=== PATIENT | male | born 1935 | race Caucasian/White ===

== ENCOUNTER 2018-06-21 13:37 | Inpatient (IN) ==
[2018-06-21] MEDS ORDERED: NITROGLYCERIN SL 0.4 MG/TAB TAB SL PRN (14:54)
[2018-06-21] MEDS ORDERED: ACETAMINOPHEN 325 MG TAB PO PRN (14:54)
[2018-06-21] MEDS ORDERED: PATIENT'S ALLERGY INFO NEEDS ENTERED SCH (15:15)
[2018-06-21] MEDS ORDERED: GLUCOSE 10 TABS/TUBE PO PRN (15:41)
[2018-06-21] MEDS ORDERED: CARBOHYDRATES FOR HYPOGLYCEMIA PO PRN (15:41)
[2018-06-21] MEDS ORDERED: GLUCOSE 40% GEL 15 GM TUBE PO PRN (15:41)
[2018-06-21] MEDS ORDERED: DEXTROSE 50% 50 ML SYRINGE IV PRN (15:41)
[2018-06-21] MEDS ORDERED: GLUCAGON FOR INJ 1 MG VIAL SQ PRN (15:41)
--- NOTE | 2018-06-21 15:41 | History & Physical Report ---
Date of Service June 21, 2018 Assessment & Plan (1) Angina pectoris: (2) CAD (coronary artery disease): Hx CAD s/p CABG Pt presented as direct admission from clinic. Had pharmacologic stress test today for recent symptoms of angina and during test had CP. It was relieved with 1 SL nitro. Also with reported large lateral myocardium ischemia noted on stress test. No further CP and currently CP free EKG: sinus rhythm, RBBB. Troponin:0.027 -Monitor Vitals -Repeat EKG in am -Will troponin -Cardiology consult -Cardiology recommends holding on heparin for now -NPO after midnight for probable cardiac cath tomorrow -Continue metoprolol, ASA, plavix. Pt reports intolerance to statin -Nitro prn CP and repeat EKG for CP (3) HTN (hypertension): -continue losartan, metoprolol -hold tomorrow's HCTZ -monitor BP (4) Diabetes mellitus, type II: A1c: 6.3 on 06/17/18 -Hold metformin while in hospital -monitor BSGs, diabetic diet -Novolog sliding scale per protocol (5) GERD (gastroesophageal reflux disease): -Continue H2 lopez DVT Prophylaxis -Heparin SQ DNR as per discussion with pt Follows with Dr Moore in [place] for routine care Pt was seen with Dr Bolaños. See addendum History of Present Illness Chief Complaint: Abnormal stress test Primary Care Provider: Ankit Morrison MD Pt is 83 y/o M with PMH CAD s/p CABG, DM II, HTN, GERD presented to hospital from out patient cardiac stress testing for abnormal stress test today. Pt was initially seen by Dr Patel in clinic for pre-op exam for cystoscopy on 06/17/18. Pt had reported angina over the past couple of months. He had pharmacologic stress test today and during test had CP. It was relieved with 1 SL nitro. Also with reported large lateral myocardium ischemia. Was directed to hospital for further observation and cardiac cath possibly tomorrow. Pt has been CP free since. Currently denies any complaints. Denies fever/chills, diaphoresis, N/V/D/C, SWIFT, dizziness, syncope, vision changes, neck pain, SOB, orthopnea, palpitations, cough, sore throat, choking, otalgia, rhinorrhea, abdominal pain, paresthesias, weakness, extremity weakness, extremity edema, rashes, urinary symptoms. 06/21/18 Echo- EF: 59%. The left ventricular cavity size is normal. The LV wall thickness is borderline increased (concentric). The left ventricular wall motion is normal. The left ventricular diastolic function is mildly abnormal (grade I). Mild aortic valve sclerosis is present. Aortic stenosis is absent. There is no significant aortic regurgitation. Allergies Allergy/AdvReac Type Severity Reaction Status Date / Time atorvastatin AdvReac Unknown Unknown Unverified 06/21/18 15:40 ezetimibe AdvReac Unknown Unknown Unverified 06/21/18 15:40 lisinopril AdvReac Unknown Cough Verified 06/21/18 15:40 Home Medications Home Medications Medication Instructions Recorded Confirmed Type acetaminophen 650 mg PO TID PRN 06/21/18 06/21/18 History aspirin 81 mg PO DAILY 06/21/18 06/21/18 History betamethasone, augmented 1 applic TOPICAL BID 06/21/18 06/21/18 History clopidogrel [Plavix] 75 mg PO DAILY 06/21/18 06/21/18 History cyanocobalamin (vitamin B-12) 1,000 mcg PO DAILY 06/21/18 06/21/18 History famotidine 20 mg PO BID 06/21/18 06/21/18 History hydrochlorothiazide 12.5 mg PO DAILY 06/21/18 06/21/18 History losartan 50 mg PO DAILY 06/21/18 06/21/18 History metformin 1,000 mg PO BID 06/21/18 06/21/18 History metoprolol tartrate 25 mg PO BID 06/21/18 06/21/18 History nitroglycerin 0.4 mg SUBLINGUAL UD PRN 06/21/18 06/21/18 History polysaccharide iron complex 150 mg PO DAILY 06/21/18 06/21/18 History tamsulosin 0.4 mg PO DAILY 06/21/18 06/21/18 History Past Med/Surg History Medical History Prostatitis (Resolved) GERD (gastroesophageal reflux disease) (Chronic) Diabetes mellitus, type II (Chronic) CAD (coronary artery disease) (Chronic) HTN (hypertension) (Chronic) Surgical History History of coronary artery bypass graft (Resolved) [address] [place] [address] Family History Other CAD (coronary artery disease) Diabetes Social History Communication Ability: Effective Beliefs That Will Affect Care: None Current Living Situation: Spouse Current Living Situation Comment: at home with Other Information That Helps Us Care for You: No Feels Safe at Home: Yes Safety Concerns: Feels Safe At This Time Smoking Status: Never smoker Hx Alcohol Use: No Hx Substance Use: No Review of Systems All systems reviewed & are unremarkable except as noted in HPI & below Physical Exam Vital Signs (Past 24 Hours): Last Vital Signs Temp 37.3 C 06/21/18 14:49 Pulse 104 H 06/21/18 14:49 Resp 18 06/21/18 14:49 BP 163/92 H 06/21/18 14:49 Pulse Ox 100 06/21/18 14:49 Physical Exam: General: no distress, WDWN Head: normocephalic, atraumatic Eyes: conjunctiva non-injected, anicteric ENT: normal inspection external ears, nose, mucous membranes moist Neck: supple, trachea midline Lungs: clear, no respiratory distress, no wheezing/rhonchi/rales CV: RRR, no murmur, no pretibial edema Abd: normal BS, soft, non-tender Ext: no cyanosis, no calf tenderness Neuro: A&O x 3, no focal deficits noted, normal affect Skin: warm, dry Results & Data Laboratory Results Short CBC 06/21/18 Range/Units 15:28 WBC 8.92 (4.8-10.8) K/uL Hgb 11.9 L (14.0-18.0) g/dL Hct 35.2 L (42-52) % Plt Count 261 (130-400) K/uL BMP 06/21/18 15:28 Sodium 133 L Potassium 3.8 Chloride 99 Carbon Dioxide 25 BUN 15 Creatinine 1.17 Glucose 105 H Calcium 9.8 Cardiac Enzymes 06/21/18 Range/Units 15:28 Troponin I 0.027 (0-0.045) ng/ml Liver Function 06/21/18 Range/Units 15:28 Total Bilirubin 0.8 (0.2-1) mg/dl AST 29 (15-37) U/L ALT 37 (12-78) U/L Alkaline Phosphatase 80 (45-117) U/L Albumin 4.4 (3.4-5.0) gm/dl Diagnostic Findings CXR: IMPRESSION: Cardiomegaly with no active disease in the chest. ECG Rate (beats per minute): 92 Rhythm: normal sinus Findings: + RBBB Supervising Physician Co-Signing Physician Notes I have seen and examined the patient and have discussed the case with the provider above. I agree with the assessment and plan as stated. Pt appears comfortable. He is mentating well and is asymptomatic. No respiratory distress. Clear lungs on exam. No evidence of heart failure. Normal cardiac exam. Await heart cath in am. Miky, DO
[2018-06-21 16:00] LABS: Hematocrit (blood only) 35.2 % (42-52); Hemoglobin 11.9 g/dL (14.0-18.0); Lymphocytes % (auto) 9.4 %; Mean Corpuscular Hgb Conc 33.8 g/dL (32-36); Mean Corpuscular Volume 87.3 fL (80-100); Mean Platelet Volume 9.6 fL (7.4-10.4); Neutrophils % (auto) 82.7 %; Platelet Count 261 K/uL (130-400); RDW Coefficient of Variation 13.9 % (11.5-14.5); RDW Standard Deviation 44.4 fL (36.4-46.3); Red Blood Count 4.03 M/uL (4.7-6.1); White Blood Count 8.92 K/uL (4.8-10.8)
[2018-06-21 16:01] LABS: Basophils # (auto) 0.02 K/uL (0-0.2); Basophils % (auto) 0.2 %; Eosinophils % (auto) 1.1 %; Immature Granulocytes # (auto) 0.02 K/uL (0.00-0.02); Immature Granulocytes % (auto) 0.2 %; Lymphocytes # (auto) 0.84 K/uL (1.2-3.4); Monocytes # (auto) 0.57 K/uL (0.11-0.59); Monocytes % (auto) 6.4 %; Neutrophils # (auto) 7.37 K/uL (1.4-6.5)
--- NOTE | 2018-06-21 16:04 | XRay Report ---
SINGLE VIEW CHEST CLINICAL HISTORY: Atypical chest pain. FINDINGS: 2 AP, portable, upright chest radiographs are obtained. No prior studies are available for comparison at the time of dictation. The examination is degraded by portable technique and patient ro tation. The patient is status post midline sternotomy. The heart is enlarged and there is atheroscler otic calcification of the thoracic aorta. The pulmonary vasculature is noncongested. No airspace cons olidation or large pleural effusion is identified. No pneumothorax is seen. The skeletal structures a re osteopenic. The bony thorax is grossly intact. IMPRESSION: Cardiomegaly with no active disease in the chest. Electronically signed by: Tomás Alberto M.D. 06/21/2018 4:03 PM
[2018-06-21 16:27] LABS: Partial Thromboplastin Ratio 0.9; Partial Thromboplastin Time 24.8 Seconds (21.0-31.0); Prothrombin Time 10.1 Seconds (9.0-12.0)
[2018-06-21] MEDS: ASPIRIN 81 MG ECTAB PO SCH (16:35)
[2018-06-21] MEDS: CLOPIDOGREL BISULFATE 75 MG TAB PO SCH (16:37)
[2018-06-21] MEDS: TAMSULOSIN HCL 0.4 MG CAP PO SCH (16:37)
[2018-06-21] MEDS: LOSARTAN POTASSIUM 50 MG TAB PO SCH (16:37)
[2018-06-21 16:38] LABS: Albumin Level 4.4 gm/dl (3.4-5.0); BUN Creatinine Ratio 12.9 (10-20); Calcium 9.8 mg/dl (8.5-10.1); Creatinine Clr Calc Pharmacy 43.9 ml/min; Est GFR (Non-African American) 56.9; Potassium 3.8 mmol/L (3.5-5.1)
[2018-06-21] MEDS: METOPROLOL TARTRATE 25 MG TAB PO SCH ×2 (16:38→20:27)
[2018-06-21 16:43] LABS: Albumin Globulin Ratio 1.2 (0.9-2); Bilirubin,Total 0.8 mg/dl (0.2-1); Globulin 3.7 gm/dl (2.5-4.0); Total Protein 8.1 gm/dl (6.4-8.2); Troponin I 0.027 ng/ml (0-0.045)
[2018-06-21] MEDS: INSULIN ASPART 100 UNITS/ML 3 ML PEN SC SCH ×2 (17:36→20:28)
[2018-06-21] MEDS: HEPARIN SOD 5,000 UNIT/0.5 ML VIAL SQ SCH (21:05)
[2018-06-21] MEDS: FAMOTIDINE 20 MG TAB PO SCH (22:14)
[2018-06-22] MEDS: INSULIN ASPART 100 UNITS/ML 3 ML PEN SC SCH ×4 (07:47→22:03)
[2018-06-22] MEDS: ASPIRIN 81 MG ECTAB PO SCH (07:58)
[2018-06-22] MEDS: HEPARIN SOD 5,000 UNIT/0.5 ML VIAL SQ SCH ×2 (07:58→22:02)
[2018-06-22] MEDS: METOPROLOL TARTRATE 25 MG TAB PO SCH ×2 (07:58→22:01)
[2018-06-22] MEDS: FAMOTIDINE 20 MG TAB PO SCH ×2 (07:58→22:02)
[2018-06-22] MEDS: LOSARTAN POTASSIUM 50 MG TAB PO SCH (07:58)
[2018-06-22] MEDS: TAMSULOSIN HCL 0.4 MG CAP PO SCH (07:58)
[2018-06-22] MEDS: CLOPIDOGREL BISULFATE 75 MG TAB PO SCH (08:11)
--- NOTE | 2018-06-22 09:07 | Cardiology Consultation ---
Date of Consultation June 22, 2018 Assessment & Plan (1) Angina pectoris: Lexiscan nuclear stress test suggesting lateral ischemia. Risk, benefits, alternatives to cardiac catheterization with coronary angiography as well as bypass graft angiography discussed at length. Patient agreeable to proceed. Currently n.p.o. (2) Abnormal nuclear stress test: (3) History of coronary artery bypass graft: Records obtained from [facility]. Coronary artery bypass grafting x5 performed on April 22, 2005 with BECKER to LAD, SVG to ramus, circumflex marginal, and distal right coronary artery, and RPDA without cardiopulmonary bypass. (4) Dyslipidemia, goal LDL below 70: H/o statin intolerance. Consider PCSK9 inhibitor initiation as outpatient. History of Present Illness Reason for Consultation: Angina abnormal nuclear stress test Requesting Physician: Dr. Boalños Attending Physician: Evie Bolaños, History of Present Illness 83-year-old patient sent from the cardiology clinic 06/21/18 after Lexiscan nuclear stress test performed demonstrating lateral ischemia. Patient experience significant anginal symptoms with Lexiscan injection. He was treated with sublingual nitroglycerin. Carries a history of prior coronary artery bypass grafting x5 on April 22, 2005. Patient received left internal mammary artery to left anterior descending artery, SVG to ramus, SVG to circumflex marginal, and, SVG to RPDA, and SVG to distal right coronary artery without cardiopulmonary bypass. No repeat stress testing or coronary angiography since that time. Patient feeling well since admission. No recurrent chest discomfort overnight. No dysrhythmias on telemetry. Chest x-ray within normal limits. Baseline lab studies stable. Nuclear stress test result 06/21/2018: Overall this pharmacologic nuclear stress test reveals a large area of severe ischemia of the lateral myocardium. These findings are most consistent with the distribution of the left circumflex artery. LV function is normal by gated analysis with an estimated left ventricular ejection fraction of 68%. Resting 2D transthoracic echocardiogram result 06/21/2018: The left ventricular cavity size is normal. The LV wall thickness is borderline increased (concentric). The left ventricular wall motion is normal. Calculated LV ejection Fraction = 59% (bi-plane method of discs). The left ventricular diastolic function is mildly abnormal (grade I). Mild aortic valve sclerosis is present. Aortic stenosis is absent. There is no significant aortic regurgitation. Allergies Allergy/AdvReac Type Severity Reaction Status Date / Time atorvastatin AdvReac Unknown Unknown Unverified 06/21/18 15:40 ezetimibe AdvReac Unknown Unknown Unverified 06/21/18 15:40 lisinopril AdvReac Unknown Cough Verified 06/21/18 15:40 Home Medications Home Medications Medication Instructions Recorded Confirmed Type acetaminophen 650 mg PO TID PRN 06/21/18 06/21/18 History aspirin 81 mg PO DAILY 06/21/18 06/21/18 History betamethasone, augmented 1 applic TOPICAL BID 06/21/18 06/21/18 History clopidogrel [Plavix] 75 mg PO DAILY 06/21/18 06/21/18 History cyanocobalamin (vitamin B-12) 1,000 mcg PO DAILY 06/21/18 06/21/18 History famotidine 20 mg PO BID 06/21/18 06/21/18 History hydrochlorothiazide 12.5 mg PO DAILY 06/21/18 06/21/18 History losartan 50 mg PO DAILY 06/21/18 06/21/18 History metformin 1,000 mg PO BID 06/21/18 06/21/18 History metoprolol tartrate 25 mg PO BID 06/21/18 06/21/18 History nitroglycerin 0.4 mg SUBLINGUAL UD PRN 06/21/18 06/21/18 History polysaccharide iron complex 150 mg PO DAILY 06/21/18 06/21/18 History tamsulosin 0.4 mg PO DAILY 06/21/18 06/21/18 History isosorbide mononitrate 30 mg PO QAM #30 tab 06/23/18 Rx nitroglycerin [Nitrostat] 0.4 mg SUBLINGUAL UD PRN #30 tab 06/23/18 Rx Patient History Medical History Prostatitis (Resolved) GERD (gastroesophageal reflux disease) (Chronic) Diabetes mellitus, type II (Chronic) CAD (coronary artery disease) (Chronic) HTN (hypertension) (Chronic) Surgical History History of coronary artery bypass graft (Resolved) [address] [place] [address] Family History Other CAD (coronary artery disease) Diabetes Social History Communication Ability: Effective Beliefs That Will Affect Care: None marital status: Current Living Situation: Spouse Current Living Situation Comment: at home with Other Information That Helps Us Care for You: No Feels Safe at Home: Yes Safety Concerns: Feels Safe At This Time Smoking Status: Never smoker Hx Alcohol Use: No Hx Substance Use: No Review of Systems Pertinent positives noted per HPI, conference of 10 system review otherwise negative. Physical Exam Vital Signs (Past 24 Hours): Last Vital Signs Temp 36.5 C 06/22/18 07:09 Pulse 65 06/22/18 07:09 Resp 18 06/22/18 07:09 BP 147/69 H 06/22/18 07:09 Pulse Ox 97 06/22/18 07:09 Physical Exam: General: NAD, AAO x3, well nourished. HEENT: Normocephalic. Atraumatic. Conjunctiva pink, no scleral icterus. Neck: Soft, 1/4 carotid bruit. The carotid upstrokes are brisk. No JVD. No HJR Heart: Regular normal S-1 and S-2 no S-3 or S-4 gallop. No murmurs or rub appreciated. PMI is not displaced. No RV heave. Lungs: Clear bilateral without rales , rhonchi, or wheeze. Abdomen: Normal bowel sounds. Soft. Nontender. No masses or organomegaly. No abdominal bruits. Extremities: No clubbing, cyanosis, or edema. Pulses: radial=2/4, posterior tibial=2/4. Neuro: Cranial nerves grossly intact. No focal motor deficit.
[2018-06-22] MEDS ORDERED: fentaNYL citrate 100 MCG/2 ML VIAL ONE (11:13)
[2018-06-22] MEDS ORDERED: MIDAZOLAM HCL 1 MG/ML 2ML VIAL ONE (11:13)
--- NOTE | 2018-06-22 11:18 | Pre Anesthesia Assessment ---
Date of Service June 22, 2018 Pre Sedation Assessment Vital Signs Temp Pulse Pulse Resp BP BP Pulse Ox 06/23/18 11:32 36.3 C L 65 18 121/71 96 06/23/18 11:19 06/23/18 06:56 36.6 C 71 18 132/61 99 06/23/18 04:08 36.8 C 73 18 104/68 99 06/23/18 01:43 69 06/22/18 22:45 36.8 C 93 H 18 124/78 97 06/22/18 21:43 133/76 06/22/18 20:43 122/69 06/22/18 19:52 36.2 C L 82 18 116/65 96 06/22/18 19:00 114/68 06/22/18 18:15 123/71 95 06/22/18 17:45 99/64 L 06/22/18 16:45 110/64 06/22/18 16:00 66 06/22/18 15:45 130/74 95 06/22/18 14:45 36.4 C L 67 18 167/79 H 95 06/22/18 14:42 64 194/93 H 06/22/18 14:12 65 18 186/93 H 100 06/22/18 13:57 61 18 180/85 H 97 06/22/18 13:50 65 06/22/18 13:42 36.5 C 63 18 148/77 H 100 Pulse Ox Pulse Ox 06/23/18 11:32 06/23/18 11:19 99 97 06/23/18 06:56 06/23/18 04:08 06/23/18 01:43 06/22/18 22:45 06/22/18 21:43 06/22/18 20:43 06/22/18 19:52 06/22/18 19:00 06/22/18 18:15 06/22/18 17:45 06/22/18 16:45 06/22/18 16:00 06/22/18 15:45 06/22/18 14:45 06/22/18 14:42 06/22/18 14:12 06/22/18 13:57 06/22/18 13:50 06/22/18 13:42 Cardiovascular + regular rate and + regular rhythm + S1 normal and + S2 normal Respiratory normal respiratory effort, lungs clear to auscultation Pre-Sedation Airway Assessment Smoking Status: Never smoker Procedure Planning Contraindications for Sedation: none Current Medications Reviewed: Yes Notes The planned sedation has been discussed with the patient. Informed Consent was obtained. I have identified the patient, determined the appropriateness of sedation and have assessed the patient immediately prior to the procedure. All medicine(s) and interventions are by my order.
--- NOTE | 2018-06-22 12:03 | Hospitalist Progress Note ---
Date of Service June 22, 2018 Assessment & Plan (1) CAD (coronary artery disease): Hx CAD s/p CABG abnormal nuc stress test on 06/21 in the Cardiology clinc. cardiac cath today revealing occluded grafts-groin site is covered and healing well. Some lightheadedness with sitting up in bed, and wasn't feeling well enough to continue with dinner 2/2 lightheadedness. Giving 500cc NSS now. BP 120 systolic but symptomatic when changing position Per nursing also had an issue with feeling orthostatic when getting out of bed earlier. Will monitor for now and orthostatics qshift. Currently in bed and on a bed alarm. Patient with chest pain on exertion. Defer to Cardiology for medication adjustments-currently started Imdur 30mg PO qAM Cont ASA, Plavix, Cozaar 50 daily, Lopressor 50 BID Nitro PRN (2) HTN (hypertension): -continue losartan, metoprolol -cont holding HCTZ while lightheaded (3) Diabetes mellitus, type II: A1c: 6.3 on 06/17/18 -Hold metformin while in hospital -monitor BSGs, diabetic diet -Novolog sliding scale per protocol -if he continues to not require Novolog would stop fingersticks and novolog sliding scale. (4) GERD (gastroesophageal reflux disease): -Continue H2 lopez (5) DVT prophylaxis: Heparin DNR Follows with Dr Moore in [place] for routine care Dispo-pending post-cath recommendations from Cardiology. PT/OT ordered in setting of lightheadedness. Evie Bolaños DO [facility] Hospitalist Subjective felt lightheaded this afternoon post-cath wasn't able to finish his dinner per his report denies pain or chest pain some lightheadness with standing and walking to bathroom no vomiting BP is stable denies back pain in setting of arterial stick today. Physical Exam Vital Signs (Past 24 Hours): Last Vital Signs Temp 36.5 C 06/22/18 07:09 Pulse 70 06/22/18 08:00 Resp 18 06/22/18 07:09 BP 147/69 H 06/22/18 07:09 Pulse Ox 97 06/22/18 07:09 CONSTITUTIONAL: WNWD, vitals as above, generally well-appearing when lying supine. EYES: normal conjuctivae, no scleral icterus RESPIRATORY: clear to auscultation bilaterally, no crackles, rales or wheezes, normal respiratory effort CARDIOVASCULAR: regular rate and rhythm, S1 and 2 heard without murmurs, gallops or rubs, no JVD, no peripheral edema GASTROINTESTINAL: normal bowel sounds, soft, nontender, nondistended, no CVA or lower back tenderness. EXTREMITIES: R upper thigh area visualized, covered with guaze that is c/d/i, no swelling, palpable femoral pulses, no ecchymosis. MUSCULOSKELETAL: strength 5/5 throughout, head is normocephalic and atraumatic, SKIN: warm and dry NEUROLOGIC: No facial palsy, no dysarthria. CN 2-12 grossly intact, no sensory deficit, normal cognition, normal speech PSYCHIATRIC: alert cooperative and oriented to person, place and time. Results & Data Laboratory Results Short CBC 06/21/18 Range/Units 15:28 WBC 8.92 (4.8-10.8) K/uL Hgb 11.9 L (14.0-18.0) g/dL Hct 35.2 L (42-52) % Plt Count 261 (130-400) K/uL BMP 06/21/18 15:28 Sodium 133 L Potassium 3.8 Chloride 99 Carbon Dioxide 25 BUN 15 Creatinine 1.17 Glucose 105 H Calcium 9.8 Cardiac Enzymes 06/21/18 Range/Units 15:28 Troponin I 0.027 (0-0.045) ng/ml Liver Function 06/21/18 Range/Units 15:28 Total Bilirubin 0.8 (0.2-1) mg/dl AST 29 (15-37) U/L ALT 37 (12-78) U/L Alkaline Phosphatase 80 (45-117) U/L Albumin 4.4 (3.4-5.0) gm/dl Medications Administered Current Inpatient Medications Acetaminophen (Tylenol) 650 mg PO Q4H PRN PRN Reason: Pain or Fever Stop: 07/21/18 14:53 Aspirin (Ecotrin Ectab) 81 mg PO DAILY [facility] Stop: 07/21/18 15:44 Last Admin: 06/22/18 07:58 Dose: 81 mg Documented by: Clopidogrel Bisulfate (Plavix) 75 mg PO DAILY [facility] Stop: 07/21/18 15:44 Last Admin: 06/22/18 08:11 Dose: 75 mg Documented by: Dextrose (Dextrose 50%) 25 - 50 ml IV UD PRN; Protocol PRN Reason: Hypoglycemia Protocol Stop: 07/21/18 15:40 Famotidine (Pepcid) 20 mg PO BID [facility] Stop: 07/21/18 20:59 Last Admin: 06/22/18 07:58 Dose: 20 mg Documented by: Glucagon (Glucagen) 1 mg SQ UD PRN; Protocol PRN Reason: Hypoglycemia Protocol Stop: 07/21/18 15:40 Glucose (Glucose 40%) 15 - 30 gm PO UD PRN; Protocol PRN Reason: Hypoglycemia Protocol Stop: 07/21/18 15:40 Glucose (Dex4 Glucose) 4 - 8 tabs PO UD PRN; Protocol PRN Reason: Hypoglycemia Protocol Stop: 07/21/18 15:40 Heparin Sodium (Porcine) (Heparin Sodium (Porcine)) 5,000 units SQ Q12 [facility] Stop: 07/21/18 20:59 Last Admin: 06/22/18 07:58 Dose: Not Given Documented by: Insulin Aspart (Novolog Flexpen) 0 units SC ACHS [facility] Stop: 07/21/18 16:29 Last Admin: 06/22/18 07:47 Dose: Not Given Documented by: Losartan Potassium (Cozaar) 50 mg PO DAILY [facility] Stop: 07/21/18 15:44 Last Admin: 06/22/18 07:58 Dose: 50 mg Documented by: Metoprolol Tartrate (Lopressor) 25 mg PO BID [facility] Stop: 07/21/18 15:39 Last Admin: 06/22/18 07:58 Dose: 25 mg Documented by: Miscellaneous (Carbohydrates For Hypoglycemia) 15 - 30 gm PO UD PRN PRN Reason: Hypoglycemia Treatment Stop: 07/21/18 15:40 Nitroglycerin (Nitrostat) 0.4 mg SL UD PRN PRN Reason: Chest Pain Stop: 07/21/18 14:53 Tamsulosin HCl (Flomax) 0.4 mg PO DAILY [facility] Stop: 07/21/18 15:44 Last Admin: 06/22/18 07:58 Dose: 0.4 mg Documented by:
--- NOTE | 2018-06-22 13:05 | Post Anesthesia Assessment ---
Date of Service June 22, 2018 Post Sedation Assessment Vital Signs Temp Pulse Pulse Resp BP BP Pulse Ox 06/23/18 11:32 36.3 C L 65 18 121/71 96 06/23/18 11:19 06/23/18 06:56 36.6 C 71 18 132/61 99 06/23/18 04:08 36.8 C 73 18 104/68 99 06/23/18 01:43 69 06/22/18 22:45 36.8 C 93 H 18 124/78 97 06/22/18 21:43 133/76 06/22/18 20:43 122/69 06/22/18 19:52 36.2 C L 82 18 116/65 96 06/22/18 19:00 114/68 06/22/18 18:15 123/71 95 06/22/18 17:45 99/64 L 06/22/18 16:45 110/64 06/22/18 16:00 66 06/22/18 15:45 130/74 95 06/22/18 14:45 36.4 C L 67 18 167/79 H 95 06/22/18 14:42 64 194/93 H 06/22/18 14:12 65 18 186/93 H 100 06/22/18 13:57 61 18 180/85 H 97 06/22/18 13:50 65 06/22/18 13:42 36.5 C 63 18 148/77 H 100 Pulse Ox Pulse Ox 06/23/18 11:32 06/23/18 11:19 99 97 06/23/18 06:56 06/23/18 04:08 06/23/18 01:43 06/22/18 22:45 06/22/18 21:43 06/22/18 20:43 06/22/18 19:52 06/22/18 19:00 06/22/18 18:15 06/22/18 17:45 06/22/18 16:45 06/22/18 16:00 06/22/18 15:45 06/22/18 14:45 06/22/18 14:42 06/22/18 14:12 06/22/18 13:57 06/22/18 13:50 06/22/18 13:42 Post Sedation Plan On clinical assessment, the patient appears to have tolerated the sedation without complications. Patient is recovering as anticipated. Patient will continue to be monitored by nursing and may be discharged when sedation discharge criteria are met per below protocol. Upon Completions of procedure and additional 15 minutes continue every 5 minute vital signs and the P.A.R. score; then discharge to a Phase I or Fast Track to Phase II per the following guidelines: * Discharge Patient to appropriate Phase II area if PAR is 8 or greater or return to pre- procedure baseline. The post - procedure orders will be as directed. * If PAR score is less than 8 or not return to pre-procedure baseline then patient will follow Phase I monitoring till PAR is reached for Phase II. The Phase I may be done in procedure room or may call to secure a Phase I area. * If naloxone or flumazenil are used for reversal, hold in Phase I for continued monitoring from when last reversal dose was given for a minimum of 60 minutes or longer pending the nurse and/or physician discretion of patient condition before discharge to Phase II. Please call the Sedation Physician to re-evaluate and complete post-note for discharge to Phase II area. Do NOT discharge from procedure sedation or Phase 1 until post- sedation evaluation note is complete by procedure /sedation MD Sedation Discharge Instructions to be given to the patient at discharge to home.
--- NOTE | 2018-06-22 13:06 | Cardiac Catheterization ---
Cardiac Cath Procedure Full Procedure Date June 22, 2018 Pre-Procedure Diagnosis Pre-Procedure Diagnosis: Positive Stress Test and CAD AUC Score AUC Score: 8 Post-Procedure Diagnosis Post-Procedure Diagnosis: Severe CAD Procedure(s) Performed Procedure(s) Performed: Coronary Angiography, Left Heart Cath, Bypass Graft Angiography and Femoral Artery Angiography Rope [employer] Machine Operator Prieto Robertson DO Surgeon/President(s) Soha DIRECTOR OF STRATEGIC COMMUNICATIONS Estimated Blood Loss Estimated Blood Loss: 8cc Medication(s) Medication(s): Lidocaine 1% and Versed Summary of Findings Severe [place]og[place] vessel CAD LAD occluded Severe diffuse left circumflex disease including heavily calcified 90% ostial stenosis Occluded mid RCA 3/5 bypass grafts occluded including SVG to distal RCA, SVG to OM, and SVG to ramus Patent BECKER to LAD Patent SVG to RPDA Hemodynamics Rest Ao:: 163/63/99 Final Ao: 179/70/114 LV: 168//12 Recommendations Recommendations: Medical Therapy and/or Counseling Specimens Specimens: None Radiation Exposure (mGy) 1791 Contrast (mls) 150 Anesthesia light sedation, Start 1148, End 1248. Sedation monitor: Tanja MAI Procedural Complication(s) None Disposition PCU ACC Data: Scalder Cardiac Status Clinical evaluation leading to the procedure CAD Presenation: Positive Stress Test and Stable angina Anginal Classification: CCS II Heart Failure: No Stress Testing w/SPECT MPI: Yes - Positive and Risk/Extent of Ischemia (High) Coronary Anatomy Dominant: Right Left Main (% Stenosis): Distal (80%) LAD (% Stenosis): Ostial (100%) Circumflex (% Stenosis): Ostial (90%) and Proximal (80% in area of severe focal calcification. Otherwise, 50% diffuse severely calcified) OM1 (% Stenosis): Mid (Moderate diffuse disease 40% fills via right to left collaterals) RCA (% Stenosis): Ostial (60%) R PDA (% Stenosis): Proximal (50-60% diffuse) R PL1 (% Stenosis): Mid (30-40% diffuse) AM (% Stenosis): Mid (90%) Ramus (% Stenosis): Ostial (99%) Grafts - LAD (%): Proximal (30% proximal BECKER) Grafts - Circumflex (%): Proximal (100%) Grafts - RCA (%): Ostial (SVG to distal RCA 100% proximal occlusion.) and Proximal (40% stenosis of SVG to RPDA, otherwise graft is patent ) Grafts - Ramus (%): Proximal (100%) Diagnostic Physicians Name: Prieto Robertson DO Status: Urgent Closure Device Percutaneous Entry Location: Femoral Closure Device: Mynx (failed) and None-Manual Hold Recommendations: Medical Therapy and/or Counseling Intraprocedure Events Significant Disection: No Perforation: No
[2018-06-22] MEDS: ISOSORBIDE MONO EXTENDED REL 30 MG TABCR PO SCH (15:03)
[2018-06-22] MEDS ORDERED: SODIUM CHLORIDE 0.9% 500 ML IV SCH (18:45)
[2018-06-23 07:29] LABS: Hematocrit (blood only) 31.5 % (42-52); Hemoglobin 10.5 g/dL (14.0-18.0); Mean Corpuscular Hgb Conc 33.3 g/dL (32-36); Mean Platelet Volume 9.3 fL (7.4-10.4); Platelet Count 222 K/uL (130-400); RDW Coefficient of Variation 13.9 % (11.5-14.5); RDW Standard Deviation 44.8 fL (36.4-46.3); Red Blood Count 3.58 M/uL (4.7-6.1); White Blood Count 7.81 K/uL (4.8-10.8)
[2018-06-23] MEDS: FAMOTIDINE 20 MG TAB PO SCH (07:46)
[2018-06-23] MEDS: ISOSORBIDE MONO EXTENDED REL 30 MG TABCR PO SCH (07:46)
[2018-06-23] MEDS: LOSARTAN POTASSIUM 50 MG TAB PO SCH (07:46)
[2018-06-23] MEDS: ASPIRIN 81 MG ECTAB PO SCH (07:46)
[2018-06-23] MEDS: CLOPIDOGREL BISULFATE 75 MG TAB PO SCH (07:46)
[2018-06-23] MEDS: TAMSULOSIN HCL 0.4 MG CAP PO SCH (07:46)
[2018-06-23] MEDS: METOPROLOL TARTRATE 25 MG TAB PO SCH (07:47)
[2018-06-23] MEDS: INSULIN ASPART 100 UNITS/ML 3 ML PEN SC SCH ×2 (07:47→12:00)
[2018-06-23] MEDS: HEPARIN SOD 5,000 UNIT/0.5 ML VIAL SQ SCH (07:49)
[2018-06-23 08:04] LABS: BUN Creatinine Ratio 14.9 (10-20); Creatinine Clr Calc Pharmacy 34.7 ml/min; Est GFR (African American) 49.6; Est GFR (Non-African American) 42.8; Potassium 4.1 mmol/L (3.5-5.1)
[2018-06-23 11:33] VITALS: BP 121/71; PULSE 65; TEMP 97.3; O2SAT 96
--- NOTE | 2018-06-23 12:00 | Hospitalist Progress Note ---
Date of Service June 23, 2018 Assessment & Plan (1) CAD (coronary artery disease): Hx CAD s/p CABG abnormal nuc stress test on 06/21 in the Cardiology clinc. cardiac cath revealed occluded grafts-groin site is covered and healing well. Some lightheadedness has resolved Got 500cc NSS. Defer to Cardiology for medication adjustments-currently started Imdur 30mg PO qAM Cont ASA, Plavix, Cozaar 50 daily, Lopressor 50 BID Nitro PRN (2) HTN (hypertension): -continue losartan, metoprolol -cont holding HCTZ while lightheaded (3) Diabetes mellitus, type II: A1c: 6.3 on 06/17/18 -Hold metformin resume on discharge -monitor BSGs, diabetic diet -Novolog sliding scale per protocol -if he continues to not require Novolog would stop fingersticks and novolog sliding scale. (4) GERD (gastroesophageal reflux disease): -Continue H2 lopez (5) DVT prophylaxis: Heparin DNR Follows with Dr Moore in [place] for routine care Dispo-Likely DC today. PT-OK for DC Home/OT ordered in setting of lightheadedness. Subjective Feeling well today. Ready for DC ROS-No Headache, No Visual Changes, No Nausea, No Vomiting, No Fever, No Chills, No Neck Pain or Stiffness, No Chest Pain, No Palpitations, No SOB, No LOCKETT, No Cough, No Sputum, No Wheezing, No Abdominal Pain, No Diarrhea, No Hematemesis, No Hemoptysis, No Unexpected Weight Loss, No Flank pain, No Melena, No Hematochezia, No Frequency, No Urgency, No Burning, No Hematuria, No Rashes, No Diaphoresis. Appetite is Normal Physical Exam Gen-AAO x 3, NAD, Afebrile Head-NCAT, EOMI, PERRLA, Anicteric Sclera, No Posterior Pharyngeal Erythema Neck-Supple, No JVD, No Thyromegaly, No Masses, No LAD, No Bruits Lungs-Clear to Auscultation Bilaterally, No Rales, No Rhonchi, No Wheezing, No Crepitus Chest-No S4, +S1, +S2, No S3, No Murmurs, No Rubs, No Gallops, No Ectopy Abdomen-Soft, Bowel Sounds Present, Non Tender, Non Distended, No Hepatomegaly, No Splenomegaly, No Palpable Masses, No Rebound, No Rigidity, No Guarding Musculoskeletal-Full Range of Motion Bilaterally, No CVAT Extremities-No Cyanosis, No Clubbing, No Edema, Groin check OK, no Bruit, Thrill, Ecchymosis Nuero-Cranial Nerves II-XII grossly intact, Motor WNL, DTRs WNL, Strength WNL, Non Focal Psych-Normal Mood Physical Exam Vital Signs (Past 24 Hours): Last Vital Signs Temp 36.3 C L 06/23/18 11:32 Pulse 65 06/23/18 11:32 Resp 18 06/23/18 11:32 BP 121/71 06/23/18 11:32 Pulse Ox 96 06/23/18 11:32 Results & Data Laboratory Results Current Diagnoses Type 2 diabetes mellitus without complications (06/21/18) Essential (primary) hypertension (06/21/18) Angina pectoris, unspecified (06/21/18) Atherosclerotic heart disease of [place] coronary artery without angina pectoris (06/21/18) Gastro-esophageal reflux disease without esophagitis (06/21/18) Allergies atorvastatin Adverse Reaction (Unknown, Unverified 06/21/18 15:40) Unknown ezetimibe Adverse Reaction (Unknown, Unverified 06/21/18 15:40) Unknown lisinopril Adverse Reaction (Unknown, Verified 06/21/18 15:40) Cough Height/Weight/Isolation Height 5 ft 7 in Weight 73 kg Chemistry 06/21/18 06/23/18 15:28 07:06 Sodium 133 L 135 L Potassium 3.8 4.1 Chloride 99 102 Carbon Dioxide 25 25 Anion Gap 10.0 8.0 BUN 15 22 H Creatinine 1.17 1.48 H D Glucose 105 H 114 H
--- NOTE | 2018-06-23 12:56 | Discharge Summary ---
Date of Service June 23, 2018 Admission HPI Per Admitting Provider Pt is 83 y/o M with PMH CAD s/p CABG, DM II, HTN, GERD presented to hospital from out patient cardiac stress testing for abnormal stress test today. Pt was initially seen by Dr Patel in clinic for pre-op exam for cystoscopy on 06/17/18. Pt had reported angina over the past couple of months. He had pharmacologic stress test today and during test had CP. It was relieved with 1 SL nitro. Also with reported large lateral myocardium ischemia. Was directed to hospital for further observation and cardiac cath possibly tomorrow. Pt has been CP free since. Currently denies any complaints. Denies fever/chills, diaphoresis, N/V/D/C, SWIFT, dizziness, syncope, vision changes, neck pain, SOB, orthopnea, palpitations, cough, sore throat, choking, otalgia, rhinorrhea, abdominal pain, paresthesias, weakness, extremity weakness, extremity edema, rashes, urinary symptoms. 06/21/18 Echo- EF: 59%. The left ventricular cavity size is normal. The LV wall thickness is borderline increased (concentric). The left ventricular wall motion is normal. The left ventricular diastolic function is mildly abnormal (grade I). Mild aortic valve sclerosis is present. Aortic stenosis is absent. There is no significant aortic regurgitation. Admission Exam Per Admitting Provider General: no distress, WDWN Head: normocephalic, atraumatic Eyes: conjunctiva non-injected, anicteric ENT: normal inspection external ears, nose, mucous membranes moist Neck: supple, trachea midline Lungs: clear, no respiratory distress, no wheezing/rhonchi/rales CV: RRR, no murmur, no pretibial edema Abd: normal BS, soft, non-tender Ext: no cyanosis, no calf tenderness Neuro: A&O x 3, no focal deficits noted, normal affect Skin: warm, dry Principal Diagnosis CAD s/p Cath 3/5 graft are occluded, Maximize medical therapy DM II HTN HLD GERD Discharge Exam ROS-No Headache, No Visual Changes, No Nausea, No Vomiting, No Fever, No Chills, No Neck Pain or Stiffness, No Chest Pain, No Palpitations, No SOB, No LOCKETT, No Cough, No Sputum, No Wheezing, No Abdominal Pain, No Diarrhea, No Hematemesis, No Hemoptysis, No Unexpected Weight Loss, No Flank pain, No Melena, No Hematochezia, No Frequency, No Urgency, No Burning, No Hematuria, No Rashes, No Diaphoresis. Appetite is Normal Physical Exam Gen-AAO x 3, NAD, Afebrile Head-NCAT, EOMI, PERRLA, Anicteric Sclera, No Posterior Pharyngeal Erythema Neck-Supple, No JVD, No Thyromegaly, No Masses, No LAD, No Bruits Lungs-Clear to Auscultation Bilaterally, No Rales, No Rhonchi, No Wheezing, No Crepitus Chest-No S4, +S1, +S2, No S3, No Murmurs, No Rubs, No Gallops, No Ectopy Abdomen-Soft, Bowel Sounds Present, Non Tender, Non Distended, No Hepatomegaly, No Splenomegaly, No Palpable Masses, No Rebound, No Rigidity, No Guarding Musculoskeletal-Full Range of Motion Bilaterally, No CVAT Extremities-No Cyanosis, No Clubbing, No Edema Nuero-Cranial Nerves II-XII grossly intact, Motor WNL, DTRs WNL, Strength WNL, Non Focal Psych-Normal Mood Discharge Data Allergies Allergy/AdvReac Type Severity Reaction Status Date / Time atorvastatin AdvReac Unknown Unknown Unverified 06/21/18 15:40 ezetimibe AdvReac Unknown Unknown Unverified 06/21/18 15:40 lisinopril AdvReac Unknown Cough Verified 06/21/18 15:40 Consultations 06/21/18 14:54 Consult Cardiology Routine 06/21/18 14:56 Consult Case Management - Discharge Planning Routine 06/22/18 09:24 Consult Cardiac Catheterization Routine Procedures Performed Operation Date: 06/22/18 10:30 Actual Procedures p Cath, Left w/Cors Vent Grafts - Prieto Robertson DO s Cineradiography w/Routine Exam - Prieto Robertson DO Current Diagnoses Type 2 diabetes mellitus without complications (06/21/18) Essential (primary) hypertension (06/21/18) Angina pectoris, unspecified (06/21/18) Atherosclerotic heart disease of [place] coronary artery without angina pectoris (06/21/18) Gastro-esophageal reflux disease without esophagitis (06/21/18) Allergies atorvastatin Adverse Reaction (Unknown, Unverified 06/21/18 15:40) Unknown ezetimibe Adverse Reaction (Unknown, Unverified 06/21/18 15:40) Unknown lisinopril Adverse Reaction (Unknown, Verified 06/21/18 15:40) Cough Height/Weight/Isolation Height 5 ft 7 in Weight 73 kg Chemistry 06/21/18 06/23/18 15:28 07:06 Sodium 133 L 135 L Potassium 3.8 4.1 Chloride 99 102 Carbon Dioxide 25 25 Anion Gap 10.0 8.0 BUN 15 22 H Creatinine 1.17 1.48 H D Glucose 105 H 114 H Ordered Studies 06/22/18 11:20 CL Cath Imgs for PACS use only Routine Hospital Course (1) CAD (coronary artery disease): Hx CAD s/p CABG abnormal nuc stress test on 06/21 in the Cardiology clinc. cardiac cath revealed 3/5 occluded grafts-groin site is covered and healing well. Some lightheadedness has resolved Defer to Cardiology for medication adjustments-currently started Imdur 30mg PO qAM Cont ASA, Plavix, Cozaar 50 daily, Lopressor 25 BID Nitro PRN (2) HTN (hypertension): -continue losartan, metoprolol -Stop HCTZ (3) Diabetes mellitus, type II: A1c: 6.3 on 06/17/18 -Metformin resume on discharge -Healthy Heart DM Diet (4) GERD (gastroesophageal reflux disease): -Continue H2 lopez (5) DVT prophylaxis: Heparin DNR Follows with Dr Moore in [place] for routine care Dispo-Likely DC today. PT-OK for DC Home, cleared by Cards for DC Total Time Total Time Spent Total Time Spent (In Minutes): 45 mins Discharge Plan Discharge Items Patient Disposition: Home - Self-Care Reason For Visit: ABNORMAL STRESS TEST Discharge Diagnosis: CAD s/p Cath 3/5 graft are occluded, Maximize medical therapy DM II HTN HLD GERD Condition: Good Discharge Goals: Improve function Activity: As commented below Activity Comment: Follow Post Cath instructions Lifting: No more than 5 pounds Bathing: May shower/bathe in 3 days Sexual Activity: When tolerated Exercise/Sports: None Driving/Machine Use: Resume 3 days after discharge Weightbearing: Left weightbearing and Right weightbearing Non-emergency contact: Primary Care Provider and Civil Cad Tech Call non-emergency contact if: you have any medication questions Follow-up/Referrals: Ankit Morrison MD [Primary Care Provider] - (PT said he would call for an appointment) Prieto Robertson DO [Civil Cad Tech] - (PT said he would follow up as directed by Cardiology) Diet: Carb Consistent or DM2 and Heart Healthy Addtl Provider Instructions: Follow Up With cardiology and PCP Prescriptions: New isosorbide mononitrate 30 mg Tablet Extended Release 24 Hr 30 mg PO QAM Qty: 30 RF: 0 nitroglycerin [Nitrostat] 0.4 mg Tablet, Sublingual 0.4 mg Sublingual UD PRN (Reason: chest pain) Qty: 30 RF: 0 Continued losartan 50 mg Tablet 50 mg PO DAILY RF: 0 polysaccharide iron complex 150 mg iron Capsule 150 mg PO DAILY RF: 0 cyanocobalamin (vitamin B-12) 1,000 mcg Tablet 1,000 mcg PO DAILY RF: 0 clopidogrel [Plavix] 75 mg Tablet 75 mg PO DAILY RF: 0 aspirin 81 mg Tablet,Delayed Release (Dr/Ec) 81 mg PO DAILY RF: 0 acetaminophen 650 mg Tablet Extended Release 650 mg PO TID PRN (Reason: Pain) RF: 0 famotidine 20 mg Tablet 20 mg PO BID RF: 0 tamsulosin 0.4 mg Capsule 0.4 mg PO DAILY RF: 0 metformin 1,000 mg Tablet 1,000 mg PO BID RF: 0 metoprolol tartrate 50 mg Tablet 25 mg PO BID RF: 0 nitroglycerin 0.4 mg Tablet, Sublingual 0.4 mg Sublingual UD PRN (Reason: Chest Pain) RF: 0 betamethasone, augmented 0.05 % ointment 1 applic topical BID RF: 0 Discontinued hydrochlorothiazide 25 mg Tablet 12.5 mg PO DAILY RF: 0 Stand-Alone Forms: [facility] Discharge Orders: Discharge Order (Routine); Ordered 06/23/18 Ordered By: Alvarado Jaime Admission Data Admit Date/Time: 06/21/18 14:01 Attending Provider: Alvarado Jaime Admit Provider: Evie Bolaños Primary Care Provider: Ankit Morrison Other Providers: Prieto Robertson Service: Telemetry
--- NOTE | 2018-06-23 13:26 | Cardiology Progress Note ---
Date of Service June 23, 2018 Assessment & Plan (1) Angina pectoris: Lexiscan nuclear stress test suggesting lateral ischemia. Cardiac catheterization demonstrating occlusion of both saphenous vein grafts to the left circumflex and ramus intermedius. 1 of 2 saphenous vein grafts patent to t he right coronary artery. Patent BECKER to LAD. Severe [place] vessel disease. Medical management recommended. Low-dose isosorbide monohydrate added yesterday. Patient feeling well from a cardiovascular standpoint today. Repeat lab testing demonstrates elevated creatinine. Repeat basic metabolic panel in 1 week. Avoid NSAIDs. Encouraged oral hydration. Outpatient cardiology follow- up in 1-2 weeks. (2) Abnormal nuclear stress test: (3) History of coronary artery bypass graft: Records obtained from [facility]. Coronary artery bypass grafting performed on April 22, 2005 with BECKER to LAD, SVG to ramus, circumflex marginal, and distal right coronary artery without cardiopulmonary bypass. (4) Dyslipidemia, goal LDL below 70: H/o statin intolerance. Consider PCSK9 inhibitor initiation as outpatient. (5) Acute renal insufficiency: Subjective Patient seen and examined the bedside. Denies groin discomfort. No ecchymosis or hematoma. No recurrent chest discomfort. Ambulating in the halls. Repeat basic metabolic panel demonstrates elevated creatinine. Patient is currently not receiving diuretic therapy. No orthopnea, PND, or lower extremity edema. Requesting discharge if possible. Tolerated first dose of isosorbide monohydrate yesterday. Review of Systems All systems reviewed & are unremarkable except as noted in HPI & below Physical Exam Vital Signs (Past 24 Hours): Last Vital Signs Temp 36.3 C L 06/23/18 11:32 Pulse 65 06/23/18 11:32 Resp 18 06/23/18 11:32 BP 121/71 06/23/18 11:32 Pulse Ox 96 06/23/18 11:32 Physical Exam: General: NAD, AAO x3, well nourished. HEENT: Normocephalic. Atraumatic. Conjunctiva pink, no scleral icterus. Neck: Soft, 1/4 carotid bruit. The carotid upstrokes are brisk. No JVD. No HJR Heart: Regular normal S-1 and S- 2 no S-3 or S-4 gallop. 2/6 systolic ejection murmur heard best at the right second intercostal space. PMI is not displaced. No RV heave. Lungs: Clear bilateral without rales , rhonchi, or wheeze. Abdomen: Normal bowel sounds. Soft. Nontender. No masses or organomegaly. No abdominal bruits. Extremities: No clubbing, cyanosis, or edema. No right groin ecchymosis or hematoma. Pulses: radial=2/4, posterior tibial=2/4. Neuro: Cranial nerves grossly intact. No focal motor deficit.
== END 2018-06-23 14:07 | disposition home or self-care (01) | DRG 287 ==
LOC: ED 13:37 → SUATTDRO 14:01 → 2S 14:01

== ENCOUNTER 2020-03-12 19:29 | Inpatient (IN) ==
--- OUTSIDE RECORDS SUMMARY | 2020-03-12 19:32 | External Medical Summary | Continuity of Care Document ---
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 Refills: 0 Nitroglycerin 0.4 MG/SPRAY Translingual Solution , M.D. Refills: 0 Metoprolol Succinate ER 50 MG Oral Tablet Extended Release 2 4 Hour , M.D. Refills: 0 metFORMIN HCl - 1000 MG Oral Tablet , M.D. Refills: 0 Lisinopril 10 MG Oral Tablet , M.D. Refills: 0 Vitamin B12 TABS , M.D. Refills: 0 Cyanocobalamin 1000 MCG/ML Injection Solution , M.D. Refills: 0 Clopidogrel Bisulfate 75 MG Oral Tablet , M.D. Refills: 0 Betamethasone Dipropionate LOTN , M.D. Refills: 0 Aspirin 81 MG TABS , M.D. Refills: 0 Acetaminophen 500 MG CAPS , M.D. Refills: 0 Ciprofloxacin HCl - 500 MG Oral Tablet; TAKE 1 TABLET Every twelve hours Ofelia Avilez Start: 17-Mar-2018 Quantity: 28 Refills: 0 Procedures History of heart surgery Status: Complet ed Immunizations Immunizations not documented Family History Sister Family history of diabetes mellitus (V18.0) (Z83.3) Status: Active Family history of cardiac disorder (V17.49) (Z82.49) Status: Active Mother Family history of cardiac disorder (V17.49) (Z82.49) Status: Active Father Family history of cardiac disorder (V17.49) (Z82.49) Status: Active Brother Family history of cardiac disorder (V17.49) (Z82.49) Status: Active Social History - Smoking Status Never smoked tobacco Plan of Treatment Planned Observations Planned Goals not documented Results No Known Results Results not documented Encounters Appointment; Howie Avilez M.D. 17-Mar-2018 9:00 Encounter Diagnosis: Problem not documented
[2020-03-12] MEDS ORDERED: PIPERACILLIN/TAZOBACTAM 4.5 GM/120 ML BAG IV ONE (19:37)
[2020-03-12] MEDS ORDERED: PIPERACILL/TAZOBAC CONSULT ACTIVE PRN (19:37)
--- NOTE | 2020-03-12 19:43 | Emergency Department Note ---
Impression & Plan Non-ST elevation [place] (NSTEMI), Chest pain, CAD (coronary artery disease) of artery bypass graft ED Provider Note NAME: ANAI DANIEL AGE: 84 SEX: M : 1935 ARRIVES VIA: Ambulance INFORMANT: Patient, ED PROVIDER(S): Richar Bullock MD Chief Complaint: Chest pain HPI: Patient does present with chest pain that has been ongoing all day today. Patient is unable to give much in terms of a description but does feel better after nitro. The patient has been taking nitro throughout the day to get 3 sprays of some lingual nitro in route. The patient did take a total of 4 baby aspirin he does take Plavix. The patient did see Dr. Patel. The patient has had mild productive cough. Patient denies any Covid contacts and does live with his who is not currently sick. Patient denies any shortness of breath. The patient denies any lower extremity swelling or history of PE or DVT. Patient does have a known history of CABG with 3 blocked bypass grafts with 2 that are currently open per the patient's last cardiac catheterization in 2019 which included a patent BECKER and SVG. Patient denies any nausea or vomiting or sweaty episodes. Patient states he is DNR/DNI. EMS reported saturations in the low 90s. Patient was also hypertensive prior to arrival. ROS: See HPI for pertinent positives and negatives. A total of 10 systems were reviewed and otherwise negative. Past medical history: See below Surgical history: See below Social history: See below Physical Exam: GENERAL: Wearing glasses and a mask. NAD, non-toxic. EYE EXAM: Normal conjunctiva. PERRL, no anisocoria and EOM's grossly intact w/o pain. NECK: Supple, no nuchal rigidity, no adenopathy, non-tender. No signs of meningismus. LUNGS: Sonorous breath sounds throughout without obvious wheezing. No tachypnea noted. HEART: NSR, no MRG. ABDOMEN: Abdomen soft, non-tender, normo-active bowel sounds, no masses, no rebound or guarding. BACK: No CVA TTP. SKIN: No rashes and no bruising. UPPER EXTREMITIES: Upper extremities are grossly normal. LOWER EXTREMITIES: Grossly normal, no edema. Negative Homans' sign bilaterally. NEURO EXAM: A&O x3, cranial nerves II-XII grossly intact, normal speech, moves all 4 extremities on command w/o issue. Differential diagnoses: Cardiac ischemia, aortic dissection, pulmonary embolism, pneumothorax, pneumonia, pericarditis, myocarditis, esophageal rupture, GERD, cholecystitis, pancreatitis, musculoskeletal, as well as other pathologies. Course: Patient was seen and evaluated the bedside. Full history physical exam was performed. EKG: Indication: Chest pain Sinus tachycardia, rate of 103, wide QRS, left axis deviation, ST depressions in the lateral and high lateral leads. Mild elevation in aVR. Patient's ST changes do appear worse in change from previous EKG completed June 22, 2018. Imaging Studies: Radiology results as stated below per my review in the radiologist's int erpretation: SINGLE VIEW CHEST CLINICAL HISTORY: Atypical chest pain. FINDINGS: An AP, portable, upright chest radiograph is compared to study dated 06/21/2018. The patient is status post midline sternotomy. The heart is enlarged noting atherosclerotic calcification of the thoracic aorta. There is pulmonary vascular congestion with evidence of interstitial edema. Suspect trace pleural effusions. No pneumothorax is seen. The skeletal structures are osteopenic. The bony thorax is grossly intact. IMPRESSION: 1. Cardiomegaly with evidence of congestive failure and interstitial edema. 2. Suspect trace pleural effusions. ACT 112: Negative or not required by law. Electronically signed by: Tomás Alberto M.D. 03/12/2020 8:46 PM Dictated: 03/12/202043Transcribed: 03/12/202043 Cardiac monitoring: An order was placed for continuous cardiac monitoring. The monitor shows a rate of 103 with sinus tachycardia rhythm. MDM: Patient does present with chest pain. Blood work was obtained along with EKG troponin chest x-ray. Patient was ordered some antibiotics Covid testing and flu testing as the patient did have sonorous breath sounds throughout. Patient has complained of some cough. Given the patient's EKG changes I did speak with the on-call custom grinder Dr. Agustin who is in agreement with heparin given these are acute changes with a known history of CAD. Patient troponin was 0.2. Patient's chest x-ray did show signs of pulmonary edema. The patient blood pressure did improve. Patient was admitted to the medicine service under Dr. Mcelroy of the [facility]. Chest pain and blood pressure had improved with the Nitropaste. Nasal MRSA screen is negative. Covid test was negative. The patient did have a normal white count and platelet count with very mild anemia. Critical Care: I have personally spent 47 minutes of critical care time in direct management of this patient. This includes bedside care, interpretation of diagnostic studies, and testing, discussion with consultants, patient, and family members, and other require inpatient management activities. This 47 minutes is in excess of all separately billable procedures. Past Med/Surg History Medical History (Updated 03/12/20 @ 23:28 by Richar Bullock MD) CAD (coronary artery disease) Diabetes mellitus, type II GERD (gastroesophageal reflux disease) HTN (hypertension) Prostatitis Surgical History History of coronary artery bypass graft 2005- [facility] Family History Other Coronary heart disease Diabetes Social History Smoking Status: Never smoker Hx Alcohol Use: No Hx Substance Use: No Preferred Language: Haitian Communication Ability: Effective Beliefs That Will Affect Care: None marital status: Current Living Situation: Spouse Current Living Situation Comment: at home with Feels Safe at Home: Yes Assistive Devices: None Allergies Allergies Allergy/AdvReac Type Severity Reaction Status Date / Time atorvastatin AdvReac Unknown Unknown Verified 03/12/20 22:41 ezetimibe AdvReac Unknown Unknown Verified 03/12/20 22:41 lisinopril AdvReac Unknown Cough Verified 03/12/20 22:41 simvastatin AdvReac Unknown Unknown Verified 03/12/20 22:41 Home Meds Home Medications Medication Instructions Recorded Confirmed acetaminophen 650 mg PO TID PRN 06/21/18 03/12/20 aspirin 81 mg PO DAILY 06/21/18 03/12/20 betamethasone, augmented 1 applic TOPICAL BID PRN 06/21/18 03/12/20 clopidogrel [Plavix] 75 mg PO DAILY 06/21/18 03/12/20 cyanocobalamin (vitamin B-12) 1,000 mcg PO DAILY 06/21/18 03/12/20 famotidine 20 mg PO BID 06/21/18 03/12/20 losartan 50 mg PO DAILY 06/21/18 03/12/20 metformin 1,000 mg PO BID 06/21/18 03/12/20 nitroglycerin 0.4 mg SUBLINGUAL DIRECTED PRN 06/21/18 03/12/20 polysaccharide iron complex 150 mg PO DAILY 06/21/18 03/12/20 tamsulosin 0.4 mg PO DAILY 06/21/18 03/12/20 alirocumab [Praluent Pen] 75 mg SUBCUT .Q14 DAYS 03/12/20 03/12/20 isosorbide mononitrate 60 mg PO BID 03/12/20 03/12/20 metoprolol tartrate 12.5 mg PO BID 03/12/20 03/12/20 Results & Data (ED) Vital Signs Vital Signs - 24 hr 03/12/20 20:15 03/12/20 20:20 03/12/20 21:00 Temperature 36.5 C Temperature Source Oral Pulse Rate 103 H 89 Pulse Rate from SpO2 Sensor 89 Respiratory Rate 22 22 Blood Pressure 183/101 H 169/91 H Blood Pressure Mean 128 117 Pulse Oximetry 87 L 99 97 Oxygen Delivery Method Room Air Nasal Cannula Oxygen Flow Rate 87 Sepsis Recent Fever Within 48 Hours No Sepsis New/Unexplained Change in Mental Status N/A Sepsis Action Taken by Nursing Physician Notified Oxygen Flow Rate - Titration 4 03/12/20 21:15 03/12/20 21:30 03/12/20 21:31 Temperature Temperature Source Pulse Rate 88 88 90 Pulse Rate from SpO2 Sensor 87 88 90 Respiratory Rate 22 19 21 Blood Pressure 164/95 H 167/95 H Blood Pressure Mean 118 120 Pulse Oximetry 97 98 98 Oxygen Delivery Method Nasal Cannula Nasal Cannula Nasal Cannula Oxygen Flow Rate 4 4 4 Sepsis Recent Fever Within 48 Hours Sepsis New/Unexplained Change in Mental Status Sepsis Action Taken by Nursing Oxygen Flow Rate - Titration 03/12/20 21:40 03/12/20 21:45 Temperature Temperature Source Pulse Rate 95 H 92 H Pulse Rate from SpO2 Sensor 95 H 92 H Respiratory Rate 22 19 Blood Pressure 168/97 H Blood Pressure Mean 118 Pulse Oximetry 98 98 Oxygen Delivery Method Nasal Cannula Nasal Cannula Oxygen Flow Rate 4 4 Sepsis Recent Fever Within 48 Hours Sepsis New/Unexplained Change in Mental Status Sepsis Action Taken by Nursing Oxygen Flow Rate - Titration Home Medications Current Medication List: was personally reviewed by me Laboratory Data Attestation: I reviewed the patient's lab results. Result diagrams: 03/12/20 20:25 03/12/20 20:25 Lab Results 03/12/20 03/12/20 03/12/20 Range/Units 20:07 20:07 20:07 WBC (4.8-10.8) K/uL RBC (4.7-6.1) M/uL Hgb (14.0-18.0) g/dL Hct (42-52) % MCV (80-100) fL MCH (25-34) pg MCHC (32-36) g/dL RDW Std Deviation (36.4-46.3) fL RDW Coeff of Myrtle (11.5-14.5) % Plt Count (130-400) K/uL MPV (7.4-10.4) fL Immature Gran % (Auto) % Neut % (Auto) % Lymph % (Auto) % Donley % (Auto) % Eos % (Auto) % Baso % (Auto) % Neut # (Auto) (1.4-6.5) K/uL Lymph # (Auto) (1.2-3.4) K/uL [place] # (Auto) (0.11-0.59) K/uL Eos # (Auto) (0-0.5) K/uL Baso # (Auto) (0-0.2) K/uL Immature Gran # (Auto) (0.00-0.02) K/uL PT (9.0-12.0) Seconds INR (0.9-1.1) APTT (21.0-31.0) Seconds PTT Ratio Sodium (136-145) mmol/L Potassium (3.5-5.1) mmol/L Chloride (98-107) mmol/L Carbon Dioxide (21-32) mmol/L Anion Gap (3-11) BUN (7-18) mg/dl Creatinine (0.6-1.4) mg/dl Est Cr Clr Drug Dosing ml/min Est GFR ( Amer) Est GFR (Non-Af Amer) BUN/Creatinine Ratio (10-20) Glucose (70-99) mg/dl Osmolality (280-300) mOsm/kg Calcium (8.5-10.1) mg/dl Magnesium (1.8-2.4) mg/dl Total Bilirubin (0.2-1) mg/dl AST (15-37) U/L ALT (12-78) U/L Alkaline Phosphatase (45-117) U/L Troponin I (0-0.045) ng/ml Total Protein (6.4-8.2) gm/dl Albumin (3.4-5.0) gm/dl Globulin (2.5-4.0) gm/dl Albumin/Globulin Ratio (0.9-2) Lipase (73-393) U/L TSH (0.300-4.500) uIu/ml Nasal Screen MRSA (PCR) Negative (Negative) COVID-19 Eval Order Covid19 IDNow [facility] Influ A Molecular Assay Negative (Negative) Influ B Molecular Assay Negative (Negative) SARS-CoV-2, RNA, NAAT (NEGATIVE) 03/12/20 03/12/20 03/12/20 Range/Units 20:07 20:25 20:25 WBC 10.00 (4.8-10.8) K/uL RBC 3.92 L (4.7-6.1) M/uL Hgb 11.4 L (14.0-18.0) g/dL Hct 34.7 L (42-52) % MCV 88.5 (80-100) fL MCH 29.1 (25-34) pg MCHC 32.9 (32-36) g/dL RDW Std Deviation 44.5 (36.4-46.3) fL RDW Coeff of Myrtle 13.7 (11.5-14.5) % Plt Count 313 (130-400) K/uL MPV 9.2 (7.4-10.4) fL Immature Gran % (Auto) 0.4 % Neut % (Auto) 82.4 % Lymph % (Auto) 9.2 % [place]ley % (Auto) 5.5 % Eos % (Auto) 2.1 % Baso % (Auto) 0.4 % Neut # (Auto) 8.24 H (1.4-6.5) K/uL Lymph # (Auto) 0.92 L (1.2-3.4) K/uL [place] # (Auto) 0.55 (0.11-0.59) K/uL Eos # (Auto) 0.21 (0-0.5) K/uL Baso # (Auto) 0.04 (0-0.2) K/uL Immature Gran # (Auto) 0.04 H (0.00-0.02) K/uL PT 10.6 (9.0-12.0) Seconds INR 1.0 (0.9-1.1) APTT 26.5 (21.0-31.0) Seconds PTT Ratio 0.9 Sodium (136-145) mmol/L Potassium (3.5-5.1) mmol/L Chloride (98-107) mmol/L Carbon Dioxide (21-32) mmol/L Anion Gap (3-11) BUN (7-18) mg/dl Creatinine (0.6-1.4) mg/dl Est Cr Clr Drug Dosing ml/min Est GFR ( Amer) Est GFR (Non-Af Amer) BUN/Creatinine Ratio (10-20) Glucose (70-99) mg/dl Osmolality (280-300) mOsm/kg Calcium (8.5-10.1) mg/dl Magnesium (1.8-2.4) mg/dl Total Bilirubin (0.2-1) mg/dl AST (15-37) U/L ALT (12-78) U/L Alkaline Phosphatase (45-117) U/L Troponin I (0-0.045) ng/ml Total Protein (6.4-8.2) gm/dl Albumin (3.4-5.0) gm/dl Globulin (2.5-4.0) gm/dl Albumin/Globulin Ratio (0.9-2) Lipase (73-393) U/L TSH (0.300-4.500) uIu/ml Nasal Screen MRSA (PCR) (Negative) COVID-19 Eval Order Influ A Molecular Assay (Negative) Influ B Molecular Assay (Negative) SARS-CoV-2, RNA, NAAT NEGATIVE (NEGATIVE) 03/12/20 03/12/20 Range/Units 20:25 20:27 WBC (4.8-10.8) K/uL RBC (4.7-6.1) M/uL Hgb (14.0-18.0) g/dL Hct (42-52) % MCV (80-100) fL MCH (25-34) pg MCHC (32-36) g/dL RDW Std Deviation (36.4-46.3) fL RDW Coeff of Myrtle (11.5-14.5) % Plt Count (130-400) K/uL MPV (7.4-10.4) fL Immature Gran % (Auto) % Neut % (Auto) % Lymph % (Auto) % [place]ley % (Auto) % Eos % (Auto) % Baso % (Auto) % Neut # (Auto) (1.4-6.5) K/uL Lymph # (Auto) (1.2-3.4) K/uL [place] # (Auto) (0.11-0.59) K/uL Eos # (Auto) (0-0.5) K/uL Baso # (Auto) (0-0.2) K/uL Immature Gran # (Auto) (0.00-0.02) K/uL PT (9.0-12.0) Seconds INR (0.9-1.1) APTT (21.0-31.0) Seconds PTT Ratio Sodium 131 L (136-145) mmol/L Potassium 4.3 (3.5-5.1) mmol/L Chloride 98 (98-107) mmol/L Carbon Dioxide 25 (21-32) mmol/L Anion Gap 9.0 (3-11) BUN 21 H (7-18) mg/dl Creatinine 1.47 H (0.6-1.4) mg/dl Est Cr Clr Drug Dosing 38.4 ml/min Est GFR ( Amer) 49.7 Est GFR (Non-Af Amer) 42.9 BUN/Creatinine Ratio 14.2 (10-20) Glucose 114 H (70-99) mg/dl Osmolality 278 L (280-300) mOsm/kg Calcium 9.6 (8.5-10.1) mg/dl Magnesium 1.9 (1.8-2.4) mg/dl Total Bilirubin 0.5 (0.2-1) mg/dl AST 27 (15-37) U/L ALT 26 (12-78) U/L Alkaline Phosphatase 136 H (45-117) U/L Troponin I 0.204 H* (0-0.045) ng/ml Total Protein 7.7 (6.4-8.2) gm/dl Albumin 4.2 (3.4-5.0) gm/dl Globulin 3.5 (2.5-4.0) gm/dl Albumin/Globulin Ratio 1.2 (0.9-2) Lipase 142 (73-393) U/L TSH 2.600 (0.300-4.500) uIu/ml Nasal Screen MRSA (PCR) (Negative) COVID-19 Eval Order Influ A Molecular Assay (Negative) Influ B Molecular Assay (Negative) SARS-CoV-2, RNA, NAAT (NEGATIVE) Administered Medications Heparin Sodium/Dextrose (Heparin Sodium/Dextrose) 25,000 units in 500 mls @ 18 mls/hr IV .Q24H CHIQUIS; Protocol Stop: 04/11/20 20:29 Last Admin: 03/12/20 21:00 Dose: 900 units/hr, 18 mls/hr Documented by: [id number] Cosigned by: [id number] Albumin Human (Albumin 25%) 12.5 gm in 50 mls @ 50 mls/hr IV ONE STA Stop: 03/12/20 23:30 Last Admin: 03/12/20 23:06 Dose: 50 mls/hr Documented by: [id number] Discontinued Medications Furosemide (Furosemide 40 Mg/4 Ml Vial) 60 mg IV NOW STA Stop: 03/12/20 22:32 Last Admin: 03/12/20 23:00 Dose: 60 mg Documented by: [id number] Heparin Sodium (Porcine) (Heparin Sod (Porcine) 1000 Unit/Ml 10 Ml Vial) Confirm Administered Dose 10,000 units .ROUTE .STK-MED ONE Stop: 03/12/20 20:53 Last Admin: 03/12/20 21:00 Dose: 4,000 units Documented by: [id number] Cosigned by: [id number] Heparin Sodium/Dextrose (Heparin Iv Low Dose With Bolus) 1 ea IV NOW STA; Protocol Stop: 03/12/20 20:23 Last Admin: 03/12/20 21:01 Dose: 1 ea Documented by: [id number] Piperacillin Sod/Tazobactam Sod (Zosyn) 4.5 gm in 120 mls @ 240 mls/hr IV NOW ONE Stop: 03/12/20 20:06 Last Infusion: 03/12/20 20:45 Dose: 0 mls/hr Documented by: [id number] Admin: 03/12/20 20:15 Dose: 240 mls/hr Documented by: [id number] Metoprolol Tartrate (Metoprolol Tartrate 25 Mg Tab) 25 mg PO NOW STA Stop: 03/12/20 21:27 Last Admin: 03/12/20 22:57 Dose: 25 mg Documented by: [id number] Nitroglycerin (Nitroglycerin 2% Ointment 30gm Tube) 1 inch EXT NOW STA Stop: 03/12/20 20:12 Last Admin: 03/12/20 20:15 Dose: 1 inch Documented by: [id number] Discharge Plan Visit Data Chief Complaint: Chest Pain Stated Complaint: CHEST PAIN ED Provider: Richar Bullock Discharge Problem: Non-ST elevation [place] (NSTEMI), Chest pain, CAD (coronary artery disease) of artery bypass graft Discharge Problem: Chest pain Qualifiers: Chest pain type: chest pain due to myocardial ischemia Ischemic chest pain type: unspecified angina pectoris type Qualified Code(s): I25.9 - Chronic ischemic heart disease, unspecified CAD (coronary artery disease) of artery bypass graft Qualifiers: [place] vs. transplanted heart: [place] heart Associated angina: with unspecified angina Qualified Code(s): I25.709 - Atherosclerosis of coronary artery bypass graft(s), unspecified, with unspecified angina pectoris
[2020-03-12] MEDS ORDERED: NITROGLYCERIN 2% OINTMENT 30GM TUBE EXT STA (20:11)
[2020-03-12] MEDS ORDERED: Heparin IV Low Dose WITH Bolus IV STA (20:22)
[2020-03-12 20:37] LABS: Basophils # (auto) 0.04 K/uL (0-0.2); Basophils % (auto) 0.4 %; Eosinophils # (auto) 0.21 K/uL (0-0.5); Eosinophils % (auto) 2.1 %; Hematocrit (blood only) 34.7 % (42-52); Hemoglobin 11.4 g/dL (14.0-18.0); Immature Granulocytes # (auto) 0.04 K/uL (0.00-0.02); Immature Granulocytes % (auto) 0.4 %; Lymphocytes # (auto) 0.92 K/uL (1.2-3.4); Lymphocytes % (auto) 9.2 %; Mean Corpuscular Hemoglobin 29.1 pg (25-34); Mean Corpuscular Hgb Conc 32.9 g/dL (32-36); Mean Corpuscular Volume 88.5 fL (80-100); Mean Platelet Volume 9.2 fL (7.4-10.4); Monocytes # (auto) 0.55 K/uL (0.11-0.59); Monocytes % (auto) 5.5 %; Neutrophils # (auto) 8.24 K/uL (1.4-6.5); Neutrophils % (auto) 82.4 %; Platelet Count 313 K/uL (130-400); RDW Coefficient of Variation 13.7 % (11.5-14.5); RDW Standard Deviation 44.5 fL (36.4-46.3); Red Blood Count 3.92 M/uL (4.7-6.1)
--- NOTE | 2020-03-12 20:47 | XRay Report ---
SINGLE VIEW CHEST CLINICAL HISTORY: Atypical chest pain. FINDINGS: An AP, portable, upright chest radiograph is compared to study dated 06/21/2018. The patient is status post midline sternotomy. The heart is enlarged noting atherosclerotic calcification of the thoracic aorta. There is pulmonary vascular congestion with evidence of interstitial edema. Suspect t race pleural effusions. No pneumothorax is seen. The skeletal structures are osteopenic. The bony tho rax is grossly intact. IMPRESSION: 1. Cardiomegaly with evidence of congestive failure and interstitial edema. 2. Suspect trace pleural effusions. ACT 112: Negative or not required by law. Electronically signed by: Tomás Alberto M.D. 03/12/2020 8:46 PM
[2020-03-12 20:48] LABS: Partial Thromboplastin Ratio 0.9; Partial Thromboplastin Time 26.5 Seconds (21.0-31.0); Prothrombin Time 10.6 Seconds (9.0-12.0)
[2020-03-12] MEDS ORDERED: HEPARIN SOD (PORCINE) 1000 UNIT/ML 10 ML VIAL ONE (20:52)
[2020-03-12 20:58] LABS: Albumin Level 4.2 gm/dl (3.4-5.0); BUN Creatinine Ratio 14.2 (10-20); Calcium 9.6 mg/dl (8.5-10.1); Creatinine Clr Calc Pharmacy 38.4 ml/min; Est GFR (African American) 49.7; Est GFR (Non-African American) 42.9; Potassium 4.3 mmol/L (3.5-5.1)
[2020-03-12] MEDS: HEPARIN SODIUM/DEXTROSE 25,000 UNITS/500 ML BAG IV SCH (21:00)
[2020-03-12 21:07] LABS: Influenza A virus by PCR Negative (Negative); Influenza B virus by PCR Negative (Negative)
[2020-03-12 21:09] LABS: Albumin Globulin Ratio 1.2 (0.9-2); Bilirubin,Total 0.5 mg/dl (0.2-1); Globulin 3.5 gm/dl (2.5-4.0); Total Protein 7.7 gm/dl (6.4-8.2); Troponin I 0.204 ng/ml (0-0.045)
[2020-03-12] MEDS ORDERED: METOPROLOL TARTRATE 25 MG TAB PO STA (21:26)
[2020-03-12] MEDS ORDERED: XOPENEX/ATROVENT 1.25mg/0.5MG NEB COMBO NEB STA (21:27)
[2020-03-12] MEDS ORDERED: IPRATROPIUM BROMIDE NEB SOLN 0.02% 2.5 ML VIAL INH STA (21:27)
[2020-03-12] MEDS ORDERED: LEVALBUTEROL 1.25MG/0.5ML NEB INH STA (21:27)
[2020-03-12] MEDS ORDERED: LEVALBUTEROL 1.25MG/0.5ML NEB INH SCH (21:30)
--- NOTE | 2020-03-12 21:49 | History & Physical Report ---
Date of Service March 12, 2020 Assessment & Plan (1) Acute hypoxemic respiratory failure: Secondary to acute CHF secondary to non-ST elevation IN hx CAD status post CABG hypertension, elevated hyperlipidemia/statin intolerance on PCSK9 tx DM2 on oral medications, well-controlled as of recent outpatient hemoglobin A1c of 6.20 July 2019 CRI, creatinine at baseline chronic anemia, hemoglobin at baseline PCU Supplemental O2 Baseline ABG Lasix albumin, nebs stat Strict I/Os, daily weights, CHF education Continue antiplatelet therapy, beta-lopez, IV heparin for ACS Trend cardiac markers TTE, Cardiology consult RE CHF, ACS N.p.o. after midnight in anticipation of procedure ISS BG goal [id number], update hemoglobin A1c DVT prophylaxis. IV heparin DNR Total critical care time was 40 minutes. Text document was generated using [employer] voice recognition software. It may contain grammatical or spelling errors. Kindly contact undersigned for clarification of any documentation item in question. History of Present Illness Chief Complaint: Chest pain, shortness of breath Primary Care Provider: PCP from [facility] History obtained from patient and records. Medical history significant for CAD status post CABG, hypertension, hyperlipidemia/statin intolerance, DM2 on oral medications, CRI (baseline creatinine 1.4), chronic anemia (baseline hemoglobin 10-11). Last confinement June 2018 for unstable angina, abnormal nuclear stress test. Cardiac cath revealed 3 out of 5 occluded grafts. Medical management recommended by Cardiology. Patient with almost daily anginal symptoms relieved by nitroglycerin since last year. Patient noted shortness of breath mostly on exertion in the last 2 weeks without unusual fluid retention or leg swelling. Patient compliant with home medications. Patient brought to the ER for evaluation. O2 sats noted to be 80s upon arrival. Nitropaste and IV Heparin initiated for ACS. Medical History as above Surgical History : CABG Family History : Heart disease Personal/Social history : Non-smoker, no EtOH intake, retired from asphalt work Allergies Allergy/AdvReac Type Severity Reaction Status Date / Time atorvastatin AdvReac Unknown Unknown Verified 03/12/20 22:41 ezetimibe AdvReac Unknown Unknown Verified 03/12/20 22:41 lisinopril AdvReac Unknown Cough Verified 03/12/20 22:41 simvastatin AdvReac Unknown Unknown Verified 03/12/20 22:41 Home Medications Medication Instructions Recorded Confirmed Type acetaminophen 650 mg PO TID PRN 06/21/18 03/12/20 History aspirin 81 mg PO DAILY 06/21/18 03/12/20 History betamethasone, augmented 1 applic TOPICAL BID PRN 06/21/18 03/12/20 History clopidogrel [Plavix] 75 mg PO DAILY 06/21/18 03/12/20 History cyanocobalamin (vitamin B-12) 1,000 mcg PO DAILY 06/21/18 03/12/20 History famotidine 20 mg PO BID 06/21/18 03/12/20 History losartan 50 mg PO DAILY 06/21/18 03/12/20 History metformin 1,000 mg PO BID 06/21/18 03/12/20 History nitroglycerin 0.4 mg SUBLINGUAL DIRECTED PRN 06/21/18 03/12/20 History polysaccharide iron complex 150 mg PO DAILY 06/21/18 03/12/20 History tamsulosin 0.4 mg PO DAILY 06/21/18 03/12/20 History alirocumab [Praluent Pen] 75 mg SUBCUT .Q14 DAYS 03/12/20 03/12/20 History isosorbide mononitrate 60 mg PO BID 03/12/20 03/12/20 History metoprolol tartrate 12.5 mg PO BID 03/12/20 03/12/20 History Past Med/Surg History Medical History (Updated 03/13/20 @ 10:25 by Prieto Robertson DO) CAD (coronary artery disease) Diabetes mellitus, type II GERD (gastroesophageal reflux disease) HTN (hypertension) Prostatitis Surgical History History of coronary artery bypass graft [facility] [place] Family History Other Coronary heart disease Diabetes Social History Smoking Status: Never smoker Hx Alcohol Use: No Hx Substance Use: No Preferred Language: [place] Communication Ability: Effective Budget Counselor Required: No Beliefs That Will Affect Care: None marital status: Current Living Situation: Spouse Current Living Situation Comment: at home with Feels Safe at Home: Yes Assistive Devices: None Review of Systems Review of Systems: As per HPI, all 10 systems reviewed, all other ROS negative Physical Exam Physical Exam: GENERAL: uncomfortable, pleasant, minimal respiratory distress SKIN: Pallor, warm HEENT: Pale palpebral conjunctivae, no ptosis, dry buccal mucosa, nasal cannula in place NECK : Supple, no tenderness CHEST : Bibasilar crackles, no tenderness HEART : Tachycardic, systolic murmur ABDOMEN: Some distention, nontender EXTREMITIES : Minimal LE swelling, no LE tenderness, no other conspicuous deformities noted NEUROLOGIC : Coherent, no facial asymmetry, no other gross focality Results & Data Results & Data ([facility]) Vital Signs (Past 12 Hours) Vital Signs Temp Pulse Resp BP Pulse Ox 03/12/20 21:15 88 22 164/95 H 97 03/12/20 21:00 89 22 169/91 H 97 03/12/20 20:20 99 03/12/20 20:15 36.5 C 103 H 22 183/101 H 87 L Laboratory Results Laboratory Results WBC 10.00 K/uL (4.8-10.8) 03/12/20 20: RBC 3.92 M/uL (4.7-6.1) L 03/12/20 20:25 Hgb 11.4 g/dL (14.0-18.0) L 03/12/20 20:25 Hct 34.7 % (42-52) L 03/12/20 20:25 MCV 88.5 fL (80-100) 03/12/20 20:25 MCH 29.1 pg (25-34) 03/12/20 20:25 MCHC 32.9 g/dL (32-36) 03/12/20 20:25 RDW Std Deviation 44.5 fL (36.4-46.3) 03/12/20 20:25 RDW Coeff of Myrtle 13.7 % (11.5-14.5) 03/12/20 20:25 Plt Count 313 K/uL (130-400) 03/12/20 20:25 MPV 9.2 fL (7.4-10.4) 03/12/20 20:25 Immature Gran % (Auto) 0.4 % 03/12/20 20:25 Neut % (Auto) 82.4 % 03/12/20 20:25 Lymph % (Auto) 9.2 % 03/12/20 20:25 [place] % (Auto) 5.5 % 03/12/20 20:25 Eos % (Auto) 2.1 % 03/12/20 20:25 Baso % (Auto) 0.4 % 03/12/20 20:25 Neut # (Auto) 8.24 K/uL (1.4-6.5) H 03/12/20 20:25 Lymph # (Auto) 0.92 K/uL (1.2-3.4) L 03/12/20 20:25 [place] # (Auto) 0.55 K/uL (0.11-0.59) 03/12/20 20:25 Eos # (Auto) 0.21 K/uL (0-0.5) 03/12/20 20: Baso # (Auto) 0.04 K/uL (0-0.2) 03/12/20 20:25 Immature Gran # (Auto) 0.04 K/uL (0.00-0.02) H 03/12/20 20:25 PT 10.6 Seconds (9.0-12.0) 03/12/20 20: INR 1.0 (0.9-1.1) 03/12/20 20: APTT 26.5 Seconds (21.0-31.0) 03/12/20 20: PTT Ratio 0.9 03/12/20 20:25 Sodium 131 mmol/L (136-145) L 03/12/20 20: Potassium 4.3 mmol/L (3.5-5.1) 03/12/20 20:25 Chloride 98 mmol/L (98-107) 03/12/20 20: Carbon Dioxide 25 mmol/L (21-32) 03/12/20 20:25 Anion Gap 9.0 (3-11) 03/12/20 20:25 BUN 21 mg/dl (7-18) H 03/12/20 20:25 Creatinine 1.47 mg/dl (0.6-1.4) H 03/12/20 20:25 Est Cr Clr Drug Dosing 38.4 ml/min 03/12/20 20:25 Est GFR ( Amer) 49.7 03/12/20 20:25 Est GFR (Non-Af Amer) 42.9 03/12/20 20:25 BUN/Creatinine Ratio 14.2 (10-20) 03/12/20 20: Glucose 114 mg/dl (70-99) H 03/12/20 20: Osmolality 278 mOsm/kg (280-300) L 03/12/20: Calcium 9.6 mg/dl (8.5-10.1) 03/12/20 20: Total Bilirubin 0.5 mg/dl (0.2-1) 03/12/20 20: AST 27 U/L (15-37) 03/12/20: ALT 26 U/L (12-78) 03/12/20 20: Alkaline Phosphatase 136 U/L (45-117) H 03/12/20 20: Troponin I 0.204 ng/ml (0-0.045) H* 03/12/20 20: Total Protein 7.7 gm/dl (6.4-8.2) 03/12/20: Albumin 4.2 gm/dl (3.4-5.0) 03/12/20: Globulin 3.5 gm/dl (2.5-4.0) 03/12/20 20: Albumin/Globulin Ratio 1.2 (0.9-2) 03/12/20 20: Lipase 142 U/L (73-393) 03/12/20 20: COVID-19 Eval Order Covid19 IDNow [facility] 03/12/20 20: Influ A Molecular Assay Negative (Negative) 03/12/20 20: Influ B Molecular Assay Negative (Negative) 03/12/20 20:07 SARS-CoV-2, RNA, NAAT NEGATIVE (NEGATIVE) 03/12/20 20: Diagnostic Findings Chest x-ray : 1. Cardiomegaly with evidence of congestive failure and interstitial edema. 2. Suspect trace pleural effusions. EKG as per my interpretation : Rate 105, sinus tachycardia, LAD, LAFB, right bundle branch block, ST depression anterolateral leads
[2020-03-12 22:01] LABS: Magnesium 1.9 mg/dl (1.8-2.4); Thyroid Stimulating Hormone 2.6 uIu/ml (0.300-4.500)
[2020-03-12] MEDS ORDERED: ALBUMIN 25% 12.5 GM/50 ML VIAL IV STA (22:31)
[2020-03-12] MEDS ORDERED: FUROSEMIDE 40 MG/4 ML VIAL IV STA (22:31)
[2020-03-12 22:33] LABS: Allen Test Pos (Pos); Base Excess ABG -3.7 mEq/L (-9-1.8); HCO3 ABG 21 mmol/L (19-24); Oxygen Saturation ABG 97.2 % (90-95); PCO2 ABG 36 mmHg (35-46); PO2 ABG 92 mmHg (80-95); pH ABG 7.38 (7.35-7.45)
[2020-03-13] MEDS ORDERED: HYDROmorphone INJ 0.5 MG/0.5 ML SYR IV PRN (01:40)
[2020-03-13] MEDS ORDERED: PROMETHAZINE HCL 6.25 MG in SODIUM CHLORIDE 0.9% 50 ML IV PRN (01:40)
[2020-03-13] MEDS ORDERED: GLUCOSE 40% GEL 15 GM TUBE PO PRN (01:40)
[2020-03-13] MEDS ORDERED: ACETAMINOPHEN 325 MG TAB PO PRN (01:40)
[2020-03-13] MEDS ORDERED: DEXTROSE 50% 50 ML SYRINGE IV PRN (01:40)
[2020-03-13] MEDS ORDERED: CARBOHYDRATES FOR HYPOGLYCEMIA PO PRN (01:40)
[2020-03-13] MEDS ORDERED: oxyCODONE HCL IR 5 MG TAB (IMMEDIATE RELEASE) PO PRN (01:40)
[2020-03-13] MEDS ORDERED: NITROGLYCERIN SL 0.4 MG/TAB TAB SL PRN (01:40)
[2020-03-13] MEDS ORDERED: GLUCAGON FOR INJ 1 MG VIAL SQ PRN (01:40)
[2020-03-13] MEDS ORDERED: GLUCOSE 10 TABS/TUBE PO PRN (01:40)
[2020-03-13] MEDS: INSULIN ASPART 100 UNITS/ML 3 ML PEN SC SCH ×5 (02:18→21:20)
[2020-03-13] MEDS ORDERED: ALBUMIN 25% 12.5 GM/50 ML VIAL IV STA (05:27)
[2020-03-13 05:53] LABS: Estimated Average Glucose 123 mg/dl; Hemoglobin A1C 5.9 % (4.5-5.6)
[2020-03-13 05:59] LABS: Basophils # (auto) 0.05 K/uL (0-0.2); Basophils % (auto) 0.6 %; Eosinophils # (auto) 0.25 K/uL (0-0.5); Eosinophils % (auto) 2.8 %; Hematocrit (blood only) 33.2 % (42-52); Hemoglobin 11.1 g/dL (14.0-18.0); Immature Granulocytes # (auto) 0.02 K/uL (0.00-0.02); Immature Granulocytes % (auto) 0.2 %; Lymphocytes % (auto) 12.2 %; Mean Corpuscular Hemoglobin 29.8 pg (25-34); Mean Corpuscular Hgb Conc 33.4 g/dL (32-36); Mean Platelet Volume 9.6 fL (7.4-10.4); Monocytes # (auto) 0.69 K/uL (0.11-0.59); Monocytes % (auto) 7.6 %; Neutrophils # (auto) 6.93 K/uL (1.4-6.5); Neutrophils % (auto) 76.6 %; Platelet Count 298 K/uL (130-400); RDW Coefficient of Variation 13.6 % (11.5-14.5); RDW Standard Deviation 44.4 fL (36.4-46.3); Red Blood Count 3.73 M/uL (4.7-6.1); White Blood Count 9.04 K/uL (4.8-10.8)
[2020-03-13 06:20] LABS: BUN Creatinine Ratio 14.3 (10-20); Calcium 9.3 mg/dl (8.5-10.1); Creatinine Clr Calc Pharmacy 33.3 ml/min; Est GFR (African American) 48.6; Est GFR (Non-African American) 41.9
[2020-03-13 06:39] LABS: Troponin I 8.42 ng/ml (0-0.045)
[2020-03-13] MEDS: CYANOCOBALAMIN 500 MCG TABLET (VITAMIN B-12) PO SCH (07:47)
[2020-03-13] MEDS: TAMSULOSIN HCL 0.4 MG CAP PO SCH (07:48)
[2020-03-13] MEDS: ASPIRIN 81 MG ECTAB PO SCH (07:48)
[2020-03-13] MEDS: CLOPIDOGREL BISULFATE 75 MG TAB PO SCH (07:48)
[2020-03-13] MEDS: FAMOTIDINE 20 MG TAB PO SCH ×2 (07:49→20:45)
[2020-03-13] MEDS: METOPROLOL TARTRATE 25 MG TAB PO SCH ×2 (07:49→20:46)
[2020-03-13] MEDS: IRON POLYSACCHARIDE COMPLEX 150 MG CAPSULE PO SCH (07:49)
[2020-03-13] MEDS ORDERED: ISOSORBIDE MONO EXTENDED REL 60 MG TABCR PO SCH (09:00)
--- NOTE | 2020-03-13 10:27 | Cardiology Consultation ---
Date of Consultation March 13, 2020 Assessment & Plan (1) Non-ST elevation [place] (NSTEMI): (2) Acute decompensated heart failure: (3) Acute on chronic renal insufficiency: I had a long discussion with the patient regarding his clinical presentation, and elevated troponin suggesting NSTEMI. We discussed the results of his most recent cardiac catheterization at length. Currently, I believe risk outweighs benefit for repeat coronary angiography and bypass angiography. Recommend medical management. Hold losartan 50 mg daily. Discontinue isosorbide monohydrate 60 mg twice daily. Recommend titration of the a.m. dose to 90 mg once daily. Continue intravenous heparin for an additional 48 hours. Dual antiplatelet therapy and beta-lopez will be continued as previously ordered. Patient intolerant to statin therapy. He will resume PCSK9 inhibitor upon discharge. Repeat echocardiogram pending at this time. History of Present Illness Reason for Consultation: NSTEMI Requesting Physician: Dr. De La Fuente Attending Physician: Ciro De La Fuente MD History of Present Illness 85-year-old patient presented to the emergency department with chest pain. Complex history listed below. Chronically followed in the cardiology clinic for class III angina pectoris. Last evening, he noted left-sided substernal discomfort and pressure. Discomfort reached a 7/10. He took 3 sublingual nitro glycerin without relief. Typically using up to 6 nitroglycerin daily for several months for treatment of his chronic angina. Came to the ER for further evaluation and treatment. Troponins elevated suggesting NSTEMI. Chest x-ray consistent with pulmonary edema/CHF. Patient treated with sublingual nitroglycerin, topical nitrates, and intravenous heparin. Chest discomfort resolved by approximately midnight. Patient currently resting comfortably. No chest discomfort at rest this morning. Treated with IV Lasix with subsequent 1.1 liter diuresis. Feeling better overall. No signs/symptoms of GI/ blood loss. Most recent cardiac catheterization performed by the undersigned 06/2018 in the setting of abnormal stress testing. The results of that study demonstrated 3 of 5 bypass grafts were occluded. Patent BECKER to the LAD and patent SVG to PDA reported. Severe cherokee vessel disease not amenable to intervention. Chronic medical management recommended since that time. Allergies Allergy/AdvReac Type Severity Reaction Status Date / Time atorvastatin AdvReac Unknown Unknown Verified 03/12/20 22:41 ezetimibe AdvReac Unknown Unknown Verified 03/12/20 22:41 lisinopril AdvReac Unknown Cough Verified 03/12/20 22:41 simvastatin AdvReac Unknown Unknown Verified 03/12/20 22:41 Home Medications Medication Instructions Recorded Confirmed Type acetaminophen 650 mg PO TID PRN 06/21/18 03/12/20 History aspirin 81 mg PO DAILY 06/21/18 03/12/20 History betamethasone, augmented 1 applic TOPICAL BID PRN 06/21/18 03/12/20 History clopidogrel [Plavix] 75 mg PO DAILY 06/21/18 03/12/20 History cyanocobalamin (vitamin B-12) 1,000 mcg PO DAILY 06/21/18 03/12/20 History famotidine 20 mg PO BID 06/21/18 03/12/20 History losartan 50 mg PO DAILY 06/21/18 03/12/20 History metformin 1,000 mg PO BID 06/21/18 03/12/20 History nitroglycerin 0.4 mg SUBLINGUAL DIRECTED PRN 06/21/18 03/12/20 History polysaccharide iron complex 150 mg PO DAILY 06/21/18 03/12/20 History tamsulosin 0.4 mg PO DAILY 06/21/18 03/12/20 History alirocumab [Praluent Pen] 75 mg SUBCUT .Q14 DAYS 03/12/20 03/12/20 History isosorbide mononitrate 60 mg PO BID 03/12/20 03/12/20 History metoprolol tartrate 12.5 mg PO BID 03/12/20 03/12/20 History Patient History Medical History (Updated 03/13/20 @ 10:25 by Prieto Robertson DO) CAD (coronary artery disease) Diabetes mellitus, type II GERD (gastroesophageal reflux disease) HTN (hypertension) Prostatitis Surgical History History of coronary artery bypass graft 2005- [place] Family History Other Coronary heart disease Diabetes Social History Smoking Status: Never smoker Hx Alcohol Use: No Hx Substance Use: No Preferred Language: Dominican Communication Ability: Effective Price Economist Required: No Beliefs That Will Affect Care: None marital status: Current Living Situation: Spouse Current Living Situation Comment: at home with Feels Safe at Home: Yes Assistive Devices: None Review of Systems Review of Systems: All systems reviewed & are unremarkable except as noted in HPI & below Physical Exam Constitutional: well developed and well nourished; no acute distress and not ill appearing Respiratory: normal respiratory effort; no respiratory distress and no labored breathing Auscultation: no crackles, no rales, no rhonchi and no wheezes Cardiovascular: Rate/Rhythm: regular rate and regular rhythm Heart Sounds: normal S1 and normal S2; no murmur Vessels: no JVD Extremities: no edema Gastrointestinal (Abdomen): Inspection/Auscultation: abdomen normal to inspection and normal bowel sounds; abdomen not distended Percussion/Palpation: abdomen soft; abdomen nontender, no guarding and abdomen not rigid Skin: no rashes, warm and dry Neurologic: moves all extremities; no focal motor deficits Motor/Sensory: no tremor Psychiatric: A+Ox3, euthymic affect Results & Data ([facility]) Vital Signs (Past 12 Hours) Vital Signs Temp Pulse Pulse Resp BP BP Pulse Ox 03/13/20 08:00 36.8 C 69 18 125/65 99 03/13/20 05:40 79 18 137/82 98 03/13/20 04:17 36.8 C 63 16 98/57 L 95 03/13/20 01:43 76 17 133/70 94 03/13/20 00:00 77 20 138/87 97 03/12/20 23:45 88 20 158/96 H 98 03/12/20 23:30 81 19 149/85 H 97 03/12/20 23:16 88 21 173/99 H 98 03/12/20 23:00 90 24 136/95 96 03/12/20 22:50 85 22 98 03/12/20 22:45 82 19 150/87 H 98 03/12/20 22:40 85 19 98 03/12/20 22:31 87 21 98 03/12/20 22:30 87 20 160/88 H 98 03/12/20 22:20 89 21 98
[2020-03-13 14:17] LABS: Partial Thromboplastin Ratio 1.4; Partial Thromboplastin Time 38.6 Seconds (21.0-31.0)
--- NOTE | 2020-03-13 15:43 | Hospitalist Progress Note ---
Date of Service March 13, 2020 Assessment & Plan (1) Non-ST elevation [place] (NSTEMI): Acute hypoxemic respiratory failure: Secondary to acute on chronic systolic CHF secondary to non-ST elevation MO hx CAD status post CABG --Given Lasix Diuresing well Clinically improved Wean off oxygen accordingly --Echo ordered --Troponin 0.2, 6, 8 Chest pain-free --Director Of Clinical Trials consulted Repeat cardiac cath not recommended at this time Continue heparin drip x2 days Imdur being titrated Hypertension --Improving Hyperlipidemia/statin intolerance on PCSK9 tx DM2 on oral medications, well-controlled as of recent outpatient hemoglobin A1c of 6.20 July 2019 CRI, creatinine at baseline chronic anemia, hemoglobin at baseline DVT prophylaxis. IV heparin DNR Disposition lives at home will order PT/OT Admission and Anticipated Discharge Date Admission Date: March 12, 2020 Subjective Follow-up for non-ST elevation [place], acute CHF exacerbation Seen sitting up in bed, comfortable, not in distress States he feels better overall Shortness of breath has resolved Chest pain-free Denies dizziness, headache, palpitations, abdominal pain, nausea vomiting No other symptoms Review of Systems Review of Systems: All systems reviewed & are unremarkable except as noted in Subjective Physical Exam Physical Exam: General- oriented x 3, not in distress, speaks in sentences with no effort or accessory muscle use Head- atraumatic Eyes- PERRL, EOMI, anicteric ENT- oropharynx clear Neck- supple, no JVD, no adenopathy, no thyromegaly; carotids +2/2, no bruits appreciated Lungs- clear to auscultation bilaterally, no rales/wheezes Heart- normal rate, regular rhythm; no murmur, no gallop, no rub appreciated Abdomen- normal bowel sounds, nondistended, soft, nontender, no masses or hepatosplenomegaly Extremities- no pretibial edema, no calf tenderness; peripheral pulses intact Neuro- alert, oriented x 3; CN 2-12 grossly intact; motor 5/5 bilaterally;sensation 100% on all extremities; no other gross focal neurologic deficits Skin- warm & dry Results & Data Results & Data ([facility]) Vital Signs (Past 12 Hours) Vital Signs Temp Pulse Resp BP Pulse Ox 03/13/20 14:37 36.5 C 66 18 145/53 H 94 03/13/20 12:00 72 18 124/64 98 03/13/20 08:00 36.8 C 69 18 125/65 99 03/13/20 05:40 79 18 137/82 98 03/13/20 04:17 36.8 C 63 16 98/57 L 95 Laboratory Results Laboratory Results - last 24 hr 03/12/20 03/12/20 03/12/20 20:07 20:07 20:07 WBC RBC Hgb Hct MCV MCH MCHC RDW Std Deviation RDW Coeff of Myrtle Plt Count MPV Immature Gran % (Auto) Neut % (Auto) Lymph % (Auto) [place] % (Auto) Eos % (Auto) Baso % (Auto) Neut # (Auto) Lymph # (Auto) [place] # (Auto) Eos # (Auto) Baso # (Auto) Immature Gran # (Auto) PT INR APTT PTT Ratio ABG pH ABG pCO2 ABG pO2 ABG HCO3 ABG O2 Saturation ABG Base Excess Luis Test Barometric Pressure Oxygen Given Sodium Potassium Chloride Carbon Dioxide Anion Gap BUN Creatinine Est Cr Clr Drug Dosing Est GFR ( Amer) Est GFR (Non-Af Amer) BUN/Creatinine Ratio Glucose POC Glucose Estimat Average Glucose Hemoglobin A1c Osmolality Calcium Magnesium Total Bilirubin AST ALT Alkaline Phosphatase Troponin I Total Protein Albumin Globulin Albumin/Globulin Ratio Triglycerides Cholesterol LDL Cholesterol, Calc VLDL Cholesterol, Calc HDL Cholesterol Cholesterol/HDL Ratio Lipase TSH Nasal Screen MRSA (PCR) Negative COVID-19 Eval [facility] Influ A Molecular Assay Negative Influ B Molecular Assay Negative SARS-CoV-2, RNA, NAAT 03/12/20 03/12/20 03/12/20 20:07 20:25 20:25 WBC 10.00 RBC 3.92 L Hgb 11.4 L Hct 34.7 L MCV 88.5 MCH 29.1 MCHC 32.9 RDW Std Deviation 44.5 RDW Coeff of Myrtle 13.7 Plt Count 313 MPV 9.2 Immature Gran % (Auto) 0.4 Neut % (Auto) 82.4 Lymph % (Auto) 9.2 [place] % (Auto) 5.5 Eos % (Auto) 2.1 Baso % (Auto) 0.4 Neut # (Auto) 8.24 H Lymph # (Auto) 0.92 L [place] # (Auto) 0.55 Eos # (Auto) 0.21 Baso # (Auto) 0.04 Immature Gran # (Auto) 0.04 H PT 10.6 INR 1.0 APTT 26.5 PTT Ratio 0.9 ABG pH ABG pCO2 ABG pO2 ABG HCO3 ABG O2 Saturation ABG Base Excess Luis Test Barometric Pressure Oxygen Given Sodium Potassium Chloride Carbon Dioxide Anion Gap BUN Creatinine Est Cr Clr Drug Dosing Est GFR ( Amer) Est GFR (Non-Af Amer) BUN/Creatinine Ratio Glucose POC Glucose Estimat Average Glucose Hemoglobin A1c Osmolality Calcium Magnesium Total Bilirubin AST ALT Alkaline Phosphatase Troponin I Total Protein Albumin Globulin Albumin/Globulin Ratio Triglycerides Cholesterol LDL Cholesterol, Calc VLDL Cholesterol, Calc HDL Cholesterol Cholesterol/HDL Ratio Lipase TSH Nasal Screen MRSA (PCR) COVID-19 Eval Order Influ A Molecular Assay Influ B Molecular Assay SARS-CoV-2, RNA, NAAT NEGATIVE 03/12/20 03/12/20 03/12/20 20:25 20:27 20:31 WBC RBC Hgb Hct MCV MCH MCHC RDW Std Deviation RDW Coeff of Myrtle Plt Count MPV Immature Gran % (Auto) Neut % (Auto) Lymph % (Auto) [place] % (Auto) Eos % (Auto) Baso % (Auto) Neut # (Auto) Lymph # (Auto) [place] # (Auto) Eos # (Auto) Baso # (Auto) Immature Gran # (Auto) PT INR APTT PTT Ratio ABG pH ABG pCO2 ABG pO2 ABG HCO3 ABG O2 Saturation ABG Base Excess Luis Test Barometric Pressure Oxygen Given Sodium 131 L Potassium 4.3 Chloride 98 Carbon Dioxide 25 Anion Gap 9.0 BUN 21 H Creatinine 1.47 H Est Cr Clr Drug Dosing 38.4 Est GFR ( Amer) 49.7 Est GFR (Non-Af Amer) 42.9 BUN/Creatinine Ratio 14.2 Glucose 114 H POC Glucose Estimat Average Glucose 123 Hemoglobin A1c 5.9 H Osmolality 278 L Calcium 9.6 Magnesium 1.9 Total Bilirubin 0.5 AST 27 ALT 26 Alkaline Phosphatase 136 H Troponin I 0.204 H* Total Protein 7.7 Albumin 4.2 Globulin 3.5 Albumin/Globulin Ratio 1.2 Triglycerides Cholesterol LDL Cholesterol, Calc VLDL Cholesterol, Calc HDL Cholesterol Cholesterol/HDL Ratio Lipase 142 TSH 2.600 Nasal Screen MRSA (PCR) COVID-19 Eval Order Influ A Molecular Assay Influ B Molecular Assay SARS-CoV-2, RNA, NAAT 03/12/20 03/13/2020 21:57 02:07 02:13 WBC RBC Hgb Hct MCV MCH MCHC RDW Std Deviation RDW Coeff of Myrtle Plt Count MPV Immature Gran % (Auto) Neut % (Auto) Lymph % (Auto) [place] % (Auto) Eos % (Auto) Baso % (Auto) Neut # (Auto) Lymph # (Auto) [place] # (Auto) Eos # (Auto) Baso # (Auto) Immature Gran # (Auto) PT INR APTT PTT Ratio ABG pH 7.38 ABG pCO2 36 ABG pO2 92 ABG HCO3 21 ABG O2 Saturation 97.2 H ABG Base Excess -3.7 Luis Test Pos Barometric Pressure 740.0 Oxygen Given 4L Sodium Potassium Chloride Carbon Dioxide Anion Gap BUN Creatinine Est Cr Clr Drug Dosing Est GFR ( Amer) Est GFR (Non-Af Amer) BUN/Creatinine Ratio Glucose POC Glucose 131 H Estimat Average Glucose Hemoglobin A1c Osmolality Calcium Magnesium Total Bilirubin AST ALT Alkaline Phosphatase Troponin I 6.220 H* Total Protein Albumin Globulin Albumin/Globulin Ratio Triglycerides Cholesterol LDL Cholesterol, Calc VLDL Cholesterol, Calc HDL Cholesterol Cholesterol/HDL Ratio Lipase TSH Nasal Screen MRSA (PCR) COVID-19 Eval Order Influ A Molecular Assay Influ B Molecular Assay SARS-CoV-2, RNA, NAAT 03/13/20 03/13/20 03/13/20 05:33 05:33 07:58 WBC 9.04 RBC 3.73 L Hgb 11.1 L Hct 33.2 L MCV 89.0 MCH 29.8 MCHC 33.4 RDW Std Deviation 44.4 RDW Coeff of Myrtle 13.6 Plt Count 298 MPV 9.6 Immature Gran % (Auto) 0.2 Neut % (Auto) 76.6 Lymph % (Auto) 12.2 [place] % (Auto) 7.6 Eos % (Auto) 2.8 Baso % (Auto) 0.6 Neut # (Auto) 6.93 H Lymph # (Auto) 1.10 L [place] # (Auto) 0.69 H Eos # (Auto) 0.25 Baso # (Auto) 0.05 Immature Gran # (Auto) 0.02 PT INR APTT PTT Ratio ABG pH ABG pCO2 ABG pO2 ABG HCO3 ABG O2 Saturation ABG Base Excess Luis Test Barometric Pressure Oxygen Given Sodium 131 L Potassium 4.0 Chloride 97 L Carbon Dioxide 28 Anion Gap 6.0 BUN 21 H Creatinine 1.49 H Est Cr Clr Drug Dosing 33.3 Est GFR ( Amer) 48.6 Est GFR (Non-Af Amer) 41.9 BUN/Creatinine Ratio 14.3 Glucose 98 POC Glucose 104 H Estimat Average Glucose Hemoglobin A1c Osmolality Calcium 9.3 Magnesium Total Bilirubin AST ALT Alkaline Phosphatase Troponin I 8.420 H* Total Protein Albumin Globulin Albumin/Globulin Ratio Triglycerides 145 Cholesterol 126 LDL Cholesterol, Calc 57 VLDL Cholesterol, Calc 29 HDL Cholesterol 40 Cholesterol/HDL Ratio 3 Lipase TSH Nasal Screen MRSA (PCR) COVID-19 Eval Order Influ A Molecular Assay Influ B Molecular Assay SARS-CoV-2, RNA, NAAT 03/13/20 03/13/20 11:43 13:53 WBC RBC Hgb Hct MCV MCH MCHC RDW Std Deviation RDW Coeff of Myrtle Plt Count MPV Immature Gran % (Auto) Neut % (Auto) Lymph % (Auto) [place] % (Auto) Eos % (Auto) Baso % (Auto) Neut # (Auto) Lymph # (Auto) [place] # (Auto) Eos # (Auto) Baso # (Auto) Immature Gran # (Auto) PT INR APTT 38.6 H PTT Ratio 1.4 ABG pH ABG pCO2 ABG pO2 ABG HCO3 ABG O2 Saturation ABG Base Excess Luis Test Barometric Pressure Oxygen Given Sodium Potassium Chloride Carbon Dioxide Anion Gap BUN Creatinine Est Cr Clr Drug Dosing Est GFR ( Amer) Est GFR (Non-Af Amer) BUN/Creatinine Ratio Glucose POC Glucose 113 H Estimat Average Glucose Hemoglobin A1c Osmolality Calcium Magnesium Total Bilirubin AST ALT Alkaline Phosphatase Troponin I Total Protein Albumin Globulin Albumin/Globulin Ratio Triglycerides Cholesterol LDL Cholesterol, Calc VLDL Cholesterol, Calc HDL Cholesterol Cholesterol/HDL Ratio Lipase TSH Nasal Screen MRSA (PCR) COVID-19 Eval Order Influ A Molecular Assay Influ B Molecular Assay SARS-CoV-2, RNA, NAAT
[2020-03-13 20:51] LABS: Partial Thromboplastin Ratio 1.4; Partial Thromboplastin Time 39.1 Seconds (21.0-31.0)
[2020-03-13] MEDS: HEPARIN SODIUM/DEXTROSE 25,000 UNITS/500 ML BAG IV SCH (22:49)
--- NOTE | 2020-03-14 04:44 | Electrocardiogram Report ---
Test Reason : Blood Pressure : / mmHG Vent. Rate : 103 BPM Atrial Rate : 103 BPM P-R Int : 232 ms QRS Dur : 124 ms QT Int : 362 ms P-R-T Axes : 052 -76 092 degrees QTc Int : 474 ms Sinus tachycardia with 1st degree A-V block Possible Left atrial enlargement Left axis deviation Right bundle branch block Abnormal ECG When compared with ECG of 22-JUN-2018 06:10, Vent. rate has increased BY 45 BPM QRS axis Shifted left ST now depressed in Anterior leads T wave inversion now evident in Anterior leads Confirmed by Saad Wallace ([id number]) on 03/14/2020 4:44:32 AM Referred By: REFERRED SELF Confirmed By:Saad Wallace
--- NOTE | 2020-03-14 04:58 | Electrocardiogram Report ---
Test Reason : Blood Pressure : / mmHG Vent. Rate : 065 BPM Atrial Rate : 065 BPM P-R Int : 204 ms QRS Dur : 118 ms QT Int : 446 ms P-R-T Axes : 066 -12 095 degrees QTc Int : 463 ms Normal sinus rhythm Right bundle branch block T wave abnormality, consider anterolateral ischemia Abnormal ECG When compared with ECG of 12-MAR-2020 20:11, Vent. rate has decreased BY 38 BPM QRS axis Shifted right ST no longer depressed in Anterior leads T wave inversion no longer evident in Anterior leads Confirmed by Saad Wallace ([id number]) on 03/14/2020 4:58:18 AM Referred By: REFERRED SELF Confirmed By:Saad Wallace
[2020-03-14 05:36] LABS: Partial Thromboplastin Ratio 1.6; Partial Thromboplastin Time 44.2 Seconds (21.0-31.0)
[2020-03-14] MEDS: ASPIRIN 81 MG ECTAB PO SCH (07:35)
[2020-03-14] MEDS: ISOSORBIDE MONO EXTENDED REL 30 MG TABCR PO SCH (07:36)
[2020-03-14] MEDS: METOPROLOL TARTRATE 25 MG TAB PO SCH ×2 (07:36→21:26)
[2020-03-14] MEDS: TAMSULOSIN HCL 0.4 MG CAP PO SCH (07:36)
[2020-03-14] MEDS: FAMOTIDINE 20 MG TAB PO SCH ×2 (07:37→21:27)
[2020-03-14] MEDS: IRON POLYSACCHARIDE COMPLEX 150 MG CAPSULE PO SCH (07:37)
[2020-03-14] MEDS: CLOPIDOGREL BISULFATE 75 MG TAB PO SCH (07:38)
[2020-03-14] MEDS: CYANOCOBALAMIN 500 MCG TABLET (VITAMIN B-12) PO SCH (07:38)
[2020-03-14] MEDS: INSULIN ASPART 100 UNITS/ML 3 ML PEN SC SCH ×4 (08:14→21:27)
[2020-03-14 08:24] LABS: Basophils # (auto) 0.03 K/uL (0-0.2); Basophils % (auto) 0.4 %; Eosinophils # (auto) 0.24 K/uL (0-0.5); Eosinophils % (auto) 3.5 %; Hematocrit (blood only) 31.9 % (42-52); Hemoglobin 10.6 g/dL (14.0-18.0); Immature Granulocytes # (auto) 0.01 K/uL (0.00-0.02); Immature Granulocytes % (auto) 0.1 %; Lymphocytes # (auto) 1.01 K/uL (1.2-3.4); Lymphocytes % (auto) 14.9 %; Mean Corpuscular Hemoglobin 29.8 pg (25-34); Mean Corpuscular Volume 89.6 fL (80-100); Mean Platelet Volume 9.2 fL (7.4-10.4); Monocytes # (auto) 0.51 K/uL (0.11-0.59); Monocytes % (auto) 7.5 %; Neutrophils % (auto) 73.6 %; Platelet Count 268 K/uL (130-400); RDW Coefficient of Variation 13.6 % (11.5-14.5); RDW Standard Deviation 44.7 fL (36.4-46.3); Red Blood Count 3.56 M/uL (4.7-6.1)
[2020-03-14 08:30] LABS: Mean Corpuscular Hgb Conc 33.2 g/dL (32-36)
[2020-03-14 08:40] LABS: BUN Creatinine Ratio 12.9 (10-20); Calcium 9.6 mg/dl (8.5-10.1); Creatinine Clr Calc Pharmacy 34.7 ml/min; Potassium 4.1 mmol/L (3.5-5.1)
[2020-03-14 08:49] LABS: Partial Thromboplastin Ratio 1.7
[2020-03-14 08:50] LABS: Partial Thromboplastin Time 46.4 Seconds (21.0-31.0)
--- NOTE | 2020-03-14 11:12 | Cardiology Progress Note ---
Date of Service March 14, 2020 Assessment & Plan (1) Non-ST elevation [place] (NSTEMI): (2) Ischemic cardiomyopathy: (3) Acute decompensated heart failure: 2D transthoracic echocardiogram demonstrates mild to moderate LV systolic dysfunction with ejection fraction 40 to 45%. There is evidence of severe mitral regurgitation related to posterior mitral valve leaflet tethering/ischemic cardiomyopathy. Patient appears compensated today. Recommend addition of Lasix 40 mg daily. I would not add ADELA inhibitor or ARB at this time with mildly elevated creatinine, however, this will be reconsidered in the outpatient setting. I reviewed coronary angiography and bypass angiography images from 06/2018. I suspect his circumflex artery is occluded based on echocardiogram findings. The circumflex was not amenable to intervention at the time of cardiac catheterization. I do not believe that repeat cardiac catheterization would change coordinator at this time. Continue intravenous heparin for additional 24 hours. Other cardiovascular medications including aspirin, clopidogrel, metoprolol, and isosorbide monohydrate will be continued as ordered. Resume PCSK9 inhibitor in the outpatient setting. Discharge in 24 hours pending clinical course. Admission and Anticipated Discharge Date Admission Date: March 12, 2020 Subjective Patient seen and examined the bedside. Denies chest pain or shortness of breath overnight. Renal function unchanged. Fluid balance -620 cc. No orthopnea, PND, or palpitations. Telemetry demonstrates sinus rhythm without dysrhythmia. Review of Systems Review of Systems: All systems reviewed & are unremarkable except as noted in HPI & below Physical Exam Constitutional: well developed and well nourished; no acute distress and not ill appearing Respiratory: normal respiratory effort; no respiratory distress and no labored breathing Auscultation: no crackles, no rales, no rhonchi and no wheezes Cardiovascular: Rate/Rhythm: regular rate and regular rhythm Heart Sounds: normal S1 and normal S2; no murmur Vessels: no JVD Extremities: no edema Gastrointestinal (Abdomen): Inspection/Auscultation: abdomen normal to inspection and normal bowel sounds; abdomen not distended Percussion/Palpation: abdomen soft; abdomen nontender, no guarding and abdomen not rigid Skin: no rashes, warm and dry Neurologic: moves all extremities; no focal motor deficits Motor/Sensory: no tremor Psychiatric: A+Ox3, euthymic affect Results & Data ([facility]) Vital Signs (Past 12 Hours) Vital Signs Temp Pulse Pulse Resp BP Pulse Ox 03/14/20 08:32 37 C 83 18 125/68 92 03/14/20 08:00 70 03/14/20 02:43 36.5 C 67 18 116/64 93
[2020-03-14] MEDS: FUROSEMIDE 40 MG TAB PO SCH (11:36)
[2020-03-14 12:29] LABS: Partial Thromboplastin Ratio 1.6
--- NOTE | 2020-03-14 13:06 | Hospitalist Progress Note ---
Date of Service March 14, 2020 Assessment & Plan (1) Acute hypoxemic respiratory failure: NSTEMI Acute decompensated heart failure, systolic Trop 0.204->6.220->8.42 Echo show EF of 40-45%, large anterior, posterior, lateral wall abnormalities with hypokinesis to akinesis, severe MR, mild TR, PASP 36 Cardiology recommendations noted Per Cardiology, circumflex likely occluded based on previous cath and echo findings. The circumflex was not amenable to intervention at the time of previous cath To complete heparin drip 48h tonight Continue lasix Continue imdur, plavix, aspirin Hypertension Continue home meds Losartan held due to mildly elevated creatinine CKD3 Last cr from 07/2019 ([facility]) was 1.35 Cr on admission 1.47. stable at 1.43 today Avoid nephrotoxins Hyperlipidemia Continue PCSK9 therapy outpatient DM2 On oral medications Well-controlled as of recent outpatient hemoglobin A1c of 6.20 July 2019 Continue ISS per protocol while inpatient Admission and Anticipated Discharge Date Admission Date: March 12, 2020 Subjective Patient seen and examined Denies any complaints at this time Denies any chest pain, SOB, cough, LOCKETT Denies any nausea, vomiting, abd pain, diarrhea Denies fevers, chills Physical Exam Constitutional: + well hydrated; no acute distress Eyes: PERRL, conjunctivae normal, anicteric sclerae ENMT: external ear and nose normal, oropharynx normal Respiratory: normal respiratory effort, lungs clear to auscultation Cardiovascular: Rate/Rhythm: regular rate and regular rhythm S1 S2 no pedal edema Gastrointestinal (Abdomen): normal bowel sounds, soft, nontender, no hepatosplenomegaly Musculoskeletal: no cyanosis or clubbing, extremities motor strength 5/5 Neurologic: PERRL, EOMI, accommodation nl, no face palsy, no dysarthria Psychiatric: A+Ox3, euthymic affect Results & Data Results & Data ([facility]) Vital Signs (Past 12 Hours) Vital Signs Temp Pulse Pulse Resp BP Pulse Ox 03/14/20 12:00 36.7 C 66 18 113/54 L 98 03/14/20 08:32 37 C 83 18 125/68 92 03/14/20 08:00 70 03/14/20 02:43 36.5 C 67 18 116/64 93 Laboratory Results Laboratory Results - last 24 hr 03/13/20 03/13/20 03/13/20 13:53 16:38 20:26 WBC RBC Hgb Hct MCV MCH MCHC RDW Std Deviation RDW Coeff of Myrtle Plt Count MPV Immature Gran % (Auto) Neut % (Auto) Lymph % (Auto) [place] % (Auto) Eos % (Auto) Baso % (Auto) Neut # (Auto) Lymph # (Auto) [place] # (Auto) Eos # (Auto) Baso # (Auto) Immature Gran # (Auto) APTT 38.6 H 39.1 H PTT Ratio 1.4 1.4 Sodium Potassium Chloride Carbon Dioxide Anion Gap BUN Creatinine Est Cr Clr Drug Dosing Est GFR ( Amer) Est GFR (Non-Af Amer) BUN/Creatinine Ratio Glucose POC Glucose 119 H Calcium 03/13/20 03/14/20 03/14/20 21:19 05:14 07:29 WBC RBC Hgb Hct MCV MCH MCHC RDW Std Deviation RDW Coeff of Myrtle Plt Count MPV Immature Gran % (Auto) Neut % (Auto) Lymph % (Auto) [place] % (Auto) Eos % (Auto) Baso % (Auto) Neut # (Auto) Lymph # (Auto) [place] # (Auto) Eos # (Auto) Baso # (Auto) Immature Gran # (Auto) APTT 44.2 H PTT Ratio 1.6 Sodium Potassium Chloride Carbon Dioxide Anion Gap BUN Creatinine Est Cr Clr Drug Dosing Est GFR ( Amer) Est GFR (Non-Af Amer) BUN/Creatinine Ratio Glucose POC Glucose 155 H 112 H Calcium 03/14/20 03/14/20 03/14/20 08:07 08:07 08:07 WBC 6.80 RBC 3.56 L Hgb 10.6 L Hct 31.9 L MCV 89.6 MCH 29.8 MCHC 33.2 RDW Std Deviation 44.7 RDW Coeff of Myrtle 13.6 Plt Count 268 MPV 9.2 Immature Gran % (Auto) 0.1 Neut % (Auto) 73.6 Lymph % (Auto) 14.9 [place] % (Auto) 7.5 Eos % (Auto) 3.5 Baso % (Auto) 0.4 Neut # (Auto) 5.00 Lymph # (Auto) 1.01 L [place] # (Auto) 0.51 Eos # (Auto) 0.24 Baso # (Auto) 0.03 Immature Gran # (Auto) 0.01 APTT 46.4 H* PTT Ratio 1.7 Sodium 132 L Potassium 4.1 Chloride 98 Carbon Dioxide 27 Anion Gap 7.0 BUN 18 Creatinine 1.43 H Est Cr Clr Drug Dosing 34.7 Est GFR ( Amer) 51.0 Est GFR (Non-Af Amer) 44.0 BUN/Creatinine Ratio 12.9 Glucose 172 H POC Glucose Calcium 9.6 03/14/20 03/14/20 11:33 12:09 WBC RBC Hgb Hct MCV MCH MCHC RDW Std Deviation RDW Coeff of Myrtle Plt Count MPV Immature Gran % (Auto) Neut % (Auto) Lymph % (Auto) [place] % (Auto) Eos % (Auto) Baso % (Auto) Neut # (Auto) Lymph # (Auto) [place] # (Auto) Eos # (Auto) Baso # (Auto) Immature Gran # (Auto) APTT 45.0 H PTT Ratio 1.6 Sodium Potassium Chloride Carbon Dioxide Anion Gap BUN Creatinine Est Cr Clr Drug Dosing Est GFR ( Amer) Est GFR (Non-Af Amer) BUN/Creatinine Ratio Glucose POC Glucose 87 Calcium
[2020-03-14 19:44] LABS: Partial Thromboplastin Ratio 1.7
[2020-03-14 19:51] LABS: Partial Thromboplastin Time 48.7 Seconds (21.0-31.0)
[2020-03-14] MEDS: HEPARIN SODIUM/DEXTROSE 25,000 UNITS/500 ML BAG IV SCH (21:29)
--- NOTE | 2020-03-14 21:32 | Electrocardiogram Report ---
Test Reason : Blood Pressure : / mmHG Vent. Rate : 071 BPM Atrial Rate : 071 BPM P-R Int : 188 ms QRS Dur : 120 ms QT Int : 444 ms P-R-T Axes : 062 -32 032 degrees QTc Int : 482 ms Normal sinus rhythm Left axis deviation Right bundle branch block Abnormal ECG When compared with ECG of 13-MAR-2020 09:10, ST less depressed in Anterolateral leads T wave amplitude has decreased in Anterior leads T wave inversion no longer evident in Anterolateral leads Confirmed by Saad Wallace ([id number]) on 03/14/2020 9:31:56 PM Referred By: REFERRED SELF Confirmed By:Saad Wallace
[2020-03-15 07:27] LABS: Hematocrit (blood only) 31.5 % (42-52); Hemoglobin 10.5 g/dL (14.0-18.0); Mean Corpuscular Hemoglobin 29.7 pg (25-34); Mean Corpuscular Hgb Conc 33.3 g/dL (32-36); Mean Platelet Volume 9.4 fL (7.4-10.4); Platelet Count 287 K/uL (130-400); RDW Coefficient of Variation 13.6 % (11.5-14.5); RDW Standard Deviation 44.1 fL (36.4-46.3); Red Blood Count 3.54 M/uL (4.7-6.1); White Blood Count 6.09 K/uL (4.8-10.8)
[2020-03-15 07:50] LABS: BUN Creatinine Ratio 15.3 (10-20); Calcium 9.1 mg/dl (8.5-10.1); Creatinine Clr Calc Pharmacy 37.8 ml/min; Est GFR (African American) 56.7; Potassium 4.1 mmol/L (3.5-5.1)
[2020-03-15] MEDS: CLOPIDOGREL BISULFATE 75 MG TAB PO SCH (08:12)
[2020-03-15] MEDS: ISOSORBIDE MONO EXTENDED REL 30 MG TABCR PO SCH (08:12)
[2020-03-15] MEDS: TAMSULOSIN HCL 0.4 MG CAP PO SCH (08:13)
[2020-03-15] MEDS: FUROSEMIDE 40 MG TAB PO SCH (08:13)
[2020-03-15] MEDS: CYANOCOBALAMIN 500 MCG TABLET (VITAMIN B-12) PO SCH (08:13)
[2020-03-15] MEDS: ASPIRIN 81 MG ECTAB PO SCH (08:14)
[2020-03-15] MEDS: METOPROLOL TARTRATE 25 MG TAB PO SCH (08:14)
[2020-03-15] MEDS: IRON POLYSACCHARIDE COMPLEX 150 MG CAPSULE PO SCH (08:14)
[2020-03-15] MEDS: FAMOTIDINE 20 MG TAB PO SCH (08:15)
[2020-03-15] MEDS: INSULIN ASPART 100 UNITS/ML 3 ML PEN SC SCH (08:19)
--- NOTE | 2020-03-15 10:17 | Discharge Summary ---
Date of Service March 15, 2020 Admission HPI Per Admitting Provider History obtained from patient and records. Medical history significant for CAD status post CABG, hypertension, hyperlipidemia/statin intolerance, DM2 on oral medications, CRI (baseline creatinine 1.4), chronic anemia (baseline hemoglobin 10-11). Last confinement June 2018 for unstable angina, abnormal nuclear stress test. Cardiac cath revealed 3 out of 5 occluded grafts. Medical management recommended by Cardiology. Patient with almost daily anginal symptoms relieved by nitroglycerin since last year. Patient noted shortness of breath mostly on exertion in the last 2 weeks without unusual fluid retention or leg swelling. Patient compliant with home medications. Patient brought to the ER for evaluation. O2 sats noted to be 80s upon arrival. Nitropaste and IV Heparin initiated for ACS. Medical History as above Surgical History : CABG Family History : Heart disease Personal/Social history : Non-smoker, no EtOH intake, retired from asphalt work Admission Exam Per Admitting Provider GENERAL: uncomfortable, pleasant, minimal respiratory distress SKIN: Pallor, warm HEENT: Pale palpebral conjunctivae, no ptosis, dry buccal mucosa, nasal cannula in place NECK : Supple, no tenderness CHEST : Bibasilar crackles, no tenderness HEART : Tachycardic, systolic murmur ABDOMEN: Some distention, nontender EXTREMITIES : Minimal LE swelling, no LE tenderness, no other conspicuous deformities noted NEUROLOGIC : Coherent, no facial asymmetry, no other gross focality Principal Diagnosis NSTEMI Acute decompensated heart failure Discharge Exam Constitutional + well hydrated; no acute distress Eyes PERRL, conjunctivae normal, anicteric sclerae ENMT external ear and nose normal, oropharynx normal Respiratory normal respiratory effort, lungs clear to auscultation Cardiovascular Rate/Rhythm: regular rate and regular rhythm Gastrointestinal (Abdomen) normal bowel sounds, soft, nontender, no hepatosplenomegaly Musculoskeletal no cyanosis or clubbing, extremities motor strength 5/5 Neurologic PERRL, EOMI, accommodation nl, no face palsy, no dysarthria Psychiatric A+Ox3, euthymic affect Discharge Data Allergies Allergy/AdvReac Type Severity Reaction Status Date / Time atorvastatin AdvReac Unknown Unknown Verified 03/12/20 22:41 ezetimibe AdvReac Unknown Unknown Verified 03/12/20 22:41 lisinopril AdvReac Unknown Cough Verified 03/12/20 22:41 simvastatin AdvReac Unknown Unknown Verified 03/12/20 22:41 Consultations 03/12/20 21:14 ED Decision to Admit Stat 03/13/20 01:40 Consult Cardiology Routine Hospital Course (1) Acute hypoxemic respiratory failure: NSTEMI Acute decompensated heart failure, systolic Trop 0.204->6.220->8.42 Echo show EF of 40-45%, large anterior, posterior, lateral wall abnormalities with hypokinesis to akinesis, severe MR, mild TR, PASP 36 Was comanaged with Tire Assembler Per Cardiology, circumflex likely occluded based on previous cath and echo findings. The circumflex was not amenable to intervention at the time of previous cath Was managed medically Completed 48h heparin drip Continue aspirin and plavix Home imdur changed to 90mg daily Started on lasix 40mg daily Needs to follow up with Cardiology outpatient Hypertension Controlled Continue home meds Losartan held due to mildly elevated creatinine. Follow up with Cardiology outpatient. May be resumed by Cardiology CKD3 Last cr from 07/2019 (Epic) was 1.35 Cr on admission 1.47. stable at 1.31 today Avoid nephrotoxins Get BMP next week to monitor Follow up with PCP Hyperlipidemia Continue PCSK9 therapy outpatient DM2 Continue antidiabetic medications Well-controlled Most recent outpatient hemoglobin A1c of 6.20 July 2019 A1c on 03/12/20 - 5.9 Total Time Total Time Spent Total Time Spent (In Minutes): 40 Total Time Includes: Examination of the Patient, Discharge Planning, Medication Reconciliation and Communication With Other Providers Discharge Plan Discharge Items Patient Disposition: Home - Self-Care Reason For Visit: CHEST PAIN Discharge Diagnosis: Non-ST elevation Myocardial Infarction (NSTEMI) Acute decompensated heart failure Activity: Resume your previous activity Non-emergency contact: Primary Care Provider and T[employer] As[employer]er Call non-emergency contact if: you have any medication questions and your symptoms worsen Follow-up/Referrals: PCP,NO [Primary Care Provider] - Diet: Heart Healthy and Low Sodium (2gm) Ambulatory Orders: Basic Metabolic Panel (Routine) Timeframe: 20200320 Location: Determined by Patient Ordered By: Hanane Monzon Attending Provider Instructions: Mr Zaman. You came to the hospital complaining of chest pain. You were evaluated and found to have had an NSTEMI (a form of heart attack) You were comanaged with the Tire Assembler. You were treated medically. You were started on a new medication called lasix or furosemide. Please take this as prescribed daily. Your imdur (isosorbide mononitrate) was changed from 60mg twice daily to 90mg daily. Please take the new medciations as prescribed. Due to mild elevation in your creatinine level (A test used to monitor Kidney function), your losartan was suspended for now. Please do the blood test called Basic metabolic Panel next week and follow up the results with your Primary Doctor and Tire Assembler. Please follow up with your Tire Assembler outpatient for follow up, possible resumption of the losartan and continued management of your heart problems. It was a pleasure taking care of you. Pending Studies at Discharge: No Stand-Alone Forms: [facility], Smoking Cessation Medications and DC Order Prescriptions: New furosemide 40 mg Tablet 40 mg PO QAM 30 Days Qty: 30 RF: 0 isosorbide mononitrate 30 mg Tablet Extended Release 24 Hr 90 mg PO QAM 30 Days Qty: 90 RF: 0 Continued polysaccharide iron complex 150 mg iron Capsule 150 mg PO DAILY RF: 0 cyanocobalamin (vitamin B-12) 1,000 mcg Tablet 1,000 mcg PO DAILY RF: 0 clopidogrel [Plavix] 75 mg Tablet 75 mg PO DAILY RF: 0 aspirin 81 mg Tablet,Delayed Release (Dr/Ec) 81 mg PO DAILY RF: 0 acetaminophen 650 mg Tablet Extended Release 650 mg PO TID PRN (Reason: Arthritis Pain) RF: 0 famotidine 20 mg Tablet 20 mg PO BID RF: 0 tamsulosin 0.4 mg Capsule 0.4 mg PO DAILY RF: 0 metformin 1,000 mg Tablet 1,000 mg PO BID RF: 0 nitroglycerin 0.4 mg Tablet, Sublingual 0.4 mg Sublingual DIRECTED PRN (Reason: Chest Pain) RF: 0 betamethasone, augmented 0.05 % ointment 1 applic topical BID PRN (Reason: Itchy Active Rash) RF: 0 metoprolol tartrate 25 mg tablet 12.5 mg PO BID RF: 0 Praluent Pen 75 mg/mL pen injector 75 mg SUBCUT .Q14 DAYS RF: 0 Discontinued losartan 50 mg Tablet 50 mg PO DAILY RF: 0 isosorbide mononitrate 60 mg tablet extended release 24 hr 60 mg PO BID RF: 0 Discharge Orders: Discharge Order (Routine); Ordered 03/15/20 Ordered By: Hanane Barnett/Other Patient Handouts: Managing Your Glucose Level for ... Admission Data Admit Date/Time: 03/12/20 21:54 Attending Provider: Hanane Bautista I. Admit Provider: Ciaran Mcelroy Primary Care Provider: PCP,NO Other Providers: Ciaran Mcelroy ; Shkaeel Cleveland ; Hector Delaney ; Yariel Agustin ; Prieto Robertson ; Darion Patel ; Thomas Hill ; Vickie Brice ; Fanny Leal ; Jeffery Morgan ; Ciro De La Fuente Other Interventions: Discharge Summary Assessment (RN) Last Done: 03/15/20 10:38
--- NOTE | 2020-03-15 10:42 | Cardiology Progress Note ---
Date of Service March 15, 2020 Assessment & Plan (1) Non-ST elevation [place] (NSTEMI): (2) Ischemic cardiomyopathy: (3) Acute on chronic renal insufficiency: (4) Acute decompensated heart failure: 2D transthoracic echocardiogram demonstrates mild to moderate LV systolic dysfunction with ejection fraction 40 to 45%. There is evidence of severe mitral regurgitation related to posterior mitral valve leaflet tethering/ischemic cardiomyopathy. Patient appears compensated. Discontinue IV heparin. Continue Lasix 40 mg daily. Hold Cozaar pending reassessment of renal function as outpatient. Continue other cardiovascular medications including aspirin, clopidogrel, metoprolol, and isosorbide monohydrate. Resume PCSK9 inhibitor in the outpatient setting. Discharge to home today with close cardiology follow-up in 1 week. Admission and Anticipated Discharge Date Admission Date: March 12, 2020 Subjective Patient seen and examined at the bedside. Denies chest pain or unusual shortness of breath. Feeling well since admission. No sustained dysrhythmias on telemetry. Denies orthopnea, PND, or palpitations. Requesting discharge. Review of Systems Review of Systems: All systems reviewed & are unremarkable except as noted in HPI & below Physical Exam Constitutional: well developed and well nourished; no acute distress and not ill appearing Respiratory: normal respiratory effort; no respiratory distress and no labored breathing Auscultation: no crackles, no rales, no rhonchi and no wheezes Cardiovascular: Rate/Rhythm: regular rate and regular rhythm Heart Sounds: normal S1 and normal S2; no murmur Vessels: no JVD Extremities: no edema Gastrointestinal (Abdomen): Inspection/Auscultation: abdomen normal to inspection and normal bowel sounds; abdomen not distended Percussion/Palpation: abdomen soft; abdomen nontender, no guarding and abdomen not rigid Skin: no rashes, warm and dry Neurologic: moves all extremities; no focal motor deficits Motor/Sensory: no tremor Psychiatric: A+Ox3, euthymic affect Results & Data ([facility]) Vital Signs (Past 12 Hours) Vital Signs Temp Pulse Pulse Resp BP BP Pulse Ox 03/15/20 07:45 36.6 C 66 17 129/70 97 03/15/20 07:22 64 03/15/20 04:38 37.1 C 64 16 120/56 L 93 03/14/20 23:55 37.1 C 69 18 118/68 96
== END 2020-03-15 12:10 | disposition home or self-care (01) | DRG 280 ==
LOC: ED 19:29 → EDINP 21:54 → SUATTDRO 21:54 → 2S 03-13 14:26

== ENCOUNTER 2020-03-31 19:12 | Inpatient (IN) ==
--- NOTE | 2020-03-31 20:16 | XRay Report ---
SINGLE VIEW CHEST CLINICAL HISTORY: Dyspnea. FINDINGS: An AP, portable, upright chest radiograph is compared to study dated 03/12/2020. The examin ation is degraded by portable technique and patient rotation. The patient is status post midline arik rnotomy. The heart is enlarged noting atherosclerotic calcification of the thoracic aorta. There is p ulmonary vascular congestion. There are bilateral airspace opacities. Small pleural effusions are not ed with bibasilar atelectasis. No pneumothorax is seen. The skeletal structures are osteopenic. The b leanne thorax is grossly intact. IMPRESSION: 1. Cardiomegaly with evidence of congestive failure. 2. Bilateral interstitial opacities likely represent pulmonary edema. Correlate clinically for eviden ce of a superimposed infectious/inflammatory pneumonitis. 3. There are small pleural effusions. ACT 112: Negative or not required by law. Electronically signed by: Tomás Alberto M.D. 03/31/2020 8:15 PM
--- NOTE | 2020-03-31 20:35 | Emergency Department Note ---
Impression & Plan SOB (shortness of breath), CAD (coronary artery disease), Productive cough ED Provider Note INFORMANT: Patient ED PROVIDER(S): Patric Negro MD CHIEF COMPLAINT: Shortness of breath PLAN: Disposition: Admitted Condition: Good MEDICAL DECISION MAKING: Patient presented due to increasing shortness of breath, cough and chest tightness. He was recently admitted for non-STEMI and CHF. The patient states he has no chest pain similar to his last admission. His ECG showed some mild ST depressions anteriorly compared to his prior. The patient had blood work obtained. Cultures obtained. He was tested for Covid. His blood work shows a mild leukocytosis. Slight anemia present. The patient had hyponatremia which is new on his chemistry panel. His troponin is mildly elevated. Difficult to say if this is new or a result of his last cardiac event. Patient's BNP is elevated. There is findings consistent with CHF but also possible pneumonitis on his chest x-ray. Given his productive cough and leukocytosis this is concerning. He was given broad-spectrum antibiotics with cefepime and vancomycin. [facility] Triage Nursing notes reviewed and agree them. Prior medical records reviewed regarding his last admission Vital Signs: reviewed and remarkable for no significant abnormalities Differential diagnosis: Reactive airway disease, pneumonia, pneumothorax, COPD, CHF, infections, cardiac ischemia, pulmonary embolism, musculoskeletal, gastrointestinal, as well as other pathologies. Diagnostics interpreted by me: ECG: Twelve-lead ECG reveals a normal sinus rhythm at 79 bpm. Left axis deviation. Right bundle branch block present. There is slight ST depressions in V2 and V3. This is slightly more pronounced than compared to EKG of 13 March 2020. There is no ST elevation. No PACs or PVCs. Cardiac Monitoring: Cardiac monitoring ordered by me: The patient was placed on continuous cardiac monitoring and observed. It revealed a normal sinus rhythm at 82 beats per minute without ectopy or evidence of dysrhythmia. Imaging studies: Chest x-ray concerning for CHF as well as pneumonitis [facility] HPI: The patient is a 85 year old male who presents to the Emergency Room with complaints of shortness of breath. This started 3 days and is worsening. The patient also notes the following associated symptoms, productive cough, chest tightness. The patient was recently admitted for non-ST elevation [place] and CHF. He states he does not have the same kind of pain as he did last time in his chest. He denies any obvious Covid contacts but is concerned about COVID-19. The patient has found no relieving factors. Current pain is rated as 2/10. Pt denies LOC, headache, fevers, chills, diaphoresis, visual changes, neck pain, nausea, vomiting, abdominal pain, back pain, melena, hematochezia, urinary symptoms, numbness, weakness, lymphadenopathy, rash, or other complaints. ROS: See above HPI for pertinent positives & negatives. A total of 10 systems reviewed and were otherwise negative. PAST MEDICAL HISTORY:See Below, CAD, non-ST elevation [place] PAST SURGICAL HISTORY:See Below, FAMILY HISTORY:See Below SOCIAL HISTORY:See Below, HOME MEDICATIONS:See Below ALLERGIES:See Below VITALS:See Below PHYSICAL EXAMINATION: GENERAL: Awake, alert, well-appearing, in no distress HENT: Normocephalic, atraumatic. Oropharynx unremarkable. EYES: Normal conjunctiva. Sclera non-icteric. NECK: Inspection normal. Non-tender. Supple. No nuchal rigidity. FROM. No masses. RESPIRATORY: Scattered rhonchi. No wheezes. Few basilar rales. Increased respiratory effort. CARDIAC: Normal rate. Normal rhythm. No murmurs. No rubs. Extremities warm and well perfused. Pulses equal. No JVD. GI: Soft, non-distended. No tenderness to palpation. No rebound or guarding. No masses. RECTAL: Deferred. MUSCULOSKELETAL: Atraumatic. Chest examination reveals no tenderness. The back is symmetrical on inspection without obvious abnormality. There is no CVA tenderness to palpation. No joint edema. LOWER EXTREMITIES: Calves are equal size bilaterally and non-tender. Trace edema. No discoloration. NEURO: Normal sensorium. No sensory or motor deficits noted. SKIN: No rash or jaundice noted. ED COURSE: Critical Care: None Patric Negro MD Past Med/Surg History Medical History (Updated 03/31/20 @ 20:30 by Patric Negro MD) CAD (coronary artery disease) Diabetes mellitus, type II GERD (gastroesophageal reflux disease) HTN (hypertension) Prostatitis Surgical History History of coronary artery bypass graft [place] Family History Other Coronary heart disease Diabetes Social History Smoking Status: Never smoker Hx Alcohol Use: No Hx Substance Use: No Preferred Language: Khmer Communication Ability: Effective Machine Bobbin Winder Required: No Beliefs That Will Affect Care: None marital status: Current Living Situation: Spouse Current Living Situation Comment: at home with Feels Safe at Home: Yes Assistive Devices: Walker Allergies Allergies Allergy/AdvReac Type Severity Reaction Status Date / Time atorvastatin AdvReac Unknown Unknown Verified 03/12/20 22:41 ezetimibe AdvReac Unknown Unknown Verified 03/12/20 22:41 lisinopril AdvReac Unknown Cough Verified 03/12/20 22:41 simvastatin AdvReac Unknown Unknown Verified 03/12/20 22:41 Home Meds Home Medications Medication Instructions Recorded Confirmed acetaminophen 650 mg PO TID PRN 06/21/18 03/12/20 aspirin 81 mg PO DAILY 06/21/18 03/12/20 betamethasone, augmented 1 applic TOPICAL BID PRN 06/21/18 03/12/20 clopidogrel [Plavix] 75 mg PO DAILY 06/21/18 03/12/20 cyanocobalamin (vitamin B-12) 1,000 mcg PO DAILY 06/21/18 03/12/20 famotidine 20 mg PO BID 06/21/18 03/12/20 metformin 1,000 mg PO BID 06/21/18 03/12/20 nitroglycerin 0.4 mg SUBLINGUAL DIRECTED PRN 06/21/18 03/12/20 polysaccharide iron complex 150 mg PO DAILY 06/21/18 03/12/20 tamsulosin 0.4 mg PO DAILY 06/21/18 03/12/20 Praluent Pen 75 mg SUBCUT .Q14 DAYS 03/12/20 03/12/20 metoprolol tartrate 12.5 mg PO BID 03/12/20 03/12/20 Previous Rx's Medication Instructions Recorded furosemide 40 mg PO QAM 30 Days #30 tab 03/15/20 isosorbide mononitrate 90 mg PO QAM 30 Days #90 tab 03/15/20 Results & Data (ED) Vital Signs Vital Signs - 24 hr 03/31/20 19:12 03/31/20 19:17 03/31/20 19:30 Temperature 36.3 C L Temperature Source Oral Pulse Rate 81 78 78 Pulse Rate from SpO2 Sensor 78 78 Pulse Rhythm Regular Respiratory Rate 20 26 H 27 H Respiratory Effort / Characteristics Non-Labored Spontaneous Respiratory Depth Normal Respiratory Pattern Regular Blood Pressure 139/94 139/94 139/84 Blood Pressure Mean 109 106 93 Pulse Oximetry 91 97 95 Oxygen Delivery Method Nasal Cannula Oxygen Flow Rate 0 Sepsis Recent Fever Within 48 Hours No Sepsis New/Unexplained Change in Mental Status No Sepsis Action Taken by Nursing No Action Required Oxygen Flow Rate - Titration 2 Pulse Oximetry Post Tiitration 94 03/31/20 19:44 03/31/20 20:00 03/31/20 20:30 Temperature Temperature Source Pulse Rate 81 72 79 Pulse Rate from SpO2 Sensor 72 76 Pulse Rhythm Regular Respiratory Rate 20 17 20 Respiratory Effort / Characteristics Respiratory Depth Respiratory Pattern Blood Pressure 133/88 146/79 H Blood Pressure Mean 115 87 Pulse Oximetry 95 95 98 Oxygen Delivery Method Nasal Cannula Oxygen Flow Rate 2 Sepsis Recent Fever Within 48 Hours Sepsis New/Unexplained Change in Mental Status Sepsis Action Taken by Nursing Oxygen Flow Rate - Titration Pulse Oximetry Post Tiitration 03/31/20 21:00 Temperature Temperature Source Pulse Rate 80 Pulse Rate from SpO2 Sensor 79 Pulse Rhythm Respiratory Rate 22 Respiratory Effort / Characteristics Respiratory Depth Respiratory Pattern Blood Pressure 147/112 H Blood Pressure Mean 119 Pulse Oximetry 94 Oxygen Delivery Method Oxygen Flow Rate Sepsis Recent Fever Within 48 Hours Sepsis New/Unexplained Change in Mental Status Sepsis Action Taken by Nursing Oxygen Flow Rate - Titration Pulse Oximetry Post Tiitration Laboratory Data Result diagrams: 03/31/20 21:18 03/31/20 21:18 Lab Results 03/31/20 03/31/20 03/31/20 Range/Units 20:25 20:25 21:18 WBC (4.8-10.8) K/uL RBC (4.7-6.1) M/uL Hgb (14.0-18.0) g/dL Hct (42-52) % MCV (80-100) fL MCH (25-34) pg MCHC (32-36) g/dL RDW Std Deviation (36.4-46.3) fL RDW Coeff of Myrtle (11.5-14.5) % Plt Count (130-400) K/uL MPV (7.4-10.4) fL Immature Gran % (Auto) % Neut % (Auto) % Lymph % (Auto) % Sully % (Auto) % Eos % (Auto) % Baso % (Auto) % Neut # (Auto) (1.4-6.5) K/uL Lymph # (Auto) (1.2-3.4) K/uL Sully # (Auto) (0.11-0.59) K/uL Eos # (Auto) (0-0.5) K/uL Baso # (Auto) (0-0.2) K/uL Immature Gran # (Auto) (0.00-0.02) K/uL PT (9.0-12.0) Seconds INR (0.9-1.1) APTT (21.0-31.0) Seconds PTT Ratio Sodium 125 L (136-145) mmol/L Potassium 4.3 (3.5-5.1) mmol/L Chloride 92 L (98-107) mmol/L Carbon Dioxide 24 (21-32) mmol/L Anion Gap 9.0 (3-11) BUN 17 (7-18) mg/dl Creatinine 1.32 (0.6-1.4) mg/dl Est Cr Clr Drug Dosing 37.6 ml/min Est GFR ( Amer) 56.2 Est GFR (Non-Af Amer) 48.5 BUN/Creatinine Ratio 13.0 (10-20) Glucose 124 H (70-99) mg/dl Lactate (0.4-2.0) mmol/L Calcium 8.9 (8.5-10.1) mg/dl Magnesium 1.9 (1.8-2.4) mg/dl Total Bilirubin 0.9 (0.2-1) mg/dl AST 24 (15-37) U/L ALT 26 (12-78) U/L Alkaline Phosphatase 102 (45-117) U/L Troponin I 0.371 H* (0-0.045) ng/ml NT-Pro-B Natriuret Pep 5457 H (0-1800) pg/ml Total Protein 7.9 (6.4-8.2) gm/dl Albumin 4.0 (3.4-5.0) gm/dl Globulin 3.9 (2.5-4.0) gm/dl Albumin/Globulin Ratio 1.0 (0.9-2) COVID-19 Eval [facility] SARS-[facility]-2, RNA, NAAT NEGATIVE (NEGATIVE) 03/31/20 03/31/20 03/31/20 Range/Units 21:18 21:18 21:18 WBC 11.00 H (4.8-10.8) K/uL RBC 3.72 L (4.7-6.1) M/uL Hgb 10.9 L (14.0-18.0) g/dL Hct 32.6 L (42-52) % MCV 87.6 (80-100) fL MCH 29.3 (25-34) pg MCHC 33.4 (32-36) g/dL RDW Std Deviation 43.5 (36.4-46.3) fL RDW Coeff of Myrtle 13.6 (11.5-14.5) % Plt Count 324 (130-400) K/uL MPV 9.5 (7.4-10.4) fL Immature Gran % (Auto) 0.3 % Neut % (Auto) 85.8 % Lymph % (Auto) 5.5 % Sully % (Auto) 7.5 % Eos % (Auto) 0.6 % Baso % (Auto) 0.3 % Neut # (Auto) 9.44 H (1.4-6.5) K/uL Lymph # (Auto) 0.60 L (1.2-3.4) K/uL Sully # (Auto) 0.83 H (0.11-0.59) K/uL Eos # (Auto) 0.07 (0-0.5) K/uL Baso # (Auto) 0.03 (0-0.2) K/uL Immature Gran # (Auto) 0.03 H (0.00-0.02) K/uL PT 10.7 (9.0-12.0) Seconds INR 1.0 (0.9-1.1) APTT 28.9 (21.0-31.0) Seconds PTT Ratio 1.0 Sodium (136-145) mmol/L Potassium (3.5-5.1) mmol/L Chloride (98-107) mmol/L Carbon Dioxide (21-32) mmol/L Anion Gap (3-11) BUN (7-18) mg/dl Creatinine (0.6-1.4) mg/dl Est Cr Clr Drug Dosing ml/min Est GFR ( Amer) Est GFR (Non-Af Amer) BUN/Creatinine Ratio (10-20) Glucose (70-99) mg/dl Lactate 2.5 H* (0.4-2.0) mmol/L Calcium (8.5-10.1) mg/dl Magnesium (1.8-2.4) mg/dl Total Bilirubin (0.2-1) mg/dl AST (15-37) U/L ALT (12-78) U/L Alkaline Phosphatase (45-117) U/L Troponin I (0-0.045) ng/ml NT-Pro-B Natriuret Pep (0-1800) pg/ml Total Protein (6.4-8.2) gm/dl Albumin (3.4-5.0) gm/dl Globulin (2.5-4.0) gm/dl Albumin/Globulin Ratio (0.9-2) COVID-19 Eval Order SARS-CoV-2, RNA, NAAT (NEGATIVE) Discharge Plan Visit Data Chief Complaint: Chest Pain Stated Complaint: CHEST DISCOMFORT/COUGH ED Provider: Patric Negro Discharge Problem: SOB (shortness of breath), CAD (coronary artery disease), Productive cough Forms Stand Alone Forms: My [facility] Prescriptions Prescriptions: No Action polysaccharide iron complex 150 mg iron Capsule 150 mg PO DAILY RF: 0 cyanocobalamin (vitamin B-12) 1,000 mcg Tablet 1,000 mcg PO DAILY RF: 0 clopidogrel [Plavix] 75 mg Tablet 75 mg PO DAILY RF: 0 aspirin 81 mg Tablet,Delayed Release (Dr/Ec) 81 mg PO DAILY RF: 0 acetaminophen 650 mg Tablet Extended Release 650 mg PO TID PRN (Reason: Arthritis Pain) RF: 0 famotidine 20 mg Tablet 20 mg PO BID RF: 0 tamsulosin 0.4 mg Capsule 0.4 mg PO DAILY RF: 0 metformin 1,000 mg Tablet 1,000 mg PO BID RF: 0 nitroglycerin 0.4 mg Tablet, Sublingual 0.4 mg Sublingual DIRECTED PRN (Reason: Chest Pain) RF: 0 betamethasone, augmented 0.05 % ointment 1 applic topical BID PRN (Reason: Itchy Active Rash) RF: 0 metoprolol tartrate 25 mg tablet 12.5 mg PO BID RF: 0 Praluent Pen 75 mg/mL pen injector 75 mg SUBCUT .Q14 DAYS RF: 0 furosemide 40 mg Tablet 40 mg PO QAM 30 Days Qty: 30 RF: 0 isosorbide mononitrate 30 mg Tablet Extended Release 24 Hr 90 mg PO QAM 30 Days Qty: 90 RF: 0
[2020-03-31 21:29] LABS: Basophils # (auto) 0.03 K/uL (0-0.2); Basophils % (auto) 0.3 %; Eosinophils # (auto) 0.07 K/uL (0-0.5); Eosinophils % (auto) 0.6 %; Hematocrit (blood only) 32.6 % (42-52); Hemoglobin 10.9 g/dL (14.0-18.0); Immature Granulocytes # (auto) 0.03 K/uL (0.00-0.02); Immature Granulocytes % (auto) 0.3 %; Lymphocytes % (auto) 5.5 %; Mean Corpuscular Hemoglobin 29.3 pg (25-34); Mean Corpuscular Hgb Conc 33.4 g/dL (32-36); Mean Corpuscular Volume 87.6 fL (80-100); Mean Platelet Volume 9.5 fL (7.4-10.4); Monocytes # (auto) 0.83 K/uL (0.11-0.59); Monocytes % (auto) 7.5 %; Neutrophils # (auto) 9.44 K/uL (1.4-6.5); Neutrophils % (auto) 85.8 %; Platelet Count 324 K/uL (130-400); RDW Coefficient of Variation 13.6 % (11.5-14.5); RDW Standard Deviation 43.5 fL (36.4-46.3); Red Blood Count 3.72 M/uL (4.7-6.1)
[2020-03-31 21:39] LABS: Partial Thromboplastin Time 28.9 Seconds (21.0-31.0); Prothrombin Time 10.7 Seconds (9.0-12.0)
[2020-03-31 21:45] LABS: Calcium 8.9 mg/dl (8.5-10.1); Creatinine Clr Calc Pharmacy 37.6 ml/min; Est GFR (African American) 56.2; Est GFR (Non-African American) 48.5; Magnesium 1.9 mg/dl (1.8-2.4); Potassium 4.3 mmol/L (3.5-5.1)
[2020-03-31 21:53] LABS: Bilirubin,Total 0.9 mg/dl (0.2-1); Globulin 3.9 gm/dl (2.5-4.0); Total Protein 7.9 gm/dl (6.4-8.2); Troponin I 0.371 ng/ml (0-0.045)
[2020-03-31] MEDS ORDERED: VANCOMYCIN CONSULT ACTIVE PRN (21:56)
[2020-03-31] MEDS ORDERED: CEFEPIME 2,000 MG/20 ML VIAL IV STA (21:56)
[2020-03-31] MEDS ORDERED: VANCOMYCIN HCL 1,500 MG in SODIUM CHLORIDE 0.9% 500 ML IV ONE (21:56)
[2020-04-01] MEDS ORDERED: NITROGLYCERIN SL 0.4 MG/TAB TAB SL PRN (00:25)
[2020-04-01] MEDS ORDERED: ACETAMINOPHEN 325 MG TAB PO PRN ×2 (00:25→09:06)
[2020-04-01] MEDS ORDERED: SODIUM CHLORIDE 0.9% 1000ML 1,000 ML IV SCH (00:25)
[2020-04-01] MEDS ORDERED: BETAMETHASONE DIP AUG (DIPROLENE) 0.05% CR 15 GM TUBE EXT PRN (00:25)
[2020-04-01] MEDS ORDERED: ONDANSETRON INJ 2 MG/ML 2 ML VIAL IV PRN (00:25)
[2020-04-01] MEDS ORDERED: NITROGLYCERIN SL 0.4 MG/TAB TAB ONE (00:30)
[2020-04-01] MEDS ORDERED: CEFEPIME CONSULT ACTIVE PRN (00:44)
[2020-04-01] MEDS ORDERED: HEPARIN SODIUM/DEXTROSE 25,000 UNITS/500 ML BAG IV SCH (00:45)
[2020-04-01] MEDS ORDERED: FUROSEMIDE 40 MG in SYRINGE 0 ML IV ONE (00:47)
[2020-04-01] MEDS: DOXYCYCLINE HYCLATE 100 MG in DEXTROSE 5% 100 ML IV SCH ×2 (01:07→14:04)
[2020-04-01] MEDS: METOPROLOL TARTRATE 25 MG TAB PO SCH ×3 (01:07→21:02)
[2020-04-01] MEDS: NITROGLYCERIN 2% OINTMENT 30GM TUBE EXT SCH ×4 (01:07→18:01)
[2020-04-01 01:50] LABS: Appearance Urine Clear (Clear); Bilirubin Urine Negative (Negative); Blood Urine Negative (Negative); Color Urine Dark Yellow; Glucose Urine UA Negative (Negative); Ketones Urine Trace (Negative); Leukocyte Esterase Urine Negative (Negative); Nitrite Urine Negative (Negative); Protein Urine Negative (Negative); Specific Gravity Urine 1.022 (1.000-1.030); Urobilinogen Urine Negative (Negative)
[2020-04-01] MEDS: Heparin IV Adult Wt-Based Standard *NO* Bolus Protocol IV SCH ×2 (01:52→02:02)
[2020-04-01] MEDS: NITROGLYCERIN SL 0.4 MG/TAB TAB SL PRN ×2 (02:02→08:12)
[2020-04-01] MEDS ORDERED: LEVALBUTEROL 1.25MG/0.5ML NEB NEB PRN (05:19)
[2020-04-01 05:50] LABS: Basophils # (auto) 0.03 K/uL (0-0.2); Basophils % (auto) 0.3 %; Eosinophils # (auto) 0.02 K/uL (0-0.5); Eosinophils % (auto) 0.2 %; Hematocrit (blood only) 30.9 % (42-52); Hemoglobin 10.5 g/dL (14.0-18.0); Immature Granulocytes # (auto) 0.01 K/uL (0.00-0.02); Immature Granulocytes % (auto) 0.1 %; Lymphocytes # (auto) 0.69 K/uL (1.2-3.4); Lymphocytes % (auto) 6.4 %; Mean Corpuscular Hemoglobin 29.4 pg (25-34); Mean Corpuscular Volume 86.6 fL (80-100); Mean Platelet Volume 9.7 fL (7.4-10.4); Monocytes # (auto) 0.69 K/uL (0.11-0.59); Monocytes % (auto) 6.4 %; Neutrophils # (auto) 9.38 K/uL (1.4-6.5); Neutrophils % (auto) 86.6 %; Platelet Count 369 K/uL (130-400); RDW Coefficient of Variation 13.5 % (11.5-14.5); RDW Standard Deviation 43.2 fL (36.4-46.3); Red Blood Count 3.57 M/uL (4.7-6.1); White Blood Count 10.82 K/uL (4.8-10.8)
[2020-04-01] MEDS ORDERED: HEPARIN SOD 5,000 UNIT/0.5 ML VIAL SQ SCH (06:00)
[2020-04-01 06:19] LABS: BUN Creatinine Ratio 16.5 (10-20); Calcium 8.5 mg/dl (8.5-10.1); Est GFR (African American) 60.6; Est GFR (Non-African American) 52.3; Magnesium 1.9 mg/dl (1.8-2.4); Potassium 4.1 mmol/L (3.5-5.1)
[2020-04-01 06:58] LABS: Troponin I 0.252 ng/ml (0-0.045)
[2020-04-01 07:34] LABS: Partial Thromboplastin Ratio 1.9
[2020-04-01 07:41] LABS: Partial Thromboplastin Time 51.7 Seconds (21.0-31.0)
--- NOTE | 2020-04-01 07:48 | CT Scan Report ---
CT chest wo con CT DOSE: 344.08 mGy.cm HISTORY: sob/cough. chf vs pneumonia TECHNIQUE: Multiaxial CT images of the chest were performed without contrast. A dose lowering techni que was utilized adhering to the principles of ALARA. COMPARISON: Chest 03/31/2020. FINDINGS: Respiratory motion artifact results in suboptimal evaluation. No pneumothorax. The central airways appear patent. Moderate right and small left pleural effusions. Diffuse interlobular septal t hickening with hazy airspace opacities consistent with pulmonary edema. Bilateral lower lobe consolid ation favors compressive atelectasis from the pleural effusions. An alveolar component of the edema o r superimposed pneumonia could also have a similar appearance. There are poststernotomy changes. Mild retroperitoneal lymphadenopathy. This could be reactive or secondary to chronic pulmonary edema. The re is moderate cardiomegaly. There is a small anterior diaphragmatic hernia containing a short segmen t of the transverse colon. Limited views of the upper abdomen demonstrate a 9 mm hypodense lesion wit hin the left hepatic lobe. This is technically too small to characterize but favors a cyst. The splee n and adrenal glands are unremarkable. Normal caliber esophagus. Calcified pleural plaque within the right anterior hemithorax on image 123. This measures 1 cm in thickness. IMPRESSION: 1. Interlobular septal thickening with patchy groundglass densities within the lungs likely represent ing moderate pulmonary edema. There are associated bilateral pleural effusions and cardiomegaly. 2. Areas of consolidation within the lower lobes posteriorly favor compressive atelectasis from the p leural effusions. A superimposed alveolar component of the pulmonary edema or pneumonia could also talley ve a similar appearance in the appropriate clinical setting. 3. Small anterior diaphragmatic hernia containing a short segment of the transverse colon. 4. Mild mediastinal lymphadenopathy. This could be reactive or secondary to chronic pulmonary edema. 5. Calcified pleural plaque within the right anterior hemithorax. ACT 112: Negative or not required by law. Electronically signed by: Pratik Alvares M.D. 04/01/2020 7:46 AM
[2020-04-01] MEDS: INSULIN ASPART 100 UNITS/ML 3 ML PEN SC SCH ×4 (08:07→21:04)
--- NOTE | 2020-04-01 08:20 | Cardiology Consultation ---
Date of Consultation April 01, 2020 Assessment & Plan (1) CKD stage 3 secondary to diabetes: (2) Hyponatremia with decreased serum osmolality: (3) Ischemic cardiomyopathy: (4) Severe mitral regurgitation: (5) Acute decompensated heart failure: (6) History of coronary artery bypass graft: This patient has severe coronary artery disease deemed medical therapy only. He has an ischemic cardiomyopathy with chronic systolic heart failure and severe mitral regurgitation. He had been admitted approximately a month ago and had a non-STEMI treated conservatively. He has now been readmitted with acute congestive heart failure with worsening hyponatremia. I think we should restrict fluids in this patient. Have pharmacy concentrate his antibiotics. I would discontinue the IV heparin and go with subcu heparin only. I would restrict oral intake of fluids. I would continue the IV Lasix and have pulmonary see the patient for possible thoracentesis of his pleural effusions which may improve his shortness of breath. Nephrology has been consulted. History of Present Illness Attending Physician: Alvarado Glover MD History of Present Illness This is an 85-year-old male patient whom I follow in the clinic. He has a history of coronary artery disease and underwent coronary artery bypass surgery at [facility] in 2005. He has had chronic angina for years but also has severe GERD which at times is difficult to separate. In2018 he underwent a pharmacologic nuclear stress test was abnormal showing lateral wall ischemia. He underwent a cardiac catheterization that revealed 3 of his 5 bypass grafts to be closed. He had severe [place] coronary artery disease. The BECKER to the LAD was open and was decided that he was best treated with medical therapy. In February, he was admitted with a non-STEMI and after reviewing his previous cardiac catheterization it was decided to adjust his medications and he was started on dual antiplatelet therapy. During that admission an echocardiogram was obtained that revealed an ischemic cardiomyopathy with severe wall motion abnormalities of the inferior posterior and lateral myocardium with an estimated left ventricular ejection fraction of around 40 to 45%. It was also noted that the patient had severe mitral regurgitation. The patient represented with progressive shortness of breath and is now admitted with acute on chronic heart failure. His chest x-ray indicates bilateral pleural effusions with the right appearing greater than the left. He also has hyponatremia which is chronic but is worse this admission. Past medical history: 1. Chronic angina 2. Severe [place] vessel coronary artery disease and 3 of 5 bypass grafts closed by cardiac catheterization 07/06 3. Previous coronary artery bypass surgery 2005 [facility] 4. Diabetes mellitus 5. History of prostatitis 6. Anemia 7. GERD 8. Statin intolerance Allergies Allergy/AdvReac Type Severity Reaction Status Date / Time atorvastatin AdvReac Unknown Unknown Verified 03/31/20 22:43 ezetimibe AdvReac Unknown Unknown Verified 03/31/20 22:43 lisinopril AdvReac Unknown Cough Verified 03/31/20 22:43 simvastatin AdvReac Unknown Unknown Verified 03/31/20 22:43 Home Medications Medication Instructions Recorded Confirmed Type acetaminophen 650 mg PO TID PRN 06/21/18 03/31/20 History aspirin 81 mg PO DAILY 06/21/18 03/31/20 History betamethasone, augmented 1 applic TOPICAL BID PRN 06/21/18 03/31/20 History clopidogrel [Plavix] 75 mg PO DAILY 06/21/18 03/31/20 History cyanocobalamin (vitamin B-12) 1,000 mcg PO DAILY 06/21/18 03/31/20 History famotidine 20 mg PO BID 06/21/18 03/31/20 History metformin 1,000 mg PO BID 06/21/18 03/31/20 History nitroglycerin 0.4 mg SUBLINGUAL DIRECTED PRN 06/21/18 03/31/20 History polysaccharide iron complex 150 mg PO DAILY 06/21/18 03/31/20 History Praluent Pen 75 mg SUBCUT .Q14 DAYS 03/12/20 03/31/20 History metoprolol tartrate 12.5 mg PO BID 03/12/20 03/31/20 History furosemide 40 mg PO QAM 30 Days #30 tab 03/15/20 03/31/20 Rx isosorbide mononitrate 60 mg PO BID 03/31/20 03/31/20 History Patient History Medical History (Updated 04/01/20 @ 13:44 by Alvarado Glover MD) CAD (coronary artery disease) Diabetes mellitus, type II GERD (gastroesophageal reflux disease) HTN (hypertension) Prostatitis Surgical History History of coronary artery bypass graft 2005- [place] Family History Other Coronary heart disease Diabetes Social History (Reviewed 04/01/20 @ 09:59 by EPHRAIM Farias Smoking Status: Never smoker Hx Alcohol Use: No Hx Substance Use: No Preferred Language: Japanese Communication Ability: Effective Medical Legal Investigator Required: No Beliefs That Will Affect Care: None marital status: Current Living Situation: Spouse Current Living Situation Comment: at home with Other Information That Helps Us Care for You: No Feels Safe at Home: Yes Safety Concerns: Feels Safe At This Time Assistive Devices: Oxygen - Continuous Review of Systems Review of Systems: All systems reviewed & are unremarkable except as noted in HPI & below Nothing additional to add Physical Exam Physical Exam: General: no acute distress and stated age Head: normocephalic, no masses, lesions, tenderness or abnormalities Eyes: conjunctiva are pink and non-injected, sclera clear Neck: supple, no adenopathy, no bruits, normal jugular venous pulse, no hepatojugular reflux Chest: normal shape and normal respiratory effort Lungs: clear to auscultation and percussion Cardiac Exam: - regular rate & rhythm, no murmurs gallops or rubs - normal S1, normal S2 Pulses: 2(+) throughout Abdomen: abdomen soft, non-tender, no abnormal masses and no hepatosplenomegaly Musculoskeletal: no gait disturbance, no joint inflammation, no deforming arthritis Extremities: no edema and no cyanosis Neuro: grossly normal exam Results & Data ([facility]) Vital Signs (Past 12 Hours) Vital Signs Temp Pulse Pulse Resp BP BP BP 04/01/20 07:30 90 04/01/20 07:25 36.4 C L 89 22 153/88 H 04/01/20 05:44 80 20 04/01/20 05:18 93 H 26 H 158/85 H 04/01/20 03:21 36.4 C L 78 18 106/61 04/01/20 02:00 81 22 118/72 04/01/20 01:10 138/82 04/01/20 00:47 37.0 C 98 H 26 H 166/96 H 03/31/20 23:57 85 18 137/88 03/31/20 22:00 76 20 127/80 03/31/20 21:30 81 27 H 141/110 H 03/31/20 21:00 80 22 147/112 H 03/31/20 20:30 79 20 146/79 H Pulse Ox 04/01/20 07:30 04/01/20 07:25 95 04/01/20 05:44 95 04/01/20 05:18 95 04/01/20 03:21 94 04/01/20 02:00 97 04/01/20 01:10 97 04/01/20 00:47 92 03/31/20 23:57 97 03/31/20 22:00 96 03/31/20 21:30 97 03/31/20 21:00 94 03/31/20 20:30 98 Laboratory Results Laboratory Results - last 24 hr 03/31/20 03/31/20 03/31/20 20:25 20:25 21:18 WBC RBC Hgb Hct MCV MCH MCHC RDW Std Deviation RDW Coeff of [place] Plt Count MPV Immature Gran % (Auto) Neut % (Auto) Lymph % (Auto) [place] % (Auto) Eos % (Auto) Baso % (Auto) Neut # (Auto) Lymph # (Auto) [place] # (Auto) Eos # (Auto) Baso # (Auto) Immature Gran # (Auto) PT INR APTT PTT Ratio Sodium 125 L Potassium 4.3 Chloride 92 L Carbon Dioxide 24 Anion Gap 9.0 BUN 17 Creatinine 1.32 Est Cr Clr Drug Dosing 37.6 Est GFR ( Amer) 56.2 Est GFR (Non-Af Amer) 48.5 BUN/Creatinine Ratio 13.0 Glucose 124 H POC Glucose Estimat Average Glucose Hemoglobin A1c Osmolality Lactate Calcium 8.9 Magnesium 1.9 Total Bilirubin 0.9 AST 24 ALT 26 Alkaline Phosphatase 102 Troponin I 0.371 H* NT-Pro-B Natriuret Pep 5457 H Total Protein 7.9 Albumin 4.0 Globulin 3.9 Albumin/Globulin Ratio 1.0 Urine Color Urine Appearance Urine pH Ur Specific [place] Urine Protein Urine Glucose (UA) Urine Ketones Urine Blood Urine Nitrite Urine Bilirubin Urine Urobilinogen Ur Leukocyte Esterase Urine Osmolality COVID-19 Eval Order [facility] SARS-CoV-2, RNA, NAAT NEGATIVE 03/31/20 03/31/20 03/31/20 21:18 21:18 21:18 WBC 11.00 H RBC 3.72 L Hgb 10.9 L Hct 32.6 L MCV 87.6 MCH 29.3 MCHC 33.4 RDW Std Deviation 43.5 RDW Coeff of [place] 13.6 Plt Count 324 MPV 9.5 Immature Gran % (Auto) 0.3 Neut % (Auto) 85.8 Lymph % (Auto) 5.5 [place] % (Auto) 7.5 Eos % (Auto) 0.6 Baso % (Auto) 0.3 Neut # (Auto) 9.44 H Lymph # (Auto) 0.60 L [place] # (Auto) 0.83 H Eos # (Auto) 0.07 Baso # (Auto) 0.03 Immature Gran # (Auto) 0.03 H PT 10.7 INR 1.0 APTT 28.9 PTT Ratio 1.0 Sodium Potassium Chloride Carbon Dioxide Anion Gap BUN Creatinine Est Cr Clr Drug Dosing Est GFR ( Amer) Est GFR (Non-Af Amer) BUN/Creatinine Ratio Glucose POC Glucose Estimat Average Glucose Hemoglobin A1c Osmolality Lactate 2.5 H* Calcium Magnesium Total Bilirubin AST ALT Alkaline Phosphatase Troponin I NT-Pro-B Natriuret Pep Total Protein Albumin Globulin Albumin/Globulin Ratio Urine Color Urine Appearance Urine pH Ur Specific [place] Urine Protein Urine Glucose (UA) Urine Ketones Urine Blood Urine Nitrite Urine Bilirubin Urine Urobilinogen Ur Leukocyte Esterase Urine Osmolality COVID-19 Eval Order SARS-CoV-2, RNA, NAAT 03/31/20 04/01/20 04/01/20 23:31 00:43 01:40 WBC RBC Hgb Hct MCV MCH MCHC RDW Std Deviation RDW Coeff of [place] Plt Count MPV Immature Gran % (Auto) Neut % (Auto) Lymph % (Auto) [place] % (Auto) Eos % (Auto) Baso % (Auto) Neut # (Auto) Lymph # (Auto) [place] # (Auto) Eos # (Auto) Baso # (Auto) Immature Gran # (Auto) PT INR APTT PTT Ratio Sodium Potassium Chloride Carbon Dioxide Anion Gap BUN Creatinine Est Cr Clr Drug Dosing Est GFR ( Amer) Est GFR (Non-Af Amer) BUN/Creatinine Ratio Glucose POC Glucose Estimat Average Glucose Hemoglobin A1c Osmolality Lactate 1.6 Calcium Magnesium Total Bilirubin AST ALT Alkaline Phosphatase Troponin I 0.305 H* NT-Pro-B Natriuret Pep Total Protein Albumin Globulin Albumin/Globulin Ratio Urine Color Dark Yellow Urine Appearance Clear Urine pH 5.0 Ur Specific [place] 1.022 Urine Protein Negative Urine Glucose (UA) Negative Urine Ketones Trace H Urine Blood Negative Urine Nitrite Negative Urine Bilirubin Negative Urine Urobilinogen Negative Ur Leukocyte Esterase Negative Urine Osmolality COVID-19 Eval Order SARS-CoV-2, RNA, NAAT 04/01/20 04/01/20 04/01/20 01:40 05:27 05:27 WBC 10.82 H RBC 3.57 L Hgb 10.5 L Hct 30.9 L MCV 86.6 MCH 29.4 MCHC 34.0 RDW Std Deviation 43.2 RDW Coeff of [place] 13.5 Plt Count 369 MPV 9.7 Immature Gran % (Auto) 0.1 Neut % (Auto) 86.6 Lymph % (Auto) 6.4 [place] % (Auto) 6.4 Eos % (Auto) 0.2 Baso % (Auto) 0.3 Neut # (Auto) 9.38 H Lymph # (Auto) 0.69 L [place] # (Auto) 0.69 H Eos # (Auto) 0.02 Baso # (Auto) 0.03 Immature Gran # (Auto) 0.01 PT INR APTT PTT Ratio Sodium 123 L Potassium 4.1 Chloride 92 L Carbon Dioxide 24 Anion Gap 7.0 BUN 20 H Creatinine 1.24 Est Cr Clr Drug Dosing 40.0 Est GFR ( Amer) 60.6 Est GFR (Non-Af Amer) 52.3 BUN/Creatinine Ratio 16.5 Glucose 162 H POC Glucose Estimat Average Glucose Hemoglobin A1c Osmolality Lactate Calcium 8.5 Magnesium 1.9 Total Bilirubin AST ALT Alkaline Phosphatase Troponin I 0.252 H* NT-Pro-B Natriuret Pep Total Protein Albumin Globulin Albumin/Globulin Ratio Urine Color Urine Appearance Urine pH Ur Specific [place] Urine Protein Urine Glucose (UA) Urine Ketones Urine Blood Urine Nitrite Urine Bilirubin Urine Urobilinogen Ur Leukocyte Esterase Urine Osmolality 526 COVID-19 Eval Order SARS-CoV-2, RNA, NAAT 04/01/20 04/01/20 04/01/20 05:27 05:27 07:01 WBC RBC Hgb Hct MCV MCH MCHC RDW Std Deviation RDW Coeff of [place] Plt Count MPV Immature Gran % (Auto) Neut % (Auto) Lymph % (Auto) [place] % (Auto) Eos % (Auto) Baso % (Auto) Neut # (Auto) Lymph # (Auto) [place] # (Auto) Eos # (Auto) Baso # (Auto) Immature Gran # (Auto) PT INR APTT 51.7 H* PTT Ratio 1.9 Sodium Potassium Chloride Carbon Dioxide Anion Gap BUN Creatinine Est Cr Clr Drug Dosing Est GFR ( Amer) Est GFR (Non-Af Amer) BUN/Creatinine Ratio Glucose POC Glucose Estimat Average Glucose Pending Hemoglobin A1c Pending Osmolality 266 L Lactate Calcium Magnesium Total Bilirubin AST ALT Alkaline Phosphatase Troponin I NT-Pro-B Natriuret Pep Total Protein Albumin Globulin Albumin/Globulin Ratio Urine Color Urine Appearance Urine pH Ur Specific [place] Urine Protein Urine Glucose (UA) Urine Ketones Urine Blood Urine Nitrite Urine Bilirubin Urine Urobilinogen Ur Leukocyte Esterase Urine Osmolality COVID-19 Eval Order SARS-CoV-2, RNA, NAAT 04/01/20 07:21 WBC RBC Hgb Hct MCV MCH MCHC RDW Std Deviation RDW Coeff of [place] Plt Count MPV Immature Gran % (Auto) Neut % (Auto) Lymph % (Auto) [place] % (Auto) Eos % (Auto) Baso % (Auto) Neut # (Auto) Lymph # (Auto) [place] # (Auto) Eos # (Auto) Baso # (Auto) Immature Gran # (Auto) PT INR APTT PTT Ratio Sodium Potassium Chloride Carbon Dioxide Anion Gap BUN Creatinine Est Cr Clr Drug Dosing Est GFR ( Amer) Est GFR (Non-Af Amer) BUN/Creatinine Ratio Glucose POC Glucose 133 H Estimat Average Glucose Hemoglobin A1c Osmolality Lactate Calcium Magnesium Total Bilirubin AST ALT Alkaline Phosphatase Troponin I NT-Pro-B Natriuret Pep Total Protein Albumin Globulin Albumin/Globulin Ratio Urine Color Urine Appearance Urine pH Ur Specific [place] Urine Protein Urine Glucose (UA) Urine Ketones Urine Blood Urine Nitrite Urine Bilirubin Urine Urobilinogen Ur Leukocyte Esterase Urine Osmolality COVID-19 Eval Order SARS-CoV-2, RNA, NAAT Medications Administered Current Inpatient Medications Acetaminophen (Acetaminophen 325 Mg Tab) 325 mg PO Q6H PRN PRN Reason: Pain or Fever Stop: 05/01/20 00:24 Aspirin (Aspirin 81 Mg Ectab) 81 mg PO DAILY [place] Stop: 05/01/20 08:59 Last Admin: 04/01/20 09:11 Dose: 81 mg Documented by: Betamethasone Dipropion Augmented (Betamethasone Dip Aug (Diprolene) 0.05% Cr 15 Gm Tube) 1 appln EXT BID PRN PRN Reason: Itchy Active Rash Stop: 05/01/20 00:24 Clopidogrel Bisulfate (Clopidogrel Bisulfate 75 Mg Tab) 75 mg PO DAILY [facility] Stop: 05/01/20 08:59 Last Admin: 04/01/20 09:12 Dose: 75 mg Documented by: Cyanocobalamin (Cyanocobalamin 500 Mcg Tablet (Vitamin B-12)) 1,000 mcg PO DAILY [place] Stop: 05/01/20 08:59 Last Admin: 04/01/20 09:11 Dose: 1,000 mcg Documented by: Famotidine (Famotidine 20 Mg Tab) 20 mg PO BID [facility] Stop: 05/01/20 08:59 Last Admin: 04/01/20 09:12 Dose: 20 mg Documented by: Heparin Sodium (Porcine) (Heparin Sod 5,000 Unit/0.5 Ml Vial) 5,000 units SQ Q8 [facility] Stop: 05/01/20 13:59 Cefepime HCl 2,000 mg/ Syringe 20 mls @ 5 mls/min IV BID [facility]; Protocol Stop: 04/08/20 08:59 Last Admin: 04/01/20 09:11 Dose: 5 mls/min Documented by: Doxycycline Hyclate 100 mg/ (Dextrose) 110 mls @ 50 mls/hr IV Q12H [facility] Stop: 04/08/20 01:59 Last Infusion: 04/01/20 04:29 Dose: Infused Documented by: Furosemide 80 mg/ Syringe 8 mls @ 4 mls/min IV BID [facility] Stop: 05/01/20 09:44 Insulin Aspart (Insulin Aspart 100 Units/Ml 3 Ml Pen) 0 units SC ACHS [facility] Stop: 05/01/20 07:29 Last Admin: 04/01/20 08:07 Dose: Not Given Documented by: Isosorbide Mononitrate (Isosorbide [place] Extended Rel 60 Mg Tabcr) 60 mg PO BID [facility] Stop: 05/01/20 08:59 Last Admin: 04/01/20 09:12 Dose: 60 mg Documented by: Levalbuterol HCl (Levalbuterol 1.25mg/0.5ml Neb) 1.25 mg NEB Q4H PRN PRN Reason: Shortness Of Breath Or Wheezing Stop: 05/01/20 05:29 Last Admin: 04/01/20 05:44 Dose: 1.25 mg Documented by: Lorazepam (Lorazepam 0.5 Mg Tab) 0.25 mg PO Q12H PRN PRN Reason: Anxiety Stop: 05/01/20 09:07 Metoprolol Tartrate (Metoprolol Tartrate 25 Mg Tab) 12.5 mg PO BID [facility] Stop: 05/01/20 00:24 Last Admin: 04/01/20 09:11 Dose: 12.5 mg Documented by: Miscellaneous (Praleunt~Order Awaiting Action) 1 ea N/A QS [facility] Stop: 05/01/20 07:59 Last Admin: 04/01/20 09:10 Dose: Not Given Documented by: Miscellaneous Information (Cefepime Consult Active) 1 ea N/A UD PRN PRN Reason: Consult Stop: 05/01/20 00:43 Nitroglycerin (Nitroglycerin Sl 0.4 Mg/Tab Tab) 0.4 mg SL UD PRN PRN Reason: Chest Pain Stop: 05/01/20 00:24 Last Admin: 04/01/20 08:12 Dose: 0.4 mg Documented by: Nitroglycerin (Nitroglycerin 2% Ointment 30gm Tube) 0.5 inch EXT Q6 [place] Stop: 05/01/20 00:59 Last Admin: 04/01/20 05:46 Dose: 0.5 inch Documented by: Ondansetron HCl (Ondansetron Inj 2 Mg/Ml 2 Ml Vial) 4 mg IV Q6H PRN PRN Reason: Nausea Stop: 05/01/20 00:24 Polysaccharide Iron Complex (Iron Polysaccharide Complex 150 Mg Capsule) 150 mg PO DAILY [facility] Stop: 05/01/20 08:59 Last Admin: 04/01/20 09:12 Dose: 150 mg Documented by: Urea (Urea (Ure-Na) 15 Gm Pack) 15 gm PO BID [facility] Stop: 05/01/20 09:44
--- NOTE | 2020-04-01 08:50 | History and Physical Report ---
DATE OF ADMISSION: 03/31/2020 CHIEF COMPLAINT: Chest discomfort and shortness of breath and cough. HISTORY OF PRESENT ILLNESS: This is an 85-year-old male with past medical history significant for hyperlipidemia, CAD, history of bradycardia, hypertension, stage III chronic kidney disease, eczematous dermatitis, statin intolerance, presents with chest discomfort and shortness of breath and cough on going for the last 2-3 days. The patient was here in February with a non-ST elevated OR and acute hypoxic respiratory failure, thought to be acute systolic CHF and was treated medically for CAD with heparin drip and medication and discharged on also Lasix 40 mg daily. The patient says since the last 2-3 days, he is having cough, once in a while brings up yellowish phlegm and short of breath and some chest discomfort. He could not walk much because of shortness of breath. Denies any fever, his appetite is not great and because he was feeling sick, food was not tasting good, smell is okay. No sore throat, no headache, no blurred vision, was nauseous. No abdominal pain, no diarrhea. In the ER, his COVID was negative. White count was 11. Sodium was 125, lactate was 2.5. Troponin was 0.3. BNP was 5400. Chest x-ray shows bilateral interstitial opacities, likely representing pulmonary edema, also correlate clinically for superimposed infectious/inflammatory pneumonitis. ALLERGIES: ATORVASTATIN, EZETIMIBE, SIMVASTATIN, LISINOPRIL. PAST MEDICAL HISTORY: As mentioned above. PAST SURGICAL HISTORY: CABG. MEDICATIONS: The patient is on Tylenol 650 mg p.o. t.i.d. p.r.n., aspirin 81 mg p.o. daily, betamethasone topical b.i.d. p.r.n., Plavix 75 mg p.o. daily, vitamin B12 1000 mcg p.o. daily, famotidine 20 mg p.o. b.i.d., Lasix 40 mg p.o. a.m., isosorbide mononitrate 60 mg p.o. b.i.d., metformin 1000 mg p.o. b.i.d., metoprolol tartrate 12.5 mg p.o. b.i.d., nitroglycerin 0.4 mg sublingual p.r.n., polysaccharide iron complex 150 mg p.o. daily, Praluent pen 75 mg subcutaneous q.14 days. FAMILY HISTORY: No family history on file. SOCIAL HISTORY: . No smoking. REVIEW OF SYMPTOMS: As per HPI. Rest of the systems negative. PHYSICAL EXAMINATION: GENERAL: The patient is of moderate build, not in acute distress. VITAL SIGNS: Temperature 36.3, pulse 76, respiratory rate 20, blood pressure 127/80, oxygen 96% on 2 liters. HEENT: Pupils equal, round, reactive to light. Oral mucosa moist. NECK: No neck masses seen. CARDIOVASCULAR: S1, S2, regular rate and rhythm, no murmur, no gallop. RESPIRATORY SYSTEM: Normal AP diameter. No accessory muscle use. Bilateral diminished breath sounds. No wheezing. ABDOMEN: Soft, bowel sounds present, nontender. No distention. CENTRAL NERVOUS SYSTEM: Cranial nerves II through XII grossly intact, nonfocal. EXTREMITIES: No edema, no erythema. LABORATORY DATA: WBC 11, hemoglobin 10.9, hematocrit 32.6, platelets 324. PT 10.7, INR 1, APTT 28.9. Sodium 125, potassium 4.3, chloride 92, bicarbonate 24, BUN 17, creatinine 1.3, serum glucose 124. Lactate 2.5, calcium 8.9, magnesium 1.9, total bilirubin 0.9, AST 24, ALT 26, alkaline phosphatase 102, troponin I of 0.37. BNP 5457. SARS-CoV-2 RNA negative. Chest x-ray, cardiomegaly with evidence of congestive failure, bilateral interstitial opacities, likely representing pulmonary edema, correlate clinically for evidence of superimposed infectious/inflammatory pneumonitis, small pleural effusions. EKG: Normal sinus rhythm, rate of 79, left axis deviation, right bundle branch block, some ST depressions in leads V4 and V5 that is most pronounced than previous EKG. ASSESSMENT AND PLAN: This is an 85-year-old male who presents with shortness of breath, cough, and some chest discomfort. 1. Shortness of breath and cough, possibly pneumonia on chest x-ray. We will follow the CT chest. He has some leukocytosis. COVID was negative. He is empirically started on cefepime and vancomycin. We will continue with cefepime and doxycycline and follow the response. 2. Chest discomfort. His troponin is slightly elevated at 0.3, but it was 8.4 on 03/13. EKG with some ST depressions more pronounced in V4, V5. We will follow serial enzymes. Consult cardiology in the a.m. for further recommendations. 3. Elevated lactic acid, lactate of 2.5. Getting gentle fluids. Further repeat lactic acid levels. Antibiotics as above. 4. Hyponatremia, sodium 125. Holding his Lasix. Getting gentle fluids. Follow serum and urine osmolality, follow the laboratories. If not improving, we will consult nephrology. 5. Chronic systolic congestive heart failure, ejection fraction of 40%-45% on last echo with severe mitral regurgitation. Holding the Lasix, getting gentle fluids. We will closely monitor volume overload. Concern for his symptoms been from congestive heart failure, we will follow and closely and CT chest shows chf will stop fluids and give Lasix. 6. Hypertension. Continue his home medications of Imdur, Lopressor. We will monitor his blood pressure. 7. History of coronary artery disease, status post coronary artery bypass graft, history of recent non-ST elevated myocardial infarction. Continue his aspirin, Plavix, Imdur, beta lopez and statin. 8. Chronic kidney disease stage III, baseline creatinine 1.3, present creatinine 1.3. We will follow the laboratories. Holding the Lasix. 9. Hyperlipidemia, on PCSK9 therapy. 10. Diabetes. Holding his metformin. His HBA1c was 5.9 on 03/12. We will place him on insulin sliding scale and follow the blood sugars. 11. Deep venous thrombosis prophylaxis, heparin subcutaneously. DISPOSITION: Closely monitor in the tele floor. Level 1 full code. Addendum: On coming to floor patient complained of chest pain and ekg revealed more st depressions in leads v4 and v5. Chest pain relived by nitro. Notified cardiology and was advised for for nitro paste and Lasix. Ct chest also showed large pleural effusions and congestion. Also added Xopenex prn as he again complained of sob after some time though no chest pain. Morning labs showed Na 123.Consulted nephrology. MERLIN
[2020-04-01] MEDS ORDERED: CLOPIDOGREL BISULFATE 75 MG TAB PO SCH (09:00)
[2020-04-01] MEDS ORDERED: FUROSEMIDE 40 MG in SYRINGE 0 ML IV SCH (09:00)
[2020-04-01] MEDS ORDERED: LORazepam 0.5 MG TAB PO PRN (09:08)
[2020-04-01] MEDS: ASPIRIN 81 MG ECTAB PO SCH (09:11)
[2020-04-01] MEDS: CYANOCOBALAMIN 500 MCG TABLET (VITAMIN B-12) PO SCH (09:11)
[2020-04-01] MEDS: CEFEPIME 2,000 MG in SYRINGE 0 ML IV SCH ×2 (09:11→21:01)
[2020-04-01] MEDS: FAMOTIDINE 20 MG TAB PO SCH ×2 (09:12→21:02)
[2020-04-01] MEDS: ISOSORBIDE MONO EXTENDED REL 60 MG TABCR PO SCH ×2 (09:12→21:03)
[2020-04-01] MEDS: IRON POLYSACCHARIDE COMPLEX 150 MG CAPSULE PO SCH (09:12)
--- NOTE | 2020-04-01 09:44 | Nephrology Consultation ---
Date of Consultation April 01, 2020 Assessment & Plan (1) Acute decompensated heart failure: Patient with acute CHF exacerbation. Patient is hypoxic requiring 4 L of oxygen to maintain oxygen saturation above 90. Chest CT suggestive of pulmonary edema and pleural effusion -We will increase Lasix to 80 mg IV twice daily. -Strict input output -Monitor daily standing weight. (2) Hyponatremia with decreased serum osmolality: Hyponatremia is due to hypervolemia. Serum osmolality is 266 which is true hyponatremia. Urine osmolality of 526 consistent with hypervolemic hyponatremia. -We will start urea 15 g p.o. twice daily. -Monitor sodium daily (3) CKD stage 3 secondary to diabetes: Patient with CKD stage III due to diabetes. Baseline creatinine of 1.2. Renal function is at baseline. He is at high risk for worsening renal function due to aggressive diuresis. -Will monitor closely. -Avoid nephrotoxins such as contrast. History of Present Illness Reason for Consultation: Hyponatremia, volume overload Requesting Physician: Dr. Jung Attending Physician: Alvarado Glover MD History of Present Illness This is 85-year-old male with past medical history of hypertension, ischemic cardiomyopathy with EF of 45%, coronary disease status post CABG in 2005 in [place], type 2 diabetes and CKD stage III with baseline creatinine of 1.2 who was admitted on 03/31/2020 with shortness of breath. He normally takes Lasix 40 mg p.o. daily at home. He has had worsening shortness of breath and wheezing. Overnight he received Lasix 40 mg IV and made about 1 L of urine. Sodium was 125 on admission and this morning 123. He still complains of wheezing and shortness of breath. No leg swelling. Serum osmolality was 266 and urine osmolarity 526. Chest CT suggestive of pulmonary edema and pleural effusion. He also had elevated troponin and some EKG changes. He was started on a heparin drip overnight but stopped this morning by Dr. Patel Allergies Allergy/AdvReac Type Severity Reaction Status Date / Time atorvastatin AdvReac Unknown Unknown Verified 03/31/20 22:43 ezetimibe AdvReac Unknown Unknown Verified 03/31/20 22:43 lisinopril AdvReac Unknown Cough Verified 03/31/20 22:43 simvastatin AdvReac Unknown Unknown Verified 03/31/20 22:43 Home Medications Medication Instructions Recorded Confirmed Type acetaminophen 650 mg PO TID PRN 06/21/18 03/31/20 History aspirin 81 mg PO DAILY 06/21/18 03/31/20 History betamethasone, augmented 1 applic TOPICAL BID PRN 06/21/18 03/31/20 History clopidogrel [Plavix] 75 mg PO DAILY 06/21/18 03/31/20 History cyanocobalamin (vitamin B-12) 1,000 mcg PO DAILY 06/21/18 03/31/20 History famotidine 20 mg PO BID 06/21/18 03/31/20 History metformin 1,000 mg PO BID 06/21/18 03/31/20 History nitroglycerin 0.4 mg SUBLINGUAL DIRECTED PRN 06/21/18 03/31/20 History polysaccharide iron complex 150 mg PO DAILY 06/21/18 03/31/20 History Praluent Pen 75 mg SUBCUT .Q14 DAYS 03/12/20 03/31/20 History metoprolol tartrate 12.5 mg PO BID 03/12/20 03/31/20 History furosemide 40 mg PO QAM 30 Days #30 tab 03/15/20 03/31/20 Rx isosorbide mononitrate 60 mg PO BID 03/31/20 03/31/20 History Patient History Medical History (Updated 04/01/20 @ 09:48 by Laith Parson MD) CAD (coronary artery disease) Diabetes mellitus, type II GERD (gastroesophageal reflux disease) HTN (hypertension) Prostatitis Surgical History History of coronary artery bypass graft [facility] [place] Family History Other Coronary heart disease Diabetes Social History Smoking Status: Never smoker Hx Alcohol Use: No Hx Substance Use: No Preferred Language: Divehi Communication Ability: Effective Financial Supervisor Required: No Beliefs That Will Affect Care: None marital status: Current Living Situation: Spouse Current Living Situation Comment: at home with Other Information That Helps Us Care for You: No Feels Safe at Home: Yes Safety Concerns: Feels Safe At This Time Assistive Devices: Oxygen - Continuous Review of Systems Review of Systems: All systems reviewed & are unremarkable except as noted in HPI & below Physical Exam Physical Exam: General exam: Appears comfortable, no acute distress HEENT: Pupils are equal and reactive to light Neck: No JVD, neck is supple trachea is midline Respiratory system: Crackles bilaterally. Gastrointestinal: Abdomen is soft, non distended, non tender, bowel sounds are present CVS: Regular rate and rhythm. No murmurs, rubs or gallops Musculoskeletal: No joint or muscle tenderness Extremities: Non tender, no edema, peripheral pulses are present Neuro: Oriented, no tremors, no focal neurological deficits Skin: No rashes Results & Data ([facility]) Vital Signs (Past 12 Hours) Vital Signs Temp Pulse Pulse Resp BP BP BP 04/01/20 07:30 90 04/01/20 07:25 36.4 C L 89 22 153/88 H 04/01/20 05:44 80 20 04/01/20 05:18 93 H 26 H 158/85 H 04/01/20 03:21 36.4 C L 78 18 106/61 04/01/20 02:00 81 22 118/72 04/01/20 01:10 138/82 04/01/20 00:47 37.0 C 98 H 26 H 166/96 H 03/31/20 23:57 85 18 137/88 03/31/20 22:00 76 20 127/80 Pulse Ox 04/01/20 07:30 04/01/20 07:25 95 04/01/20 05:44 95 04/01/20 05:18 95 04/01/20 03:21 94 04/01/20 02:00 97 04/01/20 01:10 97 04/01/20 00:47 92 03/31/20 23:57 97 03/31/20 22:00 96 Laboratory Results 04/01/20 05:27 03/31/20 03/31/20 04/01/20 21:18 21:18 05:27 WBC 11.00 H 10.82 H RBC 3.72 L 3.57 L MCV 87.6 86.6 MCH 29.3 29.4 MCHC 33.4 34.0 RDW Std Deviation 43.5 43.2 RDW Coeff of [place]rtle 13.6 13.5 Plt Count 324 369 MPV 9.5 9.7 Albumin 4.0
[2020-04-01] MEDS: UREA (URE-NA) 15 GM PACK PO SCH ×2 (10:46→21:02)
[2020-04-01] MEDS: FUROSEMIDE 80 MG in SYRINGE 0 ML IV SCH ×2 (10:46→21:01)
--- NOTE | 2020-04-01 11:28 | Pulmonary Consultation ---
Date of Consultation April 01, 2020 Assessment & Plan (1) SOB (shortness of breath): (2) Acute hypoxemic respiratory failure: (3) Pleural effusion: (4) Fluid overload: Impression: 85-year-old male admitted with exacerbation of heart failure found to have bilateral pleural effusions. They are relatively small but likely secondary to the patient's underlying cardiovascular disease given the presence of cardiomegaly, elevated BNP, and increased interstitial markings consistent with fluid overload on the CT scan. Unfortunately the patient is on Plavix which would preclude an elective thoracentesis. Typically, would like to have Plavix off for 5 days before considering invasive pleural procedures. Recommendations: 1. Pleural effusions: Again suspect this is related to fluid overload. At this point in time I would favor discontinuation Plavix if possible and consideration for thoracentesis in for 5 days. In the meantime, would consider aggressive management per nephrology and cardiology with diuresis as tolerated by kidney function. If Plavix cannot be discontinued and cardiology and nephrology as well as the patient would accept the risk of performing thoracentesis on Plavix to include potential life-threatening bleeding, we may reconsider as a palliative measure, however this would be less than ideal 2. Hypoxemia: Secondary to fluid overload. Would continue management as noted above with weaning oxygen as tolerated. If the patient's Plavix is held for for 5 days and pleural effusions remain problematic to the point that the patient would like to pursue thoracentesis, please let us know and we would be happy to reevaluate the patient at that time. History of Present Illness Attending Physician: Alvarado Glover MD History of Present Illness Asked by hospitalist to evaluate this patient admitted with heart failure and bilateral pleural effusions. History is obtained from review of electronic medical record as well as discussion with patient. Patient is an 85-year-old male who is followed in cardiology clinic at [facility] . He has a history of coronary disease stage III chronic kidney disease hypertension. He presented with chest discomfort and shortness of breath. Chest x-rays showed bilateral pleural effusions confirmed on CT scans as well as groundglass opacity concerning for fluid overload. BNP was elevated over 5000. He was recently admitted last month with a non-ST elevation OR and treated medically. Currently the patient is in no distress but is using oxygen. He reports his breathing is not at baseline. He is not having any chest pain currently. He denies fevers chills or night sweats. No history of chest trauma. No other constitutional symptoms Allergies Allergy/AdvReac Type Severity Reaction Status Date / Time atorvastatin AdvReac Unknown Unknown Verified 03/31/20 22:43 ezetimibe AdvReac Unknown Unknown Verified 03/31/20 22:43 lisinopril AdvReac Unknown Cough Verified 03/31/20 22:43 simvastatin AdvReac Unknown Unknown Verified 03/31/20 22:43 Home Medications Medication Instructions Recorded Confirmed Type acetaminophen 650 mg PO TID PRN 06/21/18 03/31/20 History aspirin 81 mg PO DAILY 06/21/18 03/31/20 History betamethasone, augmented 1 applic TOPICAL BID PRN 06/21/18 03/31/20 History clopidogrel [Plavix] 75 mg PO DAILY 06/21/18 03/31/20 History cyanocobalamin (vitamin B-12) 1,000 mcg PO DAILY 06/21/18 03/31/20 History famotidine 20 mg PO BID 06/21/18 03/31/20 History metformin 1,000 mg PO BID 06/21/18 03/31/20 History nitroglycerin 0.4 mg SUBLINGUAL DIRECTED PRN 06/21/18 03/31/20 History polysaccharide iron complex 150 mg PO DAILY 06/21/18 03/31/20 History Praluent Pen 75 mg SUBCUT .Q14 DAYS 03/12/20 03/31/20 History metoprolol tartrate 12.5 mg PO BID 03/12/20 03/31/20 History furosemide 40 mg PO QAM 30 Days #30 tab 03/15/20 03/31/20 Rx isosorbide mononitrate 60 mg PO BID 03/31/20 03/31/20 History Patient History Medical History (Updated 04/01/20 @ 11:23 by Flo Gale MD) CAD (coronary artery disease) Diabetes mellitus, type II GERD (gastroesophageal reflux disease) HTN (hypertension) Prostatitis Surgical History History of coronary artery bypass graft 2005- [place] Family History Other Coronary heart disease Diabetes Social History Smoking Status: Never smoker Hx Alcohol Use: No Hx Substance Use: No Preferred Language: Romanian Communication Ability: Effective Sorting Machine Attendant Required: No Beliefs That Will Affect Care: None marital status: Current Living Situation: Spouse Current Living Situation Comment: at home with Other Information That Helps Us Care for You: No Feels Safe at Home: Yes Safety Concerns: Feels Safe At This Time Assistive Devices: Oxygen - Continuous Review of Systems Review of Systems: Please refer to admission H&P for full details. No changes Physical Exam Constitutional: WD/WN, vitals as above Neck: trachea midline, no thyromegaly Respiratory: normal respiratory effort; no labored breathing Diminished breath sounds at the bilateral bases with dullness to percussion Cardiovascular: RRR, no murmur, no edema Gastrointestinal (Abdomen): normal bowel sounds, soft, nontender, no hepatosplenomegaly Musculoskeletal: Extremities: extremities normal to inspection Skin: no rashes, warm and dry Neurologic: Nonfocal exam Lymphatic: no cervical lymphadenopathy Results & Data Results & Data ([facility]) Vital Signs (Past 12 Hours) Vital Signs Temp Pulse Pulse Resp BP BP BP 04/01/20 11:17 36.6 C 79 19 125/73 04/01/20 07:30 90 04/01/20 07:25 36.4 C L 89 22 153/88 H 04/01/20 05:44 80 20 04/01/20 05:18 93 H 26 H 158/85 H 04/01/20 03:21 36.4 C L 78 18 106/61 04/01/20 02:00 81 22 118/72 04/01/20 01:10 138/82 04/01/20 00:47 37.0 C 98 H 26 H 166/96 H 03/31/20 23:57 85 18 137/88 Pulse Ox 04/01/20 11:17 97 04/01/20 07:30 04/01/20 07:25 95 04/01/20 05:44 95 04/01/20 05:18 95 04/01/20 03:21 94 04/01/20 02:00 97 04/01/20 01:10 97 04/01/20 00:47 92 03/31/20 23:57 97 Laboratory Results 04/01/20 05:27 04/01/20 05:27 Diagnostic Findings Films were independently reviewed. CT of the chest from 03/31/2020 demonstrated findings concerning for fluid overload with groundglass opacities pleural effusions and cardiomegaly and some basilar compressive atelectasis. Mediastinal adenopathy was noted likely reactive. Chest x-ray from 03/31/2020 showed pulmonary venous congestion with bilateral pleural effusions. PG Care Time/CCT Total # of Minutes Spent Total Time Spent with Patient: Total time spent is greater than 50% in coordination of care (as documented) at patient's floor/unit and/or counseling patient: Coding Level of Care Code 69131 Initial Inpt Care Lvl 3 Diagnoses SOB (shortness of breath) R06.02 Acute hypoxemic respiratory failure J96.01 Pleural effusion J90 Fluid overload E87.70
--- NOTE | 2020-04-01 13:39 | Hospitalist Progress Note ---
Date of Service April 01, 2020 Assessment & Plan (1) Acute decompensated heart failure: Ischemic cardiomyopathy Severe mitral regurgitation Hypertension -Patient presents to the ED on 03/31/2020 for "shortness of breath, cough, and some chest discomfort." Cardiac History -History of coronary artery disease and underwent coronary artery bypass surgery at [facility] in 2005. He has had chronic angina for years but also has severe GERD which at times is difficult to separate. In. 2018 he underwent a pharmacologic nuclear stress test was abnormal showing lateral wall ischemia. He underwent a cardiac catheterization that revealed 3 of his 5 bypass grafts to be closed. He had severe [place] coronary artery disease. The BECKER to the LAD was open and was decided that he was best treated with medical therapy. In February, he was admitted with a non-STEMI and after reviewing his previous cardiac catheterization it was decided to adjust his medications and he was started on dual antiplatelet therapy. During that admission an echocardiogram was obtained that revealed an ischemic cardiomyopathy with severe wall motion abnormalities of the inferior posterior and lateral myocardium with an estimated left ventricular ejection fraction of around 40 to 45%. It was also noted that the patient had severe mitral regurgitation. -on aspirin, metoprolol, isosorbide, (home clopidogrel held starting on 04/02/2020 in case needing thoracentesis on this admission and permitted by cardiology Dr. Patel), hold Praluent (alirocumab) while in hospital -initially ordered IV heparin by admitting physician because of patient reporting chest discomforts, but cardiology Dr. Patel advised the management of the underlying acute decompensated failure with diuretics and that IV heparin can be stopped as of 04/01/2020 daytime -management with diuretics as below (2) Acute respiratory failure with hypoxia: from acute decompensated heart failure, Presence of Bilateral Pleural Effusions -Patient is hypoxic requiring 4 L of oxygen to maintain oxygen saturation above 90. Chest CT suggestive of pulmonary edema and pleural effusion. This is likely due to acute decompensated heart failure -cardiology service following the patient and advising to continue diuresis medications and fluid restriction to 1000 ml per day for now -04/01/2020 nephrology consult: increase Lasix to 80 mg IV twice daily -04/01/[address] Gale offers that thoracentesis can be performed if diuresis strategies do not work but the clopidogrel would have to be held for 5 days (home clopidogrel held starting on 04/02/2020 in case needing thoracentesis on this admission and permitted by cardiology Dr. Patel) (3) Hyponatremia with decreased serum osmolality: -as per 04/01/2020 nephrology: Hyponatremia is due to hypervolemia. Serum osmolality is 266 which is true hyponatremia. Urine osmolality of 526 consistent with hypervolemic hyponatremia. started urea 15 g p.o. twice daily. -trend the serum sodium labs Elevated Lactic Acid on admission -initially lactic acid was 2.5, admitting physician started cefepime and Doxycycline in case any underlying infection -continue antibiotics for now and follow the admission blood cultures (4) CKD stage 3 secondary to diabetes: -monitor the renal function Type 2 diabetes mellitus -holding his metformin. His initial HBA1c was 5.9 on 03/12/2020. on insulin sliding scale and follow the blood sugars. Deep venous thrombosis prophylaxis, heparin subcutaneously. Admission and Anticipated Discharge Date Admission Date: March 31, 2020 Subjective Patient seen and examined in the morning. No acute distress. speaking in full sentences and on nasal cannula oxygen. no abdomen pain. no dizziness. no nausea. no vomiting. Review of Systems Review of Systems: All systems reviewed & are unremarkable except as noted in Subjective Physical Exam Constitutional: cooperative Eyes: PERRL, conjunctivae normal, anicteric sclerae EOM intact bilaterally ENMT: external ear and nose normal, oropharynx normal Neck: normal visual inspection Respiratory: normal respiratory effort Cardiovascular: Rate/Rhythm: regular rate and regular rhythm Gastrointestinal (Abdomen): normal bowel sounds, soft, nontender, no hepatosplenomegaly Musculoskeletal: Head/Neck/Chest: normocephalic and head atraumatic Neurologic: PERRL, EOMI, accommodation nl, no face palsy, no dysarthria CN's II-XI intact bilaterally Psychiatric: A+Ox3, euthymic affect Results & Data Results & Data ([facility]) Vital Signs (Past 12 Hours) Vital Signs Temp Pulse Pulse Resp BP BP Pulse Ox 04/01/20 11:17 36.6 C 79 19 125/73 97 04/01/20 07:30 90 04/01/20 07:25 36.4 C L 89 22 153/88 H 95 04/01/20 05:44 80 20 95 04/01/20 05:18 93 H 26 H 158/85 H 95 04/01/20 03:21 36.4 C L 78 18 106/61 94 04/01/20 02:00 81 22 118/72 97
[2020-04-01] MEDS: HEPARIN SOD 5,000 UNIT/0.5 ML VIAL SQ SCH ×2 (14:04→21:02)
[2020-04-01 14:44] LABS: INR 1.1 (0.9-1.1); Partial Thromboplastin Time 28.1 Seconds (21.0-31.0); Prothrombin Time 11.1 Seconds (9.0-12.0)
[2020-04-01 14:48] LABS: Albumin Level 3.8 gm/dl (3.4-5.0); BUN Creatinine Ratio 16.8 (10-20); Calcium 8.7 mg/dl (8.5-10.1); Creatinine Clr Calc Pharmacy 34.2 ml/min; Est GFR (African American) 50.2; Est GFR (Non-African American) 43.3
[2020-04-01 14:50] LABS: Globulin 3.8 gm/dl (2.5-4.0); Total Protein 7.6 gm/dl (6.4-8.2)
[2020-04-02] MEDS: NITROGLYCERIN 2% OINTMENT 30GM TUBE EXT SCH ×4 (00:10→17:10)
[2020-04-02] MEDS: DOXYCYCLINE HYCLATE 100 MG in DEXTROSE 5% 100 ML IV SCH ×2 (03:04→14:20)
[2020-04-02] MEDS: HEPARIN SOD 5,000 UNIT/0.5 ML VIAL SQ SCH ×3 (05:30→20:35)
[2020-04-02 06:27] LABS: Estimated Average Glucose 117 mg/dl; Hemoglobin A1C 5.7 % (4.5-5.6)
--- NOTE | 2020-04-02 06:35 | Electrocardiogram Report ---
Test Reason : Blood Pressure : / mmHG Vent. Rate : 079 BPM Atrial Rate : 079 BPM P-R Int : 206 ms QRS Dur : 126 ms QT Int : 424 ms P-R-T Axes : 067 -30 089 degrees QTc Int : 486 ms Poor data quality, interpretation may be adversely affected Normal sinus rhythm Left axis deviation Right bundle branch block Abnormal ECG When compared with ECG of 14-MAR-2020 08:00, T wave inversion now evident in Anterior leads Confirmed by Keyon Lea ([id number]) on 04/02/2020 6:34:47 AM Referred By: REFERRED SELF Confirmed By:Keyon Lea
--- NOTE | 2020-04-02 06:39 | Electrocardiogram Report ---
Test Reason : Blood Pressure : / mmHG Vent. Rate : 096 BPM Atrial Rate : 096 BPM P-R Int : 194 ms QRS Dur : 126 ms QT Int : 382 ms P-R-T Axes : 048 -58 069 degrees QTc Int : 482 ms Normal sinus rhythm Possible Left atrial enlargement Right bundle branch block Left anterior fascicular block Bifascicular block Abnormal ECG When compared with ECG of 31-MAR-2020 19:18, (unconfirmed) Left anterior fascicular block is now Present ST more depressed Anterior leads Confirmed by Keyon Lea ([id number]) on 04/02/2020 6:39:02 AM Referred By: REFERRED SELF Confirmed By:Keyon Lea
[2020-04-02] MEDS: FAMOTIDINE 20 MG TAB PO SCH ×2 (08:02→20:31)
[2020-04-02] MEDS: FUROSEMIDE 80 MG in SYRINGE 0 ML IV SCH (08:02)
[2020-04-02] MEDS: ASPIRIN 81 MG ECTAB PO SCH (08:02)
[2020-04-02] MEDS: ISOSORBIDE MONO EXTENDED REL 60 MG TABCR PO SCH ×2 (08:02→20:30)
[2020-04-02] MEDS: UREA (URE-NA) 15 GM PACK PO SCH ×2 (08:03→20:30)
[2020-04-02] MEDS: CYANOCOBALAMIN 500 MCG TABLET (VITAMIN B-12) PO SCH (08:03)
[2020-04-02] MEDS: METOPROLOL TARTRATE 25 MG TAB PO SCH ×2 (08:03→20:31)
[2020-04-02] MEDS: IRON POLYSACCHARIDE COMPLEX 150 MG CAPSULE PO SCH (08:03)
[2020-04-02] MEDS: INSULIN ASPART 100 UNITS/ML 3 ML PEN SC SCH ×4 (08:11→20:46)
[2020-04-02] MEDS: CEFEPIME 2,000 MG in SYRINGE 0 ML IV SCH ×2 (08:11→20:35)
[2020-04-02 08:39] LABS: Basophils # (auto) 0.03 K/uL (0-0.2); Basophils % (auto) 0.4 %; Eosinophils % (auto) 2.4 %; Hematocrit (blood only) 30.1 % (42-52); Hemoglobin 10.2 g/dL (14.0-18.0); Immature Granulocytes # (auto) 0.01 K/uL (0.00-0.02); Immature Granulocytes % (auto) 0.1 %; Lymphocytes # (auto) 0.76 K/uL (1.2-3.4); Lymphocytes % (auto) 9.3 %; Mean Corpuscular Hgb Conc 33.9 g/dL (32-36); Mean Corpuscular Volume 85.5 fL (80-100); Mean Platelet Volume 9.2 fL (7.4-10.4); Monocytes # (auto) 0.81 K/uL (0.11-0.59); Monocytes % (auto) 9.9 %; Neutrophils # (auto) 6.36 K/uL (1.4-6.5); Neutrophils % (auto) 77.9 %; Platelet Count 286 K/uL (130-400); RDW Coefficient of Variation 13.4 % (11.5-14.5); RDW Standard Deviation 41.7 fL (36.4-46.3); Red Blood Count 3.52 M/uL (4.7-6.1); White Blood Count 8.17 K/uL (4.8-10.8)
[2020-04-02 09:00] LABS: Albumin Level 3.6 gm/dl (3.4-5.0); BUN Creatinine Ratio 23.9 (10-20); Calcium 9.2 mg/dl (8.5-10.1); Creatinine Clr Calc Pharmacy 29.5 ml/min; Est GFR (Non-African American) 36.2; Magnesium 1.8 mg/dl (1.8-2.4); Potassium 3.3 mmol/L (3.5-5.1)
[2020-04-02 09:03] LABS: Bilirubin,Total 0.8 mg/dl (0.2-1); Globulin 3.7 gm/dl (2.5-4.0); Phosphorus 3.2 mg/dl (2.5-4.9); Total Protein 7.3 gm/dl (6.4-8.2)
--- NOTE | 2020-04-02 10:12 | Cardiology Progress Note ---
Date of Service April 02, 2020 Assessment & Plan (1) CKD stage 3 secondary to diabetes: (2) Hyponatremia with decreased serum osmolality: (3) Ischemic cardiomyopathy: (4) Severe mitral regurgitation: (5) Acute decompensated heart failure: (6) History of coronary artery bypass graft: The patient had a large diuresis yesterday. Potassium is being supplemented. If he continues to diuresis I would repeat his chest x-ray and if his pleural effusions have improved and I would restart his Plavix. Admission and Anticipated Discharge Date Admission Date: March 31, 2020 Subjective The patient feels that things have been improving. Review of Systems Review of Systems: All systems reviewed & are unremarkable except as noted in HPI & below Nothing additional to add. Physical Exam Physical Exam: General: no acute distress and stated age Head: normocephalic, no masses, lesions, tenderness or abnormalities Eyes: conjunctiva are pink and non-injected, sclera clear Neck: supple, no adenopathy, no bruits, normal jugular venous pulse, no hepatojugular reflux Chest: normal shape and normal respiratory effort Lungs: clear to auscultation and percussion Cardiac Exam: - regular rate & rhythm, no murmurs gallops or rubs - normal S1, normal S2 Pulses: 2(+) throughout Abdomen: abdomen soft, non-tender, no abnormal masses and no hepatosplenomegaly Musculoskeletal: no gait disturbance, no joint inflammation, no deforming arthritis Extremities: no edema and no cyanosis Neuro: grossly normal exam Results & Data ([facility]) Vital Signs (Past 12 Hours) Vital Signs Temp Pulse Resp BP BP Pulse Ox 04/02/20 07:19 36.5 C 75 18 132/68 97 04/02/20 03:25 37.2 C 71 17 105/62 92 04/01/20 23:44 36.6 C 71 20 99/56 L 94 Laboratory Results Laboratory Results - last 24 hr 04/01/20 04/01/20 04/01/20 05:27 11:30 14:00 WBC RBC Hgb Hct MCV MCH MCHC RDW Std Deviation RDW Coeff of Myrtle Plt Count MPV Immature Gran % (Auto) Neut % (Auto) Lymph % (Auto) [place] % (Auto) Eos % (Auto) Baso % (Auto) Neut # (Auto) Lymph # (Auto) [place] # (Auto) Eos # (Auto) Baso # (Auto) Immature Gran # (Auto) PT INR APTT PTT Ratio Sodium 123 L Potassium 4.0 Chloride 88 L Carbon Dioxide 26 Anion Gap 9.0 BUN 24 H Creatinine 1.45 H Est Cr Clr Drug Dosing 34.2 Est GFR ( Amer) 50.2 Est GFR (Non-Af Amer) 43.3 BUN/Creatinine Ratio 16.8 Glucose 134 H POC Glucose 175 H Estimat Average Glucose 117 Hemoglobin A1c 5.7 H Calcium 8.7 Phosphorus Magnesium Total Bilirubin 1.0 AST 24 ALT 24 Alkaline Phosphatase 89 Total Protein 7.6 Albumin 3.8 Globulin 3.8 Albumin/Globulin Ratio 1.0 04/01/20 04/01/20 04/01/20 14:00 16:20 20:10 WBC RBC Hgb Hct MCV MCH MCHC RDW Std Deviation RDW Coeff of Myrtle Plt Count MPV Immature Gran % (Auto) Neut % (Auto) Lymph % (Auto) [place] % (Auto) Eos % (Auto) Baso % (Auto) Neut # (Auto) Lymph # (Auto) [place] # (Auto) Eos # (Auto) Baso # (Auto) Immature Gran # (Auto) PT 11.1 INR 1.1 APTT 28.1 PTT Ratio 1.0 Sodium Potassium Chloride Carbon Dioxide Anion Gap BUN Creatinine Est Cr Clr Drug Dosing Est GFR ( Amer) Est GFR (Non-Af Amer) BUN/Creatinine Ratio Glucose POC Glucose 140 H 131 H Estimat Average Glucose Hemoglobin A1c Calcium Phosphorus Magnesium Total Bilirubin AST ALT Alkaline Phosphatase Total Protein Albumin Globulin Albumin/Globulin Ratio 04/02/20 04/02/20 04/02/20 08:07 08:28 08:28 WBC 8.17 RBC 3.52 L Hgb 10.2 L Hct 30.1 L MCV 85.5 MCH 29.0 MCHC 33.9 RDW Std Deviation 41.7 RDW Coeff of Myrtle 13.4 Plt Count 286 MPV 9.2 Immature Gran % (Auto) 0.1 Neut % (Auto) 77.9 Lymph % (Auto) 9.3 [place] % (Auto) 9.9 Eos % (Auto) 2.4 Baso % (Auto) 0.4 Neut # (Auto) 6.36 Lymph # (Auto) 0.76 L [place] # (Auto) 0.81 H Eos # (Auto) 0.20 Baso # (Auto) 0.03 Immature Gran # (Auto) 0.01 PT INR APTT PTT Ratio Sodium 125 L Potassium 3.3 L D Chloride 89 L Carbon Dioxide 29 Anion Gap 7.0 BUN 40 H D Creatinine 1.68 H Est Cr Clr Drug Dosing 29.5 Est GFR ( Amer) 42.0 Est GFR (Non-Af Amer) 36.2 BUN/Creatinine Ratio 23.9 H Glucose 142 H POC Glucose 150 H Estimat Average Glucose Hemoglobin A1c Calcium 9.2 Phosphorus 3.2 Magnesium 1.8 Total Bilirubin 0.8 AST 32 ALT 25 Alkaline Phosphatase 87 Total Protein 7.3 Albumin 3.6 Globulin 3.7 Albumin/Globulin Ratio 1.0 Medications Administered Current Inpatient Medications Acetaminophen (Acetaminophen 325 Mg Tab) 325 mg PO Q6H PRN PRN Reason: Pain or Fever Stop: 05/01/20 00:24 Aspirin (Aspirin 81 Mg Ectab) 81 mg PO DAILY [facility] Stop: 05/01/20 08:59 Last Admin: 04/02/20 08:02 Dose: 81 mg Documented by: Betamethasone Dipropion Augmented (Betamethasone Dip Aug (Diprolene) 0.05% Cr 15 Gm Tube) 1 appln EXT BID PRN PRN Reason: Itchy Active Rash Stop: 05/01/20 00:24 Clopidogrel Bisulfate (Clopidogrel Bisulfate 75 Mg Tab) 75 mg PO DAILY [facility] Stop: 05/01/20 08:59 Last Admin: 04/01/20 09:12 Dose: 75 mg Documented by: Cyanocobalamin (Cyanocobalamin 500 Mcg Tablet (Vitamin B-12)) 1,000 mcg PO DAILY [facility] Stop: 05/01/20 08:59 Last Admin: 04/02/20 08:03 Dose: 1,000 mcg Documented by: Famotidine (Famotidine 20 Mg Tab) 20 mg PO BID [facility] Stop: 05/01/20 08:59 Last Admin: 04/02/20 08:02 Dose: 20 mg Documented by: Heparin Sodium (Porcine) (Heparin Sod 5,000 Unit/0.5 Ml Vial) 5,000 units SQ Q8 [facility] Stop: 05/01/20 13:59 Last Admin: 04/02/20 05:30 Dose: 5,000 units Documented by: Cefepime HCl 2,000 mg/ Syringe 20 mls @ 5 mls/min IV BID [facility]; Protocol Stop: 04/08/20 08:59 Last Admin: 04/02/20 08:11 Dose: 5 mls/min Documented by: Doxycycline Hyclate 100 mg/ (Dextrose) 110 mls @ 50 mls/hr IV Q12H [facility] Stop: 04/08/20 01:59 Last Infusion: 04/02/20 05:18 Dose: Infused Documented by: Furosemide 80 mg/ Syringe 8 mls @ 4 mls/min IV BID [facility] Stop: 05/01/20 09:44 Last Admin: 04/02/20 08:02 Dose: 4 mls/min Documented by: Insulin Aspart (Insulin Aspart 100 Units/Ml 3 Ml Pen) 0 units SC ACHS [facility] Stop: 05/01/20 07:29 Last Admin: 04/02/20 08:11 Dose: 2 units Documented by: Isosorbide Mononitrate (Isosorbide [place] Extended Rel 60 Mg Tabcr) 60 mg PO BID [facility] Stop: 05/01/20 08:59 Last Admin: 04/02/20 08:02 Dose: 60 mg Documented by: Levalbuterol HCl (Levalbuterol 1.25mg/0.5ml Neb) 1.25 mg NEB Q4H PRN PRN Reason: Shortness Of Breath Or Wheezing Stop: 05/01/20 05:29 Last Admin: 04/01/20 05:44 Dose: 1.25 mg Documented by: Lorazepam (Lorazepam 0.5 Mg Tab) 0.25 mg PO Q12H PRN PRN Reason: Anxiety Stop: 05/01/20 09:07 Metoprolol Tartrate (Metoprolol Tartrate 25 Mg Tab) 12.5 mg PO BID [facility] Stop: 05/01/20 00:24 Last Admin: 04/02/20 08:03 Dose: 12.5 mg Documented by: Miscellaneous (Praleunt~Order Awaiting Action) 1 ea N/A QS [facility] Stop: 05/01/20 07:59 Last Admin: 04/02/20 00:10 Dose: Not Given Documented by: Miscellaneous Information (Cefepime Consult Active) 1 ea N/A UD PRN PRN Reason: Consult Stop: 05/01/20 00:43 Nitroglycerin (Nitroglycerin Sl 0.4 Mg/Tab Tab) 0.4 mg SL UD PRN PRN Reason: Chest Pain Stop: 05/01/20 00:24 Last Admin: 04/01/20 08:12 Dose: 0.4 mg Documented by: Nitroglycerin (Nitroglycerin 2% Ointment 30gm Tube) 0.5 inch EXT Q6 [facility] Stop: 05/01/20 00:59 Last Admin: 04/02/20 05:53 Dose: Not Given Documented by: Ondansetron HCl (Ondansetron Inj 2 Mg/Ml 2 Ml Vial) 4 mg IV Q6H PRN PRN Reason: Nausea Stop: 05/01/20 00:24 Polysaccharide Iron Complex (Iron Polysaccharide Complex 150 Mg Capsule) 150 mg PO DAILY [facility] Stop: 05/01/20 08:59 Last Admin: 04/02/20 08:03 Dose: 150 mg Documented by: Potassium Chloride (Potassium Chloride Crtab 20 Meq Tabcr) 20 meq PO BID [facility] Stop: 05/02/20 09:44 Urea (Urea (Ure-Na) 15 Gm Pack) 15 gm PO BID [facility] Stop: 05/01/20 09:44 Last Admin: 04/02/20 08:03 Dose: 15 gm Documented by:
--- NOTE | 2020-04-02 10:18 | Hospitalist Progress Note ---
Date of Service April 02, 2020 Assessment & Plan (1) Acute decompensated heart failure: Ischemic cardiomyopathy Severe mitral regurgitation Hypertension -Patient presents to the ED on 03/31/2020 for "shortness of breath, cough, and some chest discomfort." Cardiac History -History of coronary artery disease and underwent coronary artery bypass surgery at [facility] in 2005. He has had chronic angina for years but also has severe GERD which at times is difficult to separate. In. 2018 he underwent a pharmacologic nuclear stress test was abnormal showing lateral wall ischemia. He underwent a cardiac catheterization that revealed 3 of his 5 bypass grafts to be closed. He had severe karuk coronary artery disease. The BECKER to the LAD was open and was decided that he was best treated with medical therapy. In February, he was admitted with a non-STEMI and after reviewing his previous cardiac catheterization it was decided to adjust his medications and he was started on dual antiplatelet therapy. During that admission an echocardiogram was obtained that revealed an ischemic cardiomyopathy with severe wall motion abnormalities of the inferior posterior and lateral myocardium with an estimated left ventricular ejection fraction of around 40 to 45%. It was also noted that the patient had severe mitral regurgitation. -on aspirin, metoprolol, isosorbide, (home clopidogrel held starting on 04/02/2020 in case needing thoracentesis on this admission and permitted by cardiology Dr. Patel), hold Praluent (alirocumab) while in hospital -initially ordered IV heparin by admitting physician because of patient reporting chest discomforts, but cardiology Dr. Patel advised the management of the underlying acute decompensated failure with diuretics and that IV heparin can be stopped as of 04/01/2020 daytime -management with diuretics as below (2) Acute respiratory failure with hypoxia: from acute decompensated heart failure, Presence of Bilateral Pleural Effusions -Patient is hypoxic requiring 4 L of oxygen to maintain oxygen saturation above 90. Chest CT suggestive of pulmonary edema and pleural effusion. This is likely due to acute decompensated heart failure -cardiology service following the patient and advising to continue diuresis medications and fluid restriction to 1000 ml per day for now -04/01/2020 nephrology consult: increase Lasix to 80 mg IV twice daily -04/01/[address] Gale offers that thoracentesis can be performed if diuresis strategies do not work but the clopidogrel would have to be held for 5 days (home clopidogrel held starting on 04/02/2020 in case needing thoracentesis on this admission and permitted by cardiology Dr. Patel) -04/02/2020 updates: Patient seen and examined at bedside. Patient reports some right leg cramp while on the bed, there is no leg swelling. Patient on nasal cannula oxygen but made good urine output as discussed with cardiology Dr. Patel. Nephrology Dr. Sy will be adjusting the IV Lasix dosing as patientt's AM labs with rising creatinine to 1.68. Patient also received potassium supplements as ordered by Dr. Sy for serum potassium of 3.3. Patient otherwise denies other new symptoms. No chest or abdomen pain on exam. No other complaints on review of systems. Patient will get CXR on 04/02/2020 to decide whether or not the clopidogrel should be resumed or not as per Dr. Patel (3) Hyponatremia with decreased serum osmolality: -as per 04/01/2020 nephrology: Hyponatremia is due to hypervolemia. Serum osmolality is 266 which is true hyponatremia. Urine osmolality of 526 consistent with hypervolemic hyponatremia. started urea 15 g p.o. twice daily. -trend the serum sodium labs -management as per nephrology Elevated Lactic Acid on admission -initially lactic acid was 2.5, admitting physician started cefepime and Doxycycline in case any underlying infection -continue antibiotics for now and follow the admission blood cultures (4) CKD stage 3 secondary to diabetes: Acute Kidney on CKD 3 from diuretics -04/02/2020: Nephrology Dr. Sy will be adjusting the IV Lasix dosing as pa tientt's AM labs with rising creatinine to 1.68 Type 2 diabetes mellitus -holding his metformin. His initial HBA1c was 5.9 on 03/12/2020. on insulin sliding scale and follow the blood sugars. Deep venous thrombosis prophylaxis, heparin subcutaneously. Admission and Anticipated Discharge Date Admission Date: March 31, 2020 Subjective Patient seen and examined at bedside. Patient reports some right leg cramp while on the bed, there is no leg swelling. Patient on nasal cannula oxygen but made good urine output as discussed with cardiology Dr. Patel. Nephrology Dr. Sy will be adjusting the IV Lasix dosing as patientt's AM labs with rising creatinine to 1.68. Patient also received potassium supplements as ordered by Dr. Sy for serum potassium of 3.3. Patient otherwise denies other new symptoms. No chest or abdomen pain on exam. No other complaints on review of systems. Patient will get CXR on 04/02/2020 to decide whether or not the clopidogrel should be resumed or not as per Dr. Patel Review of Systems Review of Systems: All systems reviewed & are unremarkable except as noted in Subjective Physical Exam Constitutional: cooperative Eyes: PERRL, conjunctivae normal, anicteric sclerae EOM intact bilaterally ENMT: external ear and nose normal, oropharynx normal Neck: normal visual inspection Respiratory: normal respiratory effort (on nasal cannula oxygen) Cardiovascular: Rate/Rhythm: regular rate and regular rhythm Gastrointestinal (Abdomen): normal bowel sounds, soft, nontender, no hepatosplenomegaly Musculoskeletal: Head/Neck/Chest: normocephalic and head atraumatic Neurologic: PERRL, EOMI, accommodation nl, no face palsy, no dysarthria CN's II-XI intact bilaterally Psychiatric: A+Ox3, euthymic affect Results & Data Results & Data ([facility]) Vital Signs (Past 12 Hours) Vital Signs Temp Pulse Resp BP BP Pulse Ox 04/02/20 07:19 36.5 C 75 18 132/68 97 04/02/20 03:25 37.2 C 71 17 105/62 92 04/01/20 23:44 36.6 C 71 20 99/56 L 94
--- NOTE | 2020-04-02 11:19 | XRay Report ---
XR chest 1V portable HISTORY: Shortness of breath. follow lung infiltrates COMPARISON: Chest 03/31/2020. FINDINGS: No pneumothorax. Small to moderate right and small left pleural effusions persist. The hear t remains enlarged. Diffuse interstitial and vascular thickening consistent with mild pulmonary edema . This has slightly improved. There are poststernotomy changes. IMPRESSION: 1. Slight improvement in the mild interstitial pulmonary edema. 2. Cardiomegaly and bilateral pleural effusions persist. ACT 112: Negative or not required by law. Electronically signed by: Pratik Alvares M.D. 04/02/2020 11:18 AM
[2020-04-02] MEDS: POTASSIUM CHLORIDE CRTAB 20 MEQ TABCR PO SCH ×2 (12:13→20:32)
[2020-04-02] MEDS ORDERED: CLOPIDOGREL BISULFATE 75 MG TAB PO ONE (12:32)
--- NOTE | 2020-04-02 12:35 | Communication Note ---
Date of Service: April 02, 2020 Chest X ray reviewed. clopidogrel 75 mg to be resumed starting on 04/02/2020 as CXR appears better and patient breathing better by O2 saturation so less likely that he will need thoracentesis on this admission at this time
--- NOTE | 2020-04-02 17:18 | Nephrology Progress Note ---
Date of Service April 02, 2020 Assessment & Plan (1) Hyponatremia with decreased serum osmolality: improving this evening to 127 w/ aggressive diuresis, Gallagher. hypervolemic hyponatremia -started on 20 mEq K bid adn will give extr 20 mEq dose this pm -modify diuresis as below -daily bmp w/ extra one prn Present on Admission?: Yes (2) Fluid overload: improving acute heart failure with aggressive diuresis. 4L negative so far this admission -lowered individual lasix dose to 40 mg IV but more frequent > qid >> same total daily dose; likely to needt o lower tomorrow -liberalized FR to 1.2L -daily sTANDING wt requested; no baseline so far Present on Admission?: Yes (3) CKD stage 3 secondary to diabetes: baselien creatinine 1.3-1.5 for ckd 3 >> on verge of but not meeting criteria for rebecca. -daily bmp Admission and Anticipated Discharge Date Admission Date: March 31, 2020 Subjective anxious for d/c home and focused on this; breathing better he states; minimal breakfast eaten when I saw him at about 1000 Review of Systems Review of Systems: All systems reviewed & are unremarkable except as noted in HPI & below Physical Exam Constitutional: well developed and well nourished; no acute distress Eyes: EOM intact bilaterally ENMT: Ears: no external ear abnormality Nose: no external nose abnormality Mouth: + dry oral mucous membranes Neck: no nuchal rigidity Respiratory: normal respiratory effort Auscultation: + diminished lung sounds Cardiovascular: RRR, no murmur, no edema Gastrointestinal (Abdomen): Inspection/Auscultation: normal bowel sounds Percussion/Palpation: abdomen soft; abdomen nontender Musculoskeletal: Extremities: strength 5/5 throughout Skin: no rashes, warm and dry Neurologic: land, fluent speech, no tremor Psychiatric: Orientation: alert and oriented x 3 Insight: + limited insight Judgement: + limited judgement Genitourinary: reilly w/ some urine Results & Data ([facility]) Vital Signs (Past 12 Hours) Vital Signs Temp Pulse Resp BP BP Pulse Ox 04/02/20 12:00 36.5 C 71 14 100/51 L 92 04/02/20 07:19 36.5 C 75 18 132/68 97 Laboratory Results 04/02/20 08:28 04/02/20 08:28
[2020-04-02 18:18] LABS: BUN Creatinine Ratio 30.8 (10-20); Calcium 9.4 mg/dl (8.5-10.1); Creatinine Clr Calc Pharmacy 29.2 ml/min; Est GFR (African American) 41.4; Est GFR (Non-African American) 35.7; Potassium 3.5 mmol/L (3.5-5.1)
[2020-04-02] MEDS ORDERED: POTASSIUM CHLORIDE CRTAB 20 MEQ TABCR PO ONE (18:55)
[2020-04-02] MEDS: FUROSEMIDE 40 MG in SYRINGE 0 ML IV SCH (20:30)
[2020-04-03] MEDS: NITROGLYCERIN 2% OINTMENT 30GM TUBE EXT SCH ×2 (00:52→05:09)
[2020-04-03] MEDS: DOXYCYCLINE HYCLATE 100 MG in DEXTROSE 5% 100 ML IV SCH (01:32)
[2020-04-03] MEDS: HEPARIN SOD 5,000 UNIT/0.5 ML VIAL SQ SCH ×2 (05:09→12:43)
--- NOTE | 2020-04-03 05:21 | Electrocardiogram Report ---
Test Reason : Blood Pressure : / mmHG Vent. Rate : 071 BPM Atrial Rate : 071 BPM P-R Int : 170 ms QRS Dur : 128 ms QT Int : 468 ms P-R-T Axes : 055 -36 099 degrees QTc Int : 508 ms Normal sinus rhythm Left axis deviation Right bundle branch block T wave abnormality, consider anterolateral ischemia Abnormal ECG When compared with ECG of 01-APR-2020 00:28, ST less depressed in Anterior leads Confirmed by Saad Wallace ([id number]) on 04/03/2020 5:21:18 AM Referred By: REFERRED SELF Confirmed By:Saad Wallace
[2020-04-03 06:03] LABS: Basophils # (auto) 0.02 K/uL (0-0.2); Basophils % (auto) 0.3 %; Eosinophils # (auto) 0.32 K/uL (0-0.5); Eosinophils % (auto) 4.5 %; Hematocrit (blood only) 31.3 % (42-52); Hemoglobin 10.6 g/dL (14.0-18.0); Immature Granulocytes # (auto) 0.01 K/uL (0.00-0.02); Immature Granulocytes % (auto) 0.1 %; Lymphocytes # (auto) 1.02 K/uL (1.2-3.4); Lymphocytes % (auto) 14.2 %; Mean Corpuscular Hgb Conc 33.9 g/dL (32-36); Mean Corpuscular Volume 85.8 fL (80-100); Mean Platelet Volume 9.6 fL (7.4-10.4); Monocytes # (auto) 1.13 K/uL (0.11-0.59); Monocytes % (auto) 15.7 %; Neutrophils # (auto) 4.68 K/uL (1.4-6.5); Neutrophils % (auto) 65.2 %; Platelet Count 305 K/uL (130-400); RDW Coefficient of Variation 13.5 % (11.5-14.5); Red Blood Count 3.65 M/uL (4.7-6.1); White Blood Count 7.18 K/uL (4.8-10.8)
[2020-04-03 06:34] LABS: Albumin Level 3.6 gm/dl (3.4-5.0); BUN Creatinine Ratio 35.9 (10-20); Calcium 9.7 mg/dl (8.5-10.1); Creatinine Clr Calc Pharmacy 27.2 ml/min; Est GFR (African American) 38.1; Est GFR (Non-African American) 32.9; Potassium 3.7 mmol/L (3.5-5.1)
[2020-04-03 06:37] LABS: Bilirubin,Total 0.6 mg/dl (0.2-1); Globulin 3.7 gm/dl (2.5-4.0); Phosphorus 3.6 mg/dl (2.5-4.9); Total Protein 7.3 gm/dl (6.4-8.2)
[2020-04-03] MEDS ORDERED: AMOXICILLIN/CLAVULANATE 500 MG TAB PO SCH (08:00)
[2020-04-03] MEDS: CYANOCOBALAMIN 500 MCG TABLET (VITAMIN B-12) PO SCH (08:34)
[2020-04-03] MEDS: IRON POLYSACCHARIDE COMPLEX 150 MG CAPSULE PO SCH (08:35)
[2020-04-03] MEDS: ISOSORBIDE MONO EXTENDED REL 60 MG TABCR PO SCH (08:35)
[2020-04-03] MEDS: ASPIRIN 81 MG ECTAB PO SCH (08:35)
[2020-04-03] MEDS: METOPROLOL TARTRATE 25 MG TAB PO SCH (08:37)
[2020-04-03] MEDS: POTASSIUM CHLORIDE CRTAB 20 MEQ TABCR PO SCH (08:37)
[2020-04-03] MEDS: FAMOTIDINE 20 MG TAB PO SCH (08:38)
[2020-04-03] MEDS: FUROSEMIDE 40 MG in SYRINGE 0 ML IV SCH (08:38)
[2020-04-03] MEDS: UREA (URE-NA) 15 GM PACK PO SCH (08:39)
[2020-04-03] MEDS: INSULIN ASPART 100 UNITS/ML 3 ML PEN SC SCH ×2 (08:51→12:43)
[2020-04-03] MEDS ORDERED: CLOPIDOGREL BISULFATE 75 MG TAB PO SCH (09:00)
--- NOTE | 2020-04-03 09:33 | Hospitalist Progress Note ---
Date of Service April 03, 2020 Assessment & Plan (1) Acute decompensated heart failure: Ischemic cardiomyopathy Severe mitral regurgitation Hypertension -Patient presents to the ED on 03/31/2020 for "shortness of breath, cough, and some chest discomfort." Cardiac History -History of coronary artery disease and underwent coronary artery bypass surgery at [facility] in 2005. He has had chronic angina for years but also has severe GERD which at times is difficult to separate. In. 2018 he underwent a pharmacologic nuclear stress test was abnormal showing lateral wall ischemia. He underwent a cardiac catheterization that revealed 3 of his 5 bypass grafts to be closed. He had severe [place] coronary artery disease. The BECKER to the LAD was open and was decided that he was best treated with medical therapy. In February, he was admitted with a non-STEMI and after reviewing his previous cardiac catheterization it was decided to adjust his medications and he was started on dual antiplatelet therapy. During that admission an echocardiogram was obtained that revealed an ischemic cardiomyopathy with severe wall motion abnormalities of the inferior posterior and lateral myocardium with an estimated left ventricular ejection fraction of around 40 to 45%. It was also noted that the patient had severe mitral regurgitation. -on aspirin, metoprolol, isosorbide, (home clopidogrel held starting on 04/02/2020 in case needing thoracentesis on this admission and permitted by cardiology Dr. Patel), hold Praluent (alirocumab) while in hospital -initially ordered IV heparin by admitting physician because of patient reporting chest discomforts, but cardiology Dr. Patel advised the management of the underlying acute decompensated failure with diuretics and that IV heparin can be stopped as of 04/01/2020 daytime -management with diuretics as below (2) Acute respiratory failure with hypoxia: from acute decompensated heart failure, Presence of Bilateral Pleural Effusions -Patient is hypoxic requiring 4 L of oxygen to maintain oxygen saturation above 90. Chest CT suggestive of pulmonary edema and pleural effusion. This is likely due to acute decompensated heart failure -cardiology service following the patient and advising to continue diuresis medications and fluid restriction to 1000 ml per day for now -04/01/2020 nephrology consult: increase Lasix to 80 mg IV twice daily -04/01/[address] Gale offers that thoracentesis can be performed if diuresis strategies do not work but the clopidogrel would have to be held for 5 days -04/02/2020 updates: Patient seen and examined at bedside. Patient reports some right leg cramp while on the bed, there is no leg swelling. Patient on nasal cannula oxygen but made good urine output as discussed with cardiology Dr. Patel. Nephrology Dr. Sy will be adjusting the IV Lasix dosing as patientt's AM labs with rising creatinine to 1.68. Patient also received potassium supplements as ordered by Dr. Sy for serum potassium of 3.3. Patient otherwise denies other new symptoms. No chest or abdomen pain on exam. No other complaints on review of systems. Chest X ray around 10 AM shows some improvements "Slight improvement in the mild interstitial pulmonary edema. Cardiomegaly and bilateral pleural effusions persist." At that point, the clopidogrel was resumed as there did not seem for need for any emergent thoracentesis -04/03/2020 Patient seen and examined in the AM on 04/03/2020 and he is resting comfortably on room air. After the CXR on 04/03/2020, patient continued to diurese with the IV Lasix and returned to room air at rest and with ambulation. Patient has received IV Lasix of 40 mg on 04/03/2020 AM. Hold further IV Lasix for now. Patient is indicating he feels comfortable for discharge to home. Will have patient be assessed by 2 step test. (3) Hyponatremia with decreased serum osmolality: -serum sodium 125 on 03/31/2020 labs -as per 04/01/2020 nephrology: Hyponatremia is due to hypervolemia. Serum osmolality is 266 which is true hyponatremia. Urine osmolality of 526 consistent with hypervolemic hyponatremia. started urea 15 g p.o. twice daily. -serum sodium 131 by 04/03/2020 labs Elevated Lactic Acid on admission -initially lactic acid was 2.5, admitting physician started cefepime and Doxycycline in case any underlying infection -admission blood cultures no growth to date. IV antibiotics are switched to Augmentin orally and Doxycycline orally (4) CKD stage 3 secondary to diabetes: Acute Kidney on CKD 3 from diuretics -04/02/2020: Nephrology Dr. Sy adjusted the IV Lasix dosing as patientt's AM labs with rising creatinine to 1.68 -04/03/2020 BUN 65 and creatinine 1.82 from recent aggressive Lasix for respiratory needs. Lasix 40 mg IV given x 1 on 04/03/2020. will need follow up labs as outpatient if patient passes 2 step test and if he prefers discharge to home today Type 2 diabetes mellitus -holding his metformin. His initial HBA1c was 5.9 on 03/12/2020. on insulin sliding scale and follow the blood sugars. Deep venous thrombosis prophylaxis, heparin subcutaneously while in the hospital Admission and Anticipated Discharge Date Admission Date: March 31, 2020 Subjective -04/03/2020 Patient seen and examined in the AM on 04/03/2020 and he is resting comfortably on room air. After the CXR on 04/03/2020, patient continued to diurese with the IV Lasix and returned to room air at rest and with ambulation. Patient has received IV Lasix of 40 mg on 04/03/2020 AM. Hold further IV Lasix for now. Patient is indicating he feels comfortable for discharge to home. Will have patient be assessed by 2 step test -04/03/2020 BUN 65 and creatinine 1.82 from recent aggressive Lasix for respiratory needs. Lasix 40 mg IV given x 1 on 04/03/2020. will need follow up labs as outpatient if patient passes 2 step test and if he prefers discharge today On review of systems, patient denies chest pain, shortness of breath. abdomen pa in, nausea, vomiting. dizziness, headache. . Physical Exam Constitutional: cooperative Eyes: PERRL, conjunctivae normal, anicteric sclerae EOM intact bilaterally ENMT: external ear and nose normal, oropharynx normal Neck: normal visual inspection Respiratory: normal respiratory effort Cardiovascular: Rate/Rhythm: regular rate and regular rhythm Gastrointestinal (Abdomen): normal bowel sounds, soft, nontender, no hepatosplenomegaly Musculoskeletal: Head/Neck/Chest: normocephalic and head atraumatic Neurologic: PERRL, EOMI, accommodation nl, no face palsy, no dysarthria CN's II-XI intact bilaterally Psychiatric: A+Ox3, euthymic affect Results & Data Results & Data ([facility]) Vital Signs (Past 12 Hours) Vital Signs Temp Pulse Pulse Pulse Resp BP Pulse Ox 04/03/20 08:00 64 04/03/20 07:46 36.6 C 66 18 116/65 94 04/03/20 03:39 36.6 C 63 18 103/53 L 93 04/02/20 23:00 36.7 C 71 17 106/58 L 94
--- NOTE | 2020-04-03 10:57 | Cardiology Progress Note ---
Date of Service April 03, 2020 Assessment & Plan (1) CKD stage 3 secondary to diabetes: (2) Hyponatremia with decreased serum osmolality: (3) Ischemic cardiomyopathy: (4) Severe mitral regurgitation: (5) Acute decompensated heart failure: (6) History of coronary artery bypass graft: The patient is anxious to go home. I would be okay with discharging him and having follow-up as an outpatient. The patient does have a follow-up appointment with me in early April, however it may be better if he moves that appointment up to before the holidays. His IV diuretics have been on hold. I believe he will need to go home on oral diuretics. I started him on Lasix 40 mg daily which will begin tomorrow. If nephrology has other recommendations regarding diuretics, then I am okay with their suggestions. Admission and Anticipated Discharge Date Admission Date: March 31, 2020 Subjective The patient has been walking the hallways with assistance. He is feeling much improved and would like to go home. Review of Systems Review of Systems: All systems reviewed & are unremarkable except as noted in HPI & below Nothing additional to add. Physical Exam Physical Exam: General: no acute distress and stated age Head: normocephalic, no masses, lesions, tenderness or abnormalities Eyes: conjunctiva are pink and non-injected, sclera clear Neck: supple, no adenopathy, no bruits, normal jugular venous pulse, no hepatojugular reflux Chest: normal shape and normal respiratory effort Lungs: clear to auscultation and percussion Cardiac Exam: - regular rate & rhythm, no murmurs gallops or rubs - normal S1, normal S2 Pulses: 2(+) throughout Abdomen: abdomen soft, non-tender, no abnormal masses and no hepatosplenomegaly Musculoskeletal: no gait disturbance, no joint inflammation, no deforming arthritis Extremities: no edema and no cyanosis Neuro: grossly normal exam Results & Data ([facility]) Vital Signs (Past 12 Hours) Vital Signs Temp Pulse Pulse Pulse Resp BP Pulse Ox 04/03/20 08:00 64 04/03/20 07:46 36.6 C 66 18 116/65 94 04/03/20 03:39 36.6 C 63 18 103/53 L 93 04/02/20 23:00 36.7 C 71 17 106/58 L 94 Laboratory Results Laboratory Results - last 24 hr 04/02/20 04/02/2004/02/20 11:35 16:08 17:25 WBC RBC Hgb Hct MCV MCH MCHC RDW Std Deviation RDW Coeff of [place] Plt Count MPV Immature Gran % (Auto) Neut % (Auto) Lymph % (Auto) Kidder % (Auto) Eos % (Auto) Baso % (Auto) Neut # (Auto) Lymph # (Auto) Kidder # (Auto) Eos # (Auto) Baso # (Auto) Immature Gran # (Auto) Sodium 127 L Potassium 3.5 Chloride 89 L Carbon Dioxide 30 Anion Gap 8.0 BUN 52 H Creatinine 1.70 H Est Cr Clr Drug Dosing 29.2 Est GFR ( Amer) 41.4 Est GFR (Non-Af Amer) 35.7 BUN/Creatinine Ratio 30.8 H Glucose 127 H POC Glucose 107 H 107 H Calcium 9.4 Phosphorus Magnesium Total Bilirubin AST ALT Alkaline Phosphatase Total Protein Albumin Globulin Albumin/Globulin Ratio 04/02/20 04/03/20 04/03/20 20:03 05:20 05:20 WBC 7.18 RBC 3.65 L Hgb 10.6 L Hct 31.3 L MCV 85.8 MCH 29.0 MCHC 33.9 RDW Std Deviation 42.0 RDW Coeff of [place]rtle 13.5 Plt Count 305 MPV 9.6 Immature Gran % (Auto) 0.1 Neut % (Auto) 65.2 Lymph % (Auto) 14.2 Kidder % (Auto) 15.7 Eos % (Auto) 4.5 Baso % (Auto) 0.3 Neut # (Auto) 4.68 Lymph # (Auto) 1.02 L Kidder # (Auto) 1.13 H Eos # (Auto) 0.32 Baso # (Auto) 0.02 Immature Gran # (Auto) 0.01 Sodium 131 L Potassium 3.7 Chloride 94 L Carbon Dioxide 29 Anion Gap 8.0 BUN 65 H Creatinine 1.82 H Est Cr Clr Drug Dosing 27.2 Est GFR ( Amer) 38.1 Est GFR (Non-Af Amer) 32.9 BUN/Creatinine Ratio 35.9 H Glucose 99 POC Glucose 169 H Calcium 9.7 Phosphorus 3.6 Magnesium 2.0 Total Bilirubin 0.6 AST 31 ALT 25 Alkaline Phosphatase 94 Total Protein 7.3 Albumin 3.6 Globulin 3.7 Albumin/Globulin Ratio 1.0 04/03/20 07:34 WBC RBC Hgb Hct MCV MCH MCHC RDW Std Deviation RDW Coeff of [place] Plt Count MPV Immature Gran % (Auto) Neut % (Auto) Lymph % (Auto) Kidder % (Auto) Eos % (Auto) Baso % (Auto) Neut # (Auto) Lymph # (Auto) Kidder # (Auto) Eos # (Auto) Baso # (Auto) Immature Gran # (Auto) Sodium Potassium Chloride Carbon Dioxide Anion Gap BUN Creatinine Est Cr Clr Drug Dosing Est GFR ( Amer) Est GFR (Non-Af Amer) BUN/Creatinine Ratio Glucose POC Glucose 111 H Calcium Phosphorus Magnesium Total Bilirubin AST ALT Alkaline Phosphatase Total Protein Albumin Globulin Albumin/Globulin Ratio Medications Administered Current Inpatient Medications Acetaminophen (Acetaminophen 325 Mg Tab) 325 mg PO Q6H PRN PRN Reason: Pain or Fever Stop: 05/01/20 00:24 Amoxicillin/Clavulanate Potassium (Amoxicillin/Clavulanate 500 Mg Tab) 1 tab PO BIDM [facility]; Protocol Stop: 04/10/20 07:59 Last Admin: 04/03/20 08:32 Dose: 1 tab Documented by: Aspirin (Aspirin 81 Mg Ectab) 81 mg PO DAILY [facility] Stop: 05/01/20 08:59 Last Admin: 04/03/20 08:35 Dose: 81 mg Documented by: Betamethasone Dipropion Augmented (Betamethasone Dip Aug (Diprolene) 0.05% Cr 15 Gm Tube) 1 appln EXT BID PRN PRN Reason: Itchy Active Rash Stop: 05/01/20 00:24 Clopidogrel Bisulfate (Clopidogrel Bisulfate 75 Mg Tab) 75 mg PO QAM [facility] Stop: 05/03/20 08:59 Last Admin: 04/03/20 08:32 Dose: 75 mg Documented by: Cyanocobalamin (Cyanocobalamin 500 Mcg Tablet (Vitamin B-12)) 1,000 mcg PO DAILY [facility] Stop: 05/01/20 08:59 Last Admin: 04/03/20 08:34 Dose: 1,000 mcg Documented by: Doxycycline Hyclate (Doxycycline Hyclate 100 Mg Cap) 100 mg PO BID@0700,1900 [facility] Stop: 04/08/20 11:59 Famotidine (Famotidine 20 Mg Tab) 20 mg PO BID [facility] Stop: 05/01/20 08:59 Last Admin: 04/03/20 08:38 Dose: 20 mg Documented by: Furosemide (Furosemide 40 Mg Tab) 40 mg PO QAM [facility] Stop: 05/04/20 08:59 Heparin Sodium (Porcine) (Heparin Sod 5,000 Unit/0.5 Ml Vial) 5,000 units SQ Q8 [facility] Stop: 05/01/20 13:59 Last Admin: 04/03/20 05:09 Dose: 5,000 units Documented by: Insulin Aspart (Insulin Aspart 100 Units/Ml 3 Ml Pen) 0 units SC ACHS [facility] Stop: 05/01/20 07:29 Last Admin: 04/03/20 08:51 Dose: Not Given Documented by: Isosorbide Mononitrate (Isosorbide Kidder Extended Rel 60 Mg Tabcr) 60 mg PO BID [facility] Stop: 05/01/20 08:59 Last Admin: 04/03/20 08:35 Dose: 60 mg Documented by: Levalbuterol HCl (Levalbuterol 1.25mg/0.5ml Neb) 1.25 mg NEB Q4H PRN PRN Reason: Shortness Of Breath Or Wheezing Stop: 05/01/20 05:29 Last Admin: 04/01/20 05:44 Dose: 1.25 mg Documented by: Lorazepam (Lorazepam 0.5 Mg Tab) 0.25 mg PO Q12H PRN PRN Reason: Anxiety Stop: 05/01/20 09:07 Metoprolol Tartrate (Metoprolol Tartrate 25 Mg Tab) 12.5 mg PO BID [facility] Stop: 05/01/20 00:24 Last Admin: 04/03/20 08:37 Dose: 12.5 mg Documented by: Miscellaneous (Praleunt~Order Awaiting Action) 1 ea N/A QS [facility] Stop: 05/01/20 07:59 Last Admin: 04/03/20 09:03 Dose: Not Given Documented by: Nitroglycerin (Nitroglycerin Sl 0.4 Mg/Tab Tab) 0.4 mg SL UD PRN PRN Reason: Chest Pain Stop: 05/01/20 00:24 Last Admin: 04/01/20 08:12 Dose: 0.4 mg Documented by: Nitroglycerin (Nitroglycerin 2% Ointment 30gm Tube) 0.5 inch EXT Q6 [facility] Stop: 05/01/20 00:59 Last Admin: 04/03/20 05:09 Dose: 0.5 inch Documented by: Ondansetron HCl (Ondansetron Inj 2 Mg/Ml 2 Ml Vial) 4 mg IV Q6H PRN PRN Reason: Nausea Stop: 05/01/20 00:24 Polysaccharide Iron Complex (Iron Polysaccharide Complex 150 Mg Capsule) 150 mg PO DAILY [facility] Stop: 05/01/20 08:59 Last Admin: 04/03/20 08:35 Dose: 150 mg Documented by: Potassium Chloride (Potassium Chloride Crtab 20 Meq Tabcr) 20 meq PO BID [facility] Stop: 05/02/20 09:44 Last Admin: 04/03/20 08:37 Dose: 20 meq Documented by: Urea (Urea (Ure-Na) 15 Gm Pack) 15 gm PO BID [facility] Stop: 05/01/20 09:44 Last Admin: 04/03/20 08:39 Dose: 15 gm Documented by:
--- NOTE | 2020-04-03 11:58 | Discharge Summary ---
Date of Service April 03, 2020 Admission HPI Per Admitting Provider DATE OF ADMISSION: 03/31/2020 CHIEF COMPLAINT: Chest discomfort and shortness of breath and cough. HISTORY OF PRESENT ILLNESS: This is an 85-year-old male with past medical history significant for hyperlipidemia, CAD, history of bradycardia, hypertension, stage III chronic kidney disease, eczematous dermatitis, statin intolerance, presents with chest discomfort and shortness of breath and cough on going for the last 2-3 days. The patient was here in February with a non-ST elevated IN and acute hypoxic respiratory failure, thought to be acute systolic CHF and was treated medically for CAD with heparin drip and medication and discharged on also Lasix 40 mg daily. The patient says since the last 2-3 days, he is having cough, once in a while brings up yellowish phlegm and short of breath and some chest discomfort. He could not walk much because of shortness of breath. Denies any fever, his appetite is not great and because he was feeling sick, food was not tasting good, smell is okay. No sore throat, no headache, no blurred vision, was nauseous. No abdominal pain, no diarrhea. In the ER, his COVID was negative. White count was 11. Sodium was 125, lactate was 2.5. Troponin was 0.3. BNP was 5400. Chest x-ray shows bilateral interstitial opacities, likely representing pulmonary edema, also correlate clinically for superimposed infectious/inflammatory pneumonitis. ALLERGIES: ATORVASTATIN, EZETIMIBE, SIMVASTATIN, LISINOPRIL. PAST MEDICAL HISTORY: As mentioned above. PAST SURGICAL HISTORY: CABG. MEDICATIONS: The patient is on Tylenol 650 mg p.o. t.i.d. p.r.n., aspirin 81 mg p.o. daily, betamethasone topical b.i.d. p.r.n., Plavix 75 mg p.o. daily, vitamin B12 1000 mcg p.o. daily, famotidine 20 mg p.o. b.i.d., Lasix 40 mg p.o. a.m., isosorbide mononitrate 60 mg p.o. b.i.d., metformin 1000 mg p.o. b.i.d., metoprolol tartrate 12.5 mg p.o. b.i.d., nitroglycerin 0.4 mg sublingual p.r.n., polysaccharide iron complex 150 mg p.o. daily, Praluent pen 75 mg subcutaneous q.14 days. FAMILY HISTORY: No family history on file. SOCIAL HISTORY: . No smoking. REVIEW OF SYMPTOMS: As per HPI. Rest of the systems negative. Admission Exam Per Admitting Provider PHYSICAL EXAMINATION: GENERAL: The patient is of moderate build, not in acute distress. VITAL SIGNS: Temperature 36.3, pulse 76, respiratory rate 20, blood pressure 127/80, oxygen 96% on 2 liters. HEENT: Pupils equal, round, reactive to light. Oral mucosa moist. NECK: No neck masses seen. CARDIOVASCULAR: S1, S2, regular rate and rhythm, no murmur, no gallop. RESPIRATORY SYSTEM: Normal AP diameter. No accessory muscle use. Bilateral diminished breath sounds. No wheezing. ABDOMEN: Soft, bowel sounds present, nontender. No distention. CENTRAL NERVOUS SYSTEM: Cranial nerves II through XII grossly intact, nonfocal. EXTREMITIES: No edema, no erythema. Principal Diagnosis Acute respiratory failure with hypoxia from acute decompensated heart failure, Presence of Bilateral Pleural Effusions Acute decompensated heart failure: Ischemic cardiomyopathy Severe mitral regurgitation Hypertension Hyponatremia with decreased serum osmolality Elevated Lactic Acid on admission Acute Kidney Injury on Chronic kidney disease stage 3 Type 2 diabetes mellitus Discharge Exam Constitutional cooperative Eyes PERRL, conjunctivae normal, anicteric sclerae EOM intact bilaterally ENMT external ear and nose normal, oropharynx normal Neck normal visual inspection Respiratory normal respiratory effort Cardiovascular Rate/Rhythm: regular rate and regular rhythm Gastrointestinal (Abdomen) normal bowel sounds, soft, nontender, no hepatosplenomegaly Musculoskeletal Head/Neck/Chest: normocephalic and head atraumatic Neurologic PERRL, EOMI, accommodation nl, no face palsy, no dysarthria CN's II-XI intact bilaterally Psychiatric A+Ox3, euthymic affect Discharge Data Allergies Allergy/AdvReac Type Severity Reaction Status Date / Time atorvastatin AdvReac Unknown Unknown Verified 03/31/20 22:43 ezetimibe AdvReac Unknown Unknown Verified 03/31/20 22:43 lisinopril AdvReac Unknown Cough Verified 03/31/20 22:43 simvastatin AdvReac Unknown Unknown Verified 03/31/20 22:43 Consultations 03/31/20 21:56 ED Decision to Admit Stat 04/01/20 00:25 Consult Case Management - Discharge Planning Routine 04/01/20 08:00 Consult Cardiology Routine Consult Nephrology Routine 04/01/20 08:18 Consult Pulmonology Routine 04/03/20 11:50 Burn CD for patient Routine Ordered Studies 03/31/20 23:13 CT chest wo con Urgent Hospital Course (1) Acute decompensated heart failure: Ischemic cardiomyopathy Severe mitral regurgitation Hypertension -Patient presents to the ED on 03/31/2020 for "shortness of breath, cough, and some chest discomfort." Cardiac History -History of coronary artery disease and underwent coronary artery bypass surgery at [facility] in 2005. He has had chronic angina for years but also has severe GERD which at times is difficult to separate. In. 2018 he underwent a pharmacologic nuclear stress test was abnormal showing lateral wall ischemia. He underwent a cardiac catheterization that revealed 3 of his 5 bypass grafts to be closed. He had severe [place] coronary artery disease. The BECKER to the LAD was open and was decided that he was best treated with medical therapy. In February, he was admitted with a non-STEMI and after reviewing his previous cardiac catheterization it was decided to adjust his medications and he was started on dual antiplatelet therapy. During that admission an echocardiogram was obtained that revealed an ischemic cardiomyopathy with severe wall motion abnormalities of the inferior posterior and lateral myocardium with an estimated left ventricular ejection fraction of around 40 to 45%. It was also noted that the patient had severe mitral regurgitation. -on aspirin, metoprolol, isosorbide, (home clopidogrel held starting on 04/02/2020 in case needing thoracentesis on this admission and permitted by cardiology Dr. Patel), hold Praluent (alirocumab) while in hospital -initially ordered IV heparin by admitting physician because of patient reporting chest discomforts, but cardiology Dr. Patel advised the management of the underlying acute decompensated failure with diuretics and that IV heparin can be stopped as of 04/01/2020 daytime -management with diuretics as below (2) Acute respiratory failure with hypoxia: from acute decompensated heart failure, Presence of Bilateral Pleural Effusions -Patient is hypoxic requiring 4 L of oxygen to maintain oxygen saturation above 90. Chest CT suggestive of pulmonary edema and pleural effusion. This is likely due to acute decompensated heart failure -cardiology service following the patient and advising to continue diuresis medications and fluid restriction to 1000 ml per day for now -04/01/2020 nephrology consult: increase Lasix to 80 mg IV twice daily -04/01/[address] Gale offers that thoracentesis can be performed if diuresis strategies do not work but the clopidogrel would have to be held for 5 days -04/02/2020 updates: Patient seen and examined at bedside. Patient reports some right leg cramp while on the bed, there is no leg swelling. Patient on nasal cannula oxygen but made good urine output as discussed with cardiology Dr. Patel. Nephrology Dr. Sy will be adjusting the IV Lasix dosing as patientt's AM labs with rising creatinine to 1.68. Patient also received potassium supplements as ordered by Dr. Sy for serum potassium of 3.3. Patient otherwise denies other new symptoms. No chest or abdomen pain on exam. No other complaints on review of systems. Chest X ray around 10 AM shows some improvements "Slight improvement in the mild interstitial pulmonary edema. Cardiomegaly and bilateral pleural effusions persist." At that point, the clopidogrel was resumed as there did not seem for need for any emergent thoracentesis -04/03/2020 Patient seen and examined in the AM on 04/03/2020 and he is resting comfortably on room air. After the CXR on 04/03/2020, patient continued to diurese with the IV Lasix and returned to room air at rest and with ambulation. Patient has received IV Lasix of 40 mg on 04/03/2020 AM. Hold further IV Lasix for now. Patient is indicating he feels comfortable for discharge to home. -discharge to home with prescription of Lasix 40 mg daily as recommended by cardiology service sent electronically to [address] [id number] -patient will have CD of lung imaging on this hospital stay to bring to his clinic doctors, patient is unlikely to have pneumonia but should continue 7 days of Augmentin twice a day and Doxycycline 100 mg twice a day and then have follow up Chest X Ray by clinic doctors to re-assess the pleural effusions or any new lung infiltrates). antibiotics also sent to his pharmacy Patient advised to make appointment with his primary care doctor and [facility] as [facility] to follow up serum sodium and renal function (serum sodium 125 on 03/31/2020 labs -serum sodium 131 by 04/03/2020 labs, BUN 65 and creatinine 1.82 from recent aggressive Lasix while in the hospital) 04/23/2020 11:00 AM Provider Darion Patel DO Department Cardiology, [facility] [address] [place] [address] 05/16/2020 9:00 AM Provider Violeta Sy MD Department Nephrology, [facility] [address] [place] [address] 05/28/2020 10:30 AM Provider Darion Patel DO Department Cardiology, [facility] [address] [place] [address] (3) Hyponatremia with decreased serum osmolality: -serum sodium 125 on 03/31/2020 labs -as per 04/01/2020 nephrology: Hyponatremia is due to hypervolemia. Serum osmolality is 266 which is true hyponatremia. Urine osmolality of 526 consistent with hypervolemic hyponatremia. started urea 15 g p.o. twice daily. -serum sodium 131 by 04/03/2020 labs Elevated Lactic Acid on admission -initially lactic acid was 2.5, admitting physician started cefepime and Doxycycline in case any underlying infection -admission blood cultures no growth to date. IV antibiotics are switched to Augmentin orally and Doxycycline orally (4) CKD stage 3 secondary to diabetes: Acute Kidney on CKD 3 from diuretics -04/02/2020: Nephrology Dr. Sy adjusted the IV Lasix dosing as patientt's AM labs with rising creatinine to 1.68 -04/03/2020 BUN 65 and creatinine 1.82 from recent aggressive Lasix for respiratory needs. Lasix 40 mg IV given x 1 on 04/03/2020. will need follow up labs as outpatient if patient passes 2 step test and if he prefers discharge to home today Type 2 diabetes mellitus -was on sliding scale insulin while in the hospital with metformin held -can resume home dose metformin on discharge Total Time Total Time Spent Total Time Spent (In Minutes): 40 minutes Total Time Includes: Examination of the Patient, Discharge Planning, Medication Reconciliation and Communication With Other Providers Discharge Plan Discharge Items Patient Disposition: Home - Self-Care Reason For Visit: CHEST DISCOMFORT, SOB Discharge Diagnosis: Acute respiratory failure with hypoxia from acute decompensated heart failure, Presence of Bilateral Pleural Effusions Acute decompensated heart failure: Ischemic cardiomyopathy Severe mitral regurgitation Hypertension Hyponatremia with decreased serum osmolality Elevated Lactic Acid on admission Acute Kidney Injury on Chronic kidney disease stage 3 Type 2 diabetes mellitus Condition on Discharge: Good Activity: Resume your previous activity Non-emergency contact: Primary Care Provider, [employer] Call non-emergency contact if: you have any medication questions and your symptoms worsen Follow-up/Referrals: PCP,NO [Primary Care Provider] - Diet: Carb Consistent or DM2 and Heart Healthy Fluids: 1200ml (5 cups) Addtl Attending Provider Instructions: -discharge to home with prescription of Lasix 40 mg daily as recommended by cardiology service sent electronically to [address] [place] [address] -patient will have CD of lung imaging on this hospital stay to bring to his clinic doctors, patient is unlikely to have pneumonia but should continue 7 days of Augmentin twice a day and Doxycycline 100 mg twice a day and then have follow up Chest X Ray by clinic doctors to re-assess the pleural effusions or any new lung infiltrates). antibiotics also sent to his pharmacy Patient advised to make appointment with his primary care doctor and follow ou LTAC[facility] clinics as below to follow up serum sodium and renal function (serum sodium 125 on 03/31/2020 labs -serum sodium 131 by 04/03/2020 labs, BUN 65 and creatinine 1.82 from recent aggressive Lasix while in the hospital) 04/23/2020 11:00 AM Provider Darion Patel DO Department Cardiology, [facility] [address] [place] [address] 05/16/2020 9:00 AM Provider Violeta Sy MD Department Nephrology, [address] [place] [address] 05/28/2020 10:30 AM Provider Darion Patel DO Department Cardiology, [facility] [address] [place] [address] Pending Studies at Discharge: No Stand-Alone Forms: [employer], Smoking Cessation Medications and DC Order Prescriptions: New amoxicillin-pot clavulanate 500-125 mg Tablet 1 tab PO BIDM 7 Days Qty: 14 RF: 0 doxycycline hyclate 100 mg Capsule 100 mg PO BID 7 Days Qty: 14 RF: 0 Continued polysaccharide iron complex 150 mg iron Capsule 150 mg PO DAILY RF: 0 cyanocobalamin (vitamin B-12) 1,000 mcg Tablet 1,000 mcg PO DAILY RF: 0 clopidogrel [Plavix] 75 mg Tablet 75 mg PO DAILY RF: 0 aspirin 81 mg Tablet,Delayed Release (Dr/Ec) 81 mg PO DAILY RF: 0 acetaminophen 650 mg Tablet Extended Release 650 mg PO TID PRN (Reason: Arthritis Pain) RF: 0 famotidine 20 mg Tablet 20 mg PO BID RF: 0 metformin 1,000 mg Tablet 1,000 mg PO BID RF: 0 nitroglycerin 0.4 mg Tablet, Sublingual 0.4 mg Sublingual DIRECTED PRN (Reason: Chest Pain) RF: 0 betamethasone, augmented 0.05 % ointment 1 applic topical BID PRN (Reason: Itchy Active Rash) RF: 0 metoprolol tartrate 25 mg tablet 12.5 mg PO BID RF: 0 Praluent Pen 75 mg/mL pen injector 75 mg SUBCUT .Q14 DAYS RF: 0 furosemide 40 mg Tablet 40 mg PO QAM 30 Days Qty: 30 RF: 0 isosorbide mononitrate 60 mg tablet extended release 24 hr 60 mg PO BID RF: 0 Discharge Orders: Discharge Order (Routine); Ordered 04/03/20 Ordered By: Alvarado Glover Admission Data Admit Date/Time: 03/31/20 23:13 Attending Provider: Alvaraod Glover Admit Provider: Marcus Jung Primary Care Provider: PCP,NO Other Providers: Darion Patel ; Marcus Jung ; Laith Parson ; Flo Gale
[2020-04-03] MEDS ORDERED: DOXYCYCLINE HYCLATE 100 MG CAP PO SCH (12:00)
--- NOTE | 2020-04-03 14:38 | Communication Note ---
Date of Service: April 03, 2020 2 test shows no home O2 requirements. Good saturation at rest. with activity the oxygenation is 89% so would not meet criteria for portable home O2
--- NOTE | 2020-04-03 15:15 | Nephrology Progress Note ---
Date of Service April 03, 2020 Assessment & Plan (1) Hyponatremia with decreased serum osmolality: improving to 131 w/ aggressive diuresis, [place]. hypervolemic hyponatremia from HF. changed to po diuretics this am; he is 2.2 L negative past 24 hrs -cardiology notes being ok w/ nephro recs for d/c diuretics and believe he will need more than 40 mg daily lasix which he came in on discharge recs -d/c on lasix 40 mg TWO doses at least 4 hrs apart and not taken at same time -d/c on potassium 20 mEq daily -limit fluid intake to 1.5L daily -bmp on Thursday/thursday along with urine osms, serum osms, rd urine sodium -recommend daily standing wts after d/c until seen in ckd clinic -follow up in [facility] CKD clinic w/ me or [place] w/in 6 wks of discharge (2) Fluid overload: improving acute heart failure with aggressive diuresis. 5.6L negative so far this admission -lasix dose as above -liberalized FR to 1.2L in house; 1.5L at d/c as above -daily sTANDING wt requested; no baseline so far (3) Acute on chronic renal insufficiency: baselien creatinine 1.3-1.5 for ckd 3 >> stage 1 nonoliguric PURVI likely pr erenal from aggressive/obligate diuresis. was 1.2 on admission creat. -daily bmp -f/u as above in CKD clinic Present on Admission?: No Admission and Anticipated Discharge Date Admission Date: March 31, 2020 Subjective pt left before I saw him in person today; d/c recommendations from below still apply Physical Exam Constitutional: well developed and well nourished; no acute distress Eyes: EOM intact bilaterally ENMT: Ears: no external ear abnormality Nose: no external nose abnormality Mouth: + dry oral mucous membranes Neck: no nuchal rigidity Respiratory: normal respiratory effort Auscultation: + diminished lung soun ds Cardiovascular: RRR, no murmur, no edema Gastrointestinal (Abdomen): Inspection/Auscultation: normal bowel sounds Percussion/Palpation: abdomen soft; abdomen nontender Musculoskeletal: Extremities: strength 5/5 throughout Skin: no rashes, warm and dry Psychiatric: Orientation: alert and oriented x 3 Insight: + limited insight Judgement: + limited judgement Results & Data ([facility]) Vital Signs (Past 12 Hours) Vital Signs Temp Pulse Pulse Pulse Pulse Pulse Pulse 04/03/20 14:20 36.6 C 64 63 04/03/20 12:36 64 04/03/20 12:09 64 04/03/20 09:33 74 72 65 04/03/20 08:00 64 04/03/20 07:46 36.6 C 66 04/03/20 03:39 36.6 C 63 Resp Resp Resp Resp BP BP Pulse Ox 04/03/20 14:20 20 122/69 132/68 96 04/03/20 12:36 20 122/69 96 04/03/20 12:09 20 122/69 96 04/03/20 09:33 20 18 18 04/03/20 08:00 04/03/20 07:46 18 116/65 94 04/03/20 03:39 18 103/53 L 93 Pulse Ox Pulse Ox Pulse Ox 04/03/20 14:20 04/03/20 12:36 04/03/20 12:09 04/03/20 09:33 89 L 94 95 04/03/20 08:00 04/03/20 07:46 04/03/20 03:39 Laboratory Results 04/03/20 05:20 04/03/20 05:20
[2020-04-04] MEDS ORDERED: FUROSEMIDE 40 MG TAB PO SCH (09:00)
== END 2020-04-03 15:14 | disposition home or self-care (01) | DRG 280 ==
LOC: ED 19:12 → 2S 23:13

== ENCOUNTER 2020-04-30 13:09 | Inpatient (IN) ==
[2020-04-30 13:56] LABS: Basophils # (auto) 0.02 K/uL (0-0.2); Basophils % (auto) 0.2 %; Eosinophils # (auto) 0.21 K/uL (0-0.5); Eosinophils % (auto) 2.6 %; Hematocrit (blood only) 27.2 % (42-52); Hemoglobin 8.9 g/dL (14.0-18.0); Immature Granulocytes # (auto) 0.01 K/uL (0.00-0.02); Immature Granulocytes % (auto) 0.1 %; Lymphocytes # (auto) 0.89 K/uL (1.2-3.4); Lymphocytes % (auto) 10.9 %; Mean Corpuscular Hemoglobin 28.2 pg (25-34); Mean Corpuscular Hgb Conc 32.7 g/dL (32-36); Mean Corpuscular Volume 86.1 fL (80-100); Mean Platelet Volume 9.8 fL (7.4-10.4); Monocytes % (auto) 7.3 %; Neutrophils # (auto) 6.47 K/uL (1.4-6.5); Neutrophils % (auto) 78.9 %; Platelet Count 309 K/uL (130-400); RDW Coefficient of Variation 14.2 % (11.5-14.5); RDW Standard Deviation 44.4 fL (36.4-46.3); Red Blood Count 3.16 M/uL (4.7-6.1)
[2020-04-30 14:07] LABS: INR 1.1 (0.9-1.1); Partial Thromboplastin Time 27.6 Seconds (21.0-31.0); Prothrombin Time 11.8 Seconds (9.0-12.0)
--- NOTE | 2020-04-30 14:07 | XRay Report ---
XR chest 1V portable HISTORY: 85 years-old Male Dyspnea acute shortness of breath COMPARISON: Chest radiograph 04/17/2020 TECHNIQUE: Portable AP view of the chest FINDINGS: Cardiac silhouette is enlarged, unchanged. Prior median sternotomy with CABG. Pulmonary vascular espinoza estion. Small pleural effusions with mild bibasilar opacities. No pneumothorax. Degenerative changes of the shoulders and spine. IMPRESSION: 1. Cardiomegaly with mild pulmonary edema. 2. Small pleural effusions with bibasilar opacities suggestive of atelectasis. Pneumonitis could appe ar similarly. ACT 112: Negative or not required by law. The above report was generated using voice recognition software. It may contain grammatical, syntax o r spelling errors. Electronically signed by: Preston Meraz M.D. 04/30/2020 2:06 PM
[2020-04-30 14:15] LABS: Albumin Level 3.8 gm/dl (3.4-5.0); BUN Creatinine Ratio 16.4 (10-20); Calcium 9.5 mg/dl (8.5-10.1); Creatinine Clr Calc Pharmacy 33.5 ml/min; Est GFR (Non-African American) 42.2; Potassium 3.3 mmol/L (3.5-5.1)
[2020-04-30 14:22] LABS: Base Excess VBG 1.8 mEq/L; HCO3 VBG 27 mmol/L; PCO2 VBG 47 mmHg (38-50); PO2 VBG 18 mmHg; pH VBG 7.38 (7.36-7.41)
[2020-04-30 14:23] LABS: Albumin Globulin Ratio 1.1 (0.9-2); Bilirubin,Total 0.8 mg/dl (0.2-1); Globulin 3.6 gm/dl (2.5-4.0); Total Protein 7.4 gm/dl (6.4-8.2); Troponin I 0.072 ng/ml (0-0.045)
[2020-04-30] MEDS ORDERED: FUROSEMIDE 40 MG/4 ML VIAL IV STA (14:30)
--- NOTE | 2020-04-30 14:34 | Emergency Department Note ---
Impression & Plan Pulmonary edema, Anemia, Abnormal ECG, Elevated troponin I level, Acute hyponatremia ED Provider Note NAME: ANAI DANIEL AGE: 85 SEX: M : 1935 ARRIVES VIA: Walk-In INFORMANT: Patient, the patient's friend ED PROVIDER(S): Walter Delaney DO CHIEF COMPLAINT: Shortness of breath HPI: The patient is a an 85-year-old male who presented to the emergency department for an evaluation of shortness of breath. He does have a history of heart failure with reduced ejection fraction. He is also had a history of elevated troponin recently. He does have some degree of renal disease as well. He has had no acute changes to his medications but recently was an inpatient for CHF. He has been noticing lower extremity edema as well as increasing shortness of breath. He has noticed orthopnea as well as dyspnea on exertion. 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 The patient states his symptoms are moderate at this time. He states that they do worsen with any ambulation. He has not been seen by his primary care physician recently. ROS: See above HPI for pertinent positives & negatives. A total of 10 systems reviewed and were otherwise negative. PAST MEDICAL HISTORY: See Below PAST SURGICAL HISTORY: See Below FAMILY HISTORY: See Below SOCIAL HISTORY: See Below HOME MEDICATIONS: See Below ALLERGIES: See Below VITALS: See Below PHYSICAL EXAMINATION: GENERAL: Patient is awake alert in no acute distress patient is resting comfortably and showing no signs of anxiety EYES: The conjunctivae are clear. The pupils are round and reactive. EARS, NOSE, MOUTH AND THROAT: The nose is without any evidence of any deformity. Mucous membranes are moist. Tongue is midline. NECK: The neck is nontender and supple. RESPIRATORY: Diminished breath sounds are noted at both bases. There were faint rales at both bases. There is no significant conversational dyspnea appreciated. CARDIOVASCULAR: Regular rate and rhythm noted there no murmurs rubs or gallops normal S1 normal S2. GASTROINTESTINAL: The abdomen is soft. Abdomen is nontender. MUSCULOSKELETAL/EXTREMITIES: There is no evidence of gross deformity full range of motion is noted in the hips and shoulders. SKIN: Pedal edema was noted bilaterally. NEUROLOGIC: Patient is awake alert and oriented x3. MEDICAL DECISION MAKING: The patient is an 85-year-old male who presented to the emergency department for an evaluation of difficulty breathing. The patient has a history of known congestive heart failure as well as low ejection fraction. The patient was treated with IV Lasix in the emergency department. I discussed the patient's l aboratory and radiographic studies with him. He was found to have a mild elevation in his troponin. He was also found to have hyponatremia. I discussed the patient's condition with the [facility] hospitalist group. They have agreed to evaluate the patient in the emergency department for further management and disposition. Triage Nursing notes reviewed. Prior medical records reviewed Vital Signs: reviewed and remarkable for no significant abnormalities Differential diagnosis: Reactive airway disease, pneumonia, pneumothorax, COPD, CHF, infections, cardiac ischemia, pulmonary embolism, musculoskeletal, gastrointestinal, as well as other pathologies. ER treatment provided: See below Diagnostics interpreted by me: ECG: EKG was obtained in the emergency department. My interpretation is sinus rhythm at 87 bpm. First-degree AV block was noted. Right bundle branch block pattern was also noted. Anterior and lateral ST depressions were noted. There were no PVCs. This was compared to a tracing from April 192019. The ST segment abnormalities appear worsened compared to the previous tracing otherwise no significant changes were noted. Cardiac Monitoring: An order was placed for continuous cardiac monitoring. The monitor shows a rate of 85 bpm with sinus rhythm. Laboratory studies: As stated above and show below. Imaging studies: See below Consultation(s): 1440: I discussed this case with Beth villalta who is covering for the [facility] hospitalist group. Past Med/Surg History Medical History (Updated 04/30/20 @ 16:09 by MARIBETH Youssef) CAD (coronary artery disease) 2006 - CABG x 5 2019 - cath, 3 out of 5 bypass grafts occluded, medical management advised Chronic systolic CHF (congestive heart failure) CKD (chronic kidney disease), stage III Diabetes mellitus, type II GERD (gastroesophageal reflux disease) HLD (hyperlipidemia) statin intolerant, on Praluent injections HTN (hypertension) Ischemic cardiomyopathy Mitral regurgitation Productive cough Prostatitis SOB (shortness of breath) Surgical History History of coronary artery bypass graft 2005- [place] Family History Other Coronary heart disease Diabetes Social History (Reviewed 04/30/20 @ 14:31 by EPHRAIM Zepeda Smoking Status: Never smoker Second Hand Exposure: No; Hx Alcohol Use: No Hx Substance Use: No Preferred Language: Turkish Communication Ability: Effective 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 Beliefs That Will Affect Care: None marital status: Current Living Situation: Spouse Current Living Situation Comment: at home with Other Information That Helps Us Care for You: No Feels Safe at Home: Yes Safety Concerns: Feels Safe At This Time Assistive Devices: Glasses and Oxygen - Continuous Allergies Allergies Allergy/AdvReac Type Severity Reaction Status Date / Time atorvastatin AdvReac Unknown Unknown Verified 04/30/20 15:01 ezetimibe AdvReac Unknown Unknown Verified 04/30/20 15:01 lisinopril AdvReac Unknown Cough Verified 04/30/20 15:01 simvastatin AdvReac Unknown Unknown Verified 04/30/20 15:01 Home Meds Home Medications Medication Instructions Recorded Confirmed acetaminophen 650 mg PO TID PRN 06/21/18 04/30/20 aspirin 81 mg PO DAILY 06/21/18 04/30/20 betamethasone, augmented 1 applic TOPICAL BID PRN 06/21/18 04/30/20 clopidogrel [Plavix] 75 mg PO DAILY 06/21/18 04/30/20 cyanocobalamin (vitamin B-12) 1,000 mcg PO DAILY 06/21/18 04/30/20 famotidine 20 mg PO BID 06/21/18 04/30/20 metformin 1,000 mg PO BID 06/21/18 04/30/20 nitroglycerin 0.4 mg SUBLINGUAL DIRECTED PRN 06/21/18 04/30/20 polysaccharide iron complex 150 mg PO DAILY 06/21/18 04/30/20 Praluent Pen 75 mg SUBCUT .Q14 DAYS 03/12/20 04/30/20 metoprolol tartrate 12.5 mg PO BID 03/12/20 04/30/20 isosorbide mononitrate 60 mg PO BID 03/31/20 04/30/20 furosemide 40 mg PO QPM 04/30/20 04/30/20 Previous Rx's Medication Instructions Recorded furosemide 80 mg PO QAM #60 tab 04/19/20 Results & Data (ED) Vital Signs Vital Signs - 24 hr 04/30/20 13:15 04/30/20 13:30 04/30/20 13:39 Temperature 36.7 C Temperature Source Temporal Artery Scan Pulse Rate 105 H 79 79 Pulse Rate [Apical] 83 Pulse Rate from SpO2 Sensor 79 79 Respiratory Rate 18 24 22 Respiratory Effort / Characteristics Non-Labored Spontaneous Respiratory Depth Normal Normal Blood Pressure 119/73 135/74 Blood Pressure [Left Arm] 135/74 Blood Pressure Mean 88 102 Blood Pressure Mean [Left Arm] 94 Blood Pressure Position Sitting Pulse Oximetry 93 96 97 Oxygen Delivery Method Room Air Room Air Sepsis Recent Fever Within 48 Hours No Sepsis New/Unexplained Change in Mental Status N/A Sepsis Action Taken by Nursing No Action Required 04/30/20 13:42 04/30/20 13:43 04/30/20 14:00 Temperature Temperature Source Pulse Rate 79 76 Pulse Rate [Apical] Pulse Rate from SpO2 Sensor 76 Respiratory Rate 20 19 Respiratory Effort / Characteristics Non-Labored Spontaneous Respiratory Depth Normal Blood Pressure 116/72 Blood Pressure [Left Arm] Blood Pressure Mean 82 Blood Pressure Mean [Left Arm] Blood Pressure Position Pulse Oximetry 94 95 95 Oxygen Delivery Method Room Air Room Air Sepsis Recent Fever Within 48 Hours Sepsis New/Unexplained Change in Mental Status Sepsis Action Taken by Nursing 04/30/20 14:30 04/30/20 15:00 04/30/20 15:30 Temperature Temperature Source Pulse Rate 77 79 80 Pulse Rate [Apical] Pulse Rate from SpO2 Sensor 78 79 83 Respiratory Rate 24 21 19 Respiratory Effort / Characteristics Respiratory Depth Blood Pressure 113/74 124/73 122/74 Blood Pressure [Left Arm] Blood Pressure Mean 83 90 103 Blood Pressure Mean [Left Arm] Blood Pressure Position Pulse Oximetry 92 93 91 Oxygen Delivery Method Sepsis Recent Fever Within 48 Hours Sepsis New/Unexplained Change in Mental Status Sepsis Action Taken by [facility] Medications Current Medication List: was personally reviewed by me Laboratory Data Attestation: I reviewed the patient's lab results. Result diagrams: 04/30/20 13:38 04/30/20 13:38 Lab Results 04/30/20 04/30/20 04/30/20 Range/Units 13:38 13:38 13:38 WBC 8.20 (4.8-10.8) K/uL RBC 3.16 L (4.7-6.1) M/uL Hgb 8.9 L (14.0-18.0) g/dL Hct 27.2 L (42-52) % MCV 86.1 (80-100) fL MCH 28.2 (25-34) pg MCHC 32.7 (32-36) g/dL RDW Std Deviation 44.4 (36.4-46.3) fL RDW Coeff of Myrtle 14.2 (11.5-14.5) % Plt Count 309 (130-400) K/uL MPV 9.8 (7.4-10.4) fL Immature Gran % (Auto) 0.1 % Neut % (Auto) 78.9 % Lymph % (Auto) 10.9 % Fountain % (Auto) 7.3 % Eos % (Auto) 2.6 % Baso % (Auto) 0.2 % Neut # (Auto) 6.47 (1.4-6.5) K/uL Lymph # (Auto) 0.89 L (1.2-3.4) K/uL Fountain # (Auto) 0.60 H (0.11-0.59) K/uL Eos # (Auto) 0.21 (0-0.5) K/uL Baso # (Auto) 0.02 (0-0.2) K/uL Immature Gran # (Auto) 0.01 (0.00-0.02) K/uL PT 11.8 (9.0-12.0) Seconds INR 1.1 (0.9-1.1) APTT 27.6 (21.0-31.0) Seconds PTT Ratio 1.0 VBG pH (7.36-7.41) VBG pCO2 (38-50) mmHg VBG pO2 mmHg VBG HCO3 mmol/L VBG O2 Saturation % VBG Base Excess mEq/L Barometric Pressure mm/Hg Sodium 126 L (136-145) mmol/L Potassium 3.3 L (3.5-5.1) mmol/L Chloride 90 L (98-107) mmol/L Carbon Dioxide 25 (21-32) mmol/L Anion Gap 11.0 (3-11) BUN 24 H (7-18) mg/dl Creatinine 1.48 H (0.6-1.4) mg/dl Est Cr Clr Drug Dosing 33.5 ml/min Est GFR ( Amer) 49.0 Est GFR (Non-Af Amer) 42.2 BUN/Creatinine Ratio 16.4 (10-20) Glucose 110 H (70-99) mg/dl Calcium 9.5 (8.5-10.1) mg/dl Magnesium (1.8-2.4) mg/dl Total Bilirubin 0.8 (0.2-1) mg/dl AST 33 (15-37) U/L ALT 34 (12-78) U/L Alkaline Phosphatase 123 H (45-117) U/L Troponin I 0.072 H* (0-0.045) ng/ml NT-Pro-B Natriuret Pep 6520 H (0-1800) pg/ml Total Protein 7.4 (6.4-8.2) gm/dl Albumin 3.8 (3.4-5.0) gm/dl Globulin 3.6 (2.5-4.0) gm/dl Albumin/Globulin Ratio 1.1 (0.9-2) COVID-19 Eval Order SARS-CoV-2, RNA, NAAT (NEGATIVE) 04/30/20 04/30/20 04/30/20 Range/Units 13:38 13:58 14:56 WBC (4.8-10.8) K/uL RBC (4.7-6.1) M/uL Hgb (14.0-18.0) g/dL Hct (42-52) % MCV (80-100) fL MCH (25-34) pg MCHC (32-36) g/dL RDW Std Deviation (36.4-46.3) fL RDW Coeff of Myrtle (11.5-14.5) % Plt Count (130-400) K/uL MPV (7.4-10.4) fL Immature Gran % (Auto) % Neut % (Auto) % Lymph % (Auto) % Fountain % (Auto) % Eos % (Auto) % Baso % (Auto) % Neut # (Auto) (1.4-6.5) K/uL Lymph # (Auto) (1.2-3.4) K/uL Fountain # (Auto) (0.11-0.59) K/uL Eos # (Auto) (0-0.5) K/uL Baso # (Auto) (0-0.2) K/uL Immature Gran # (Auto) (0.00-0.02) K/uL PT (9.0-12.0) Seconds INR (0.9-1.1) APTT (21.0-31.0) Seconds PTT Ratio VBG pH 7.38 (7.36-7.41) VBG pCO2 47 (38-50) mmHg VBG pO2 18 mmHg VBG HCO3 27 mmol/L VBG O2 Saturation < 60.0 % VBG Base Excess 1.8 mEq/L Barometric Pressure 733.9 mm/Hg Sodium (136-145) mmol/L Potassium (3.5-5.1) mmol/L Chloride (98-107) mmol/L Carbon Dioxide (21-32) mmol/L Anion Gap (3-11) BUN (7-18) mg/dl Creatinine (0.6-1.4) mg/dl Est Cr Clr Drug Dosing ml/min Est GFR ( Amer) Est GFR (Non-Af Amer) BUN/Creatinine Ratio (10-20) Glucose (70-99) mg/dl Calcium (8.5-10.1) mg/dl Magnesium 1.8 (1.8-2.4) mg/dl Total Bilirubin (0.2-1) mg/dl AST (15-37) U/L ALT (12-78) U/L Alkaline Phosphatase (45-117) U/L Troponin I (0-0.045) ng/ml NT-Pro-B Natriuret Pep (0-1800) pg/ml Total Protein (6.4-8.2) gm/dl Albumin (3.4-5.0) gm/dl Globulin (2.5-4.0) gm/dl Albumin/Globulin Ratio (0.9-2) COVID-19 [facility] SARS-CoV-2, RNA, NAAT (NEGATIVE) 04/30/20 Range/Units 14:56 WBC (4.8-10.8) K/uL RBC (4.7-6.1) M/uL Hgb (14.0-18.0) g/dL Hct (42-52) % MCV (80-100) fL MCH (25-34) pg MCHC (32-36) g/dL RDW Std Deviation (36.4-46.3) fL RDW Coeff of Myrtle (11.5-14.5) % Plt Count (130-400) K/uL MPV (7.4-10.4) fL Immature Gran % (Auto) % Neut % (Auto) % Lymph % (Auto) % Fountain % (Auto) % Eos % (Auto) % Baso % (Auto) % Neut # (Auto) (1.4-6.5) K/uL Lymph # (Auto) (1.2-3.4) K/uL Fountain # (Auto) (0.11-0.59) K/uL Eos # (Auto) (0-0.5) K/uL Baso # (Auto) (0-0.2) K/uL Immature Gran # (Auto) (0.00-0.02) K/uL PT (9.0-12.0) Seconds INR (0.9-1.1) APTT (21.0-31.0) Seconds PTT Ratio VBG pH (7.36-7.41) VBG pCO2 (38-50) mmHg VBG pO2 mmHg VBG HCO3 mmol/L VBG O2 Saturation % VBG Base Excess mEq/L Barometric Pressure mm/Hg Sodium (136-145) mmol/L Potassium (3.5-5.1) mmol/L Chloride (98-107) mmol/L Carbon Dioxide (21-32) mmol/L Anion Gap (3-11) BUN (7-18) mg/dl Creatinine (0.6-1.4) mg/dl Est Cr Clr Drug Dosing ml/min Est GFR ( Amer) Est GFR (Non-Af Amer) BUN/Creatinine Ratio (10-20) Glucose (70-99) mg/dl Calcium (8.5-10.1) mg/dl Magnesium (1.8-2.4) mg/dl Total Bilirubin (0.2-1) mg/dl AST (15-37) U/L ALT (12-78) U/L Alkaline Phosphatase (45-117) U/L Troponin I (0-0.045) ng/ml NT-Pro-B Natriuret Pep (0-1800) pg/ml Total Protein (6.4-8.2) gm/dl Albumin (3.4-5.0) gm/dl Globulin (2.5-4.0) gm/dl Albumin/Globulin Ratio (0.9-2) COVID-19 Eval Order SARS-CoV-2, RNA, NAAT NEGATIVE (NEGATIVE) Administered Medications Discontinued Medications Furosemide (Furosemide 40 Mg/4 Ml Vial) 40 mg IV NOW STA Stop: 04/30/20 14:31 Last Admin: 04/30/20 14:58 Dose: 40 mg Documented by: [id number] Potassium Chloride (Potassium Chloride Crtab 20 Meq Tabcr) 40 meq PO NOW STA Stop: 04/30/20 15:51 Last Admin: 04/30/20 16:08 Dose: 20 meq Documented by: [id number] Imaging Data Radiologist's Impression: Patient: ANAI DANIEL Admit Date: 04/30/20 MR#: [id number] Address1: [address] Acct ID:[id number] Address2: [address] Date: 1935 [facility] Zip: [place] [id number] Age: 85 Location: ED Sex: M Room/Bed: Att Phy: Diagnosis: SOB,FLUID OVERLOAD Vicky Phy: PCP,NO Service Date: 04/30/20 [facility] Phy: Interpreting Phy: Mika Meraz Admit Phy: Ordering Phy: Walter Delaney DO cc: ~ XR chest 1V portable HISTORY: 85 years-old Male Dyspnea acute shortness of breath COMPARISON: Chest radiograph 04/17/2020 TECHNIQUE: Portable AP view of the chest FINDINGS: Cardiac silhouette is enlarged, unchanged. Prior median sternotomy with CABG. Pulmonary vascular congestion. Small pleural effusions with mild bibasilar opacities. No pneumothorax. Degenerative changes of the shoulders and spine. IMPRESSION: 1. Cardiomegaly with mild pulmonary edema. 2. Small pleural effusions with bibasilar opacities suggestive of atelectasis. Pneumonitis could appear similarly. ACT 112: Negative or not required by law. The above report was generated using voice recognition software. It may contain grammatical, syntax or spelling errors. Electronically signed by: Preston Meraz M.D. 04/30/2020 2:06 PM Dictated: 04/30/20 1353 Transcribed: 04/30/20 1357 Blood Pressure Blood Pressure Findings: Normal blood pressure Discharge Plan Visit Data Chief Complaint: Shortness of Breath/Dyspnea Stated Complaint: SOB,FLUID OVERLOAD ED Provider: Waletr Delaney Discharge Problem: Pulmonary edema, Anemia, Abnormal ECG, Elevated troponin I level, Acute hyponatremia Patient Disposition: Being Evaluated by Hospitalist Condition: Good Discharge Instructions Interventions: ED Discharge Assessment Last Done: 04/30/20 15:46 Forms Stand Alone Forms: My [facility] Prescriptions Prescriptions: No Action polysaccharide iron complex 150 mg iron Capsule 150 mg PO DAILY RF: 0 cyanocobalamin (vitamin B-12) 1,000 mcg Tablet 1,000 mcg PO DAILY RF: 0 clopidogrel [Plavix] 75 mg Tablet 75 mg PO DAILY RF: 0 aspirin 81 mg Tablet,Delayed Release (Dr/Ec) 81 mg PO DAILY RF: 0 acetaminophen 650 mg Tablet Extended Release 650 mg PO TID PRN (Reason: Arthritis Pain) RF: 0 famotidine 20 mg Tablet 20 mg PO BID RF: 0 metformin 1,000 mg Tablet 1,000 mg PO BID RF: 0 nitroglycerin 0.4 mg Tablet, Sublingual 0.4 mg Sublingual DIRECTED PRN (Reason: Chest Pain) RF: 0 betamethasone, augmented 0.05 % ointment 1 applic topical BID PRN (Reason: Itchy Active Rash) RF: 0 furosemide 40 mg tablet 40 mg PO QPM RF: 0 metoprolol tartrate 25 mg tablet 12.5 mg PO BID RF: 0 Praluent Pen 75 mg/mL pen injector 75 mg SUBCUT .Q14 DAYS RF: 0 isosorbide mononitrate 60 mg tablet extended release 24 hr 60 mg PO BID RF: 0 furosemide 40 mg tablet 80 mg PO QAM Qty: 60 RF: 0 Referrals Referrals: PCP,NO [Primary Care Provider] - Discharge Problem: Anemia Qualifiers: Anemia type: unspecified type Qualified Code(s): D64.9 - Anemia, unspecified
[2020-04-30 14:43] LABS: Oxygen Saturation VBG < 60.0 %
[2020-04-30] MEDS: POTASSIUM CHLORIDE CRTAB 20 MEQ TABCR PO STA ×2 (16:04→16:08)
[2020-04-30] MEDS ORDERED: ACETAMINOPHEN 325 MG TAB PO PRN (16:56)
[2020-04-30] MEDS ORDERED: CARBOHYDRATES FOR HYPOGLYCEMIA PO PRN (16:56)
[2020-04-30] MEDS ORDERED: GLUCAGON FOR INJ 1 MG VIAL SQ PRN (16:56)
[2020-04-30] MEDS ORDERED: POTASSIUM CHLORIDE 20 MEQ/15 ML UDC PO ONE (16:56)
[2020-04-30] MEDS ORDERED: GLUCOSE 40% GEL 15 GM TUBE PO PRN (16:56)
[2020-04-30] MEDS ORDERED: GLUCOSE 10 TABS/TUBE PO PRN (16:56)
[2020-04-30] MEDS ORDERED: DEXTROSE 50% 50 ML SYRINGE IV PRN (16:56)
--- NOTE | 2020-04-30 17:07 | History & Physical Report ---
Date of Service April 30, 2020 Assessment & Plan (1) Acute on chronic systolic CHF (congestive heart failure): -admit to tele -Patient presenting from home with reports of orthopnea, lower extremity edema, weight gain, mild shortness of breath -recent admission 04/18-04/19 for acute on chronic systolic CHF, diuretics adjusted at that time (increased to Lasix 80 mg in the morning and 40 mg in the evening) -In the ED, CXR suggestive of CHF, proBNP 6000 -S/p Lasix 40 mg IV in the ED, continue with Lasix 40 mg IV twice daily -Echo 03/2020-EF 40 to 45%, moderate to severe mitral regurgitation -Cardiology consult, input appreciated (2) Hyponatremia: -Na+ 126, likely hypervolemic hyponatremia -Monitor sodium levels while diuresing -Low threshold for nephrology evaluation (3) Pleural effusion: -CXR shows small bilateral pleural effusions -Should improve with diuresis -Consider pulmonary eval for possible thoracentesis (4) Elevated troponin: -Troponin 0.072 -No reports of chest pain, EKG without acute ST changes -Likely demand ischemia in the setting of acute CHF -Continue to cycle cardiac enzymes (5) Anemia: -Hgb 8.9 -Normocytic, normochromic anemia; likely anemia of chronic disease -No signs of bleeding -Monitor CBC (6) CAD (coronary artery disease): -Appears stable, no reports of chest pain -Continue aspirin, Plavix, beta-lopez, nitrate -Statin intolerant and receives Praluent injections (7) CKD (chronic kidney disease), stage III: -Baseline creatinine runs in the mid 1's -Creatinine 1.4 today -Monitor renal functions while diuresing (8) Diabetes mellitus, type II: -Hgb A1c 5.7 03/2020 -Hold oral agents and utilize NovoLog per protocol while hospitalized (9) DVT prophylaxis: -SQ heparin Admission and Anticipated Discharge Date Admission Date: April 30, 2020 History of Present Illness Chief Complaint: Lower extremity edema Primary Care Provider: [facility] Qamar 85-year-old male with PMH CAD s/p CABG x5, chronic systolic CHF EF 40%, CKD stage III, DM type II, and other problems listed below who presents the ED for evaluation of lower extremity edema. Patient recently admitted to [facility] 04/18 through 04/19 for acute on chronic systolic CHF. At discharge, patient's diuretics were adjusted to 80 mg in the morning and 40 mg in the afternoon. Patient reports that he has gained 8 pounds since his hospital discharge. He reports a nonproductive cough over the past 1 week. Reports orthopnea and worsening lower extremity edema. Has had exertional shortness of breath, denies chest pain. Reports lightheadedness and dizziness however no syncopal event. Appetite has been poor however denies abdominal pain, nausea, vomiting, diarrhea. No fevers or chills. Denies urinary symptoms. Patient self increased his Lasix to 80 mg twice daily a few days ago however has not had much improvement in his symptoms. In the ED, proBNP is 6000. CXR shows mild pulmonary edema. Patient is saturating well on room air. Troponin 0.072, EKG without acute ST changes. Patient was given Lasix 40 mg IV. Allergies Allergy/AdvReac Type Severity Reaction Status Date / Time atorvastatin AdvReac Unknown Unknown Verified 04/30/20 15:01 ezetimibe AdvReac Unknown Unknown Verified 04/30/20 15:01 lisinopril AdvReac Unknown Cough Verified 04/30/20 15:01 simvastatin AdvReac Unknown Unknown Verified 04/30/20 15:01 Home Medications Medication Instructions Recorded Confirmed Type acetaminophen 650 mg PO TID PRN 06/21/18 04/30/20 History aspirin 81 mg PO DAILY 06/21/18 04/30/20 History betamethasone, augmented 1 applic TOPICAL BID PRN 06/21/18 04/30/20 History clopidogrel [Plavix] 75 mg PO DAILY 06/21/18 04/30/20 History cyanocobalamin (vitamin B-12) 1,000 mcg PO DAILY 06/21/18 04/30/20 History famotidine 20 mg PO BID 06/21/18 04/30/20 History metformin 1,000 mg PO BID 06/21/18 04/30/20 History nitroglycerin 0.4 mg SUBLINGUAL DIRECTED PRN 06/21/18 04/30/20 History polysaccharide iron complex 150 mg PO DAILY 06/21/18 04/30/20 History Praluent Pen 75 mg SUBCUT .Q14 DAYS 03/12/20 04/30/20 History metoprolol tartrate 12.5 mg PO BID 03/12/20 04/30/20 History isosorbide mononitrate 60 mg PO BID 03/31/20 04/30/20 History furosemide 80 mg PO QAM #60 tab 04/19/20 04/30/20 Rx furosemide 40 mg PO QPM 04/30/20 04/30/20 History Past Med/Surg History Medical History CAD (coronary artery disease) 2006 - CABG x 5 2019 - cath, 3 out of 5 bypass grafts occluded, medical management advised Chronic systolic CHF (congestive heart failure) CKD (chronic kidney disease), stage III Diabetes mellitus, type II GERD (gastroesophageal reflux disease) HLD (hyperlipidemia) statin intolerant, on Praluent injections HTN (hypertension) Ischemic cardiomyopathy Mitral regurgitation Productive cough Prostatitis SOB (shortness of breath) Surgical History History of coronary artery bypass graft 2005- [place] Family History Other Coronary heart disease Diabetes Social History Smoking Status: Never smoker Second Hand Exposure: No; Hx Alcohol Use: No Hx Substance Use: No Preferred Language: Lebanese Communication Ability: Effective Project Control Officer Required: No Beliefs That Will Affect Care: None marital status: Current Living Situation: Spouse Current Living Situation Comment: at home with Other Information That Helps Us Care for You: No Feels Safe at Home: Yes Safety Concerns: Feels Safe At This Time Assistive Devices: Glasses and Oxygen - Continuous Review of Systems Review of Systems: ROS per HPI, all other systems reviewed and negative Physical Exam Constitutional: WD/WN, vitals as above Eyes: PERRL, conjunctivae normal, anicteric sclerae ENMT: external ear and nose normal, oropharynx normal Respiratory: normal respiratory effort; no respiratory distress Auscultation: + diminished lung sounds Cardiovascular: Rate/Rhythm: regular rate and regular rhythm Vessels: normal peripheral pulses Extremities: + pedal edema (+2) and + edema (+1-2 BLE) Gastrointestinal (Abdomen): normal bowel sounds, soft, nontender, no hepatosplenomegaly Musculoskeletal: no cyanosis or clubbing, extremities motor strength 5/5 Skin: no rashes, warm and dry Neurologic: PERRL, EOMI, accommodation nl, no face palsy, no dysarthria Psychiatric: A+Ox3, euthymic affect Results & Data Results & Data ([facility]) Vital Signs (Past 12 Hours) Vital Signs Temp Pulse Pulse Pulse Resp BP BP 04/30/20 16:47 35.8 C L 88 22 04/30/20 15:30 80 19 122/74 04/30/20 15:00 79 21 124/73 04/30/20 14:30 77 24 113/74 04/30/20 14:00 76 19 116/72 04/30/20 13:43 04/30/20 13:42 79 20 04/30/20 13:39 79 22 04/30/20 13:30 79 83 24 135/74 135/74 04/30/20 13:15 36.7 C 105 H 18 119/73 BP Pulse Ox 04/30/20 16:47 110/66 97 04/30/20 15:30 91 04/30/20 15:00 93 04/30/20 14:30 92 04/30/20 14:00 95 04/30/20 13:43 95 04/30/20 13:42 94 04/30/20 13:39 97 04/30/20 13:30 96 04/30/20 13:15 93 Laboratory Results Short CBC 04/30/20 Range/Units 13:38 WBC 8.20 (4.8-10.8) K/uL Hgb 8.9 L (14.0-18.0) g/dL Hct 27.2 L (42-52) % Plt Count 309 (130-400) K/uL BMP 04/30/20 13:38 Sodium 126 L Potassium 3.3 L Chloride 90 L Carbon Dioxide 25 BUN 24 H Creatinine 1.48 H Glucose 110 H Calcium 9.5 Cardiac Enzymes 04/30/20 Range/Units 13:38 Troponin I 0.072 H* (0-0.045) ng/ml Liver Function 04/30/20 Range/Units 13:38 Total Bilirubin 0.8 (0.2-1) mg/dl AST 33 (15-37) U/L ALT 34 (12-78) U/L Alkaline Phosphatase 123 H (45-117) U/L Albumin 3.8 (3.4-5.0) gm/dl Diagnostic Findings CXR IMPRESSION: 1. Cardiomegaly with mild pulmonary edema. 2. Small pleural effusions with bibasilar opacities suggestive of atelectasis. Pneumonitis could appear similarly. Code Status & VTE Plan Code Status Patient is a full code as per my discussion with him. VTE Prophylaxis Plan VTE Prophylaxis will be ordered: Yes Supervising Physician Co-Signing Physician Notes Pt seen and examined by me, care coordinated with MARIBETH Youssef, pls refer to her note above for further detail. Pt is an 85 y/o male with PMH CAD s/p CABG x5, chronic systolic CHF EF 40%, CKD stage III, DM type II, and other problems listed below who presents with lower extremity edema. Patient recently admitted to [facility] 04/18 through 04/19 for acute on chronic systolic CHF. Reports lightheadedness and dizziness however no syncopal event. In the ED, proBNP is 6000. CXR shows mild pulmonary edema, and pl. effusion. Patient is saturating well on room air. Troponin 0.072, EKG without acute ST changes. Patient was given Lasix 40 mg IV. Currently pt is sitting up in bed in NAD. He is alert and oriented and answering questions appropriately. On lung exam he has diminished lung sounds w/ crackles, no wheezing noted. Heart sounds regular. There is 1+ LE edema. Abdomen is soft, nontender, nondistended. Moves extremities spontaneously. Skin is warm and dry. Cont. diuretic regimen, closely monitor I&Os, BMP, tele. Lizzie Whittington MD (1) Anemia Anemia type: unspecified type Qualified Code(s): D64.9 - Anemia, unspecified
[2020-04-30] MEDS: INSULIN ASPART 100 UNITS/ML 3 ML PEN SC SCH ×2 (18:01→21:01)
[2020-04-30 19:53] LABS: BUN Creatinine Ratio 16.5 (10-20); Calcium 9.3 mg/dl (8.5-10.1); Creatinine Clr Calc Pharmacy 34.4 ml/min; Est GFR (African American) 50.6; Est GFR (Non-African American) 43.7; Potassium 3.5 mmol/L (3.5-5.1)
[2020-04-30] MEDS: ISOSORBIDE MONO EXTENDED REL 60 MG TABCR PO SCH (20:12)
[2020-04-30] MEDS: METOPROLOL TARTRATE 25 MG TAB PO SCH (20:13)
[2020-04-30] MEDS: FUROSEMIDE 40 MG in SYRINGE 0 ML IV SCH (20:17)
[2020-04-30] MEDS: FAMOTIDINE 20 MG TAB PO SCH (20:17)
[2020-04-30 20:22] LABS: Troponin I 0.058 ng/ml (0-0.045)
[2020-04-30] MEDS ORDERED: FUROSEMIDE 40 MG/4 ML VIAL IV SCH (21:00)
[2020-04-30] MEDS: HEPARIN SOD 5,000 UNIT/0.5 ML VIAL SQ SCH (21:01)
[2020-05-01] MEDS: HEPARIN SOD 5,000 UNIT/0.5 ML VIAL SQ SCH ×3 (06:30→21:38)
[2020-05-01 07:30] LABS: Hematocrit (blood only) 27.6 % (42-52); Hemoglobin 9.2 g/dL (14.0-18.0); Mean Corpuscular Hemoglobin 28.6 pg (25-34); Mean Corpuscular Hgb Conc 33.3 g/dL (32-36); Mean Corpuscular Volume 85.7 fL (80-100); Mean Platelet Volume 9.9 fL (7.4-10.4); Platelet Count 302 K/uL (130-400); RDW Coefficient of Variation 14.2 % (11.5-14.5); RDW Standard Deviation 44.2 fL (36.4-46.3); Red Blood Count 3.22 M/uL (4.7-6.1); White Blood Count 8.73 K/uL (4.8-10.8)
[2020-05-01 08:08] LABS: Calcium 9.6 mg/dl (8.5-10.1); Creatinine Clr Calc Pharmacy 32.4 ml/min; Est GFR (Non-African American) 40.6; Magnesium 1.9 mg/dl (1.8-2.4); Potassium 3.6 mmol/L (3.5-5.1)
[2020-05-01] MEDS: METOPROLOL TARTRATE 25 MG TAB PO SCH (08:30)
[2020-05-01] MEDS: ASPIRIN 81 MG ECTAB PO SCH (08:30)
[2020-05-01] MEDS: INSULIN ASPART 100 UNITS/ML 3 ML PEN SC SCH ×4 (08:31→20:16)
[2020-05-01] MEDS: IRON POLYSACCHARIDE COMPLEX 150 MG CAPSULE PO SCH (08:31)
[2020-05-01] MEDS: CLOPIDOGREL BISULFATE 75 MG TAB PO SCH (08:31)
[2020-05-01] MEDS: ISOSORBIDE MONO EXTENDED REL 60 MG TABCR PO SCH ×2 (08:31→20:05)
[2020-05-01] MEDS: FUROSEMIDE 40 MG in SYRINGE 0 ML IV SCH ×2 (08:31→20:05)
[2020-05-01] MEDS: CYANOCOBALAMIN 500 MCG TABLET (VITAMIN B-12) PO SCH (08:31)
--- NOTE | 2020-05-01 08:42 | Cardiology Consultation ---
Date of Consultation May 01, 2020 Assessment & Plan (1) Acute on chronic systolic CHF (congestive heart failure): (2) CKD (chronic kidney disease), stage III: (3) Anemia: (4) Elevated troponin: (5) Pleural effusion: (6) Hyponatremia: (7) History of coronary artery bypass graft: (8) Diabetes mellitus, type II: The patient has been diuresing with IV Lasix which should be continued. A diuretic regimen and after discharge may include 1-2 doses a week of Zaroxolyn in addition to his oral Lasix which may be beneficial. It has to be reinforced to the patient that he needs a low-sodium diet and fluid restriction at home. I have supplemented his potassium. Although his creatinine is elevated, it has been stable and I think he would benefit from an ADELA/ARB. I am also going to change him from short acting metoprolol to long-acting metoprolol for guideline directed medications. He does have a persistent right pleural effusion. We may be able to diurese that off. In the past we have had pulmonology evaluate him for thoracentesis but they required him to be off of his dual antiplatelet therapy. We will see how he does clinically. I have added a fluid restriction of 1200 cc a day. History of Present Illness Attending Physician: Darrel Whittington MD History of Present Illness This is an 85-year-old male patient whom I follow in the clin But has not followed dietary restrictions on sodium and fluids.ic. He has a history of coronary artery disease and underwent coronary artery bypass surgery at [facility] in 2005. He has had chronic angina for years but also has severe GERD which at times is difficult to separate. In2018 he underwent a pharmacologic nuclear stress test was abnormal showing lateral wall ischemia. He underwent a cardiac catheterization that revealed 3 of his 5 bypass grafts to be closed. He had severe [place] coronary artery disease. The BECKER to the LAD was open and was decided that he was best treated with medical therapy. In February, he was admitted with a non-STEMI and after reviewing his previous cardiac catheterization it was decided to adjust his medications and he was started on dual antiplatelet therapy. During that admission an echocardiogram was obtained that revealed an ischemic cardiomyopathy with severe wall motion abnormalities of the inferior posterior and lateral myocardium with an estimated left ventricular ejection fraction of around 40 to 45%. The patient did well until the end of 2019 when he had several admissions for congestive heart failure relieved with diuretics. His diuretics have been adjusted on several occasions as an outpatient and I believe the patient has followed a diuretic regimen of increasing his Lasix due to weight gain and symptoms, Unfortunately, he became progressively short of breath with fluid retention and has been readmitted for heart failure. Past medical history: 1. Chronic angina 2. Severe [place] vessel coronary artery disease and 3 of 5 bypass grafts closed by cardiac catheterization 07/06 3. Previous coronary artery bypass surgery 2005 [facility] 4. Diabetes mellitus 5. History of prostatitis 6. Anemia 7. GERD 8. Statin intolerance Allergies Allergy/AdvReac Type Severity Reaction Status Date / Time atorvastatin AdvReac Unknown Unknown Verified 04/30/20 15:01 ezetimibe AdvReac Unknown Unknown Verified 04/30/20 15:01 lisinopril AdvReac Unknown Cough Verified 04/30/20 15:01 simvastatin AdvReac Unknown Unknown Verified 04/30/20 15:01 Home Medications Medication Instructions Recorded Confirmed Type acetaminophen 650 mg PO TID PRN 06/21/18 04/30/20 History aspirin 81 mg PO DAILY 06/21/18 04/30/20 History betamethasone, augmented 1 applic TOPICAL BID PRN 06/21/18 04/30/20 History clopidogrel [Plavix] 75 mg PO DAILY 06/21/18 04/30/20 History cyanocobalamin (vitamin B-12) 1,000 mcg PO DAILY 06/21/18 04/30/20 History famotidine 20 mg PO BID 06/21/18 04/30/20 History metformin 1,000 mg PO BID 06/21/18 04/30/20 History nitroglycerin 0.4 mg SUBLINGUAL DIRECTED PRN 06/21/18 04/30/20 History polysaccharide iron complex 150 mg PO DAILY 06/21/18 04/30/20 History Praluent Pen 75 mg SUBCUT .Q14 DAYS 03/12/20 04/30/20 History metoprolol tartrate 12.5 mg PO BID 03/12/20 04/30/20 History isosorbide mononitrate 60 mg PO BID 03/31/20 04/30/20 History furosemide 80 mg PO QAM #60 tab 04/19/20 04/30/20 Rx furosemide 40 mg PO QPM 04/30/20 04/30/20 History Patient History Medical History CAD (coronary artery disease) 2006 - CABG x 5 2019 - cath, 3 out of 5 bypass grafts occluded, medical management advised Chronic systolic CHF (congestive heart failure) CKD (chronic kidney disease), stage III Diabetes mellitus, type II GERD (gastroesophageal reflux disease) HLD (hyperlipidemia) statin intolerant, on Praluent injections HTN (hypertension) Ischemic cardiomyopathy Mitral regurgitation Productive cough Prostatitis SOB (shortness of breath) Surgical History History of coronary artery bypass graft 2005- [place] Family History Other Coronary heart disease Diabetes Social History Smoking Status: Never smoker Second Hand Exposure: No; Hx Alcohol Use: No Hx Substance Use: No Preferred Language: Turkmen Communication Ability: Effective Entry Level Finance Required: No Beliefs That Will Affect Care: None marital status: Current Living Situation: Spouse Current Living Situation Comment: at home with Other Information That Helps Us Care for You: No Feels Safe at Home: Yes Safety Concerns: Feels Safe At This Time Assistive Devices: Glasses Review of Systems Review of Systems: All systems reviewed & are unremarkable except as noted in HPI & below Nothing additional to add Physical Exam Physical Exam: General: no acute distress and stated age Head: normocephalic, no masses, lesions, tenderness or abnormalities Eyes: conjunctiva are pink and non-injected, sclera clear Neck: supple, no adenopathy, no bruits, normal jugular venous pulse, no hepatojugular reflux Chest: normal shape and normal respiratory effort Lungs: Crackles at the bases. Cardiac Exam: - regular rate & rhythm, no murmurs gallops or rubs - normal S1, normal S2 Pulses: 2(+) throughout Abdomen: abdomen soft, non-tender, no abnormal masses and no hepatosplenomegaly Musculoskeletal: no gait disturbance, no joint inflammation, no deforming arthritis Extremities: no edema and no cyanosis Neuro: grossly normal exam Results & Data ([facility]) Vital Signs (Past 12 Hours) Vital Signs Temp Pulse Pulse Resp BP Pulse Ox 05/01/20 07:21 36.7 C 80 20 123/82 98 05/01/20 03:35 36.7 C 69 19 102/67 97 04/30/20 23:31 37.2 C 75 19 102/67 96 04/30/20 22:17 88 Laboratory Results Laboratory Results - last 24 hr 04/30/20 04/30/20 04/30/20 13:38 13:38 13:38 WBC 8.20 RBC 3.16 L Hgb 8.9 L Hct 27.2 L MCV 86.1 MCH 28.2 MCHC 32.7 RDW Std Deviation 44.4 RDW Coeff of Myrtle 14.2 Plt Count 309 MPV 9.8 Immature Gran % (Auto) 0.1 Neut % (Auto) 78.9 Lymph % (Auto) 10.9 Bennett % (Auto) 7.3 Eos % (Auto) 2.6 Baso % (Auto) 0.2 Neut # (Auto) 6.47 Lymph # (Auto) 0.89 L Bennett # (Auto) 0.60 H Eos # (Auto) 0.21 Baso # (Auto) 0.02 Immature Gran # (Auto) 0.01 PT 11.8 INR 1.1 APTT 27.6 PTT Ratio 1.0 VBG pH VBG pCO2 VBG pO2 VBG HCO3 VBG O2 Saturation VBG Base Excess Barometric Pressure Sodium 126 L Potassium 3.3 L Chloride 90 L Carbon Dioxide 25 Anion Gap 11.0 BUN 24 H Creatinine 1.48 H Est Cr Clr Drug Dosing 33.5 Est GFR ( Amer) 49.0 Est GFR (Non-Af Amer) 42.2 BUN/Creatinine Ratio 16.4 Glucose 110 H POC Glucose Calcium 9.5 Magnesium Total Bilirubin 0.8 AST 33 ALT 34 Alkaline Phosphatase 123 H Troponin I 0.072 H* NT-Pro-B Natriuret Pep 6520 H Total Protein 7.4 Albumin 3.8 Globulin 3.6 Albumin/Globulin Ratio 1.1 COVID-19 Eval Order SARS-CoV-2, RNA, NAAT 04/30/20 04/30/20 04/30/20 13:38 13:58 14:56 WBC RBC Hgb Hct MCV MCH MCHC RDW Std Deviation RDW Coeff of Myrtle Plt Count MPV Immature Gran % (Auto) Neut % (Auto) Lymph % (Auto) Bennett % (Auto) Eos % (Auto) Baso % (Auto) Neut # (Auto) Lymph # (Auto) Bennett # (Auto) Eos # (Auto) Baso # (Auto) Immature Gran # (Auto) PT INR APTT PTT Ratio VBG pH 7.38 VBG pCO2 47 VBG pO2 18 VBG HCO3 27 VBG O2 Saturation < 60.0 VBG Base Excess 1.8 Barometric Pressure 733.9 Sodium Potassium Chloride Carbon Dioxide Anion Gap BUN Creatinine Est Cr Clr Drug Dosing Est GFR ( Amer) Est GFR (Non-Af Amer) BUN/Creatinine Ratio Glucose POC Glucose Calcium Magnesium 1.8 Total Bilirubin AST ALT Alkaline Phosphatase Troponin I NT-Pro-B Natriuret Pep Total Protein Albumin Globulin Albumin/Globulin Ratio COVID-19 Eval [facility] SARS-CoV-2, RNA, NAAT 04/30/20 04/30/20 04/30/20 14:56 16:34 19:12 WBC RBC Hgb Hct MCV MCH MCHC RDW Std Deviation RDW Coeff of Myrtle Plt Count MPV Immature Gran % (Auto) Neut % (Auto) Lymph % (Auto) Bennett % (Auto) Eos % (Auto) Baso % (Auto) Neut # (Auto) Lymph # (Auto) Bennett # (Auto) Eos # (Auto) Baso # (Auto) Immature Gran # (Auto) PT INR APTT PTT Ratio VBG pH VBG pCO2 VBG pO2 VBG HCO3 VBG O2 Saturation VBG Base Excess Barometric Pressure Sodium 126 L Potassium 3.5 Chloride 89 L Carbon Dioxide 27 Anion Gap 11.0 BUN 24 H Creatinine 1.44 H Est Cr Clr Drug Dosing 34.4 Est GFR ( Amer) 50.6 Est GFR (Non-Af Amer) 43.7 BUN/Creatinine Ratio 16.5 Glucose 126 H POC Glucose 117 H Calcium 9.3 Magnesium Total Bilirubin AST ALT Alkaline Phosphatase Troponin I 0.058 H* NT-Pro-B Natriuret Pep Total Protein Albumin Globulin Albumin/Globulin Ratio COVID-19 Eval Order SARS-CoV-2, RNA, NAAT NEGATIVE 04/30/20 05/01/20 05/01/20 20:05 00:30 07:08 WBC 8.73 RBC 3.22 L Hgb 9.2 L Hct 27.6 L MCV 85.7 MCH 28.6 MCHC 33.3 RDW Std Deviation 44.2 RDW Coeff of Myrtle 14.2 Plt Count 302 MPV 9.9 Immature Gran % (Auto) Neut % (Auto) Lymph % (Auto) Bennett % (Auto) Eos % (Auto) Baso % (Auto) Neut # (Auto) Lymph # (Auto) Bennett # (Auto) Eos # (Auto) Baso # (Auto) Immature Gran # (Auto) PT INR APTT PTT Ratio VBG pH VBG pCO2 VBG pO2 VBG HCO3 VBG O2 Saturation VBG Base Excess Barometric Pressure Sodium Potassium Chloride Carbon Dioxide Anion Gap BUN Creatinine Est Cr Clr Drug Dosing Est GFR ( Amer) Est GFR (Non-Af Amer) BUN/Creatinine Ratio Glucose POC Glucose 130 H Calcium Magnesium Total Bilirubin AST ALT Alkaline Phosphatase Troponin I 0.071 H* NT-Pro-B Natriuret Pep Total Protein Albumin Globulin Albumin/Globulin Ratio COVID-19 Eval Order SARS-CoV-2, RNA, NAAT 05/01/20 05/01/20 07:08 07:24 WBC RBC Hgb Hct MCV MCH MCHC RDW Std Deviation RDW Coeff of [place]rtle Plt Count MPV Immature Gran % (Auto) Neut % (Auto) Lymph % (Auto) Bennett % (Auto) Eos % (Auto) Baso % (Auto) Neut # (Auto) Lymph # (Auto) Bennett # (Auto) Eos # (Auto) Baso # (Auto) Immature Gran # (Auto) PT INR APTT PTT Ratio VBG pH VBG pCO2 VBG pO2 VBG HCO3 VBG O2 Saturation VBG Base Excess Barometric Pressure Sodium 127 L Potassium 3.6 Chloride 90 L Carbon Dioxide 26 Anion Gap 11.0 BUN 25 H Creatinine 1.53 H Est Cr Clr Drug Dosing 32.4 Est GFR ( Amer) 47.0 Est GFR (Non-Af Amer) 40.6 BUN/Creatinine Ratio 16.0 Glucose 112 H POC Glucose 149 H Calcium 9.6 Magnesium 1.9 Total Bilirubin AST ALT Alkaline Phosphatase Troponin I NT-Pro-B Natriuret Pep Total Protein Albumin Globulin Albumin/Globulin Ratio COVID-19 Eval Order SARS-CoV-2, RNA, NAAT Medications Administered Current Inpatient Medications Acetaminophen (Acetaminophen 325 Mg Tab) 650 mg PO Q4H PRN PRN Reason: Pain or Fever Stop: 05/30/20 16:55 Aspirin (Aspirin 81 Mg Ectab) 81 mg PO DAILY [facility] Stop: 05/31/20 08:59 Last Admin: 05/01/20 08:30 Dose: 81 mg Documented by: Clopidogrel Bisulfate (Clopidogrel Bisulfate 75 Mg Tab) 75 mg PO DAILY [facility] Stop: 05/31/20 08:59 Last Admin: 05/01/20 08:31 Dose: 75 mg Documented by: Cyanocobalamin (Cyanocobalamin 500 Mcg Tablet (Vitamin B-12)) 1,000 mcg PO DAILY [facility] Stop: 05/31/20 08:59 Last Admin: 05/01/20 08:31 Dose: 1,000 mcg Documented by: Dextrose (Dextrose 50% 50 Ml Syringe) 25 - 50 ml IV UD PRN; Protocol PRN Reason: Hypoglycemia Protocol Stop: 05/30/20 16:55 Famotidine (Famotidine 20 Mg Tab) 20 mg PO PM [facility] Stop: 05/30/20 20:59 Last Admin: 04/30/20 20:17 Dose: 20 mg Documented by: Glucagon (Glucagon For Inj 1 Mg Vial) 1 mg SQ UD PRN; Protocol PRN Reason: Hypoglycemia Protocol Stop: 05/30/20 16:55 Glucose (Glucose 10 Tabs/Tube) 4 - 8 tabs PO UD PRN; Protocol PRN Reason: Hypoglycemia Protocol Stop: 05/30/20 16:55 Glucose (Glucose 40% Gel 15 Gm Tube) 15 - 30 gm PO UD PRN; Protocol PRN Reason: Hypoglycemia Protocol Stop: 05/30/20 16:55 Heparin Sodium (Porcine) (Heparin Sod 5,000 Unit/0.5 Ml Vial) 5,000 units SQ Q8 [facility] Stop: 05/30/20 21:59 Last Admin: 05/01/20 06:30 Dose: 5,000 units Documented by: Furosemide 40 mg/ Syringe 4 mls @ 4 mls/min IV BID [facility] Stop: 05/30/20 20:59 Last Admin: 05/01/20 08:31 Dose: 4 mls/min Documented by: Insulin Aspart (Insulin Aspart 100 Units/Ml 3 Ml Pen) 0 units SC ACHS [facility] Stop: 05/30/20 16:55 Last Admin: 05/01/20 08:31 Dose: 2 units Documented by: Isosorbide Mononitrate (Isosorbide Bennett Extended Rel 60 Mg Tabcr) 60 mg PO BID [facility] Stop: 05/30/20 20:59 Last Admin: 05/01/20 08:31 Dose: 60 mg Documented by: Losartan Potassium (Losartan Potassium 25 Mg Tab) 25 mg PO QAM [facility] Stop: 05/31/20 09:14 Metoprolol Succinate (Metoprolol Succ 25mg Ext Rel Tab) 25 mg PO QAM [facility] Stop: 06/01/20 08:59 Miscellaneous (Carbohydrates For Hypoglycemia ) 15 - 30 gm PO UD PRN PRN Reason: Hypoglycemia Protocol Stop: 05/30/20 16:55 Polysaccharide Iron Complex (Iron Polysaccharide Complex 150 Mg Capsule) 150 mg PO DAILY [facility] Stop: 05/31/20 08:59 Last Admin: 05/01/20 08:31 Dose: 150 mg Documented by: (1) Anemia Anemia type: unspecified type Qualified Code(s): D64.9 - Anemia, unspecified
[2020-05-01] MEDS ORDERED: POTASSIUM CHLORIDE CRTAB 20 MEQ TABCR PO ONE (09:15)
--- NOTE | 2020-05-01 09:54 | Hospitalist Progress Note ---
Date of Service May 01, 2020 Assessment & Plan (1) Acute on chronic systolic CHF (congestive heart failure): -admit to tele -Patient presenting from home with reports of orthopnea, lower extremity edema, weight gain, mild shortness of breath -recent admission 04/18-04/19 for acute on chronic systolic CHF, diuretics adjusted at that time (increased to Lasix 80 mg in the morning and 40 mg in the evening) -In the ED, CXR suggestive of CHF, proBNP 6000 -S/p Lasix 40 mg IV in the ED, continue with Lasix 40 mg IV twice daily -Echo 03/2020-EF 40 to 45%, moderate to severe mitral regurgitation -Cardiology consult, input appreciated (2) Hyponatremia: -Na+ 126, likely hypervolemic hyponatremia -Monitor sodium levels while diuresing -Low threshold for nephrology evaluation (3) Pleural effusion: -CXR shows small bilateral pleural effusions -Should improve with diuresis -Consider pulmonary eval for possible thoracentesis (4) Elevated troponin: -Troponin 0.072 -No reports of chest pain, EKG without acute ST changes -Likely demand ischemia in the setting of acute CHF -Continue to cycle cardiac enzymes (5) Anemia: -Hgb 8.9 -Normocytic, normochromic anemia; likely anemia of chronic disease -No signs of bleeding -Monitor CBC (6) CAD (coronary artery disease): -Appears stable, no reports of chest pain -Continue aspirin, Plavix, beta-lopez, nitrate -Statin intolerant and receives Praluent injections (7) CKD (chronic kidney disease), stage III: -Baseline creatinine runs in the mid 1's -Creatinine 1.4 on admission -Monitor renal functions while diuresing (8) Diabetes mellitus, type II: -Hgb A1c 5.7 03/2020 -Hold oral agents and utilize NovoLog per protocol while hospitalized (9) DVT prophylaxis: -SQ heparin Admission and Anticipated Discharge Date Admission Date: April 30, 2020 Subjective Pt seen in follow up of CHF exacerbation. Currently sitting up in bed in NAD, breathing on 0-2L of suppl. O2. However denies any chest pain or palpitations. Reports mild dyspnea. No fever, chills, abd. pain. + nausea. Review of Systems Review of Systems: All systems reviewed & are unremarkable except as noted in HPI & below Constitutional: + fatigue; no fever and no chills Respiratory: + cough (mild) and + dyspnea (mild) Cardiovascular: no chest pain and no palpitations Gastrointestinal: + nausea; no abdominal pain and no vomiting Physical Exam Physical Exam: Constitutional: elderly male sitting up in bed, WD/WN, vitals as above Eyes: PERRL, EOMI, conjunctivae normal, anicteric sclerae ENMT: external ear and nose normal, oropharynx normal Respiratory: normal respiratory effort; no respiratory distress Auscultation: + diminished lung sounds, +crcakles Cardiovascular: Rate/Rhythm: regular rate and regular rhythm Vessels: normal peripheral pulses Extremities: + pedal edema (+1) and + edema (+1 BLE) Gastrointestinal (Abdomen): normal bowel sounds, soft, nontender Musculoskeletal: no cyanosis or clubbing, extremities motor strength 5/5 Skin: no rashes, warm and dry Neurologic: PERRL, EOMI, no face palsy, no dysarthria, moves extremities Psychiatric: A+Ox3, euthymic affect Results & Data Results & Data ([facility]) Vital Signs (Past 12 Hours) Vital Signs Temp Pulse Pulse Resp BP Pulse Ox 05/01/20 08:00 75 05/01/20 07:21 36.7 C 80 20 123/82 98 05/01/20 03:35 36.7 C 69 19 102/67 97 04/30/20 23:31 37.2 C 75 19 102/67 96 04/30/20 22:17 88 Laboratory Results 05/01/20 05/01/20 05/01/20 Range/Units 07:24 07:08 07:08 WBC 8.73 (4.8-10.8) K/uL RBC 3.22 L (4.7-6.1) M/uL Hgb 9.2 L (14.0-18.0) g/dL Hct 27.6 L (42-52) % MCV 85.7 (80-100) fL MCH 28.6 (25-34) pg MCHC 33.3 (32-36) g/dL RDW Std Deviation 44.2 (36.4-46.3) fL RDW Coeff of Myrtle 14.2 (11.5-14.5) % Plt Count 302 (130-400) K/uL MPV 9.9 (7.4-10.4) fL Immature Gran % (Auto) % Neut % (Auto) % Lymph % (Auto) % Cloud % (Auto) % Eos % (Auto) % Baso % (Auto) % Neut # (Auto) (1.4-6.5) K/uL Lymph # (Auto) (1.2-3.4) K/uL Cloud # (Auto) (0.11-0.59) K/uL Eos # (Auto) (0-0.5) K/uL Baso # (Auto) (0-0.2) K/uL Immature Gran # (Auto) (0.00-0.02) K/uL PT (9.0-12.0) Seconds INR (0.9-1.1) APTT (21.0-31.0) Seconds PTT Ratio VBG pH (7.36-7.41) VBG pCO2 (38-50) mmHg VBG pO2 mmHg VBG HCO3 mmol/L VBG O2 Saturation % VBG Base Excess mEq/L Barometric Pressure mm/Hg Sodium 127 L (136-145) mmol/L Potassium 3.6 (3.5-5.1) mmol/L Chloride 90 L (98-107) mmol/L Carbon Dioxide 26 (21-32) mmol/L Anion Gap 11.0 (3-11) BUN 25 H (7-18) mg/dl Creatinine 1.53 H (0.6-1.4) mg/dl Est Cr Clr Drug Dosing 32.4 ml/min Est GFR ( Amer) 47.0 Est GFR (Non-Af Amer) 40.6 BUN/Creatinine Ratio 16.0 (10-20) Glucose 112 H (70-99) mg/dl POC Glucose 149 H (70-99) mg/dl Calcium 9.6 (8.5-10.1) mg/dl Magnesium 1.9 (1.8-2.4) mg/dl Total Bilirubin (0.2-1) mg/dl AST (15-37) U/L ALT (12-78) U/L Alkaline Phosphatase (45-117) U/L Troponin I (0-0.045) ng/ml NT-Pro-B Natriuret Pep (0-1800) pg/ml Total Protein (6.4-8.2) gm/dl Albumin (3.4-5.0) gm/dl Globulin (2.5-4.0) gm/dl Albumin/Globulin Ratio (0.9-2) COVID-19 Eval Order SARS-CoV-2, RNA, NAAT (NEGATIVE) 05/01/20 04/30/20 04/30/20 Range/Units 00:30 20:05 19:12 WBC (4.8-10.8) K/uL RBC (4.7-6.1) M/uL Hgb (14.0-18.0) g/dL Hct (42-52) % MCV (80-100) fL MCH (25-34) pg MCHC (32-36) g/dL RDW Std Deviation (36.4-46.3) fL RDW Coeff of Myrtle (11.5-14.5) % Plt Count (130-400) K/uL MPV (7.4-10.4) fL Immature Gran % (Auto) % Neut % (Auto) % Lymph % (Auto) % Cloud % (Auto) % Eos % (Auto) % Baso % (Auto) % Neut # (Auto) (1.4-6.5) K/uL Lymph # (Auto) (1.2-3.4) K/uL Cloud # (Auto) (0.11-0.59) K/uL Eos # (Auto) (0-0.5) K/uL Baso # (Auto) (0-0.2) K/uL Immature Gran # (Auto) (0.00-0.02) K/uL PT (9.0-12.0) Seconds INR (0.9-1.1) APTT (21.0-31.0) Seconds PTT Ratio VBG pH (7.36-7.41) VBG pCO2 (38-50) mmHg VBG pO2 mmHg VBG HCO3 mmol/L VBG O2 Saturation % VBG Base Excess mEq/L Barometric Pressure mm/Hg Sodium 126 L (136-145) mmol/L Potassium 3.5 (3.5-5.1) mmol/L Chloride 89 L (98-107) mmol/L Carbon Dioxide 27 (21-32) mmol/L Anion Gap 11.0 (3-11) BUN 24 H (7-18) mg/dl Creatinine 1.44 H (0.6-1.4) mg/dl Est Cr Clr Drug Dosing 34.4 ml/min Est GFR ( Amer) 50.6 Est GFR (Non-Af Amer) 43.7 BUN/Creatinine Ratio 16.5 (10-20) Glucose 126 H (70-99) mg/dl POC Glucose 130 H (70-99) mg/dl Calcium 9.3 (8.5-10.1) mg/dl Magnesium (1.8-2.4) mg/dl Total Bilirubin (0.2-1) mg/dl AST (15-37) U/L ALT (12-78) U/L Alkaline Phosphatase (45-117) U/L Troponin I 0.071 H* 0.058 H* (0-0.045) ng/ml NT-Pro-B Natriuret Pep (0-1800) pg/ml Total Protein (6.4-8.2) gm/dl Albumin (3.4-5.0) gm/dl Globulin (2.5-4.0) gm/dl Albumin/Globulin Ratio (0.9-2) COVID-19 Eval Order SARS-CoV-2, RNA, NAAT (NEGATIVE) 04/30/20 04/30/20 04/30/20 Range/Units 16:34 14:56 14:56 WBC (4.8-10.8) K/uL RBC (4.7-6.1) M/uL Hgb (14.0-18.0) g/dL Hct (42-52) % MCV (80-100) fL MCH (25-34) pg MCHC (32-36) g/dL RDW Std Deviation (36.4-46.3) fL RDW Coeff of Myrtle (11.5-14.5) % Plt Count (130-400) K/uL MPV (7.4-10.4) fL Immature Gran % (Auto) % Neut % (Auto) % Lymph % (Auto) % Cloud % (Auto) % Eos % (Auto) % Baso % (Auto) % Neut # (Auto) (1.4-6.5) K/uL Lymph # (Auto) (1.2-3.4) K/uL Cloud # (Auto) (0.11-0.59) K/uL Eos # (Auto) (0-0.5) K/uL Baso # (Auto) (0-0.2) K/uL Immature Gran # (Auto) (0.00-0.02) K/uL PT (9.0-12.0) Seconds INR (0.9-1.1) APTT (21.0-31.0) Seconds PTT Ratio VBG pH (7.36-7.41) VBG pCO2 (38-50) mmHg VBG pO2 mmHg VBG HCO3 mmol/L VBG O2 Saturation % VBG Base Excess mEq/L Barometric Pressure mm/Hg Sodium (136-145) mmol/L Potassium (3.5-5.1) mmol/L Chloride (98-107) mmol/L Carbon Dioxide (21-32) mmol/L Anion Gap (3-11) BUN (7-18) mg/dl Creatinine (0.6-1.4) mg/dl Est Cr Clr Drug Dosing ml/min Est GFR ( Amer) Est GFR (Non-Af Amer) BUN/Creatinine Ratio (10-20) Glucose (70-99) mg/dl POC Glucose 117 H (70-99) mg/dl Calcium (8.5-10.1) mg/dl Magnesium (1.8-2.4) mg/dl Total Bilirubin (0.2-1) mg/dl AST (15-37) U/L ALT (12-78) U/L Alkaline Phosphatase (45-117) U/L Troponin I (0-0.045) ng/ml NT-Pro-B Natriuret Pep (0-1800) pg/ml Total Protein (6.4-8.2) gm/dl Albumin (3.4-5.0) gm/dl Globulin (2.5-4.0) gm/dl Albumin/Globulin Ratio (0.9-2) COVID-19 Eval Order Covid19 IDNow atMVTC SARS-CoV-2, RNA, NAAT NEGATIVE (NEGATIVE) 04/30/20 04/30/20 04/30/20 Range/Units 13:58 13:38 13:38 WBC (4.8-10.8) K/uL RBC (4.7-6.1) M/uL Hgb (14.0-18.0) g/dL Hct (42-52) % MCV (80-100) fL MCH (25-34) pg MCHC (32-36) g/dL RDW Std Deviation (36.4-46.3) fL RDW Coeff of Myrtle (11.5-14.5) % Plt Count (130-400) K/uL MPV (7.4-10.4) fL Immature Gran % (Auto) % Neut % (Auto) % Lymph % (Auto) % Cloud % (Auto) % Eos % (Auto) % Baso % (Auto) % Neut # (Auto) (1.4-6.5) K/uL Lymph # (Auto) (1.2-3.4) K/uL Cloud # (Auto) (0.11-0.59) K/uL Eos # (Auto) (0-0.5) K/uL Baso # (Auto) (0-0.2) K/uL Immature Gran # (Auto) (0.00-0.02) K/uL PT (9.0-12.0) Seconds INR (0.9-1.1) APTT (21.0-31.0) Seconds PTT Ratio VBG pH 7.38 (7.36-7.41) VBG pCO2 47 (38-50) mmHg VBG pO2 18 mmHg VBG HCO3 27 mmol/L VBG O2 Saturation < 60.0 % VBG Base Excess 1.8 mEq/L Barometric Pressure 733.9 mm/Hg Sodium 126 L (136-145) mmol/L Potassium 3.3 L (3.5-5.1) mmol/L Chloride 90 L (98-107) mmol/L Carbon Dioxide 25 (21-32) mmol/L Anion Gap 11.0 (3-11) BUN 24 H (7-18) mg/dl Creatinine 1.48 H (0.6-1.4) mg/dl Est Cr Clr Drug Dosing 33.5 ml/min Est GFR ( Amer) 49.0 Est GFR (Non-Af Amer) 42.2 BUN/Creatinine Ratio 16.4 (10-20) Glucose 110 H (70-99) mg/dl POC Glucose (70-99) mg/dl Calcium 9.5 (8.5-10.1) mg/dl Magnesium 1.8 (1.8-2.4) mg/dl Total Bilirubin 0.8 (0.2-1) mg/dl AST 33 (15-37) U/L ALT 34 (12-78) U/L Alkaline Phosphatase 123 H (45-117) U/L Troponin I 0.072 H* (0-0.045) ng/ml NT-Pro-B Natriuret Pep 6520 H (0-1800) pg/ml Total Protein 7.4 (6.4-8.2) gm/dl Albumin 3.8 (3.4-5.0) gm/dl Globulin 3.6 (2.5-4.0) gm/dl Albumin/Globulin Ratio 1.1 (0.9-2) COVID-19 Eval Order SARS-CoV-2, RNA, NAAT (NEGATIVE) 04/30/20 04/30/20 Range/Units 13:38 13:38 WBC 8.20 (4.8-10.8) K/uL RBC 3.16 L (4.7-6.1) M/uL Hgb 8.9 L (14.0-18.0) g/dL Hct 27.2 L (42-52) % MCV 86.1 (80-100) fL MCH 28.2 (25-34) pg MCHC 32.7 (32-36) g/dL RDW Std Deviation 44.4 (36.4-46.3) fL RDW Coeff of Myrtle 14.2 (11.5-14.5) % Plt Count 309 (130-400) K/uL MPV 9.8 (7.4-10.4) fL Immature Gran % (Auto) 0.1 % Neut % (Auto) 78.9 % Lymph % (Auto) 10.9 % Cloud % (Auto) 7.3 % Eos % (Auto) 2.6 % Baso % (Auto) 0.2 % Neut # (Auto) 6.47 (1.4-6.5) K/uL Lymph # (Auto) 0.89 L (1.2-3.4) K/uL Cloud # (Auto) 0.60 H (0.11-0.59) K/uL Eos # (Auto) 0.21 (0-0.5) K/uL Baso # (Auto) 0.02 (0-0.2) K/uL Immature Gran # (Auto) 0.01 (0.00-0.02) K/uL PT 11.8 (9.0-12.0) Seconds INR 1.1 (0.9-1.1) APTT 27.6 (21.0-31.0) Seconds PTT Ratio 1.0 VBG pH (7.36-7.41) VBG pCO2 (38-50) mmHg VBG pO2 mmHg VBG HCO3 mmol/L VBG O2 Saturation % VBG Base Excess mEq/L Barometric Pressure mm/Hg Sodium (136-145) mmol/L Potassium (3.5-5.1) mmol/L Chloride (98-107) mmol/L Carbon Dioxide (21-32) mmol/L Anion Gap (3-11) BUN (7-18) mg/dl Creatinine (0.6-1.4) mg/dl Est Cr Clr Drug Dosing ml/min Est GFR ( Amer) Est GFR (Non-Af Amer) BUN/Creatinine Ratio (10-20) Glucose (70-99) mg/dl POC Glucose (70-99) mg/dl Calcium (8.5-10.1) mg/dl Magnesium (1.8-2.4) mg/dl Total Bilirubin (0.2-1) mg/dl AST (15-37) U/L ALT (12-78) U/L Alkaline Phosphatase (45-117) U/L Troponin I (0-0.045) ng/ml NT-Pro-B Natriuret Pep (0-1800) pg/ml Total Protein (6.4-8.2) gm/dl Albumin (3.4-5.0) gm/dl Globulin (2.5-4.0) gm/dl Albumin/Globulin Ratio (0.9-2) COVID-19 Eval Order SARS-CoV-2, RNA, NAAT (NEGATIVE) Medications Administered Current Inpatient Medications Acetaminophen (Acetaminophen 325 Mg Tab) 650 mg PO Q4H PRN PRN Reason: Pain or Fever Stop: 05/30/20 16:55 Aspirin (Aspirin 81 Mg Ectab) 81 mg PO DAILY [facility] Stop: 05/31/20 08:59 Last Admin: 05/01/20 08:30 Dose: 81 mg Documented by: Clopidogrel Bisulfate (Clopidogrel Bisulfate 75 Mg Tab) 75 mg PO DAILY [facility] Stop: 05/31/20 08:59 Last Admin: 05/01/20 08:31 Dose: 75 mg Documented by: Cyanocobalamin (Cyanocobalamin 500 Mcg Tablet (Vitamin B-12)) 1,000 mcg PO DAILY [facility] Stop: 05/31/20 08:59 Last Admin: 05/01/20 08:31 Dose: 1,000 mcg Documented by: Dextrose (Dextrose 50% 50 Ml Syringe) 25 - 50 ml IV UD PRN; Protocol PRN Reason: Hypoglycemia Protocol Stop: 05/30/20 16:55 Famotidine (Famotidine 20 Mg Tab) 20 mg PO PM [facility] Stop: 05/30/20 20:59 Last Admin: 04/30/20 20:17 Dose: 20 mg Documented by: Glucagon (Glucagon For Inj 1 Mg Vial) 1 mg SQ UD PRN; Protocol PRN Reason: Hypoglycemia Protocol Stop: 05/30/20 16:55 Glucose (Glucose 10 Tabs/Tube) 4 - 8 tabs PO UD PRN; Protocol PRN Reason: Hypoglycemia Protocol Stop: 05/30/20 16:55 Glucose (Glucose 40% Gel 15 Gm Tube) 15 - 30 gm PO UD PRN; Protocol PRN Reason: Hypoglycemia Protocol Stop: 05/30/20 16:55 Heparin Sodium (Porcine) (Heparin Sod 5,000 Unit/0.5 Ml Vial) 5,000 units SQ Q8 [facility] Stop: 05/30/20 21:59 Last Admin: 05/01/20 06:30 Dose: 5,000 units Documented by: Furosemide 40 mg/ Syringe 4 mls @ 4 mls/min IV BID [facility] Stop: 05/30/20 20:59 Last Admin: 05/01/20 08:31 Dose: 4 mls/min Documented by: Insulin Aspart (Insulin Aspart 100 Units/Ml 3 Ml Pen) 0 units SC ACHS [facility] Stop: 05/30/20 16:55 Last Admin: 05/01/20 08:31 Dose: 2 units Documented by: Isosorbide Mononitrate (Isosorbide Cloud Extended Rel 60 Mg Tabcr) 60 mg PO BID [facility] Stop: 05/30/20 20:59 Last Admin: 05/01/20 08:31 Dose: 60 mg Documented by: Losartan Potassium (Losartan Potassium 25 Mg Tab) 25 mg PO QAM [facility] Stop: 05/31/20 09:14 Metoprolol Succinate (Metoprolol Succ 25mg Ext Rel Tab) 25 mg PO QAM [facility] Stop: 06/01/20 08:59 Miscellaneous (Carbohydrates For Hypoglycemia ) 15 - 30 gm PO UD PRN PRN Reason: Hypoglycemia Protocol Stop: 05/30/20 16:55 Ondansetron HCl (Ondansetron Inj 2 Mg/Ml 2 Ml Vial) 2 mg IV Q6H [facility] Stop: 05/31/20 09:59 Polysaccharide Iron Complex (Iron Polysaccharide Complex 150 Mg Capsule) 150 mg PO DAILY [facility] Stop: 05/31/20 08:59 Last Admin: 05/01/20 08:31 Dose: 150 mg Documented by: (1) Anemia Anemia type: unspecified type Qualified Code(s): D64.9 - Anemia, unspecified
[2020-05-01] MEDS: LOSARTAN POTASSIUM 25 MG TAB PO SCH (10:12)
[2020-05-01] MEDS: ONDANSETRON INJ 2 MG/ML 2 ML VIAL ONE ×2 (10:12→10:47)
[2020-05-01] MEDS: ONDANSETRON INJ 2 MG/ML 2 ML VIAL IV SCH ×3 (10:12→21:38)
--- NOTE | 2020-05-01 11:11 | Electrocardiogram Report ---
Test Reason : Blood Pressure : / mmHG Vent. Rate : 087 BPM Atrial Rate : 087 BPM P-R Int : 242 ms QRS Dur : 138 ms QT Int : 420 ms P-R-T Axes : 034 -27 049 degrees QTc Int : 505 ms Sinus rhythm with 1st degree A-V block Right bundle branch block Abnormal ECG When compared with ECG of 19-APR-2020 07:43, OR interval has increased T wave inversion more evident in Anterior leads Confirmed by Keyon Lea ([id number]) on 05/01/2020 11:11:16 AM Referred By: REFERRED SELF Confirmed By:Keyon Lea
[2020-05-01] MEDS: FAMOTIDINE 20 MG TAB PO SCH (20:05)
[2020-05-02] MEDS: ONDANSETRON INJ 2 MG/ML 2 ML VIAL IV SCH ×4 (05:15→20:50)
[2020-05-02] MEDS: HEPARIN SOD 5,000 UNIT/0.5 ML VIAL SQ SCH ×3 (05:15→20:49)
[2020-05-02 06:18] LABS: BUN Creatinine Ratio 15.8 (10-20); Calcium 8.8 mg/dl (8.5-10.1); Creatinine Clr Calc Pharmacy 26.9 ml/min; Est GFR (African American) 37.6; Est GFR (Non-African American) 32.5; Magnesium 2.1 mg/dl (1.8-2.4); Potassium 3.8 mmol/L (3.5-5.1)
[2020-05-02 06:19] LABS: Phosphorus 3.9 mg/dl (2.5-4.9)
[2020-05-02] MEDS: INSULIN ASPART 100 UNITS/ML 3 ML PEN SC SCH ×4 (08:49→20:44)
[2020-05-02] MEDS: ISOSORBIDE MONO EXTENDED REL 60 MG TABCR PO SCH ×2 (08:50→20:50)
[2020-05-02] MEDS: CLOPIDOGREL BISULFATE 75 MG TAB PO SCH (08:50)
[2020-05-02] MEDS: METOPROLOL SUCC 25MG EXT REL TAB PO SCH (08:50)
[2020-05-02] MEDS: CYANOCOBALAMIN 500 MCG TABLET (VITAMIN B-12) PO SCH (08:50)
[2020-05-02] MEDS: ASPIRIN 81 MG ECTAB PO SCH (08:50)
[2020-05-02] MEDS: FUROSEMIDE 40 MG in SYRINGE 0 ML IV SCH ×2 (08:50→20:49)
[2020-05-02] MEDS: IRON POLYSACCHARIDE COMPLEX 150 MG CAPSULE PO SCH (08:50)
[2020-05-02] MEDS: LOSARTAN POTASSIUM 25 MG TAB PO SCH (08:50)
--- NOTE | 2020-05-02 16:15 | Hospitalist Progress Note ---
Date of Service May 02, 2020 Assessment & Plan (1) Acute on chronic systolic CHF (congestive heart failure): Patient doing okay. Systolic blood pressures were on the soft side this morning. Adequate urine output in the last 24 hours. proBNP of 6000 on admission. Appreciate cardiology input. We will continue with IV Lasix 40 mg daily. Recent echo in March 2020 with a EF of 40 to 45% with moderate to severe mitral regurgitation. He recommends regimen that includes Zaroxolyn 1-2 times a week in addition to oral Lasix. Currently on Toprol-XL 25 mg daily. Continue to monitor ins and outs along with daily weights. (2) Hyponatremia: Likely secondary to hypervolemic hyponatremia. Today sodium is at 130 from 127. Continue monitor daily BMP. (3) Pleural effusion: Patient does have history of chronic right-sided pleural effusion. Plan is to diurese at this time. It seems that previous attempt has been made with centrahoma medicine for thoracentesis but given his coagulation it was not done. We will continue to diurese for now. If no significant improvement noted, will have pulmonary medicine input. (4) Elevated troponin: Troponin 0 0.072 -0.058 -0.071 Patient denies any chest pain at the moment. EKG was nonischemic. Likely demand in nature. We will continue to monitor. (5) Anemia: Patient does have history of chronic anemia. Baseline is around 10.5. On admission it was 8.9, today hemoglobin at 9.2. Signs of any active bleeding. We will continue to monitor daily CBC. (6) CAD (coronary artery disease): Continue [employer] aspirin/Plavix/beta-lopez and nitrate. -Statin intolerant and receives Praluent injections (7) CKD (chronic kidney disease), stage III: Pertinent further increased today post diuresis. We will continue to monitor with daily BMP. (8) Diabetes mellitus, type II: -Hgb A1c 5.7 03/2020 Hold [employer] Metformin and continue with NovoLog. (9) DVT prophylaxis: -SQ heparin Admission and Anticipated Discharge Date Admission Date: April 30, 2020 Subjective Patient is doing okay. Currently on 3 L of nasal cannula. Reports he uses 2 L of nasal cannula at home at nighttime. Systolic pressure on the soft side this morning with a systolic pressure in the 90s. Reports shortness of breath is improved. Denies any chest pain, cough or any palpitations. Denies any headache or dizziness. He denies any abdominal pain, diarrhea or dysuria. Rest of the review of system is negative. Review of Systems Review of Systems: All systems reviewed & are unremarkable except as noted in HPI & below Physical Exam Physical Exam: General: Awake and alert, patient was oriented to time place and person HENT: NCAT, MMM, EOMI Eyes: PERRLA Neck: Supple, normal range of motion CVS: normal rate and rhythm Resp: b/l records appreciated Abdomen: Soft, ND/NT, +BS Extremities: 1+ lower extremity edema Neuro: Gross focal deficits appreciated Skin: warm and dry MSK: No joint swelling appreciated Results & Data Results & Data ([facility]) Vital Signs (Past 12 Hours) Vital Signs Temp Pulse Pulse Pulse Resp BP BP 05/02/20 15:52 59 L 05/02/20 15:46 36.6 C 72 18 98/65 L 05/02/20 11:58 36.6 C 77 18 114/66 05/02/20 08:46 122/70 05/02/20 07:55 37 C 61 16 93/51 L 05/02/20 07:19 66 05/02/20 04:27 36.6 C 68 18 96/57 L Pulse Ox 05/02/20 15:52 05/02/20 15:46 96 05/02/20 11:58 100 05/02/20 08:46 05/02/20 07:55 92 05/02/20 07:19 05/02/20 04:27 99 Laboratory Results Laboratory Results - last 24 hr 05/01/20 05/02/20 05/02/20 20:13 05:31 07:11 Sodium 130 L Potassium 3.8 Chloride 94 L Carbon Dioxide 29 Anion Gap 7.0 BUN 29 H Creatinine 1.84 H D Est Cr Clr Drug Dosing 26.9 Est GFR ( Amer) 37.6 Est GFR (Non-Af Amer) 32.5 BUN/Creatinine Ratio 15.8 Glucose 95 POC Glucose 128 H 101 H Calcium 8.8 Phosphorus 3.9 Magnesium 2.1 05/02/20 05/02/20 07:37 11:06 Sodium Potassium Chloride Carbon Dioxide Anion Gap BUN Creatinine Est Cr Clr Drug Dosing Est GFR ( Amer) Est GFR (Non-Af Amer) BUN/Creatinine Ratio Glucose POC Glucose 97 169 H Calcium Phosphorus Magnesium (1) Anemia Anemia type: unspecified type Qualified Code(s): D64.9 - Anemia, unspecified
[2020-05-02] MEDS: FAMOTIDINE 20 MG TAB PO SCH (20:50)
[2020-05-03] MEDS: ONDANSETRON INJ 2 MG/ML 2 ML VIAL IV SCH ×2 (06:06→10:18)
[2020-05-03] MEDS: HEPARIN SOD 5,000 UNIT/0.5 ML VIAL SQ SCH ×2 (06:13→15:06)
[2020-05-03 07:32] LABS: Hematocrit (blood only) 25.4 % (42-52); Hemoglobin 8.4 g/dL (14.0-18.0); Mean Corpuscular Hemoglobin 28.6 pg (25-34); Mean Corpuscular Hgb Conc 33.1 g/dL (32-36); Mean Corpuscular Volume 86.4 fL (80-100); Platelet Count 252 K/uL (130-400); RDW Coefficient of Variation 14.4 % (11.5-14.5); RDW Standard Deviation 45.5 fL (36.4-46.3); Red Blood Count 2.94 M/uL (4.7-6.1); White Blood Count 5.08 K/uL (4.8-10.8)
[2020-05-03 08:01] LABS: BUN Creatinine Ratio 15.5 (10-20); Calcium 9.3 mg/dl (8.5-10.1); Creatinine Clr Calc Pharmacy 29.7 ml/min; Est GFR (African American) 42.3; Est GFR (Non-African American) 36.5; Potassium 3.4 mmol/L (3.5-5.1)
--- NOTE | 2020-05-03 08:23 | Cardiology Progress Note ---
Date of Service May 03, 2020 Assessment & Plan (1) Acute on chronic systolic CHF (congestive heart failure): (2) CKD (chronic kidney disease), stage III: (3) Anemia: (4) Elevated troponin: (5) Pleural effusion: (6) Hyponatremia: (7) History of coronary artery bypass graft: (8) Diabetes mellitus, type II: I think at this point the patient is out of heart failure and we can take him off the IV diuretics and place him back on Lasix 80 mg in the morning and 60 mg in the evening which were his home doses. We added an ARB this admission. I think most of his issues at this point are related to severe mitral regurgitation for which the afterload reduction would be helpful. I think after discharge the patient should be on Zaroxolyn 2.5 mg Thursday and Fridays with 40 mEq of potassium on Thursday and Fridays. If he is to be discharged today I will see him in the clinic in follow-up. Admission and Anticipated Discharge Date Admission Date: April 30, 2020 Subjective The patient is comfortable eating breakfast this morning and feeling much improved. Review of Systems Review of Systems: All systems reviewed & are unremarkable except as noted in Subjective Physical Exam Physical Exam: General: no acute distress and stated age Head: normocephalic, no masses, lesions, tenderness or abnormalities Eyes: conjunctiva are pink and non-injected, sclera clear Neck: supple, no adenopathy, no bruits, normal jugular venous pulse, no hepatojugular reflux Chest: normal shape and normal respiratory effort Lungs: clear to auscultation and percussion Cardiac Exam: - regular rate & rhythm, systolic murmur apex of the heart- normal S1, normal S2 Pulses: 2(+) throughout Abdomen: abdomen soft, non-tender, no abnormal masses and no hepatosplenomegaly Musculoskeletal: no gait disturbance, no joint inflammation, no deforming arthritis Extremities: no edema and no cyanosis Neuro: grossly normal exam Results & Data ([facility]) Vital Signs (Past 12 Hours) Vital Signs Temp Pulse Pulse Resp BP BP Pulse Ox 05/03/20 07:00 59 L 05/03/20 04:45 36.5 C 66 18 108/62 95 05/02/20 23:49 36.6 C 71 18 92/52 L 95 05/02/20 23:00 70 (1) Anemia Anemia type: unspecified type Qualified Code(s): D64.9 - Anemia, unspecified
[2020-05-03] MEDS: INSULIN ASPART 100 UNITS/ML 3 ML PEN SC SCH ×2 (08:43→11:45)
[2020-05-03] MEDS: METOPROLOL SUCC 25MG EXT REL TAB PO SCH (08:46)
[2020-05-03] MEDS: ISOSORBIDE MONO EXTENDED REL 60 MG TABCR PO SCH (08:46)
[2020-05-03] MEDS: ASPIRIN 81 MG ECTAB PO SCH (08:47)
[2020-05-03] MEDS: CYANOCOBALAMIN 500 MCG TABLET (VITAMIN B-12) PO SCH (08:47)
[2020-05-03] MEDS: CLOPIDOGREL BISULFATE 75 MG TAB PO SCH (08:47)
[2020-05-03] MEDS: LOSARTAN POTASSIUM 25 MG TAB PO SCH (08:47)
[2020-05-03] MEDS: IRON POLYSACCHARIDE COMPLEX 150 MG CAPSULE PO SCH (08:48)
[2020-05-03] MEDS ORDERED: FUROSEMIDE 80 MG TAB PO SCH (09:00)
[2020-05-03] MEDS ORDERED: POTASSIUM CHLORIDE CRTAB 20 MEQ TABCR PO STA (09:02)
--- NOTE | 2020-05-03 16:01 | Discharge Summary ---
Date of Service May 03, 2020 Admission HPI Per Admitting Provider 85-year-old male with PMH CAD s/p CABG x5, chronic systolic CHF EF 40%, CKD stage III, DM type II, and other problems listed below who presents the ED for evaluation of lower extremity edema. Patient recently admitted to [facility] 04/18 through 04/19 for acute on chronic systolic CHF. At discharge, patient's diuretics were adjusted to 80 mg in the morning and 40 mg in the afternoon. Patient reports that he has gained 8 pounds since his hospital discharge. He reports a nonproductive cough over the past 1 week. Reports orthopnea and worsening lower extremity edema. Has had exertional shortness of breath, denies chest pain. Reports lightheadedness and dizziness however no syncopal event. Appetite has been poor however denies abdominal pain, nausea, vomiting, diarrhea. No fevers or chills. Denies urinary symptoms. Patient self increased his Lasix to 80 mg twice daily a few days ago however has not had much improvement in his symptoms. In the ED, proBNP is 6000. CXR shows mild pulmonary edema. Patient is saturating well on room air. Troponin 0.072, EKG without acute ST changes. Patient was given Lasix 40 mg IV. Admission Exam Per Admitting Provider Constitutional: WD/WN, vitals as above Eyes: PERRL, conjunctivae normal, anicteric sclerae ENMT: external ear and nose normal, oropharynx normal Respiratory: normal respiratory effort; no respiratory distress Auscultation: + diminished lung sounds Cardiovascular: Rate/Rhythm: regular rate and regular rhythm Vessels: normal peripheral pulses Extremities: + pedal edema (+2) and + edema (+1-2 BLE) Gastrointestinal (Abdomen): normal bowel sounds, soft, nontender, no hepatosplenomegaly Musculoskeletal: no cyanosis or clubbing, extremities motor strength 5/5 Skin: no rashes, warm and dry Neurologic: PERRL, EOMI, accommodation nl, no face palsy, no dysarthria Psychiatric: A+Ox3, euthymic affect Principal Diagnosis Acute on chronic systolic CHF (congestive heart failure) Discharge Exam Patient seen and examined at the day of discharge. No new changes. Discharge Data Allergies Allergy/AdvReac Type Severity Reaction Status Date / Time atorvastatin AdvReac Unknown Unknown Verified 04/30/20 15:01 ezetimibe AdvReac Unknown Unknown Verified 04/30/20 15:01 lisinopril AdvReac Unknown Cough Verified 04/30/20 15:01 simvastatin AdvReac Unknown Unknown Verified 04/30/20 15:01 Consultations 04/30/20 14:41 ED Decision to Admit Stat 04/30/20 16:56 Consult Cardiology Routine Hospital Course (1) Acute on chronic systolic CHF (congestive heart failure): Patient was diuresed during this hospitalization. He was requiring oxygen at rest. The day of discharge patient was on room air at rest. He had ambulatory pulse ox performed and patient was on room air. He was on oxygen around 2 to 3 L during nighttime. Also recommended 80 mg of Lasix in the morning and 60 in the evening. Concur with metolazone 2.5 mg every Thursday and Thursday as well as potassium 40 mEq Thursday and Thursday. He was also started on losartan and was on Toprol-XL 25 mg daily at time of discharge. Recent echo in March 2020 with a EF of 40 to 45% with moderate to severe mitral regurgitation. (2) Hyponatremia: Sodium was at 134 on the day of discharge. Please obtain BMP to monitor electrolytes. (3) Pleural effusion: Patient does have history of chronic right-sided pleural effusion. Patient continues to have hypoxia issue,. Pulmonary input. (4) Elevated troponin: Troponin 0 0.072 -0.058 -0.071 Patient denies any chest pain at the moment. EKG was nonischemic. Likely demand in nature. We will continue to monitor. (5) Anemia: Patient does have history of chronic anemia. Baseline is around 10.5. Recommend to have PCP follow-up CBC and work-up anemia. (6) CAD (coronary artery disease): Continue [employer] aspirin/Plavix/beta-lopez and nitrate. -Statin intolerant and receives Praluent injections (7) CKD (chronic kidney disease), stage III: Was close to his baseline at the time of discharge. (8) Diabetes mellitus, type II: -Hgb A1c 5.7 03/2020 Hold [employer] Metformin and continue with NovoLog. Total Time Total Time Spent Total Time Spent (In Minutes): 35 Discharge Plan Discharge Items Patient Disposition: Home - Self-Care Reason For Visit: CHF Discharge Diagnosis: heart failure Condition on Discharge: Good Activity: Resume your previous activity Non-emergency contact: Primary Care Provider Call non-emergency contact if: you have any medication questions and your symptoms worsen Follow-up/Referrals: Justino Avery MD [Outside Practitioners] - 05/11/20 4:00 pm Diet: Regular and Heart Healthy Addtl Attending Provider Instructions: Follow-up with your primary care doctor. Start taking losartan 25 mg daily. Take metolazone 2.5 mg on Thursday and on . Also take 40 mEq potassium Thursday and Thursday. Start taking metoprolol succinate 25 mg daily. Take Lasix 80 mg in the morning and 60 mg in the evening. Pending Studies at Discharge: No Stand-Alone Forms: My [facility] [place], Smoking Cessation Medications and DC Order Prescriptions: New losartan 25 mg Tablet 25 mg PO QAM Qty: 30 RF: 0 metoprolol succinate 25 mg Tablet Extended Release 24 Hr 25 mg PO QAM Qty: 30 RF: 0 metolazone 2.5 mg tablet 2.5 mg PO .Thursday/Thursday Qty: 10 RF: 1 potassium chloride 40 mEq/15 mL liquid 40 meq PO .Thursday/Thursday Qty: 100 RF: 0 Continued polysaccharide iron complex 150 mg iron Capsule 150 mg PO DAILY RF: 0 cyanocobalamin (vitamin B-12) 1,000 mcg Tablet 1,000 mcg PO DAILY RF: 0 clopidogrel [Plavix] 75 mg Tablet 75 mg PO DAILY RF: 0 aspirin 81 mg Tablet,Delayed Release (Dr/Ec) 81 mg PO DAILY RF: 0 acetaminophen 650 mg Tablet Extended Release 650 mg PO TID PRN (Reason: Arthritis Pain) RF: 0 famotidine 20 mg Tablet 20 mg PO BID RF: 0 metformin 1,000 mg Tablet 1,000 mg PO BID RF: 0 nitroglycerin 0.4 mg Tablet, Sublingual 0.4 mg Sublingual DIRECTED PRN (Reason: Chest Pain) RF: 0 betamethasone, augmented 0.05 % ointment 1 applic topical BID PRN (Reason: Itchy Active Rash) RF: 0 metoprolol tartrate 25 mg tablet 12.5 mg PO BID RF: 0 Praluent Pen 75 mg/mL pen injector 75 mg SUBCUT .Q14 DAYS RF: 0 isosorbide mononitrate 60 mg tablet extended release 24 hr 60 mg PO BID RF: 0 furosemide 40 mg tablet 80 mg PO QAM Qty: 60 RF: 0 Changed furosemide 40 mg tablet 60 mg PO QPM Qty: 60 RF: 0 Discharge Orders: Discharge Order (Routine); Ordered 05/03/20 Ordered By: Yvonne Molina Admission Data Admit Date/Time: 04/30/20 15:08 Attending Provider: Yvonne Molina Admit Provider: Darrel Whittington Primary Care Provider: PCP,NO Other Providers: Darrel Whittington ; Shakeel Cleveland ; [facility]
[2020-05-03] MEDS ORDERED: FUROSEMIDE 20 MG TAB PO SCH (21:00)
== END 2020-05-03 17:04 | disposition home health service (06) | DRG 291 ==
LOC: ED 13:09 → SUATTDRO 15:08 → 2S 15:08
DX: Z95.1 Presence of aortocoronary bypass graft; E78.5 Hyperlipidemia, unspecified; N18.30 Chronic kidney disease, stage 3 unspecified; I50.23 Acute on chronic systolic (congestive) heart failure; K21.9 Gastro-esophageal reflux disease without esophagitis; E11.22 Type 2 diabetes mellitus with diabetic chronic kidney disease; I13.0 Hypertensive heart and chronic kidney disease with heart failure and stage 1 through stage 4 chronic kidney disease, or unspecified chronic kidney disease; I25.10 Atherosclerotic heart disease of native coronary artery without angina pectoris; E87.1 Hypo-osmolality and hyponatremia; Z79.84 Long term (current) use of oral hypoglycemic drugs; D63.8 Anemia in other chronic diseases classified elsewhere; J81.1 Chronic pulmonary edema; Z79.899 Other long term (current) drug therapy; Z79.82 Long term (current) use of aspirin

== ENCOUNTER 2020-07-13 17:13 | Inpatient (IN) ==
[2020-07-13] MEDS ORDERED: SODIUM CHLORIDE 0.9% 1000ML 1,000 ML IV ONE ×2 (17:36→19:40)
[2020-07-13] MEDS ORDERED: SODIUM CHLORIDE 0.9% 1000ML 500 ML IV ONE (17:50)
--- NOTE | 2020-07-13 17:55 | Emergency Department Note ---
History of Present Illness General Chief complaint: Syncope Stated complaint: SYNCOPE, POSSIBLE SEIZURE Time Seen by Provider: 07/13/20 17:35 Source: patient Mode of arrival: ambulatory Limitations: no limitations History of Present Illness This patient comes in after having an episode where he did not feel well and had a seizure-like episode. He said that he felt short of breath with walking which is not unusual for him and then he felt lightheaded he went to sit down. He apparently had a witnessed grand mal type seizure. He was incontinent. He did not bite his tongue. He does have a cardiac history he does take nitroglycerin he took one earlier today he takes 1 every couple days. Blood sugar in route was 146. He when he arrived he was 100% on room air but in the laying flat he desaturated to the 60s so put him on 4 L he is asymptomatic at present and feels well. His rectal temperature was 30 560 the nurses had started him on a bear hugger. Denies any trauma although he has some abrasions to the right arm and right knee. Denies urinary symptoms. Denies focal numbness or weakness. Denies blood or melena in stool Home Medications Medication Instructions Recorded Confirmed Type aspirin 81 mg PO DAILY 06/21/18 07/13/20 History betamethasone, augmented 1 applic TOPICAL BID PRN 06/21/18 07/13/20 History clopidogrel [Plavix] 75 mg PO DAILY 06/21/18 07/13/20 History cyanocobalamin (vitamin B-12) 1,000 mcg PO DAILY 06/21/18 07/13/20 History famotidine 20 mg PO BID 06/21/18 07/13/20 History metformin 1,000 mg PO BID 06/21/18 07/13/20 History nitroglycerin 0.4 mg SUBLINGUAL DIRECTED PRN 06/21/18 07/13/20 History polysaccharide iron complex 150 mg PO DAILY 06/21/18 07/13/20 History Praluent Pen 75 mg SUBCUT .Q14 DAYS 03/12/20 07/13/20 History isosorbide mononitrate 60 mg PO BID 03/31/20 07/13/20 History furosemide 80 mg PO QAM #60 tab 04/19/20 07/13/20 Rx furosemide 60 mg PO QPM #60 tab 05/03/20 07/13/20 Rx losartan 25 mg PO QAM #30 tab 05/03/20 07/13/20 Rx metolazone 2.5 mg PO .Thursday/Thursday #10 tab 05/03/20 07/13/20 Rx metoprolol succinate 25 mg PO QAM #30 tab 05/03/20 07/13/20 Rx ammonium lactate 1 applic TOPICAL BID 07/13/20 07/13/20 History potassium chloride 40 meq PO [id number] 07/13/20 07/13/20 History Allergies Allergy/AdvReac Type Severity Reaction Status Date / Time atorvastatin AdvReac Unknown Unknown Verified 07/13/20 20:09 ezetimibe AdvReac Unknown Unknown Verified 07/13/20 20:09 lisinopril AdvReac Unknown Cough Verified 07/13/20 20:09 simvastatin AdvReac Unknown Unknown Verified 07/13/20 20:09 Past Med/Surg History Medical History (Updated 07/14/20 @ 00:19 by Mack Alexis MD) Anemia CAD (coronary artery disease) 2006 - CABG x 5 2019 - cath, 3 out of 5 bypass grafts occluded, medical management advised Chronic systolic CHF (congestive heart failure) Diabetes mellitus, type II Elevated troponin GERD (gastroesophageal reflux disease) HLD (hyperlipidemia) statin intolerant, on Praluent injections HTN (hypertension) Ischemic cardiomyopathy Mitral regurgitation Productive cough Prostatitis SOB (shortness of breath) Surgical History History of coronary artery bypass graft 2005- [place] Family History Other Coronary heart disease Diabetes Social History Smoking Status: Never smoker Second Hand Exposure: No; Do You Dip or Chew Tobacco: No; Tobacco Cessation Education Requested by Patient: No Hx Alcohol Use: No Hx Substance Use: No Preferred Language: Korean Communication Ability: Effective 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 Beliefs That Will Affect Care: None marital status: Current Living Situation: Spouse Current Living Situation Comment: at home with Other Information That Helps Us Care for You: No Feels Safe at Home: Yes Safety Concerns: Feels Safe At This Time Assistive Devices: Glasses and Oxygen - at Night Review of Systems A total of 10 systems reviewed and were otherwise negative Physical Exam Vital Signs Vital Signs - 24 hr 07/13/20 17:07 07/13/20 17:18 07/13/20 17:27 Temperature 35.6 C L Temperature Source Rectal Pulse Rate 80 81 81 Pulse Rate from SpO2 Sensor 82 80 Respiratory Rate 18 15 22 Respiratory Effort / Characteristics Respiratory Depth Normal Blood Pressure 114/70 114/70 Blood Pressure Mean 84 84 Blood Pressure Position Semi-fowlers Pulse Oximetry 100 78 L 100 Oxygen Delivery Method Room Air Nasal Cannula Oxygen Flow Rate 4 Sepsis Recent Fever Within 48 Hours No Sepsis New/Unexplained Change in Mental Status Yes Sepsis Action Taken by Nursing No Action Required Oxygen Flow Rate - Titration 07/13/20 17:30 07/13/20 17:40 07/13/20 17:45 Temperature Temperature Source Pulse Rate 82 81 80 Pulse Rate from SpO2 Sensor 82 80 80 Respiratory Rate 17 27 H 31 H Respiratory Effort / Characteristics Respiratory Depth Blood Pressure 121/75 Blood Pressure Mean 90 Blood Pressure Position Pulse Oximetry 100 100 100 Oxygen Delivery Method Nasal Cannula Nasal Cannula Nasal Cannula Oxygen Flow Rate 4 4 4 Sepsis Recent Fever Within 48 Hours Sepsis New/Unexplained Change in Mental Status Sepsis Action Taken by Nursing Oxygen Flow Rate - Titration 07/13/20 17:49 07/13/20 17:57 07/13/20 17:58 Temperature 35.6 C L Temperature Source Rectal Pulse Rate 80 78 Pulse Rate from SpO2 Sensor 77 Respiratory Rate 20 20 15 Respiratory Effort / Characteristics Non-Labored Non-Labored Respiratory Depth Normal Blood Pressure 110/68 Blood Pressure Mean 82 Blood Pressure Position Pulse Oximetry 100 100 99 Oxygen Delivery Method Nasal Cannula Nasal Cannula Nasal Cannula Oxygen Flow Rate 2 2 4 Sepsis Recent Fever Within 48 Hours Sepsis New/Unexplained Change in Mental Status Sepsis Action Taken by Nursing Oxygen Flow Rate - Titration 07/13/20 18:00 07/13/20 18:01 07/13/20 18:05 Temperature 35.6 C L Temperature Source Rectal Pulse Rate 79 77 Pulse Rate from SpO2 Sensor 80 78 Respiratory Rate 20 22 15 Respiratory Effort / Characteristics Non-Labored Respiratory Depth Normal Blood Pressure 110/67 Blood Pressure Mean 81 Blood Pressure Position Pulse Oximetry 100 100 100 Oxygen Delivery Method Nasal Cannula Nasal Cannula Nasal Cannula Oxygen Flow Rate 4 4 4 Sepsis Recent Fever Within 48 Hours Sepsis New/Unexplained Change in Mental Status Sepsis Action Taken by Nursing Oxygen Flow Rate - Titration 07/13/20 18:15 07/13/20 18:16 07/13/20 18:20 Temperature 35.6 C L Temperature Source Rectal Pulse Rate 73 72 Pulse Rate from SpO2 Sensor 73 72 Respiratory Rate 15 18 15 Respiratory Effort / Characteristics Non-Labored Respiratory Depth Normal Blood Pressure 111/62 Blood Pressure Mean 78 Blood Pressure Position Pulse Oximetry 99 100 100 Oxygen Delivery Method Nasal Cannula Nasal Cannula Oxygen Flow Rate 4 4 Sepsis Recent Fever Within 48 Hours Sepsis New/Unexplained Change in Mental Status Sepsis Action Taken by Nursing Oxygen Flow Rate - Titration 07/13/20 18:28 07/13/20 18:29 07/13/20 18:30 Temperature Temperature Source Pulse Rate 74 74 Pulse Rate from SpO2 Sensor 74 74 Respiratory Rate 14 14 Respiratory Effort / Characteristics Non-Labored Respiratory Depth Blood Pressure 116/66 113/73 Blood Pressure Mean 82 86 Blood Pressure Position Pulse Oximetry 100 100 100 Oxygen Delivery Method Nasal Cannula Nasal Cannula Nasal Cannula Oxygen Flow Rate 4 4 4 Sepsis Recent Fever Within 48 Hours Sepsis New/Unexplained Change in Mental Status Sepsis Action Taken by Nursing Oxygen Flow Rate - Titration 4 07/13/20 18:31 07/13/20 18:56 07/13/20 18:57 Temperature Temperature Source Pulse Rate 73 78 79 Pulse Rate from SpO2 Sensor 73 78 Respiratory Rate 15 16 15 Respiratory Effort / Characteristics Respiratory Depth Blood Pressure 115/68 Blood Pressure Mean 83 Blood Pressure Position Pulse Oximetry 100 100 Oxygen Delivery Method Nasal Cannula Oxygen Flow Rate 4 Sepsis Recent Fever Within 48 Hours Sepsis New/Unexplained Change in Mental Status Sepsis Action Taken by Nursing Oxygen Flow Rate - Titration 07/13/20 18:58 07/13/20 19:00 07/13/20 19:01 Temperature Temperature Source Pulse Rate 79 78 79 Pulse Rate from SpO2 Sensor 80 78 79 Respiratory Rate 22 16 14 Respiratory Effort / Characteristics Non-Labored Spontaneous Respiratory Depth Blood Pressure 114/76 Blood Pressure Mean 88 Blood Pressure Position Pulse Oximetry 100 100 100 Oxygen Delivery Method Nasal Cannula Nasal Cannula Nasal Cannula Oxygen Flow Rate 2 2 2 Sepsis Recent Fever Within 48 Hours Sepsis New/Unexplained Change in Mental Status Sepsis Action Taken by Nursing Oxygen Flow Rate - Titration 07/13/20 19:15 07/13/20 19:30 07/13/20 19:31 Temperature Temperature Source Pulse Rate 80 82 83 Pulse Rate from SpO2 Sensor 79 82 83 Respiratory Rate 14 16 20 Respiratory Effort / Characteristics Non-Labored Spontaneous Respiratory Depth Blood Pressure 120/70 122/81 Blood Pressure Mean 86 94 Blood Pressure Position Pulse Oximetry 97 100 100 Oxygen Delivery Method Nasal Cannula Nasal Cannula Nasal Cannula Oxygen Flow Rate 2 2 2 Sepsis Recent Fever Within 48 Hours Sepsis New/Unexplained Change in Mental Status Sepsis Action Taken by Nursing Oxygen Flow Rate - Titration 07/13/20 20:00 07/13/20 20:01 07/13/20 20:30 Temperature Temperature Source Pulse Rate 84 84 85 Pulse Rate from SpO2 Sensor 84 84 85 Respiratory Rate 18 20 17 Respiratory Effort / Characteristics Non-Labored Spontaneous Non-Labored Spontaneous Respiratory Depth Blood Pressure 118/77 117/82 Blood Pressure Mean 90 93 Blood Pressure Position Pulse Oximetry 100 100 100 Oxygen Delivery Method Nasal Cannula Nasal Cannula Oxygen Flow Rate 2 2 Sepsis Recent Fever Within 48 Hours Sepsis New/Unexplained Change in Mental Status Sepsis Action Taken by Nursing Oxygen Flow Rate - Titration 07/13/20 20:31 07/13/20 20:36 Temperature 36.2 C L Temperature Source Oral Pulse Rate 86 Pulse Rate from SpO2 Sensor 86 Respiratory Rate 16 Respiratory Effort / Characteristics Respiratory Depth Blood Pressure Blood Pressure Mean Blood Pressure Position Pulse Oximetry 100 Oxygen Delivery Method Oxygen Flow Rate Sepsis Recent Fever Within 48 Hours Sepsis New/Unexplained Change in Mental Status Sepsis Action Taken by Nursing Oxygen Flow Rate - Titration General: Well developed well nourished older male who is alert and orient x3 and appears in no acute distress, breathing comfortably on room air. Normal speech HEENT: Normal cephalic atraumatic. Pupils are equal round and reactive to light. Extraocular movements are intact. Oropharynx is pink with moist mucous membranes. No swelling of the mouth lips or tongue. Neck: Supple with a midline trachea. No meningeal signs or stiffness, no JVD or bruits. No Stridor. Chest: Clear to auscultation bilaterally. No wheezes or rhonchi. No increased work of breathing. Heart: Regular rate and rhythm without murmurs or gallops. Abdomen: Soft nontender, nondistended without rebound guarding or rigidity. Extremities: No cyanosis clubbing or edema. No calf tenderness or assymetry Spine/Back. Non tender to palpation. No CVA tenderness Skin: Good turgor without rashes. Small abrasion near right knee and right arm Neurologic exam: Cranial nerves two through 12 are intact. Motor and sensation are intact and symmetrical throughout. Course Administered Medications Famotidine (Famotidine 20 Mg Tab) 20 mg PO BID CHIQUIS Stop: 08/12/20 22:40 Last Admin: 07/13/20 23:30 Dose: 20 mg Documented by: [id number] Sodium Chloride (Nss 1000ml) 1,000 mls @ 60 mls/hr IV .[id number] ONE Stop: 07/14/20 12:19 Last Admin: 07/13/20 20:17 Dose: 60 mls/hr Documented by: [id number] Insulin Aspart (Insulin Aspart 100 Units/Ml 3 Ml Pen) 0 units SC ACHS CHIQUIS Stop: 08/12/20 22:40 Last Admin: 07/13/20 23:34 Dose: Not Given Documented by: [id number] Cosigned by: [id number] Isosorbide Mononitrate (Isosorbide [place] Extended Rel 60 Mg Tabcr) 60 mg PO BID CHIQUIS Stop: 08/12/20 22:40 Last Admin: 07/13/20 23:30 Dose: 60 mg Documented by: [id number] Discontinued Medications Sodium Chloride (Nss 1000ml) 1,000 mls @ 999 mls/hr IV .[id number] ONE Stop: 07/13/20 18:36 Last Admin: 07/13/20 18:22 Dose: Not Given Documented by: [id number] Sodium Chloride (Nss 1000ml) 500 mls @ 999 mls/hr IV .Q31M ONE Stop: 07/13/20 18:20 Last Infusion: 07/13/20 19:38 Dose: 0 mls/hr Documented by: [id number] Infusion: 07/13/20 18:20 Dose: 500 mls/hr Documented by: [id number] Admin: 07/13/20 18:20 Dose: 999 mls/hr Documented by: [id number] Oxycodone HCl (Oxycodone Hcl Ir 5 Mg Tab (Immediate Release)) 5 mg PO NOW STA Stop: 07/13/20 21:03 Last Admin: 07/13/20 21:36 Dose: Not Given Documented by: [id number] Critical Care Time Critical Care Time: Yes Total Critical Care Time: 40 Due to the patient's seizure with initial hypoxemia, need for frequent neurolo gic and cardiac reassessment, multiple labs and consultation, I have personally spent greater than 40 minutes of critical care time in the direct management of this patient. This includes bedside care, interpretation of diagnostic studies, and testing, discussion with consultants, patient, and family members, and other required patient management activities. This 40 minutes is in excess of all separately billable procedures. Medical Decision Making Differential Diagnosis Seizure, syncope, arrhythmia, acute coronary syndrome, electrolyte or metabolic abnormality, dehydration, GI bleed, sepsis, Covid, neurologic disease Medical Records Attestation: I reviewed the patient's medical records. Home Medications Current Medication List: was personally reviewed by me Laboratory Data Attestation: I reviewed the patient's lab results. Result diagrams: 07/13/20 18:18 07/13/20 20:57 Lab Results 07/13/20 07/13/20 07/13/20 Range/Units 17:42 17:47 18:18 WBC 7.04 (4.8-10.8) K/uL RBC 2.72 L (4.7-6.1) M/uL Hgb 7.8 L (14.0-18.0) g/dL POC Hgb 8.8 L (14.0-18.0) g/dl Hct 23.3 L (42-52) % POC Hct 26 L (42-52) % MCV 85.7 (80-100) fL MCH 28.7 (25-34) pg MCHC 33.5 (32-36) g/dL RDW Std Deviation 53.7 H (36.4-46.3) fL RDW Coeff of Myrtle 17.1 H (11.5-14.5) % Plt Count 236 (130-400) K/uL MPV 10.1 (7.4-10.4) fL Immature Gran % (Auto) 0.3 % Neut % (Auto) 82.4 % Lymph % (Auto) 8.9 % [place] % (Auto) 6.0 % Eos % (Auto) 2.0 % Baso % (Auto) 0.4 % Neut # (Auto) 5.80 (1.4-6.5) K/uL Lymph # (Auto) 0.63 L (1.2-3.4) K/uL [place] # (Auto) 0.42 (0.11-0.59) K/uL Eos # (Auto) 0.14 (0-0.5) K/uL Baso # (Auto) 0.03 (0-0.2) K/uL Immature Gran # (Auto) 0.02 (0.00-0.02) K/uL RBC Morphology Unremarkable PT 10.8 (9.0-12.0) Seconds INR 1.1 (0.9-1.1) APTT > 139.0 H* (21.0-31.0) Seconds PTT Ratio > 5.3 VBG pH (7.36-7.41) VBG pCO2 (38-50) mmHg VBG pO2 mmHg VBG HCO3 mmol/L VBG O2 Saturation % VBG Base Excess mEq/L Barometric Pressure mm/Hg POC Sodium 131 L (135-144) mmol/L Sodium (136-145) mmol/L POC Potassium 4.0 (3.3-5.0) mmol/L Potassium (3.5-5.1) mmol/L POC Chloride 93 L (101-112) mmol/L Chloride (98-107) mmol/L Carbon Dioxide (21-32) mmol/L POC Total CO2 22 L (24-31) mmol/L Anion Gap (3-11) POC Anion Gap 20.0 (16-25) mmol/L POC BUN 107 H* (7-18) mg/dl BUN (7-18) mg/dl Creatinine (0.6-1.4) mg/dl POC Creatinine 3.9 H (0.6-1.3) mg/dl Est Cr Clr Drug Dosing ml/min Est GFR ( Amer) Est GFR (Non-Af Amer) BUN/Creatinine Ratio (10-20) Glucose (70-99) mg/dl POC Glucose (other) 184 H (70-99) mg/dl Lactate (0.4-2.0) mmol/L Calcium (8.5-10.1) mg/dl POC Ioniz Calcium Zaheer 1.18 (1.12-1.32) mmol/l Magnesium (1.8-2.4) mg/dl Total Bilirubin (0.2-1) mg/dl AST (15-37) U/L ALT (12-78) U/L Alkaline Phosphatase (45-117) U/L Total Creatine Kinase (39-308) U/L Troponin I (0-0.045) ng/ml Total Protein (6.4-8.2) gm/dl Albumin (3.4-5.0) gm/dl Globulin (2.5-4.0) gm/dl Albumin/Globulin Ratio (0.9-2) Procalcitonin (0-0.5) ng/ml TSH (0.300-4.500) uIu/ml Urine Color Urine Appearance (Clear) Urine pH (4.5-7.5) Ur Specific [place] (1.000-1.030) Urine Protein (Negative) Urine Glucose (UA) (Negative) Urine Ketones (Negative) Urine Blood (Negative) Urine Nitrite (Negative) Urine Bilirubin (Negative) Urine Urobilinogen (Negative) Ur Leukocyte Esterase (Negative) COVID-19 Eval Order SARS-CoV-2 (PCR) (Negative) Influenza Type A (PCR) (Neg) Influenza Type B (PCR) (Neg) RSV (RT-PCR) (Neg) Blood Type Antibody Screen 07/13/20 07/13/20 07/13/20 Range/Units 18:18 18:18 18:18 WBC (4.8-10.8) K/uL RBC (4.7-6.1) M/uL Hgb (14.0-18.0) g/dL POC Hgb (14.0-18.0) g/dl Hct (42-52) % POC Hct (42-52) % MCV (80-100) fL MCH (25-34) pg MCHC (32-36) g/dL RDW Std Deviation (36.4-46.3) fL RDW Coeff of Myrtle (11.5-14.5) % Plt Count (130-400) K/uL MPV (7.4-10.4) fL Immature Gran % (Auto) % Neut % (Auto) % Lymph % (Auto) % [place] % (Auto) % Eos % (Auto) % Baso % (Auto) % Neut # (Auto) (1.4-6.5) K/uL Lymph # (Auto) (1.2-3.4) K/uL [place] # (Auto) (0.11-0.59) K/uL Eos # (Auto) (0-0.5) K/uL Baso # (Auto) (0-0.2) K/uL Immature Gran # (Auto) (0.00-0.02) K/uL RBC Morphology PT (9.0-12.0) Seconds INR (0.9-1.1) APTT (21.0-31.0) Seconds PTT Ratio VBG pH (7.36-7.41) VBG pCO2 (38-50) mmHg VBG pO2 mmHg VBG HCO3 mmol/L VBG O2 Saturation % VBG Base Excess mEq/L Barometric Pressure mm/Hg POC Sodium (135-144) mmol/L Sodium 132 L (136-145) mmol/L POC Potassium (3.3-5.0) mmol/L Potassium 3.9 (3.5-5.1) mmol/L POC Chloride (101-112) mmol/L Chloride 97 L (98-107) mmol/L Carbon Dioxide 25 (21-32) mmol/L POC Total CO2 (24-31) mmol/L Anion Gap 10.0 (3-11) POC Anion Gap (16-25) mmol/L POC BUN (7-18) mg/dl BUN 107 H (7-18) mg/dl Creatinine 3.57 H (0.6-1.4) mg/dl POC Creatinine (0.6-1.3) mg/dl Est Cr Clr Drug Dosing 13.9 ml/min Est GFR ( Amer) 16.9 Est GFR (Non-Af Amer) 14.6 BUN/Creatinine Ratio 30.0 H (10-20) Glucose 174 H (70-99) mg/dl POC Glucose (other) (70-99) mg/dl Lactate 4.4 H* (0.4-2.0) mmol/L Calcium 9.6 (8.5-10.1) mg/dl POC Ioniz Calcium Zaheer (1.12-1.32) mmol/l Magnesium 2.1 (1.8-2.4) mg/dl Total Bilirubin 0.7 (0.2-1) mg/dl AST 42 H (15-37) U/L ALT 41 (12-78) U/L Alkaline Phosphatase 117 (45-117) U/L Total Creatine Kinase 87 (39-308) U/L Troponin I 0.032 (0-0.045) ng/ml Total Protein 7.7 (6.4-8.2) gm/dl Albumin 4.0 (3.4-5.0) gm/dl Globulin 3.7 (2.5-4.0) gm/dl Albumin/Globulin Ratio 1.1 (0.9-2) Procalcitonin < 0.05 (0-0.5) ng/ml TSH 3.650 (0.300-4.500) uIu/ml Urine Color Urine Appearance (Clear) Urine pH (4.5-7.5) Ur Specific [place] (1.000-1.030) Urine Protein (Negative) Urine Glucose (UA) (Negative) Urine Ketones (Negative) Urine Blood (Negative) Urine Nitrite (Negative) Urine Bilirubin (Negative) Urine Urobilinogen (Negative) Ur Leukocyte Esterase (Negative) COVID-19 Eval Order SARS-CoV-2 (PCR) (Negative) Influenza Type A (PCR) (Neg) Influenza Type B (PCR) (Neg) RSV (RT-PCR) (Neg) Blood Type Antibody Screen 07/13/20 07/13/20 07/13/20 Range/Units 18:18 18:18 18:18 WBC (4.8-10.8) K/uL RBC (4.7-6.1) M/uL Hgb (14.0-18.0) g/dL POC Hgb (14.0-18.0) g/dl Hct (42-52) % POC Hct (42-52) % MCV (80-100) fL MCH (25-34) pg MCHC (32-36) g/dL RDW Std Deviation (36.4-46.3) fL RDW Coeff of Myrtle (11.5-14.5) % Plt Count (130-400) K/uL MPV (7.4-10.4) fL Immature Gran % (Auto) % Neut % (Auto) % Lymph % (Auto) % [place] % (Auto) % Eos % (Auto) % Baso % (Auto) % Neut # (Auto) (1.4-6.5) K/uL Lymph # (Auto) (1.2-3.4) K/uL [place] # (Auto) (0.11-0.59) K/uL Eos # (Auto) (0-0.5) K/uL Baso # (Auto) (0-0.2) K/uL Immature Gran # (Auto) (0.00-0.02) K/uL RBC Morphology PT (9.0-12.0) Seconds INR (0.9-1.1) APTT (21.0-31.0) Seconds PTT Ratio VBG pH 7.34 L (7.36-7.41) VBG pCO2 45 (38-50) mmHg VBG pO2 25 mmHg VBG HCO3 24 mmol/L VBG O2 Saturation < 60.0 % VBG Base Excess -2.2 mEq/L Barometric Pressure 732.3 mm/Hg POC Sodium (135-144) mmol/L Sodium (136-145) mmol/L POC Potassium (3.3-5.0) mmol/L Potassium (3.5-5.1) mmol/L POC Chloride (101-112) mmol/L Chloride (98-107) mmol/L Carbon Dioxide (21-32) mmol/L POC Total CO2 (24-31) mmol/L Anion Gap (3-11) POC Anion Gap (16-25) mmol/L POC BUN (7-18) mg/dl BUN (7-18) mg/dl Creatinine (0.6-1.4) mg/dl POC Creatinine (0.6-1.3) mg/dl Est Cr Clr Drug Dosing ml/min Est GFR ( Amer) Est GFR (Non-Af Amer) BUN/Creatinine Ratio (10-20) Glucose (70-99) mg/dl POC Glucose (other) (70-99) mg/dl Lactate (0.4-2.0) mmol/L Calcium (8.5-10.1) mg/dl POC Ioniz Calcium Zaheer (1.12-1.32) mmol/l Magnesium (1.8-2.4) mg/dl Total Bilirubin (0.2-1) mg/dl AST (15-37) U/L ALT (12-78) U/L Alkaline Phosphatase (45-117) U/L Total Creatine Kinase (39-308) U/L Troponin I (0-0.045) ng/ml Total Protein (6.4-8.2) gm/dl Albumin (3.4-5.0) gm/dl Globulin (2.5-4.0) gm/dl Albumin/Globulin Ratio (0.9-2) Procalcitonin (0-0.5) ng/ml TSH (0.300-4.500) uIu/ml Urine Color Urine Appearance (Clear) Urine pH (4.5-7.5) Ur Specific [place] (1.000-1.030) Urine Protein (Negative) Urine Glucose (UA) (Negative) Urine Ketones (Negative) Urine Blood (Negative) Urine Nitrite (Negative) Urine Bilirubin (Negative) Urine Urobilinogen (Negative) Ur Leukocyte Esterase (Negative) COVID-19 Eval Order CovFluRsv at [facility] SARS-CoV-2 (PCR) (Negative) Influenza Type A (PCR) (Neg) Influenza Type B (PCR) (Neg) RSV (RT-PCR) (Neg) Blood Type O Negative Antibody Screen NEGATIVE 07/13/20 07/13/20 Range/Units 18:18 19:25 WBC (4.8-10.8) K/uL RBC (4.7-6.1) M/uL Hgb (14.0-18.0) g/dL POC Hgb (14.0-18.0) g/dl Hct (42-52) % POC Hct (42-52) % MCV (80-100) fL MCH (25-34) pg MCHC (32-36) g/dL RDW Std Deviation (36.4-46.3) fL RDW Coeff of Myrtle (11.5-14.5) % Plt Count (130-400) K/uL MPV (7.4-10.4) fL Immature Gran % (Auto) % Neut % (Auto) % Lymph % (Auto) % [place] % (Auto) % Eos % (Auto) % Baso % (Auto) % Neut # (Auto) (1.4-6.5) K/uL Lymph # (Auto) (1.2-3.4) K/uL [place] # (Auto) (0.11-0.59) K/uL Eos # (Auto) (0-0.5) K/uL Baso # (Auto) (0-0.2) K/uL Immature Gran # (Auto) (0.00-0.02) K/uL RBC Morphology PT (9.0-12.0) Seconds INR (0.9-1.1) APTT (21.0-31.0) Seconds PTT Ratio VBG pH (7.36-7.41) VBG pCO2 (38-50) mmHg VBG pO2 mmHg VBG HCO3 mmol/L VBG O2 Saturation % VBG Base Excess mEq/L Barometric Pressure mm/Hg POC Sodium (135-144) mmol/L Sodium (136-145) mmol/L POC Potassium (3.3-5.0) mmol/L Potassium (3.5-5.1) mmol/L POC Chloride (101-112) mmol/L Chloride (98-107) mmol/L Carbon Dioxide (21-32) mmol/L POC Total CO2 (24-31) mmol/L Anion Gap (3-11) POC Anion Gap (16-25) mmol/L POC BUN (7-18) mg/dl BUN (7-18) mg/dl Creatinine (0.6-1.4) mg/dl POC Creatinine (0.6-1.3) mg/dl Est Cr Clr Drug Dosing ml/min Est GFR ( Amer) Est GFR (Non-Af Amer) BUN/Creatinine Ratio (10-20) Glucose (70-99) mg/dl POC Glucose (other) (70-99) mg/dl Lactate (0.4-2.0) mmol/L Calcium (8.5-10.1) mg/dl POC Ioniz Calcium Zaheer (1.12-1.32) mmol/l Magnesium (1.8-2.4) mg/dl Total Bilirubin (0.2-1) mg/dl AST (15-37) U/L ALT (12-78) U/L Alkaline Phosphatase (45-117) U/L Total Creatine Kinase (39-308) U/L Troponin I (0-0.045) ng/ml Total Protein (6.4-8.2) gm/dl Albumin (3.4-5.0) gm/dl Globulin (2.5-4.0) gm/dl Albumin/Globulin Ratio (0.9-2) Procalcitonin (0-0.5) ng/ml TSH (0.300-4.500) uIu/ml Urine Color Yellow Urine Appearance Clear (Clear) Urine pH 5.0 (4.5-7.5) Ur Specific [place] 1.013 (1.000-1.030) Urine Protein Negative (Negative) Urine Glucose (UA) Negative (Negative) Urine Ketones Negative (Negative) Urine Blood Negative (Negative) Urine Nitrite Negative (Negative) Urine Bilirubin Negative (Negative) Urine Urobilinogen Negative (Negative) Ur Leukocyte Esterase Negative (Negative) COVID-19 Eval Order SARS-CoV-2 (PCR) NEGATIVE (Negative) Influenza Type A (PCR) Negative (Neg) Influenza Type B (PCR) Negative (Neg) RSV (RT-PCR) Negative (Neg) Blood Type Antibody Screen Imaging Data Attestation: I personally reviewed and interpreted this imaging study as follows: My Impression: Chest x-raycardiomegaly. Mild increased interstitial markings but no overt CHF Radiologist's Impression: XR chest 1V portable HISTORY: 85 years-old Male SEPSIS acute sepsis COMPARISON: Chest radiograph 04/30/2020 TECHNIQUE: Portable AP view of the chest FINDINGS: Cardiac silhouette is enlarged. Prior median sternotomy. Calcified plaque of the thoracic aorta. Small right and trace left pleural effusions have decreased in size from comparison. Mild pulmonary vascular congestion. No pneumothorax or overt pulmonary edema. Degenerative changes of the shoulders and spine. IMPRESSION: 1. Cardiomegaly with mild pulmonary vascular congestion. 2. Trace left and small right pleural effusions. CT head/brain wo con CLINICAL HISTORY: 85 years-old Male with seizure. Acute seizure like activity TECHNIQUE: Multiple axial CT images of the head were obtained without contrast. A dose lowering technique was utilized adhering to the principles of ALARA. CT DOSE: 687.98 mGy.cm COMPARISON: None. FINDINGS: No acute intracranial hemorrhage, midline shift, intracranial mass, hydrocephalus, territorial ischemia or abnormal extra-axial collection. Age- related involutional changes with ex vacuo ventriculomegaly. White matter hypodensities suggestive of chronic microvascular ischemic disease. Cerebral va scular calcifications. The calvarium is intact. The paranasal sinuses, mastoid air cells, and middle ear cavities are clear. IMPRESSION: No acute intracranial abnormality. ECG Data Attestation: I personally reviewed and interpreted this ECG as follows: Indication: + syncope and + weakness Rate (beats per minute): 81 Rhythm: + normal sinus ECG Intervals/blocks: + Left anterior fascicular block and + Right Bundle branch block ECG Frederick: + Normal ECG ST segments: + Nonspecific ST abnormalities ECG Findings: no PACs and no PVCs Comparison ECG Date: from (04/30/20) Change: no significant change MDM Narrative This patient comes in as described above the nurses came and got me as they were concerned about him. He had a seizure-like episode, he does have a cardiac history and it may be more of arrhythmia or syncope. He he is doing much better when I saw him and has no complaints and is on oxygen. The patient's oxygen according to nursing was in the 60s however when I saw him he was 100% on [address] a bear hugger as he was mildly hypothermic. He denies any chest pain at present he has had shortness of breath which is mostly dyspnea on exertion. Has had both Covid vaccines. IV access established and he was given a initially a small fluid bolus given his cardiac history of 500 cc. Multiple blood testing was stained including i-STAT lab which shows a significant elevated BUN of 107 a creatinine of 3.9 is possible that he is dehydrated/over diuresed. Hemoglobin is also low at 8.8. He was typed and screened. He chronically runs low but denies any blood or melena stool scan of his head was unremarkable. EKG does not show any change compared to old and his troponin is not elevated. His lactic acid was elevated 4.4 however I think this is most likely from a seizure he has no white count or source of infection or elevated procalcitonin he seems to be doing much better. I do think he needs to be admitted for further evaluation from a neurologic and cardiac standpoint. I think he is likely dehydrated and was gently rehydrated given his history of CHF. I have consulted Dr. Garcia from [facility] in the ER for these zaheer ures. Continuous cardiac monitoring: An order was placed in the EMR for continuous cardiac monitoring. Upon my interpretation, the patient was noted to be normal sinus rhythm with a pulse of 75. Impression & Plan Seizure-like activity, Acute dehydration, Lactate blood increased, Weakness, Anemia, Hypoxemia, Hypothermia Discharge Plan Visit Data Chief Complaint: Syncope Stated Complaint: SYNCOPE, POSSIBLE SEIZURE ED Provider: Mack Alexis Discharge Problem: Seizure-like activity, Acute dehydration, Lactate blood increased, Weakness, Anemia, Hypoxemia, Hypothermia Patient Disposition: Admitted As Inpatient Discharge Instructions Interventions: ED Discharge Assessment Last Done: 07/13/20 21:43 Discharge Problem: Anemia Qualifiers: Anemia type: unspecified type Qualified Code(s): D64.9 - Anemia, unspecified Hypothermia Qualifiers: Encounter type: initial encounter Qualified Code(s): T68.XXXA - Hypothermia, initial encounter
[2020-07-13 17:59] LABS: iSTAT Creatinine 3.9 mg/dl (0.6-1.3); iSTAT Hemoglobin 8.8 g/dl (14.0-18.0); iSTAT Ionized Calcium 1.18 mmol/l (1.12-1.32)
--- NOTE | 2020-07-13 18:11 | XRay Report ---
XR chest 1V portable HISTORY: 85 years-old Male SEPSIS acute sepsis COMPARISON: Chest radiograph 04/30/2020 TECHNIQUE: Portable AP view of the chest FINDINGS: Cardiac silhouette is enlarged. Prior median sternotomy. Calcified plaque of the thoracic aorta. Smal l right and trace left pleural effusions have decreased in size from comparison. Mild pulmonary vascu lar congestion. No pneumothorax or overt pulmonary edema. Degenerative changes of the shoulders and s pine. IMPRESSION: 1. Cardiomegaly with mild pulmonary vascular congestion. 2. Trace left and small right pleural effusions. ACT 112: Negative or not required by law. The above report was generated using voice recognition software. It may contain grammatical, syntax o r spelling errors. Electronically signed by: Preston Mearz M.D. 07/13/2020 6:09 PM
[2020-07-13 18:20] LABS: INR 1.1 (0.9-1.1); Prothrombin Time 10.8 Seconds (9.0-12.0)
[2020-07-13 18:32] LABS: Basophils # (auto) 0.03 K/uL (0-0.2); Basophils % (auto) 0.4 %; Eosinophils # (auto) 0.14 K/uL (0-0.5); Hematocrit (blood only) 23.3 % (42-52); Hemoglobin 7.8 g/dL (14.0-18.0); Immature Granulocytes # (auto) 0.02 K/uL (0.00-0.02); Immature Granulocytes % (auto) 0.3 %; Lymphocytes # (auto) 0.63 K/uL (1.2-3.4); Lymphocytes % (auto) 8.9 %; Mean Corpuscular Hemoglobin 28.7 pg (25-34); Mean Corpuscular Hgb Conc 33.5 g/dL (32-36); Mean Corpuscular Volume 85.7 fL (80-100); Mean Platelet Volume 10.1 fL (7.4-10.4); Monocytes # (auto) 0.42 K/uL (0.11-0.59); Neutrophils % (auto) 82.4 %; Platelet Count 236 K/uL (130-400); RDW Coefficient of Variation 17.1 % (11.5-14.5); RDW Standard Deviation 53.7 fL (36.4-46.3); Red Blood Count 2.72 M/uL (4.7-6.1); White Blood Count 7.04 K/uL (4.8-10.8)
[2020-07-13 18:41] LABS: Base Excess VBG -2.2 mEq/L; HCO3 VBG 24 mmol/L; PCO2 VBG 45 mmHg (38-50); PO2 VBG 25 mmHg; pH VBG 7.34 (7.36-7.41)
[2020-07-13 18:50] LABS: Oxygen Saturation VBG < 60.0 %
[2020-07-13 18:52] LABS: Calcium 9.6 mg/dl (8.5-10.1); Creatinine Clr Calc Pharmacy 13.9 ml/min; Est GFR (African American) 16.9; Est GFR (Non-African American) 14.6; Magnesium 2.1 mg/dl (1.8-2.4); Potassium 3.9 mmol/L (3.5-5.1)
[2020-07-13 18:56] LABS: Albumin Globulin Ratio 1.1 (0.9-2); Bilirubin,Total 0.7 mg/dl (0.2-1); Globulin 3.7 gm/dl (2.5-4.0); Total Protein 7.7 gm/dl (6.4-8.2); Troponin I 0.032 ng/ml (0-0.045)
[2020-07-13 18:59] LABS: RBC Morphology Unremarkable
--- NOTE | 2020-07-13 19:09 | CT Scan Report ---
CT head/brain wo con CLINICAL HISTORY: 85 years-old Male with seizure. Acute seizure like activity TECHNIQUE: Multiple axial CT images of the head were obtained without contrast. A dose lowering tech nique was utilized adhering to the principles of ALARA. CT DOSE: 687.98 mGy.cm COMPARISON: None. FINDINGS: No acute intracranial hemorrhage, midline shift, intracranial mass, hydrocephalus, territorial ischem ia or abnormal extra-axial collection. Age-related involutional changes with ex vacuo ventriculomegal y. White matter hypodensities suggestive of chronic microvascular ischemic disease. Cerebral vascular calcifications. The calvarium is intact. The paranasal sinuses, mastoid air cells, and middle ear cavities are clear . IMPRESSION: No acute intracranial abnormality. ACT 112: Negative or not required by law. The above report was generated using voice recognition software. It may contain grammatical, syntax o r spelling errors. Electronically signed by: Preston Meraz M.D. 07/13/2020 7:08 PM
[2020-07-13 19:15] LABS: Influenza A virus by PCR Negative (Neg); Influenza B virus by PCR Negative (Neg); RSV by PCR Negative (Neg); SARS CoV2 RNA(COVID-19) InHosp NEGATIVE (Negative)
[2020-07-13] MEDS ORDERED: LORazepam 1 MG/2 ML VIAL IV PRN (19:40)
[2020-07-13 19:47] LABS: Appearance Urine Clear (Clear); Bilirubin Urine Negative (Negative); Blood Urine Negative (Negative); Color Urine Yellow; Glucose Urine UA Negative (Negative); Ketones Urine Negative (Negative); Leukocyte Esterase Urine Negative (Negative); Nitrite Urine Negative (Negative); Protein Urine Negative (Negative); Specific Gravity Urine 1.013 (1.000-1.030); Urobilinogen Urine Negative (Negative)
[2020-07-13 20:03] LABS: Thyroid Stimulating Hormone 3.65 uIu/ml (0.300-4.500)
[2020-07-13 20:05] LABS: Partial Thromboplastin Ratio > 5.3
--- NOTE | 2020-07-13 20:05 | History & Physical Report ---
Date of Service July 13, 2020 Assessment & Plan (1) Seizure-like activity: (2) Acute kidney injury superimposed on CKD: (3) Elevated lactic acid level: (4) CAD (coronary artery disease): (5) Ischemic cardiomyopathy: (6) Diabetes mellitus, type II: (7) HTN (hypertension): (8) HLD (hyperlipidemia): (9) Chronic anemia: HPI, Medical history, PE completed by myself, Jennifer Canada PA-C. Assessment and plan per Dr Mcelroy. History of Present Illness Chief Complaint: Possible seizure Primary Care Provider: Justino Avery MD Pt is 85 y/o M with PMH CAD s/p bypass with 3 out of 5 grafts closed on cath in 2019, NSTEMI 2019, systolic heart failure, EF: 40-45%, HTN, HLD, CKD III (baseline Cr ~1.5), DM II, chronic anemia (baseline Hgb~8), chronic hypoxic respiratory failure on 2L O2 HS presented to ER after fall and possible seizure per witnesses. History obtained from pt, ER staff and outpatient records. Pt states was at gas station and walked approximately 50 feet and he was SOB and felt lightheaded and attempted to sit down. Pt states he thinks he remembers sitting down and next thing he knew bystanders were around him and EMS. It is reported he had shaking and seizure like activity. EMS reported pt with noted incontinence. Pt reports chronic SOB with ambulation. Has chronic intermittent CP in which he takes SL nitro approx 5 days a week. Denies CP with walking prior to incident today. Pt denies h/o seizure disorder. Denies any increased lower extremity edema. Reports is on fluid restriction of 4 cups fluid daily and has been following this. Denies SWIFT. Pt states took AM meds. Denies fever/chills, diaphoresis, N/V/D, vision changes, neck pain, palpitations, increased cough, sore throat, choking, otalgia, rhinorrhea, abdominal pain, paresthesias, weakness, rashes, urinary symptoms. In ER pt with temp: 35.6C Rectally. When was placed supine O2 sats down to 67%, pt placed on 4L O2 and sat upright with sats up to 100%, P: 80, R: 18, BP: 114/70. Was found to have BUN: 107, Cr: 3.57, Lactate: 4.4, normal procalcitonin, normal WBC, Troponin: 0.032 (chronically elevated ~0.06). Was given IVF in ER. Being admitted for further evaluation and treatment. Allergies Allergy/AdvReac Type Severity Reaction Status Date / Time atorvastatin AdvReac Unknown Unknown Verified 07/13/20 20:09 ezetimibe AdvReac Unknown Unknown Verified 07/13/20 20:09 lisinopril AdvReac Unknown Cough Verified 07/13/20 20:09 simvastatin AdvReac Unknown Unknown Verified 07/13/20 20:09 Home Medications Medication Instructions Recorded Confirmed Type aspirin 81 mg PO DAILY 06/21/18 07/13/20 History betamethasone, augmented 1 applic TOPICAL BID PRN 06/21/18 07/13/20 History clopidogrel [Plavix] 75 mg PO DAILY 06/21/18 07/13/20 History cyanocobalamin (vitamin B-12) 1,000 mcg PO DAILY 06/21/18 07/13/20 History famotidine 20 mg PO BID 06/21/18 07/13/20 History metformin 1,000 mg PO BID 06/21/18 07/13/20 History nitroglycerin 0.4 mg SUBLINGUAL DIRECTED PRN 06/21/18 07/13/20 History polysaccharide iron complex 150 mg PO DAILY 06/21/18 07/13/20 History Praluent Pen 75 mg SUBCUT .Q14 DAYS 03/12/20 07/13/20 History isosorbide mononitrate 60 mg PO BID 03/31/20 07/13/20 History furosemide 80 mg PO QAM #60 tab 04/19/20 07/13/20 Rx furosemide 60 mg PO QPM #60 tab 05/03/20 07/13/20 Rx losartan 25 mg PO QAM #30 tab 05/03/20 07/13/20 Rx metolazone 2.5 mg PO .Thursday/Thursday #10 tab 05/03/20 07/13/20 Rx metoprolol succinate 25 mg PO QAM #30 tab 05/03/20 07/13/20 Rx ammonium lactate 1 applic TOPICAL BID 07/13/20 07/13/20 History potassium chloride 40 meq PO 2XWK 07/13/20 07/13/20 History Past Med/Surg History Medical History (Updated 07/14/20 @ 00:19 by Mack Alexis MD) Anemia CAD (coronary artery disease) 2006 - CABG x 5 2019 - cath, 3 out of 5 bypass grafts occluded, medical management advised Chronic systolic CHF (congestive heart failure) Diabetes mellitus, type II Elevated troponin GERD (gastroesophageal reflux disease) HLD (hyperlipidemia) statin intolerant, on Praluent injections HTN (hypertension) Ischemic cardiomyopathy Mitral regurgitation Productive cough Prostatitis SOB (shortness of breath) Surgical History History of coronary artery bypass graft 2005- [place] Family History Other Coronary heart disease Diabetes Social History Smoking Status: Never smoker Second Hand Exposure: No; Do You Dip or Chew Tobacco: No; Tobacco Cessation Education Requested by Patient: No Hx Alcohol Use: No Hx Substance Use: No Preferred Language: Urdu Communication Ability: Effective Haul Driver Required: No Beliefs That Will Affect Care: None marital status: Current Living Situation: Spouse Current Living Situation Comment: at home with Other Information That Helps Us Care for You: No Feels Safe at Home: Yes Safety Concerns: Feels Safe At This Time Assistive Devices: Glasses and Oxygen - at Night Review of Systems Review of Systems: All systems reviewed & are unremarkable except as noted in HPI & below Physical Exam Physical Exam: General: no distress, WDWN Head: normocephalic, atraumatic Eyes: PERRL, EOM's intact, conjunctiva non-injected, anicteric ENT: normal inspection external ears, nose, mucous membranes moist; no tongue laceration Neck: supple, trachea midline, non-tender Lungs: clear, no respiratory distress, no wheezing/rhonchi/rales CV: RRR, systolic murmur, no significant pretibial edema Abd: normal BS, soft, non-tender Ext: no cyanosis, no calf tenderness Neuro: A&O x 3, no focal deficits noted, normal affect Skin: warm, dry Results & Data Results & Data ([facility]) Vital Signs (Past 12 Hours) Vital Signs Temp Pulse Resp BP Pulse Ox 07/13/20 19:31 83 20 100 07/13/20 19:30 82 16 122/81 100 07/13/20 19:15 80 14 120/70 97 07/13/20 19:01 79 14 100 07/13/20 19:00 78 16 114/76 100 07/13/20 18:58 79 22 100 07/13/20 18:57 79 15 115/68 100 07/13/20 18:56 78 16 07/13/20 18:31 73 15 100 07/13/20 18:30 74 14 113/73 100 07/13/20 18:29 100 07/13/20 18:28 74 14 116/66 100 07/13/20 18:20 35.6 C L 15 100 07/13/20 18:16 72 18 100 07/13/20 18:15 73 15 111/62 99 07/13/20 18:05 35.6 C L 15 100 07/13/20 18:01 77 22 100 07/13/20 18:00 79 20 110/67 100 07/13/20 17:58 35.6 C L 78 15 110/68 99 07/13/20 17:57 80 20 100 07/13/20 17:49 20 100 07/13/20 17:45 80 31 H 100 07/13/20 17:40 81 27 H 121/75 100 07/13/20 17:30 82 17 100 07/13/20 17:27 81 22 100 07/13/20 17:18 81 15 114/70 78 L 07/13/20 17:07 35.6 C L 80 18 114/70 100 Laboratory Results Short CBC 07/13/20 07/13/20 07/13/20 Range/Units 18:18 18:18 18:18 WBC 7.04 (4.8-10.8) K/uL Hgb 7.8 L (14.0-18.0) g/dL Hct 23.3 L (42-52) % Plt Count 236 (130-400) K/uL Creatinine 3.57 H (0.6-1.4) mg/dl Lactate 4.4 H* (0.4-2.0) mmol/L Troponin I 0.032 (0-0.045) ng/ml BMP 07/13/20 18:18 Sodium 132 L Potassium 3.9 Chloride 97 L Carbon Dioxide 25 BUN 107 H Creatinine 3.57 H Glucose 174 H Calcium 9.6 Cardiac Enzymes 07/13/20 Range/Units 18:18 Troponin I 0.032 (0-0.045) ng/ml Liver Function 07/13/20 Range/Units 18:18 Total Bilirubin 0.7 (0.2-1) mg/dl AST 42 H (15-37) U/L ALT 41 (12-78) U/L Alkaline Phosphatase 117 (45-117) U/L Albumin 4.0 (3.4-5.0) gm/dl Urine 07/13/20 Range/Units 19:25 Urine Color Yellow Urine Appearance Clear (Clear) Urine pH 5.0 (4.5-7.5) Ur Specific [place] 1.013 (1.000-1.030) Urine Protein Negative (Negative) Urine Glucose (UA) Negative (Negative) Diagnostic Findings CT Head: IMPRESSION: No acute intracranial abnormality. CXR: IMPRESSION: 1. Cardiomegaly with mild pulmonary vascular congestion. 2. Trace left and small right pleural effusions. Supervising Physician Co-Signing Physician Notes IM ATTENDING : Patient seen and examined. History obtained from patient and records. Preceding documentation by Ms. Jennifer Canada PA-C reviewed. In addition, patient complaining of right chest pain. Right chest wall tenderness on exam. Rectal exam : Intact sphincter, brown stool, heme-negative CT chest initial read showed nondisplaced fracture right fifth rib. Right pleural effusion not likely hemothorax due to absence of radiodense component as per conversation with teleradiologist. FINAL ASSESSMENT AND PLAN as follows : Transient unresponsiveness Syncope from possible orthostasis due to hypovolemia, ARF on CKD versus seizure Acute on chronic anemia, patient symptomatic with exertional S OB symptoms Hemoglobin drop from baseline No obvious source of bleed for now. Traumatic right rib fracture hx CAD status post CABG Chronic systolic heart failure secondary to ischemic cardiomyopathy (EF 40 to 45%, TTE 2019), patient intravascularly dry hx chronic right pleural effusion as per records hypertension, BP on the lower side hyperlipidemia/statin intolerance on PCSK9 tx DM2 on oral medications, well-controlled as of recent outpatient hemoglobin A1c of 5.7, March 2020 chronic hyponatremia Medical telemetry Check orthostatic vitals Seizure precautions, Ativan as needed EEG, MRI brain for seizure work-up Neurology consult Re: Possible seizures Monitor creatinine response to gentle hydration Appropriate to hold home diuretic, ARB for now until creatinine back to baseline Renal ultrasound, Nephrology consult if kidney function does not improve. Anemia work-up, transfuse PRBC to maintain hemoglobin greater than 8 (Patient currently refusing blood transfusion.) Lidoderm patch trial for right rib fracture ISS BG goal [id number] PT OT eval DVT prophylaxis. Heparin subcu Full code Text document was generated using [email or web address] voice recognition software. It may contain grammatical or spelling errors. Kindly contact undersigned for clarification of any documentation item in question.
[2020-07-13 20:12] LABS: Partial Thromboplastin Time > 139.0 Seconds (21.0-31.0)
[2020-07-13] MEDS ORDERED: oxyCODONE HCL IR 5 MG TAB (IMMEDIATE RELEASE) PO STA (21:02)
[2020-07-13 21:13] LABS: Reticulocyte % 1.7 % (0.5-2.0); Reticulocytes # 0.05 10^6/uL (0.02-0.10)
[2020-07-13 21:31] LABS: BUN Creatinine Ratio 30.4 (10-20); Calcium 9.5 mg/dl (8.5-10.1); Creatinine Clr Calc Pharmacy 15.3 ml/min; Est GFR (African American) 19.1; Est GFR (Non-African American) 16.4; Potassium 4.1 mmol/L (3.5-5.1)
--- NOTE | 2020-07-13 21:34 | XRay Report ---
XR ribs RT min 2V HISTORY: 85 years-old Male R chest pain . Right-sided chest pain without reported trauma COMPARISON: Chest radiograph of same day TECHNIQUE: 4 views the right ribs FINDINGS: Cardiomegaly. Prior median sternotomy. Pulmonary vascular congestion with small right pleural effusio n. Degenerative changes of the shoulders and spine. Subtle acute nondisplaced fracture of the anterol ateral right sixth rib. No acute displaced fracture identified. IMPRESSION: 1. Subtle acute nondisplaced fracture of the anterolateral right sixth rib. 2. No acute displaced rib fracture identified. ACT 112: Negative or not required by law. The above report was generated using voice recognition software. It may contain grammatical, syntax o r spelling errors. Electronically signed by: Preston Meraz M.D. 07/13/2020 9:33 PM
[2020-07-13 21:36] LABS: Ferritin 231.7 ng/ml (8-388)
[2020-07-13 21:57] LABS: Folate (Folic Acid) > 20.00 ng/ml (>5.38); Vitamin B12 1144 pg/ml (193-986)
[2020-07-13] MEDS ORDERED: DEXTROSE 50% 50 ML SYRINGE IV PRN (22:41)
[2020-07-13] MEDS ORDERED: GLUCOSE 40% GEL 15 GM TUBE PO PRN (22:41)
[2020-07-13] MEDS ORDERED: ACETAMINOPHEN 325 MG TAB PO PRN (22:41)
[2020-07-13] MEDS ORDERED: CARBOHYDRATES FOR HYPOGLYCEMIA PO PRN (22:41)
[2020-07-13] MEDS ORDERED: oxyCODONE HCL IR 5 MG TAB (IMMEDIATE RELEASE) PO PRN (22:41)
[2020-07-13] MEDS ORDERED: GLUCOSE 10 TABS/TUBE PO PRN (22:41)
[2020-07-13] MEDS ORDERED: GLUCAGON FOR INJ 1 MG VIAL SQ PRN (22:41)
[2020-07-13] MEDS: FAMOTIDINE 20 MG TAB PO SCH (23:30)
[2020-07-13] MEDS: ISOSORBIDE MONO EXTENDED REL 60 MG TABCR PO SCH (23:30)
[2020-07-13] MEDS: INSULIN ASPART 100 UNITS/ML 3 ML PEN SC SCH (23:34)
[2020-07-14] MEDS: LIDOCAINE 5% 1 PATCH TD SCH ×2 (00:52→20:56)
--- NOTE | 2020-07-14 07:39 | CT Scan Report ---
CT chest diagnostic wo con CT DOSE: 286.24 mGy.cm HISTORY: R chest pain, rib fx ro hemothorax TECHNIQUE: Multiaxial CT images of the chest were performed without contrast. A dose lowering techni que was utilized adhering to the principles of ALARA. COMPARISON: Chest CT 04/01/2020. FINDINGS: Nondisplaced right anterior fifth and sixth rib fractures. There are poststernotomy changes . Limited views of the upper abdomen demonstrate a normal liver, spleen, and adrenal glands. There is an anterior hernia with a short segment of the transverse colon extending into the epicardial space. No significant mass effect along the enlarged heart. Mild mediastinal and bilateral hilar lymphadeno imelda remains unchanged. Normal esophagus. Moderate right and small left pleural effusions are also u nchanged. Calcified plaque within the normal caliber thoracic aorta. No pneumothorax. Diffuse interlo bular septal thickening consistent with pulmonary edema. Patchy densities within the right lung poste riorly favors compressive atelectasis from the pleural effusions. There are also hazy groundglass den sities within the lungs. This also likely represents a component of the moderate pulmonary edema. IMPRESSION: 1. Nondisplaced right anterior fifth and sixth rib fractures. No pneumothorax. 2. No significant change in the moderate pulmonary edema and moderate right and small left pleural ef fusions. 3. There is a small anterior hernia with a short segment of the transverse colon extending into the e picardial space. This remains unchanged 4. Mild mediastinal and bilateral hilar lymphadenopathy is also unchanged. This could be secondary to the chronic pulmonary edema. ACT 112: Negative or not required by law. Electronically signed by: Pratik Alvares M.D. 07/14/2020 7:37 AM
[2020-07-14 07:57] LABS: Basophils # (auto) 0.02 K/uL (0-0.2); Basophils % (auto) 0.3 %; Eosinophils # (auto) 0.11 K/uL (0-0.5); Eosinophils % (auto) 1.8 %; Hematocrit (blood only) 22.6 % (42-52); Hemoglobin 7.5 g/dL (14.0-18.0); Immature Granulocytes # (auto) 0.01 K/uL (0.00-0.02); Immature Granulocytes % (auto) 0.2 %; Lymphocytes # (auto) 0.59 K/uL (1.2-3.4); Lymphocytes % (auto) 9.4 %; Mean Corpuscular Hemoglobin 28.6 pg (25-34); Mean Corpuscular Hgb Conc 33.2 g/dL (32-36); Mean Corpuscular Volume 86.3 fL (80-100); Mean Platelet Volume 9.2 fL (7.4-10.4); Monocytes # (auto) 0.47 K/uL (0.11-0.59); Monocytes % (auto) 7.5 %; Neutrophils # (auto) 5.08 K/uL (1.4-6.5); Neutrophils % (auto) 80.8 %; Platelet Count 213 K/uL (130-400); RDW Coefficient of Variation 17.1 % (11.5-14.5); RDW Standard Deviation 53.7 fL (36.4-46.3); Red Blood Count 2.62 M/uL (4.7-6.1); White Blood Count 6.28 K/uL (4.8-10.8)
[2020-07-14 08:27] LABS: RBC Morphology Unremarkable
[2020-07-14 08:28] LABS: Calcium 9.3 mg/dl (8.5-10.1); Creatinine Clr Calc Pharmacy 16.3 ml/min; Est GFR (African American) 20.5; Est GFR (Non-African American) 17.7; Potassium 4.1 mmol/L (3.5-5.1)
[2020-07-14] MEDS: ASPIRIN 81 MG ECTAB PO SCH (09:14)
[2020-07-14] MEDS: ISOSORBIDE MONO EXTENDED REL 60 MG TABCR PO SCH ×2 (09:16→20:55)
[2020-07-14] MEDS: CLOPIDOGREL BISULFATE 75 MG TAB PO SCH (09:16)
[2020-07-14] MEDS: FAMOTIDINE 20 MG TAB PO SCH ×2 (09:16→20:55)
[2020-07-14] MEDS: HEPARIN SOD 5,000 UNIT/0.5 ML VIAL SQ SCH ×3 (09:17→20:59)
[2020-07-14] MEDS: IRON POLYSACCHARIDE COMPLEX 150 MG CAPSULE PO SCH (09:17)
[2020-07-14] MEDS: METOPROLOL SUCC 25MG EXT REL TAB PO SCH (09:17)
[2020-07-14] MEDS: INSULIN ASPART 100 UNITS/ML 3 ML PEN SC SCH ×4 (09:18→20:56)
--- NOTE | 2020-07-14 10:17 | Nephrology Consultation ---
Date of Consultation July 14, 2020 Assessment & Plan (1) Acute kidney injury superimposed on CKD: Current baseline creatinine around 1.5 Present PURVI, likely secondary to ischemic ATN, secondary to over diuresis and hypotension, UA is essentially bland, -Agree with gentle fluid rehydration -Continue to withhold losartan furosemide and metolazone(I doubt he needs dual diuretic) -Daily weights, and input and output charting/ Urine electrolytes today/, renal ultrasound. -Try to maintain above 165 -Avoid all nephrotoxic's -Contrast only if it is lifesaving. -Daily BMP. (2) Syncope: -Has been investigated by primary -Agree multifactorial, -Has low Hb but there is no overt signs of bleeding this needs further investigating. -We will do iron studies, repleted would need EPO, (3) Chronic anemia: History of Present Illness Attending Physician: Noe Martell MD History of Present Illness 85-year-old with past medical history of Cardiac bypass 2005, NSTEMI 2019,(2019 - cath, 3 out of 5 bypass grafts occluded, medical management advised) ,systolic heart failure with a EF of 40 to 45% CKD stage III ,baseline creatinine of 1.5 ,suboptimal diabetes and chronic anemia, with chronic hypoxic respiratory failure on 2 L of home oxygen presented to the ER after a fall, patient was reported to be shaking with seizure-like activity and was noted to be incontinent. He is on 80/60 mg of furosemide with 2.5 mg metolazone Thursday and Thursday and he has been strictly adhering to 4 cups of fluid per day.blood pressure in the ER was 114/70. Other significant labs was, BUN/creatinine 07/3.5 with a lactate of 4.4 and hb -7.8 CT scan of the head was essentially negative for any acute pathology, but did show multiple rib fractures most consistent with chronic pulmonary congestion. He was started on fluid resuscitation cannot say how much he received, UOP in the last 24 hours up to 525 mL, weight on admission 71.8 kg. Admitted under medicine team for further follow-up regards to the etiology of his fall. Nephrology: For the management of PURVI. Allergies Allergy/AdvReac Type Severity Reaction Status Date / Time atorvastatin AdvReac Unknown Unknown Verified 07/13/20 20:09 ezetimibe AdvReac Unknown Unknown Verified 07/13/20 20:09 lisinopril AdvReac Unknown Cough Verified 07/13/20 20:09 simvastatin AdvReac Unknown Unknown Verified 07/13/20 20:09 Home Medications Medication Instructions Recorded Confirmed Type aspirin 81 mg PO DAILY 06/21/18 07/13/20 History betamethasone, augmented 1 applic TOPICAL BID PRN 06/21/18 07/13/20 History clopidogrel [Plavix] 75 mg PO DAILY 06/21/18 07/13/20 History cyanocobalamin (vitamin B-12) 1,000 mcg PO DAILY 06/21/18 07/13/20 History famotidine 20 mg PO BID 06/21/18 07/13/20 History metformin 1,000 mg PO BID 06/21/18 07/13/20 History nitroglycerin 0.4 mg SUBLINGUAL DIRECTED PRN 06/21/18 07/13/20 History polysaccharide iron complex 150 mg PO DAILY 06/21/18 07/13/20 History Praluent Pen 75 mg SUBCUT .Q14 DAYS 03/12/20 07/13/20 History isosorbide mononitrate 60 mg PO BID 03/31/20 07/13/20 History furosemide 80 mg PO QAM #60 tab 04/19/20 07/13/20 Rx furosemide 60 mg PO QPM #60 tab 05/03/20 07/13/20 Rx losartan 25 mg PO QAM #30 tab 05/03/20 07/13/20 Rx metolazone 2.5 mg PO .Thursday/Thursday #10 tab 05/03/20 07/13/20 Rx metoprolol succinate 25 mg PO QAM #30 tab 05/03/20 07/13/20 Rx ammonium lactate 1 applic TOPICAL BID 07/13/20 07/13/20 History potassium chloride 40 meq PO 2XWK 07/13/20 07/13/20 History Patient History Medical History (Updated 07/14/20 @ 10:13 by Tami Aguilar MD) Anemia CAD (coronary artery disease) 2006 - CABG x 5 2019 - cath, 3 out of 5 bypass grafts occluded, medical management advised Chronic systolic CHF (congestive heart failure) Diabetes mellitus, type II Elevated troponin GERD (gastroesophageal reflux disease) HLD (hyperlipidemia) statin intolerant, on Praluent injections HTN (hypertension) Ischemic cardiomyopathy Mitral regurgitation Productive cough Prostatitis SOB (shortness of breath) Surgical History History of coronary artery bypass graft 2005- [place] Family History Other Coronary heart disease Diabetes Social History Smoking Status: Never smoker Second Hand Exposure: No; Do You Dip or Chew Tobacco: No; Tobacco Cessation Education Requested by Patient: No Hx Alcohol Use: No Hx Substance Use: No Preferred Language: Indonesian Communication Ability: Effective Bingo Usher Required: No Beliefs That Will Affect Care: None marital status: Current Living Situation: Spouse Current Living Situation Comment: at home with Other Information That Helps Us Care for You: No Feels Safe at Home: Yes Safety Concerns: Feels Safe At This Time Assistive Devices: Glasses, Oxygen - at Night and Oxygen - Continuous Review of Systems Review of Systems: All systems reviewed & are unremarkable except as noted in HPI & below Physical Exam Physical Exam: General exam: Appears comfortable, no acute distress HEENT: Pupils are equal and reactive to light Neck: No JVD, neck is supple trachea is midline Respiratory system: Ocassionall crackles bilaterally. Gastrointestinal: Abdomen is soft, non distended, non tender, bowel sounds are present CVS: Regular rate and rhythm. No murmurs, rubs or gallops Musculoskeletal: No joint or muscle tenderness Extremities: no edema, peripheral pulses are present Neuro: Oriented, no tremors, no focal neurological deficits Skin: No rashes Results & Data ([facility]) Vital Signs (Past 12 Hours) Vital Signs Temp Pulse Pulse Resp BP Pulse Ox 07/14/20 08:00 36.6 C 70 18 95/56 L 97 07/14/20 03:02 36.3 C L 76 20 90/64 L 96 07/13/20 23:41 91 H 07/13/20 22:48 36.8 C 88 18 112/65 100 Laboratory Results 07/14/20 07:43 07/14/20 07:43
[2020-07-14 11:32] LABS: Creatinine Urine Random 62.1 mg/dl
--- NOTE | 2020-07-14 13:16 | Electrocardiogram Report ---
Test Reason : Blood Pressure : / mmHG Vent. Rate : 081 BPM Atrial Rate : 081 BPM P-R Int : 260 ms QRS Dur : 144 ms QT Int : 436 ms P-R-T Axes : 058 -50 076 degrees QTc Int : 506 ms Sinus rhythm with 1st degree A-V block Possible Left atrial enlargement Right bundle branch block Left anterior fascicular block Bifascicular block T wave abnormality, consider lateral ischemia Abnormal ECG When compared with ECG of 30-APR-2020 13:27, Left anterior fascicular block is now Present Confirmed by Walter Song ([id number]) on 07/14/2020 1:15:58 PM Referred By: REFERRED SELF Confirmed By:Walter Song
--- NOTE | 2020-07-14 14:26 | Ultrasound Report ---
BILATERAL CAROTID DOPPLER STUDY HISTORY: new seizure COMPARISON: None. TECHNIQUE: Real-time, grayscale, and color Doppler sonography of the carotid arteries was performed. Imaging reviewed in the transverse and longitudinal planes. All measurements were calculated based on NASCET criteria. FINDINGS: Antegrade flow is seen in the bilateral vertebral arteries. The brachial pressures are hemodynamically similar. Moderate calcified plaque seen within the bilateral carotid arteries, right greater than left. The peak systolic velocity within the right ICA is 166 cm/s, proximally. The right systolic ratio is 2.6. The peak systolic velocity within the left ICA is 87 cm/s. The left systolic ratio is 1.0. Moderate stenosis within the right external carotid artery due to the calcified plaque. IMPRESSION: 1. Approximately 50-69% stenosis within the proximal right internal carotid artery. 2. Moderate stenosis within the right external carotid artery. 3. No significant stenosis within the left carotid arteries. ACT 112: Negative or not required by law. Electronically signed by: Pratik Alvares M.D. 07/14/2020 2:25 PM
--- NOTE | 2020-07-14 14:34 | Ultrasound Report ---
RENAL ULTRASOUND HISTORY: acute kidney injury COMPARISON: None. FINDINGS: Right kidney: 10.7 cm. No hydronephrosis. Normal corticomedullary differentiation and cortical thickn ess. Left kidney: 10.9 cm. No hydronephrosis. Normal corticomedullary differentiation and cortical thickne ss. Bladder: No bladder wall thickening. The bilateral ureteral jets were identified. Trace fluid adjacent to the liver and right kidney. IMPRESSION: Normal renal ultrasound. ACT 112: Negative or not required by law. Electronically signed by: Pratik Alvares M.D. 07/14/2020 2:32 PM
--- NOTE | 2020-07-14 14:39 | Progress Notes ---
DATE: 07/14/2020 REASON FOR CONSULTATION: Possible seizure. HISTORY OF PRESENT ILLNESS: The patient is an 85-year-old right-handed male with multiple medical comorbidities. He was in his usual state of poor health as self described yesterday. He was at a gas station and walked about 50 feet, felt short of breath and indicated to me that he sat himself down, but it was a hard sit. He apparently lost consciousness and the next thing he knew bystanders were around him. He denies that he was disoriented, but it is reported that he had shaking and seizure-like activity and was incontinent. He did not bite his tongue or injure himself. Upon awakening, he did not have any headache, unilateral weakness or numbness. None of his medicines were new or changed in dose. There was no medication withdrawal. He does not typically wear oxygen during daytime. No history of seizure, stroke, syncope. The patient has been on fluid restriction. No fevers, chills, sweats vision changes, neck pain, palpitations, increased cough and sore throat. The patient was hypothermic to 35.6. In the Emergency Room, O2 sat was 67% when the patient was lying down, 100% on 4 liters of oxygen, with upright seated his creatinine had risen to 3.5. Lactate 4.4, normal white count and mildly elevated troponin. CT of the head noncontrast showed no acute abnormality. There is ex vacuo dilatation. PAST MEDICAL HISTORY: As above including coronary artery disease, diabetes, chronically elevated troponin, hyperlipidemia, hypertension, ischemic cardiomyopathy, mitral regurg, productive cough, prostatitis. SURGICAL HISTORY: Bypass. FAMILY HISTORY: Coronary artery disease, diabetes. SOCIAL HISTORY: Nonsmoker, nondrinker. The patient lives with his . ALLERGIES: ATORVASTATIN, EZETIMIBE, LISINOPRIL, SIMVASTATIN. HOME MEDICATIONS: Include ammonium lactate topical, aspirin, betamethasone, Plavix, B12, famotidine, furosemide, isosorbide, losartan, metformin, metaxalone, metoprolol, nitroglycerin, polysaccharide iron complex, potassium, Praluent Pen. PHYSICAL EXAMINATION: VITAL SIGNS: Blood pressure intermittently has been in the 90s, most recent temperature 36.3, 75 pulse, respirations 18, blood pressure 100/60, 99% O2 sat on nasal cannula 2 liters. GENERAL: The patient is mildly tachypneic with speech. He is alert and oriented x3. NECK: There are no carotid bruits. HEART: No heart murmurs. Heart is regular rate and rhythm. NEUROLOGIC: Pupils are equal. I could not visualize the optic nerves. Normal mckeon, motility, facial symmetry. Symmetric strength, reflexes. Downgoing toes. [id number] and [id number] are nondystaxic. Sensation is intact to light touch. IMPRESSION: Probable syncopal seizure related to hypoxemia hypovolemia, query cardiac event. PLAN: MRI brain with and without contrast, carotid ultrasound, echo to rule out clot and EEG. I would not treat if EEG is normal. We will follow with you.
--- NOTE | 2020-07-14 15:33 | Magnetic Resonance Report ---
Brain MRI WITH AND WITHOUT CONTRAST HISTORY: poss seizures TECHNIQUE: Multiplanar multisequence MRI of the brain was performed both before and after the intrave nous administration of contrast. COMPARISON STUDY: Head CT 07/13/2020. FINDINGS: There is no mass, hematoma, midline shift, or acute infarct. The paranasal sinuses are lan r. The mastoid air cells are clear. The ventricles and sulci demonstrate moderate age-related involut ional changes. Scattered foci of T2 hyperintensity seen within the periventricular and subcortical wh ite matter are nonspecific but suggestive of mild microvascular ischemic changes. The major vascular flow voids at the skull base are well-maintained. There is a punctate hypointense focus within the le ft middle cerebellar peduncle best seen on axial image 17. This could represent a small amount of min eralization or old hemorrhage. No acute hemorrhage identified on the recent CT examination. There are old small lacunar infarcts seen within the bilateral cerebellar hemispheres. Bilateral temporal lobe s are symmetric. IMPRESSION: No acute intracranial abnormality. Scattered foci of T2 hyperintensity seen within the periventricula r and subcortical white matter are nonspecific but favor microvascular ischemic change. Old lacunar i nfarcts within the bilateral cerebellar hemispheres. ACT 112: Negative or not required by law. Electronically signed by: Pratik Alvares M.D. 07/14/2020 3:32 PM
--- NOTE | 2020-07-14 16:32 | Hospitalist Progress Note ---
Date of Service July 14, 2020 Assessment & Plan (1) Seizure-like activity: Syncope Possible Seizure Hypovolemia due to overdiuresis likely contributory -MRI Brain:No acute intracranial abnormality. Scattered foci of T2 hyperintensity seen within the periventricular and subcortical white matter are nonspecific but favor microvascular ischemic change. 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 -Carotid USD:Approximately 50-69% stenosis within the proximal right internal carotid artery. Moderate stenosis within the right external carotid artery. No significant stenosis within the left carotid arteries. -Negative Orthostatics -Fall precautions -Neurology Consulted -Check ECHO PURVI on CKD III Likely prerenal, possible ischemic ATN secondary to overdiuresis/Hypotension Lactic acidosis likely secondary to renal failure Baseline creatinine 1.5 Renal USD:Normal renal ultrasound. Cr:3.2>3.0 Hold home diuretics, losartan Monitor renal function Avoid nephrotoxic agents as able Continue gentle IV hydration Appreciate nephrology input Anemia of chronic disease Denies any acute bleeding issues Symptomatic anemia Iron panel, vitamin B12, folate levels within normal limits Monitor hemoglobin Currently patient not interested in PRBC transfusion Traumatic right rib fracture CXR:Subtle acute nondisplaced fracture of the anterolateral right sixth rib. Denies any significant pain Continue incentive spirometry Chronic bilateral pleural effusion H/O Ischemic cardiomyopathy No significant change from prior imaging EF: 40 to 45% Resume home diuretics decrease dose as able H/O CAD S/P CABG Continue aspirin, metoprolol, Imdur H/O statin intolerance DM II HbA1C:5.7 Hold p.o. meds Continue insulin therapy while hospitalized Chronic hyponatremia Likely secondary to diuretics Monitor sodium levels DVT Px: Heparin SQ CODE STATUS Full code Disposition PT OT prior to discharge Admission and Anticipated Discharge Date Admission Date: July 13, 2020 Subjective Patient is seen and examined at bedside No specific complaints States feeling better today Denies chest pain, dyspnea, dizziness, nausea, abdominal pain Discussed with nephrology today Review of Systems Review of Systems: All systems reviewed & are unremarkable except as noted in HPI & below Physical Exam Physical Exam: Physical Exam: Vitals signs as noted above General Appearance:Moderately built and nourished, no apparent distress Head: normocephalic, Atraumatic Eyes: normal inspection, EOMI Neck: supple, Trachea midline Respiratory/Chest: Normal breath sounds, Minimal basal crackles Cardiovascular: S1, S2, + murmur Abdomen/GI:Soft, Non tender, Bowel sounds present Extremities/Musculoskelatal:normal inspection, no edema Neurologic/Psych:AAOX3, grossly no focal neurological deficits Skin: normal color, warm Results & Data Results & [facility] ([facility]) Vital Signs (Past 12 Hours) Vital Signs Temp Pulse Pulse Resp BP Pulse Ox 07/14/20 11:00 36.3 C L 75 18 100/67 99 07/14/20 08:00 36.6 C 75 70 18 95/56 L 97 Laboratory Results Short CBC 07/13/20 07/14/20 Range/Units 18:18 07:43 WBC 7.04 6.28 (4.8-10.8) K/uL Hgb 7.8 L 7.5 L (14.0-18.0) g/dL Hct 23.3 L 22.6 L (42-52) % Plt Count 236 213 (130-400) K/uL BMP 07/13/20 07/13/20 07/14/20 18:18 20:57 07:43 Sodium 132 L 130 L 133 L Potassium 3.9 4.1 4.1 Chloride 97 L 97 L 100 Carbon Dioxide 25 26 25 BUN 107 H 98 H 94 H Creatinine 3.57 H 3.23 H D 3.04 H Glucose 174 H 124 H 113 H Calcium 9.6 9.5 9.3 Cardiac Enzymes 07/13/20 Range/Units 18:18 Total Creatine Kinase 87 (39-308) U/L Troponin I 0.032 (0-0.045) ng/ml Liver Function 07/13/20 Range/Units 18:18 Total Bilirubin 0.7 (0.2-1) mg/dl AST 42 H (15-37) U/L ALT 41 (12-78) U/L Alkaline Phosphatase 117 (45-117) U/L Albumin 4.0 (3.4-5.0) gm/dl Urine 07/13/20 Range/Units 19:25 Urine Color Yellow Urine Appearance Clear (Clear) Urine pH 5.0 (4.5-7.5) Ur Specific [place] 1.013 (1.000-1.030) Urine Protein Negative (Negative) Urine Glucose (UA) Negative (Negative)
[2020-07-14] MEDS ORDERED: SODIUM CHLORIDE 0.9% 500 ML IV ONE (17:43)
[2020-07-15] MEDS: HEPARIN SOD 5,000 UNIT/0.5 ML VIAL SQ SCH ×3 (06:03→21:13)
[2020-07-15 06:09] LABS: Hematocrit (blood only) 22.9 % (42-52); Hemoglobin 7.7 g/dL (14.0-18.0); Mean Corpuscular Hemoglobin 28.7 pg (25-34); Mean Corpuscular Hgb Conc 33.6 g/dL (32-36); Mean Corpuscular Volume 85.4 fL (80-100); Mean Platelet Volume 9.7 fL (7.4-10.4); Platelet Count 246 K/uL (130-400); RDW Coefficient of Variation 17.3 % (11.5-14.5); RDW Standard Deviation 54.2 fL (36.4-46.3); Red Blood Count 2.68 M/uL (4.7-6.1); White Blood Count 6.46 K/uL (4.8-10.8)
[2020-07-15 06:45] LABS: BUN Creatinine Ratio 29.6 (10-20); Calcium 9.5 mg/dl (8.5-10.1); Creatinine Clr Calc Pharmacy 17.6 ml/min; Est GFR (African American) 22.5; Est GFR (Non-African American) 19.4; Magnesium 2.1 mg/dl (1.8-2.4); Potassium 4.1 mmol/L (3.5-5.1)
--- NOTE | 2020-07-15 09:05 | Nephrology Progress Note ---
Date of Service July 15, 2020 Assessment & Plan (1) Acute kidney injury superimposed on CKD: Current baseline creatinine around 1.5 Present PURVI, likely secondary to ischemic ATN, secondary to over diuresis and hypotension, - Renal function continue to improve, UOP > 1 lit - UA is essentially bland,USS - Essentially normal. -Urine lytes- likley ATN, -Agree with gentle fluid rehydration or Oral intake.( fluids have been stopped today) -Continue to withhold losartan furosemide and metolazone(I doubt he needs dual diuretic), this can be started as outpatinet. -Daily weights, and input and output charting/ -Urine electrolytes today/, renal ultrasound. -Avoid all nephrotoxic's -Contrast only if it is lifesaving. -Daily BMP. - (2) Syncope: -Has been investigated by primary -Has low Hb but there is no overt signs of bleeding, does not transfusion. - Iron replete, can be started on EPo if all Inx is negative. (3) Chronic anemia: As above. Admission and Anticipated Discharge Date Admission Date: July 13, 2020 Subjective Well, no complains, wants to go home. Denies chest pain, dyspnea, dizziness, nausea, abdominal pain Review of Systems Review of Systems: All systems reviewed & are unremarkable except as noted in HPI & below Physical Exam Physical Exam: General exam: Appears comfortable, no acute distress HEENT: Pupils are equal and reactive to light Neck: No JVD, neck is supple trachea is midline Respiratory system: Ocassionall crackles bilaterally. Gastrointestinal: Abdomen is soft, non distended, non tender, bowel sounds are present CVS: Regular rate and rhythm. No murmurs, rubs or gallops Musculoskeletal: No joint or muscle tenderness Extremities: no edema, peripheral pulses are present Neuro: Oriented, no tremors, no focal neurological deficits Skin: No rashes Results & Data ([facility]) Vital Signs (Past 12 Hours) Vital Signs Temp Pulse Pulse Resp BP Pulse Ox 07/15/20 07:54 36.6 C 87 18 106/67 95 07/15/20 07:39 81 07/15/20 04:00 37.0 C 80 18 117/71 95 07/15/20 01:00 87 07/14/20 22:00 36.7 C 69 18 101/63 100 Laboratory Results 07/15/20 05:43 07/15/20 05:43
[2020-07-15] MEDS: IRON POLYSACCHARIDE COMPLEX 150 MG CAPSULE PO SCH (09:24)
[2020-07-15] MEDS: ASPIRIN 81 MG ECTAB PO SCH (09:25)
[2020-07-15] MEDS: ISOSORBIDE MONO EXTENDED REL 60 MG TABCR PO SCH ×2 (09:25→21:13)
[2020-07-15] MEDS: METOPROLOL SUCC 25MG EXT REL TAB PO SCH (09:25)
[2020-07-15] MEDS: FAMOTIDINE 20 MG TAB PO SCH ×2 (09:25→21:13)
[2020-07-15] MEDS: CLOPIDOGREL BISULFATE 75 MG TAB PO SCH (09:25)
[2020-07-15] MEDS: INSULIN ASPART 100 UNITS/ML 3 ML PEN SC SCH ×4 (09:26→21:07)
--- NOTE | 2020-07-15 14:40 | Progress Notes ---
DATE: 07/15/2020 SUBJECTIVE: I seeing the patient in followup of an episode of loss of consciousness, short of breath on walking in a gas station. His MRI of the brain showed lacunar disease, no acute abnormality. Carotid ultrasound showed right internal carotid stenosis of 50-69% and his EEG has not yet been done. The patient has not had any recurrent episodes and is awake and alert without complaint. IMPRESSION: 1. Right internal carotid stenosis of 50-69%. I would recommend a followup carotid ultrasound in 6 months and then yearly thereafter with referral to Vascular Surgery if the degree of narrowing is greater than 70%. 2. Suspect that this patient's brief seizure activity was related to hypoxemia versus hypotension related to hypovolemia. If the EEG is normal, then would not recommend treatment with anticonvulsants. I would, however, recommend restriction from driving. Will sign off and will review EEG results when done. [place]
--- NOTE | 2020-07-15 17:49 | Hospitalist Progress Note ---
Date of Service July 15, 2020 Assessment & Plan (1) Seizure-like activity: Syncope Possible Seizure Hypovolemia due to overdiuresis likely contributory -MRI Brain:No acute intracranial abnormality. Scattered foci of T2 hyperintensity seen within the periventricular and subcortical white matter are nonspecific but favor microvascular ischemic change. 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 -Carotid USD:Approximately 50-69% stenosis within the proximal right internal carotid artery. Moderate stenosis within the right external carotid artery. No significant stenosis within the left carotid arteries. -Negative Orthostatics -ECHO: Left ventricle is severely dilated. Right ventricle is moderate to severely dilated. EF 25 to 30%. Severe inferior wall hypokinesis. Severe septal hypokinesis. Severe lateral wall hypokinesis. Right ventricle systolic function is moderately severely reduced. Left atrium is severely dilated. Right atrium is severely dilated. Severe mitral regurgitation, tricuspid regurgitation. -Fall precautions -Appreciate Neurology Input -Needs repeat carotid ultrasound in 6 months -EEG pending -Will advise to follow-up with cardiology as outpatient PURVI on CKD III Likely prerenal, possible ischemic ATN secondary to overdiuresis/Hypotension Lactic acidosis likely secondary to renal failure Baseline creatinine 1.5 Renal USD:Normal renal ultrasound. Cr:3.2>3.0>2.8 Hold home diuretics, losartan Monitor renal function Avoid nephrotoxic agents as able Received gentle IV fluids Appreciate nephrology input Anemia of chronic disease Denies any acute bleeding issues Symptomatic anemia Iron panel, vitamin B12, folate levels within normal limits Monitor hemoglobin Currently patient not interested in PRBC transfusion Traumatic right rib fracture CXR:Subtle acute nondisplaced fracture of the anterolateral right sixth rib. Denies any significant pain Continue incentive spirometry Chronic bilateral pleural effusion H/O Ischemic cardiomyopathy Pleural effusion: No significant change from prior imaging ECHO as above Resume home diuretics as able H/O CAD S/P CABG Continue aspirin, metoprolol, Imdur H/O statin intolerance DM II HbA1C:5.7 Hold p.o. meds Continue insulin therapy while hospitalized Chronic hyponatremia Likely secondary to diuretics Monitor sodium levels Resolved DVT Px: Heparin SQ CODE STATUS Full code Disposition PT OT prior to discharge Admission and Anticipated Discharge Date Admission Date: July 13, 2020 Subjective Patient is seen and examined at bedside Eager to get discharged Renal functioning improving PT/OT, EEG pending Denies chest pain, dyspnea, dizziness, nausea, abdominal pain Discussed with nephrology today Review of Systems Review of Systems: All systems reviewed & are unremarkable except as noted in HPI & below Physical Exam Physical Exam: Physical Exam: Vitals signs as noted above General Appearance:Moderately built and nourished, no apparent distress Head: normocephalic, Atraumatic Eyes: normal inspection, EOMI Neck: supple, Trachea midline Respiratory/Chest: Normal breath sounds, Minimal basal crackles Cardiovascular: S1, S2, + murmur Abdomen/GI:Soft, Non tender, Bowel sounds present Extremities/Musculoskelatal:normal inspection, no edema Neurologic/Psych:AAOX3, grossly no focal neurological deficits Skin: normal color, warm Results & Data Results & Data ([place]) Vital Signs (Past 12 Hours) Vital Signs Temp Pulse Pulse Resp BP BP Pulse Ox 07/15/20 14:55 88 07/15/20 14:46 36.0 C L 97 H 20 99/62 L 100 07/15/20 12:02 35.6 C L 93 H 20 116/76 100 07/15/20 07:54 36.6 C 87 18 106/67 95 07/15/20 07:39 81 Laboratory Results Short CBC 07/15/20 Range/Units 05:43 WBC 6.46 (4.8-10.8) K/uL Hgb 7.7 L (14.0-18.0) g/dL Hct 22.9 L (42-52) % Plt Count 246 (130-400) K/uL BMP 07/15/20 05:43 Sodium 136 Potassium 4.1 Chloride 103 Carbon Dioxide 25 BUN 84 H Creatinine 2.82 H Glucose 110 H Calcium 9.5
[2020-07-15] MEDS: LIDOCAINE 5% 1 PATCH TD SCH (21:13)
[2020-07-16] MEDS: HEPARIN SOD 5,000 UNIT/0.5 ML VIAL SQ SCH ×2 (05:27→14:37)
[2020-07-16 07:38] LABS: Hemoglobin 8.6 g/dL (14.0-18.0); Mean Corpuscular Hgb Conc 33.1 g/dL (32-36); Mean Corpuscular Volume 87.5 fL (80-100); Mean Platelet Volume 9.8 fL (7.4-10.4); Platelet Count 271 K/uL (130-400); RDW Coefficient of Variation 17.4 % (11.5-14.5); RDW Standard Deviation 55.5 fL (36.4-46.3); Red Blood Count 2.97 M/uL (4.7-6.1); White Blood Count 8.02 K/uL (4.8-10.8)
[2020-07-16 08:06] LABS: Calcium 10.1 mg/dl (8.5-10.1); Creatinine Clr Calc Pharmacy 18.4 ml/min; Est GFR (African American) 23.8; Est GFR (Non-African American) 20.5
[2020-07-16] MEDS: FAMOTIDINE 20 MG TAB PO SCH (08:42)
[2020-07-16] MEDS: ISOSORBIDE MONO EXTENDED REL 60 MG TABCR PO SCH (08:42)
[2020-07-16] MEDS: METOPROLOL SUCC 25MG EXT REL TAB PO SCH (08:42)
[2020-07-16] MEDS: IRON POLYSACCHARIDE COMPLEX 150 MG CAPSULE PO SCH (08:42)
[2020-07-16] MEDS: CLOPIDOGREL BISULFATE 75 MG TAB PO SCH (08:43)
[2020-07-16] MEDS: ASPIRIN 81 MG ECTAB PO SCH (08:43)
[2020-07-16] MEDS: INSULIN ASPART 100 UNITS/ML 3 ML PEN SC SCH ×2 (08:45→12:41)
--- NOTE | 2020-07-16 09:22 | Electroencephalogram ---
EEG Procedure Note Date of Service July 16, 2020 Start / End Times Start Time: 10 17 End Time: Referring Physician Fanny Burks MD History Syncope versus seizure Home Medication List Medication Instructions Recorded Confirmed Type aspirin 81 mg PO DAILY 06/21/18 07/13/20 History betamethasone, augmented 1 applic TOPICAL BID PRN 06/21/18 07/13/20 History clopidogrel [Plavix] 75 mg PO DAILY 06/21/18 07/13/20 History cyanocobalamin (vitamin B-12) 1,000 mcg PO DAILY 06/21/18 07/13/20 History famotidine 20 mg PO BID 06/21/18 07/13/20 History metformin 1,000 mg PO BID 06/21/18 07/13/20 History nitroglycerin 0.4 mg SUBLINGUAL DIRECTED PRN 06/21/18 07/13/20 History polysaccharide iron complex 150 mg PO DAILY 06/21/18 07/13/20 History Praluent Pen 75 mg SUBCUT .Q14 DAYS 03/12/20 07/13/20 History isosorbide mononitrate 60 mg PO BID 03/31/20 07/13/20 History furosemide 80 mg PO QAM #60 tab 04/19/20 07/13/20 Rx furosemide 60 mg PO QPM #60 tab 05/03/20 07/13/20 Rx losartan 25 mg PO QAM #30 tab 05/03/20 07/13/20 Rx metolazone 2.5 mg PO .Thursday/Thursday #10 tab 05/03/20 07/13/20 Rx metoprolol succinate 25 mg PO QAM #30 tab 05/03/20 07/13/20 Rx ammonium lactate 1 applic TOPICAL BID 07/13/20 07/13/20 History potassium chloride 40 meq PO 2XWK 07/13/20 07/13/20 History Inpatient Medication List Aspirin (Aspirin 81 Mg Ectab) 81 mg PO DAILY [facility] Stop: 08/13/20 08:59 Last Admin: 07/16/20 08:43 Dose: 81 mg Documented by: [id number] Admin: 07/15/20 09:25 Dose: 81 mg Documented by: [id number] Admin: 07/14/20 09:14 Dose: 81 mg Documented by: [id number] Clopidogrel Bisulfate (Clopidogrel Bisulfate 75 Mg Tab) 75 mg PO DAILY [facility] Stop: 08/13/20 08:59 Last Admin: 07/16/20 08:43 Dose: 75 mg Documented by: [id number] Admin: 07/15/20 09:25 Dose: 75 mg Documented by: [id number] Admin: 07/14/20 09:16 Dose: 75 mg Documented by: [id number] Famotidine (Famotidine 20 Mg Tab) 20 mg PO BID [facility] Stop: 08/12/20 22:40 Last Admin: 07/16/20 08:42 Dose: 20 mg Documented by: [id number] Admin: 07/15/20 21:13 Dose: 20 mg Documented by: [id number] Admin: 07/15/20 09:25 Dose: 20 mg Documented by: [id number] Admin: 07/14/20 20:55 Dose: 20 mg Documented by: [id number] Admin: 07/14/20 09:16 Dose: 20 mg Documented by: [id number] Admin: 07/13/20 23:30 Dose: 20 mg Documented by: [id number] Heparin Sodium (Porcine) (Heparin Sod 5,000 Unit/0.5 Ml Vial) 5,000 units SQ Q8 [facility] Stop: 08/13/20 07:59 Last Admin: 07/16/20 05:27 Dose: 5,000 units Documented by: [id number] Admin: 07/15/20 21:13 Dose: 5,000 units Documented by: [id number] Admin: 07/15/20 14:32 Dose: 5,000 units Documented by: [id number] Admin: 07/15/20 06:03 Dose: 5,000 units Documented by: [id number] Admin: 07/14/20 20:59 Dose: 5,000 units Documented by: [id number] Admin: 07/14/20 13:56 Dose: Not Given Documented by: [id number] Admin: 07/14/20 09:17 Dose: 5,000 units Documented by: [id number] Insulin Aspart (Insulin Aspart 100 Units/Ml 3 Ml Pen) 0 units SC ACHS [facility] Stop: 08/12/20 22:40 Last Admin: 07/16/20 08:45 Dose: Not Given Documented by: [id number] Cosigned by: [id number] Admin: 07/15/20 21:07 Dose: Not Given Documented by: [id number] Cosigned by: [id number] Admin: 07/15/20 17:03 Dose: Not Given Documented by: [id number] Admin: 07/15/20 12:09 Dose: 2 units Documented by: [id number] Cosigned by: [id number] Admin: 07/15/20 09:26 Dose: 1 units Documented by: [id number] Cosigned by: [id number] Admin: 07/14/20 20:56 Dose: Not Given Documented by: [id number] Cosigned by: [id number] Admin: 07/14/20 16:58 Dose: 3 units Documented by: [id number] Cosigned by: [id number] Admin: 07/14/20 13:28 Dose: 3 units Documented by: [id number] Cosigned by: [id number] Admin: 07/14/20 09:18 Dose: Not Given Documented by: [id number] Cosigned by: [id number] Admin: 07/13/20 23:34 Dose: Not Given Documented by: [id number] Cosigned by: [id number] Isosorbide Mononitrate (Isosorbide Hand Extended Rel 60 Mg Tabcr) 60 mg PO BID [facility] Stop: 08/12/20 22:40 Last Admin: 07/16/20 08:42 Dose: 60 mg Documented by: [id number] Admin: 07/15/20 21:13 Dose: 60 mg Documented by: [id number] Admin: 07/15/20 09:25 Dose: 60 mg Documented by: [id number] Admin: 07/14/20 20:55 Dose: 60 mg Documented by: [id number] Admin: 07/14/20 09:16 Dose: Not Given Documented by: [id number] Admin: 07/13/20 23:30 Dose: 60 mg Documented by: [id number] Lidocaine (Lidocaine 5% 1 Patch) 1 patch TD HS [facility] Stop: 08/12/20 22:19 Last Admin: 07/15/20 21:13 Dose: 1 patch Documented by: [id number] Admin: 07/14/20 20:56 Dose: 1 patch Documented by: [id number] Admin: 07/14/20 00:52 Dose: 1 patch Documented by: [id number] Metoprolol Succinate (Metoprolol Succ 25mg Ext Rel Tab) 25 mg PO QAM [facility] Stop: 08/13/20 08:59 Last Admin: 07/16/20 08:42 Dose: 25 mg Documented by: [id number] Admin: 07/15/20 09:25 Dose: 25 mg Documented by: [id number] Admin: 07/14/20 09:17 Dose: Not Given Documented by: [id number] Miscellaneous (Remove Lidoderm Patch) 1 ea N/A QAM [facility] Stop: 08/13/20 08:59 Last Admin: 07/16/20 08:43 Dose: 1 ea Documented by: [id number] Admin: 07/15/20 09:27 Dose: 1 ea Documented by: [id number] Admin: 07/14/20 09:19 Dose: 1 ea Documented by: [id number] Polysaccharide Iron Complex (Iron Polysaccharide Complex 150 Mg Capsule) 150 mg PO DAILY [facility] Stop: 08/13/20 08:59 Last Admin: 07/16/20 08:42 Dose: 150 mg Documented by: [id number] Admin: 07/15/20 09:24 Dose: 150 mg Documented by: [id number] Admin: 07/14/20 09:17 Dose: 150 mg Documented by: [id number] Discontinued Medications Sodium Chloride (Nss 1000ml) 1,000 mls @ 999 mls/hr IV .Q1H1M ONE Stop: 07/13/20 18:36 Last Admin: 07/13/20 18:22 Dose: Not Given Documented by: [id number] Sodium Chloride (Nss 1000ml) 500 mls @ 999 mls/hr IV .Q31M ONE Stop: 07/13/20 18:20 Last Infusion: 07/13/20 19:38 Dose: 0 mls/hr Documented by: [id number] Infusion: 07/13/20 18:20 Dose: 500 mls/hr Documented by: [id number] Admin: 07/13/20 18:20 Dose: 999 mls/hr Documented by: [id number] Sodium Chloride (Nss 1000ml) 1,000 mls @ 60 mls/hr IV .[id number] ONE Stop: 07/14/20 12:19 Last Infusion: 07/14/20 12:41 Dose: 0 mls/hr Documented by: [id number] Admin: 07/13/20 20:17 Dose: 60 mls/hr Documented by: [id number] Sodium Chloride (Nss) 500 mls @ 50 mls/hr IV .Q10H ONE Stop: 07/15/20 03:42 Last Infusion: 07/15/20 04:24 Dose: 0 mls/hr Documented by: [id number] Admin: 07/14/20 18:09 Dose: 50 mls/hr Documented by: [id number] Oxycodone HCl (Oxycodone Hcl Ir 5 Mg Tab (Immediate Release)) 5 mg PO NOW STA Stop: 07/13/20 21:03 Last Admin: 07/13/20 21:36 Dose: Not Given Documented by: [id number] Description This is a 21 electrode EEG with a single channel dedicated to limited EKG. The electrodes were placed in accordance with the International 10-20 system. This EEG was obtained as a bedside recording is of excellent technical quality with few or no muscle movement artifacts photic stimulation was obtained. Hyperventilation was not. Drowsiness light sleep not recorded. During wakefulness there is evidence of background rhythm in the theta range of up to 8 Hz maximum frequency and of up to 20 V maximal amplitude which is maximum posterior head regions bilaterally symmetrical. Polymorphic mid to lower frequency modest voltage theta activity seen in symmetrical fashion over the central regions. Beta activity seen bifrontally Photic stimulation provokes minimal driving response No time during the waking tracing is evidence for potentially epileptogenic patterns Interpretation Mildly diffusely abnormal EEG without evidence for clear-cut focal encephal opathy or for potential epileptogenic patterns Clinical Correlation This EEG is at most mildly diffusely abnormal in a nonfocal fashion and reveals no associated potentially epileptogenic features Patric Araujo MD
--- NOTE | 2020-07-16 11:39 | Progress Notes ---
DATE: 07/16/2020 NEPHROLOGY PROGRESS NOTE SUBJECTIVE: Overnight, patient's clinical status remained stable. He is weak and somewhat short of breath with very poor exercise tolerance. OBJECTIVE: VITAL SIGNS: Blood pressure 110/74, pulse rate 93, temperature 36.4, 95% on 2 liters nasal cannula. HEENT: Mucous membranes moist. NECK: Supple. Jugular venous distention is present. CHEST: Bilaterally decreased breath sounds with basal crackles. CARDIOVASCULAR: S1 and S2 regular. Soft systolic murmur heard. ABDOMEN: Soft, nontender. EXTREMITIES: Show no lower extremity edema. LABORATORY TEST: From this morning shows slightly better BUN of 70, creatinine slightly down to 2.69. Sodium 135, potassium 4.0, bicarbonate 26, chloride 102. He just had an echocardiogram, which shows a significant drop in his ejection fraction and is down to 20% with severely dilated left ventricle as well as right ventricle. Renal ultrasound is normal. ASSESSMENT AND PLAN: An 85-year-old male with preexisting chronic kidney disease with a baseline creatinine previously in the 1.5 range, now admitted with acute renal failure, syncope/seizure episode with shortness of breath. He had known cardiac disease with an ejection fraction of 40%, but now it is a lot less than 20% with significant cardiac enlargement. Acute renal failure: I believe this is predominantly a reflection of big drop in the ejection fraction. So essentially this is acting more like a cardiorenal syndrome. On one hand, he is having syncopal episode, but then he also has severely enlarged cardiac chambers with an ejection fraction of 20% . For the time being, agree with holding diuretics, but this is a tricky situation and may not be amenable to significant treatment. It is quite obvious that he will not be a dialysis candidate if there is no meaningful recovery of his cardiac function. RECOMMENDATIONS: 1. Continue to hold diuretics, ADELA, ARB. 2 If felt needed consider starting one drug at a time 2. Cardiology consult regarding input from cardiac standpoint. 3. He is not a dialysis candidate and we may have to consider hospice at this stage, but I will defer this to cardiology, hospitalist and the patient. MERLIN
--- NOTE | 2020-07-16 13:05 | Cardiology Consultation ---
Date of Consultation July 16, 2020 Assessment & Plan (1) Syncope: This could have been an arrhythmic event. The patient has a history of heart failure and ischemic cardiomyopathy with poor LV function. His echocardiogram indicates a left ventricular ejection fraction of around 30 to 35%. He is a possible candidate for an ICD. I did discuss this option with him. Unfortunately, it will not improve his quality of life. He will consider this option but at this time he wants to go home. He states he has been in the hospital now for several days and he just wants to go home. (2) Ischemic cardiomyopathy: The patient needs to be on diuretics after discharge. Otherwise, he will be back in with heart failure. In addition to Lasix he was taking Zaroxolyn 3 days a week. I would recommend that after discharge he go back on his usual Lasix dose with the addition of Zaroxolyn twice weekly on Thursday and Fridays. We will follow him as an outpatient. (3) Acute kidney injury superimposed on CKD: The patient has chronic kidney disease. It may have been worsened by diuretic therapy. It is a balancing act. (4) CAD (coronary artery disease): The last heart catheterization indicated the patient had severe stony river vessel coronary artery disease. Also, 2 of his 3 bypass grafts were closed with the only 1 remaining open is the BECKER to the LAD. Medical management is indicated. (5) Mitral regurgitation: The patient has severe mitral regurgitation. He is not a candidate for valvular surgery. It is important to reduce afterload on this patient and he should either be on an ADELA/ARB. I restarted his losartan today. History of Present Illness Attending Physician: Noe Martell MD History of Present Illness This is an 85-year-old male patient with a history of coronary artery disease who underwent coronary artery bypass surgery at [facility] 2005. He has had a history of chronic angina for several years but also has severe GERD which is difficult to separate. In 2018 he underwent a pharmacologic nuclear stress test that was abnormal showing lateral wall ischemia he underwent a cardiac catheterization that revealed severe stony river vessel coronary artery disease and 3 of the 5 bypass grafts to be closed. The BECKER to the LAD was open. Medical management was recommended. The patient has had multiple hospital admissions starting at the end of 2019 and then in 2020 for heart failure. He has an ischemic cardiomyopathy with severe mitral regurgitation, diabetes and chronic kidney disease. The patient has been doing well and I actually saw him the day of/before admission at which time he was doing well. He stopped at a gas station/store and on his way out he suddenly developed shortness of breath for which she sat down. Witnesses indicated that he had passed out and may have had a seizure. He was attended to by paramedics and transferred to the hospital where he was readmitted. A nephrology consult was obtained and they felt he was dehydrated. The patient has been on a diuretic regimen including Zaroxolyn 3 times a week. This regimen has been successful for the patient. He is also been encouraged to weigh himself daily. His diuretics have been stopped. He has had an uneventful hospital admission. He has had no significant arrhythmias on telemetry since admission. An echocardiogram obtained this admission however, indicates a reduction in LV function from around 40 to 45% to 30 to 35%. It also showed his previous severe mitral regurgitation. I been asked to see him in regard to his syncopal event and change in his echocardiogram. Past medical history: 1. Chronic angina 2. Severe stony river vessel coronary artery disease and 3 of 5 bypass grafts closed by cardiac catheterization 07/06 3. Previous coronary artery bypass surgery [address] [place] [address] 4. Diabetes mellitus 5. History of prostatitis 6. Anemia 7. GERD 8. Statin intolerance 9. Ischemic cardiomyopathy with an estimated left ventricular ejection fraction of 40-45% 10. Severe mitral regurgitation Allergies Allergy/AdvReac Type Severity Reaction Status Date / Time atorvastatin AdvReac Unknown Unknown Verified 07/13/20 20:09 ezetimibe AdvReac Unknown Unknown Verified 07/13/20 20:09 lisinopril AdvReac Unknown Cough Verified 07/13/20 20:09 simvastatin AdvReac Unknown Unknown Verified 07/13/20 20:09 Home Medications Medication Instructions Recorded Confirmed Type aspirin 81 mg PO DAILY 06/21/18 07/13/20 History betamethasone, augmented 1 applic TOPICAL BID PRN 06/21/18 07/13/20 History clopidogrel [Plavix] 75 mg PO DAILY 06/21/18 07/13/20 History cyanocobalamin (vitamin B-12) 1,000 mcg PO DAILY 06/21/18 07/13/20 History famotidine 20 mg PO BID 06/21/18 07/13/20 History metformin 1,000 mg PO BID 06/21/18 07/13/20 History nitroglycerin 0.4 mg SUBLINGUAL DIRECTED PRN 06/21/18 07/13/20 History polysaccharide iron complex 150 mg PO DAILY 06/21/18 07/13/20 History Praluent Pen 75 mg SUBCUT .Q14 DAYS 03/12/20 07/13/20 History isosorbide mononitrate 60 mg PO BID 03/31/20 07/13/20 History furosemide 80 mg PO QAM #60 tab 04/19/20 07/13/20 Rx furosemide 60 mg PO QPM #60 tab 05/03/20 07/13/20 Rx losartan 25 mg PO QAM #30 tab 05/03/20 07/13/20 Rx metolazone 2.5 mg PO .Thursday/Thursday #10 tab 05/03/20 07/13/20 Rx metoprolol succinate 25 mg PO QAM #30 tab 05/03/20 07/13/20 Rx ammonium lactate 1 applic TOPICAL BID 07/13/20 07/13/20 History potassium chloride 40 meq PO 2XWK 07/13/20 07/13/20 History Patient History Medical History Anemia CAD (coronary artery disease) 2006 - CABG x 5 2019 - cath, 3 out of 5 bypass grafts occluded, medical management advised Chronic systolic CHF (congestive heart failure) Diabetes mellitus, type II Elevated troponin GERD (gastroesophageal reflux disease) HLD (hyperlipidemia) statin intolerant, on Praluent injections HTN (hypertension) Ischemic cardiomyopathy Mitral regurgitation Productive cough Prostatitis SOB (shortness of breath) Surgical History History of coronary artery bypass graft 2005- [place] Family History Other Coronary heart disease Diabetes Social History Smoking Status: Never smoker Second Hand Exposure: No; Do You Dip or Chew Tobacco: No; Tobacco Cessation Education Requested by Patient: No Hx Alcohol Use: No Hx Substance Use: No Preferred Language: [place] Communication Ability: Effective Asphalt Spreader Required: No Beliefs That Will Affect Care: None marital status: Current Living Situation: Spouse Current Living Situation Comment: at home with Other Information That Helps Us Care for You: No Feels Safe at Home: Yes Safety Concerns: Feels Safe At This Time Assistive Devices: Glasses Review of Systems Review of Systems: All systems reviewed & are unremarkable except as noted in HPI & below Nothing additional to add. Physical Exam Physical Exam: General: no acute distress and stated age Head: normocephalic, no masses, lesions, tenderness or abnormalities Eyes: conjunctiva are pink and non-injected, sclera clear Neck: supple, no adenopathy, no bruits, normal jugular venous pulse, no hepatojugular reflux Chest: normal shape and normal respiratory effort Lungs: clear to auscultation and percussion Cardiac Exam: - regular rate & rhythm, holosystolic murmur at the apex of the heart radiating to the axilla- normal S1, normal S2 Pulses: 2(+) throughout Abdomen: abdomen soft, non-tender, no abnormal masses and no hepatosplenomegaly Musculoskeletal: no gait disturbance, no joint inflammation, no deforming arthritis Extremities: no edema and no cyanosis Neuro: grossly normal exam Results & Data ([facility]) Vital Signs (Past 12 Hours) Vital Signs Temp Pulse Pulse Resp BP Pulse Ox 07/16/20 12:04 36.2 C L 82 18 113/73 97 07/16/20 07:59 36.4 C L 93 H 20 110/74 95 07/16/20 04:00 36.5 C 86 18 117/72 93 07/16/20 01:45 77 Laboratory Results Laboratory Results - last 24 hr 07/15/20 07/15/20 07/16/20 16:33 20:10 07:15 WBC 8.02 RBC 2.97 L Hgb 8.6 L Hct 26.0 L MCV 87.5 MCH 29.0 MCHC 33.1 RDW Std Deviation 55.5 H RDW Coeff of Myrtle 17.4 H Plt Count 271 MPV 9.8 Sodium Potassium Chloride Carbon Dioxide Anion Gap BUN Creatinine Est Cr Clr Drug Dosing Est GFR ( Amer) Est GFR (Non-Af Amer) BUN/Creatinine Ratio Glucose POC Glucose 131 H 141 H Calcium 07/16/20 07/16/20 07/16/20 07:15 07:35 11:17 WBC RBC Hgb Hct MCV MCH MCHC RDW Std Deviation RDW Coeff of Myrtle Plt Count MPV Sodium 135 L Potassium 4.0 Chloride 102 Carbon Dioxide 26 Anion Gap 8.0 BUN 70 H Creatinine 2.69 H Est Cr Clr Drug Dosing 18.4 Est GFR ( Amer) 23.8 Est GFR (Non-Af Amer) 20.5 BUN/Creatinine Ratio 26.0 H Glucose 123 H POC Glucose 127 H 131 H Calcium 10.1 Medications Administered Current Inpatient Medications Acetaminophen (Acetaminophen 325 Mg Tab) 650 mg PO Q4H PRN PRN Reason: Pain or Fever Stop: 08/12/20 22:40 Aspirin (Aspirin 81 Mg Ectab) 81 mg PO DAILY [facility] Stop: 08/13/20 08:59 Last Admin: 07/16/20 08:43 Dose: 81 mg Documented by: Clopidogrel Bisulfate (Clopidogrel Bisulfate 75 Mg Tab) 75 mg PO DAILY [facility] Stop: 08/13/20 08:59 Last Admin: 07/16/20 08:43 Dose: 75 mg Documented by: Dextrose (Dextrose 50% 50 Ml Syringe) 25 - 50 ml IV UD PRN; Protocol PRN Reason: Hypoglycemia Protocol Stop: 08/12/20 22:40 Famotidine (Famotidine 20 Mg Tab) 20 mg PO BID [facility] Stop: 08/12/20 22:40 Last Admin: 07/16/20 08:42 Dose: 20 mg Documented by: Glucagon (Glucagon For Inj 1 Mg Vial) 1 mg SQ UD PRN; Protocol PRN Reason: Hypoglycemia Protocol Stop: 08/12/20 22:40 Glucose (Glucose 10 Tabs/Tube) 4 - 8 tabs PO UD PRN; Protocol PRN Reason: Hypoglycemia Protocol Stop: 08/12/20 22:40 Glucose (Glucose 40% Gel 15 Gm Tube) 15 - 30 gm PO UD PRN; Protocol PRN Reason: Hypoglycemia Protocol Stop: 08/12/20 22:40 Heparin Sodium (Porcine) (Heparin Sod 5,000 Unit/0.5 Ml Vial) 5,000 units SQ Q8 [facility] Stop: 08/13/20 07:59 Last Admin: 07/16/20 14:37 Dose: 5,000 units Documented by: Lorazepam (Ativan) 1 mg in 2 mls @ 0.5 mls/min IV Q10M PRN PRN Reason: seizures Stop: 08/12/20 19:39 Insulin Aspart (Insulin Aspart 100 Units/Ml 3 Ml Pen) 0 units SC ACHS [facility] Stop: 08/12/20 22:40 Last Admin: 07/16/20 12:41 Dose: Not Given Documented by: Isosorbide Mononitrate (Isosorbide [place] Extended Rel 60 Mg Tabcr) 60 mg PO BID [facility] Stop: 08/12/20 22:40 Last Admin: 07/16/20 08:42 Dose: 60 mg Documented by: Lidocaine (Lidocaine 5% 1 Patch) 1 patch TD HS [facility] Stop: 08/12/20 22:19 Last Admin: 07/15/20 21:13 Dose: 1 patch Documented by: Losartan Potassium (Losartan Potassium 25 Mg Tab) 25 mg PO QAM [facility] Stop: 08/15/20 13:29 Last Admin: 07/16/20 14:36 Dose: 25 mg Documented by: Metoprolol Succinate (Metoprolol Succ 25mg Ext Rel Tab) 25 mg PO QAM [facility] Stop: 08/13/20 08:59 Last Admin: 07/16/20 08:42 Dose: 25 mg Documented by: Miscellaneous (Remove Lidoderm Patch) [facility] ea [facility] [place] Stop: 08/13/20 08:59 Last Admin: 07/16/20 08:43 Dose: 1 ea Documented by: Miscellaneous (Carbohydrates For Hypoglycemia ) 15 - 30 gm PO UD PRN PRN Reason: Hypoglycemia Protocol Stop: 08/12/20 22:40 Oxycodone HCl (Oxycodone Hcl Ir 5 Mg Tab (Immediate Release)) 5 - 10 mg PO QID PRN PRN Reason: Pain Stop: 07/27/20 22:40 Polysaccharide Iron Complex (Iron Polysaccharide Complex 150 Mg Capsule) 150 mg PO DAILY [facility] Stop: 08/13/20 08:59 Last Admin: 07/16/20 08:42 Dose: 150 mg Documented by:
[2020-07-16] MEDS ORDERED: LOSARTAN POTASSIUM 25 MG TAB PO SCH (13:30)
--- NOTE | 2020-07-16 14:06 | Hospitalist Progress Note ---
Date of Service July 16, 2020 Assessment & Plan (1) Seizure-like activity: Syncope Possible Seizure Hypovolemia due to overdiuresis likely contributory -MRI Brain:No acute intracranial abnormality. Scattered foci of T2 hyperintensity seen within the periventricular and subcortical white matter are nonspecific but favor microvascular ischemic change. 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 -Carotid USD:Approximately 50-69% stenosis within the proximal right internal carotid artery. Moderate stenosis within the right external carotid artery. No significant stenosis within the left carotid arteries. -Negative Orthostatics -ECHO: Left ventricle is severely dilated. Right ventricle is moderate to severely dilated. EF 25 to 30%. Severe inferior wall hypokinesis. Severe septal hypokinesis. Severe lateral wall hypokinesis. Right ventricle systolic function is moderately severely reduced. Left atrium is severely dilated. Right atrium is severely dilated. Severe mitral regurgitation, tricuspid regurgitation. -Fall precautions -Appreciate Neurology Input -Needs repeat carotid ultrasound in 6 months -EEG: Mildly diffusely abnormal EEG without evidence for clear-cut focal encephalopathy or for potential epileptogenic patterns -Needs follow up with cardiology upon discharge PURVI on CKD III Likely cardiorenal syndrome-POA Lactic acidosis likely secondary to renal failure Baseline creatinine 1.5 Renal USD:Normal renal ultrasound. Cr:3.2>3.0>2.8>2.6 Hold home diuretics, losartan as per Nephrology Monitor renal function Avoid nephrotoxic agents as able Received gentle IV fluids Appreciate nephrology input Needs follow up with Nephrology upon discharge Anemia of chronic disease Denies any acute bleeding issues Symptomatic anemia Iron panel, vitamin B12, folate levels within normal limits Monitor hemoglobin Currently patient not interested in PRBC transfusion Traumatic right rib fracture CXR:Subtle acute nondisplaced fracture of the anterolateral right sixth rib. Denies any significant pain Continue incentive spirometry Chronic bilateral pleural effusion H/O Ischemic cardiomyopathy Pleural effusion: No significant change from prior imaging ECHO as above Resume home diuretics as able H/O CAD S/P CABG Continue aspirin, metoprolol, Imdur H/O statin intolerance DM II HbA1C:5.7 Hold p.o. meds Continue insulin therapy while hospitalized Chronic hyponatremia Likely secondary to diuretics Monitor sodium levels Resolved DVT Px: Heparin SQ CODE STATUS Full code Disposition Home with Home Health Admission and Anticipated Discharge Date Admission Date: July 13, 2020 Subjective Patient is seen and examined at bedside No new complaints Discussed with Cardiology and Nephrology today EEG showed no epileptogenic features Patient prefers to ge discharged home Denies chest pain, dyspnea at rest, dizziness, nausea, abdominal pain Review of Systems Review of Systems: All systems reviewed & are unremarkable except as noted in HPI & below Physical Exam Physical Exam: Physical Exam: Vitals signs as noted above General Appearance:Moderately built and nourished, no apparent distress Head: normocephalic, Atraumatic Eyes: normal inspection, EOMI Neck: supple, Trachea midline Respiratory/Chest: Normal breath sounds, Minimal basal crackles Cardiovascular: S1, S2, + murmur Abdomen/GI:Soft, Non tender, Bowel sounds present Extremities/Musculoskelatal:normal inspection, no edema Neurologic/Psych:AAOX3, grossly no focal neurological deficits Skin: normal color, warm Results & Data Results & Data ([facility]) Vital Signs (Past 12 Hours) Vital Signs Temp Pulse Resp BP Pulse Ox 07/16/20 12:04 36.2 C L 82 18 113/73 97 07/16/20 07:59 36.4 C L 93 H 20 110/74 95 07/16/20 04:00 36.5 C 86 18 117/72 93 Laboratory Results Short CBC 07/16/20 Range/Units 07:15 WBC 8.02 (4.8-10.8) K/uL Hgb 8.6 L (14.0-18.0) g/dL Hct 26.0 L (42-52) % Plt Count 271 (130-400) K/uL BMP 07/16/20 07:15 Sodium 135 L Potassium 4.0 Chloride 102 Carbon Dioxide 26 BUN 70 H Creatinine 2.69 H Glucose 123 H Calcium 10.1
--- NOTE | 2020-07-16 16:07 | Discharge Summary ---
Date of Service July 16, 2020 Admission HPI Per Admitting Provider Pt is 85 y/o M with PMH CAD s/p bypass with 3 out of 5 grafts closed on cath in 2019, NSTEMI 2020, systolic heart failure, EF: 40-45%, HTN, HLD, CKD III (baseline Cr ~1.5), DM II, chronic anemia (baseline Hgb~8), chronic hypoxic respiratory failure on 2L O2 HS presented to ER after fall and possible seizure per witnesses. History obtained from pt, ER staff and outpatient records. Pt states was at gas station and walked approximately 50 feet and he was SOB and felt lightheaded and attempted to sit down. Pt states he thinks he remembers sitting down and next thing he knew bystanders were around him and EMS. It is reported he had shaking and seizure like activity. EMS reported pt with noted incontinence. Pt reports chronic SOB with ambulation. Has chronic intermittent CP in which he takes SL nitro approx 5 days a week. Denies CP with walking prior to incident today. Pt denies h/o seizure disorder. Denies any increased lower extremity edema. Reports is on fluid restriction of 4 cups fluid daily and has been following this. Denies SWIFT. Pt states took AM meds. Denies fever/chills, diaphoresis, N/V/D, vision changes, neck pain, palpitations, increased cough, sore throat, choking, otalgia, rhinorrhea, abdominal pain, paresthesias, weakness, rashes, urinary symptoms. In ER pt with temp: 35.6C Rectally. When was placed supine O2 sats down to 67%, pt placed on 4L O2 and sat upright with sats up to 100%, P: 80, R: 18, BP: 114/70. Was found to have BUN: 107, Cr: 3.57, Lactate: 4.4, normal procalcitonin, normal WBC, Troponin: 0.032 (chronically elevated ~0.06). Was given IVF in ER. Being admitted for further evaluation and treatment. Admission Exam Per Admitting Provider Physical Exam Physical Exam: General: no distress, WDWN Head: normocephalic, atraumatic Eyes: PERRL, EOM's intact, conjunctiva non-injected, anicteric ENT: normal inspection external ears, nose, mucous membranes moist; no tongue laceration Neck: supple, trachea midline, non-tender Lungs: clear, no respiratory distress, no wheezing/rhonchi/rales CV: RRR, systolic murmur, no significant pretibial edema Abd: normal BS, soft, non-tender Ext: no cyanosis, no calf tenderness Neuro: A&O x 3, no focal deficits noted, normal affect Skin: warm, dry Principal Diagnosis Syncope Acute Kidney Injury Traumatic right rib fracture Discharge Data Allergies Allergy/AdvReac Type Severity Reaction Status Date / Time atorvastatin AdvReac Unknown Unknown Verified 07/13/20 20:09 ezetimibe AdvReac Unknown Unknown Verified 07/13/20 20:09 lisinopril AdvReac Unknown Cough Verified 07/13/20 20:09 simvastatin AdvReac Unknown Unknown Verified 07/13/20 20:09 Consultations 07/13/20 19:21 ED Decision to Admit Stat 07/13/20 22:41 Consult Neurology Routine 07/14/20 09:11 Consult Nephrology Routine 07/16/20 10:51 Consult Cardiology Routine Procedures Performed -MRI Brain:No acute intracranial abnormality. Scattered foci of T2 hyperintensity seen within the periventricular and subcortical white matter are nonspecific but favor microvascular ischemic change. 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 -Carotid USD:Approximately 50-69% stenosis within the proximal right internal carotid artery. Moderate stenosis within the right external carotid artery. No significant stenosis within the left carotid arteries. -ECHO: Left ventricle is severely dilated. Right ventricle is moderate to severely dilated. EF 25 to 30%. Severe inferior wall hypokinesis. Severe sept al hypokinesis. Severe lateral wall hypokinesis. Right ventricle systolic function is moderately severely reduced. Left atrium is severely dilated. Right atrium is severely dilated. Severe mitral regurgitation, tricuspid regurgitation. Ordered Studies 07/13/20 17:50 CT head/brain wo con Stat 07/13/20 22:16 CT chest diagnostic wo con Urgent 07/14/20 08:00 MR brain seizure wo con Routine 07/14/20 10:18 US renal/blad retro comp Routine 07/14/20 11:55 US carotid doppler BI Routine Hospital Course (1) Seizure-like activity: Syncope Possible Seizure Hypovolemia due to overdiuresis likely contributory -MRI Brain:No acute intracranial abnormality. Scattered foci of T2 hyperintensity seen within the periventricular and subcortical white matter are nonspecific but favor microvascular ischemic change. 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 -Carotid USD:Approximately 50-69% stenosis within the proximal right internal carotid artery. Moderate stenosis within the right external carotid artery. No significant stenosis within the left carotid arteries. -Negative Orthostatics -ECHO: Left ventricle is severely dilated. Right ventricle is moderate to severely dilated. EF 25 to 30%. Severe inferior wall hypokinesis. Severe septal hypokinesis. Severe lateral wall hypokinesis. Right ventricle systolic function is moderately severely reduced. Left atrium is severely dilated. Right atrium is severely dilated. Severe mitral regurgitation, tricuspid regurgitation. -Fall precautions -Appreciate Neurology Input -Needs repeat carotid ultrasound in 6 months -EEG: Mildly diffusely abnormal EEG without evidence for clear-cut focal encephalopathy or for potential epileptogenic patterns -Needs follow up with cardiology upon discharge PURVI on CKD III Likely cardiorenal syndrome-POA Lactic acidosis likely secondary to renal failure Baseline creatinine 1.5 Renal USD:Normal renal ultrasound. Cr:3.2>3.0>2.8>2.6 Hold home diuretics, losartan as per Nephrology Monitor renal function Avoid nephrotoxic agents as able Received gentle IV fluids Appreciate nephrology input Needs follow up with Nephrology upon discharge Anemia of chronic disease Denies any acute bleeding issues Symptomatic anemia Iron panel, vitamin B12, folate levels within normal limits Monitor hemoglobin Currently patient not interested in PRBC transfusion Traumatic right rib fracture CXR:Subtle acute nondisplaced fracture of the anterolateral right sixth rib. Denies any significant pain Continue incentive spirometry Chronic bilateral pleural effusion H/O Ischemic cardiomyopathy Pleural effusion: No significant change from prior imaging ECHO as above Resume home diuretics as able H/O CAD S/P CABG Continue aspirin, metoprolol, Imdur H/O statin intolerance DM II HbA1C:5.7 Hold p.o. meds Continue insulin therapy while hospitalized Chronic hyponatremia Likely secondary to diuretics Monitor sodium levels Resolved DVT Px: Heparin SQ CODE STATUS Full code Disposition Home with Home Health Total Time Total Time Spent Total Time Spent (In Minutes): 45 minutes Total Time Includes: Examination of the Patient, Discharge Planning, Medication Reconciliation, Communication With Other Providers and Other Discharge Plan Discharge Items Patient Disposition: Home - Home Health Services Reason For Visit: ARF Discharge Diagnosis: Syncope Acute Kidney Injury Traumatic right rib fracture Activity: Per Instructions section Exercise/Sports: Wait until after follow-up appointment Non-emergency contact: Primary Care Provider, Engineering Associate and Laboratory Immunologist Call non-emergency contact if: you have any medication questions, your symptoms worsen, your pain is not controlled, your pain is worsening, your pain is concerning for you and you have a fever Follow-up/Referrals: Violeta Sy MD, PhD [Physician] - (Date & Time 08/02/2020 3:30 PM Provider Violeta Sy MD Department Nephrology, [facility] ) Justino Avery MD [Primary Care Provider] - 07/20/20 10:00 am ([address] [address] ) Diet: Carb Consistent or DM2 Ambulatory Orders: Basic Metabolic Panel (Routine) Timeframe: 1 Week Location: Determined by Patient Ordered By: Noe Monzon Attending Provider Instructions: Follow-up with your primary care physician in 1 week upon discharge Follow up with your Engineering Associate in 1 week as recommended Your Engineering Associate recommends to resume your Losartan, Lasix and Metolazone. Your kidney function may worsen while on diuretics. Get Blood test (Basic Metabolic Panel) in 1 week and follow up with your Engineering Associate. Further medication adjustment of your medications as per your Engineering Associate Take Metolazone only one Thursday and Thursday only as per your Engineering Associate. Seek immediate medical attention if your symptoms reoccur or worsen Call your Primary Care doctor if any of the following symptoms or problems start or get worse: * Shortness of breath or difficulty breathing * Wake up at night short of breath * Chest pain * Cough * Swelling of your hands, feet, or legs * More fatigued or tired with your normal activity * Palpitations - sudden fast heart beats WEIGHT * Weigh yourself every morning after using the bathroom. * Use the same scale. * Wear the same amount of clothing. * Write your weight down on a chart. * Call your Primary Care doctor if you gain more than 2-3 pounds in 1-2 days. MEDICATIONS * Use this discharge instruction sheet for medication instructions. * Take your medications at the time your doctor ordered. * Do not skip a dose of your medicines. * If you miss a dose of medicine, take it as soon as possible, but DO NOT DOUBLE A DOSE. * Read your medicine information when you get home. * Know all of the side effects of your medicine. If in doubt, ask your pharmacist * Call your Primary Care doctor's office if you have any side effects. * Be sure all of your doctors know what medicine and herbs you take (including cold, flu, and herbal medicine). Take the following with you to your follow-up doctor appointments: * Weight Chart * Medication List * List of questions Do not drink excessive alcohol, beer or wine. Pending Studies at Discharge: No Stand-Alone Forms: My [facility], Smoking Cessation Medications and DC Order Prescriptions: Continued polysaccharide iron complex 150 mg iron Capsule 150 mg PO DAILY RF: 0 cyanocobalamin (vitamin B-12) 1,000 mcg Tablet 1,000 mcg PO DAILY RF: 0 clopidogrel [Plavix] 75 mg Tablet 75 mg PO DAILY RF: 0 aspirin 81 mg Tablet,Delayed Release (Dr/Ec) 81 mg PO DAILY RF: 0 famotidine 20 mg Tablet 20 mg PO BID RF: 0 metformin 1,000 mg Tablet 1,000 mg PO BID RF: 0 nitroglycerin 0.4 mg Tablet, Sublingual 0.4 mg Sublingual DIRECTED PRN (Reason: Chest Pain) RF: 0 betamethasone, augmented 0.05 % ointment 1 applic topical BID PRN (Reason: Itchy Active Rash) RF: 0 losartan 25 mg Tablet 25 mg PO QAM Qty: 30 RF: 0 metoprolol succinate 25 mg Tablet Extended Release 24 Hr 25 mg PO QAM Qty: 30 RF: 0 metolazone 2.5 mg tablet 2.5 mg PO .Thursday/Thursday Qty: 10 RF: 1 furosemide 40 mg tablet 60 mg PO QPM Qty: 60 RF: 0 Praluent Pen 75 mg/mL pen injector 75 mg SUBCUT .Q14 DAYS RF: 0 isosorbide mononitrate 60 mg tablet extended release 24 hr 60 mg PO BID RF: 0 furosemide 40 mg tablet 80 mg PO QAM Qty: 60 RF: 0 ammonium lactate 12 % Cream 1 applic TOPICAL BID RF: 0 potassium chloride 10 mEq tablet,ER particles/crystals 40 meq PO 2XWK RF: 0 Discharge Orders: Discharge Order (Routine); Ordered 07/16/20 Ordered By: Noe Martell Admission Data Admit Date/Time: 07/13/20 20:57 Attending Provider: Noe Martell Admit Provider: Ciaran Mcelroy Primary Care Provider: Justino Avery Other Providers: Ciaran Mcelroy ; Fanny Chowdary ; Patric Araujo ; Fanny Burks ; Alo Multani ; Tami Aguilar ; Shakeel Cleveland ; Hector Delaney ; Yariel Agustin ; Prieto Robertson ; Darion Patel ; Thomas Hill ; Vickie Brice ; Fanny Leal ; Jeffery Morgan Other Interventions: Discharge Summary Assessment (RN) Last Done: 07/16/20 16:22
== END 2020-07-16 17:15 | disposition home or self-care (01) | DRG 100 ==
LOC: ED 17:13 → 2W 20:57